=== PATIENT | male | born 1940 | race Caucasian/White ===

== ENCOUNTER → 2017-02-07 | Outpatient (CLI) | payer MEDICARE ==
[2017-02-07 15:14] LABS: ANION GAP 10 (5-19); BLOOD UREA NITROGEN 34 mg/dL (7-20); CALCIUM 9.6 mg/dL (8.4-10.2); CARBON DIOXIDE 31 mmol/L (22-30); CHLORIDE 103 mmol/L (98-107); CREATININE RESULT 1.86 mg/dL (0.52-1.25); GLUCOSE 109 mg/dL (75-110); POTASSIUM 5.2 mmol/L (3.6-5.0); SODIUM 144.2 mmol/L (137-145)
== END ==
LOC: OD 14:11
PROVIDERS: ATTEND Internal Medicine Cardiovascular Disease
DX: N18.3 Chronic kidney disease, stage 3 (moderate) (principal); Z79.899 Other long term (current) drug therapy
CPT/HCPCS: 36415; 80048; 83735

== ENCOUNTER → 2017-05-20 | Outpatient (CLI) | payer MEDICARE ==
[2017-05-20 12:08] LABS: ANION GAP 10 (5-19); BLOOD UREA NITROGEN 32 mg/dL (7-20); CALCIUM 8.7 mg/dL (8.4-10.2); CARBON DIOXIDE 27 mmol/L (22-30); CHLORIDE 105 mmol/L (98-107); CREATININE RESULT 1.79 mg/dL (0.52-1.25); GLUCOSE 82 mg/dL (75-110); POTASSIUM 4.6 mmol/L (3.6-5.0); SODIUM 141.5 mmol/L (137-145)
== END ==
LOC: OD 10:47
PROVIDERS: ATTEND Internal Medicine Cardiovascular Disease
DX: Z79.899 Other long term (current) drug therapy (principal)
CPT/HCPCS: 36415; 80048

== ENCOUNTER → 2018-02-06 | Outpatient (CLI) | payer MEDICARE ==
[2018-02-06 14:44] LABS: ALANINE AMINOTRANSFERASE 23 U/L (21-72); ALBUMIN 3.9 g/dL (3.5-5.0); ALKALINE PHOSPHATASE 62 U/L (38-126); ASPARTATE AMINO TRANSFERASE 19 U/L (17-59); BILIRUBIN,DIRECT 0.4 mg/dL (0.0-0.4); BILIRUBIN,TOTAL 0.7 mg/dL (0.2-1.3); CHOLESTEROL 182.85 mg/dL (0-200); CREATINE KINASE 88 U/L (55-170); TOTAL PROTEIN 6.3 g/dL (6.3-8.2); TRIGLYCERIDES 224 mg/dL (<150)
[2018-02-06 14:55] LABS: DIRECT LDL 100 mg/dL (<100)
[2018-02-06 14:59] LABS: VLDL CHOLESTEROL 44.8 mg/dL (10-31)
== END ==
LOC: OD 13:47
PROVIDERS: ATTEND Internal Medicine Cardiovascular Disease
DX: E78.2 Mixed hyperlipidemia (principal); R25.2 Cramp and spasm; Z79.899 Other long term (current) drug therapy
CPT/HCPCS: 36415; 80061; 80076; 82550

== ENCOUNTER → 2018-05-10 | Outpatient (CLI) | payer MEDICARE ==
[2018-05-10 10:09] LABS: CHOLESTEROL 109.07 mg/dL (0-200); TRIGLYCERIDES 98 mg/dL (<150)
[2018-05-10 10:20] LABS: DIRECT LDL 47 mg/dL (<100)
== END ==
LOC: OD 08:46
PROVIDERS: ATTEND Internal Medicine Cardiovascular Disease
DX: E78.2 Mixed hyperlipidemia (principal)
CPT/HCPCS: 36415; 80061

== ENCOUNTER → 2018-06-11 | Outpatient (CLI) | payer MEDICARE ==
[2018-06-11 14:24] LABS: HEMATOCRIT 37.1 % (37.9-51.0); HEMOGLOBIN 12.6 g/dL (13.5-17.0); MEAN CORPUSCULAR HEMOGLOBIN 31.3 pg (27.0-33.4); MEAN CORPUSCULAR VOLUME 92 fl (80-97); PLATELET COUNT 180 10^3/uL (150-450); RED BLOOD COUNT 4.04 10^6/uL (4.35-5.55); RED CELL DISTRIBUTION WIDTH 13.3 % (11.5-14.0); WHITE BLOOD COUNT 7.5 10^3/uL (4.0-10.5)
[2018-06-11 14:51] LABS: ALANINE AMINOTRANSFERASE 20 U/L (21-72); ALBUMIN 3.8 g/dL (3.5-5.0); ALKALINE PHOSPHATASE 68 U/L (38-126); ANION GAP 10 (5-19); ASPARTATE AMINO TRANSFERASE 15 U/L (17-59); BILIRUBIN,DIRECT 0.3 mg/dL (0.0-0.4); BILIRUBIN,TOTAL 0.6 mg/dL (0.2-1.3); BLOOD UREA NITROGEN 43 mg/dL (7-20); CALCIUM 9.2 mg/dL (8.4-10.2); CARBON DIOXIDE 29 mmol/L (22-30); CHLORIDE 104 mmol/L (98-107); CHOLESTEROL 122.17 mg/dL (0-200); GLUCOSE 97 mg/dL (75-110); POTASSIUM 4.7 mmol/L (3.6-5.0); SODIUM 142.8 mmol/L (137-145); TOTAL PROTEIN 6.4 g/dL (6.3-8.2); TRIGLYCERIDES 162 mg/dL (<150)
[2018-06-11 15:05] LABS: DIRECT LDL 52 mg/dL (<100)
[2018-06-11 15:27] LABS: VLDL CHOLESTEROL 32.4 mg/dL (10-31)
== END ==
LOC: OD 12:50
PROVIDERS: ATTEND Physician Assistant
DX: E03.9 Hypothyroidism, unspecified (principal); E29.1 Testicular hypofunction; E78.2 Mixed hyperlipidemia; G47.33 Obstructive sleep apnea (adult) (pediatric); E11.22 Type 2 diabetes mellitus with diabetic chronic kidney disease; R35.1 Nocturia
CPT/HCPCS: 36415; 80053; 80061; 83036; 84153; 84443; 85027

== ENCOUNTER → 2018-06-21 | Outpatient (CLI) | payer MEDICARE ==
[2018-06-21 09:42] LABS: ABSOLUTE EOSINOPHILS # (AUTO) 0.3 10^3/uL (0.0-0.6); ABSOLUTE LYMPHOCYTES (AUTO) 1.3 10^3/uL (0.5-4.7); ABSOLUTE MONOCYTES (AUTO) 0.5 10^3/uL (0.1-1.4); ABSOLUTE NEUT (AUTO) 4.6 10^3/uL (1.7-8.2); BASOPHILS % (AUTO) 0.7 % (0-2); EOSINOPHILS % (AUTO) 4.9 % (0-6); HEMATOCRIT 34.4 % (37.9-51.0); HEMOGLOBIN 11.8 g/dL (13.5-17.0); LYMPHOCYTES % (AUTO) 18.7 % (13-45); MEAN CORPUSCULAR HEMOGLOBIN 31.6 pg (27.0-33.4); MEAN CORPUSCULAR HGB CONC 34.4 g/dL (32.0-36.0); MEAN CORPUSCULAR VOLUME 92 fl (80-97); MONOCYTES % (AUTO) 7.2 % (3-13); PLATELET COUNT 165 10^3/uL (150-450); RED BLOOD COUNT 3.75 10^6/uL (4.35-5.55); RED CELL DISTRIBUTION WIDTH 13.6 % (11.5-14.0); SEGMENTED NEUTROPHILS % (AUTO) 68.5 % (42-78); TOTAL CELLS COUNTED % (AUTO) 100 %; WHITE BLOOD COUNT 6.8 10^3/uL (4.0-10.5)
[2018-06-21 09:45] LABS: UR PRO/CREAT RATIO RESULT 1.1 mg/mg (0.0-0.2); URINE PROTEIN 36.3 mg/dL (<12)
[2018-06-21 10:02] LABS: ALBUMIN 3.7 g/dL (3.5-5.0); ANION GAP 10 (5-19); BLOOD UREA NITROGEN 46 mg/dL (7-20); CALCIUM 8.7 mg/dL (8.4-10.2); CARBON DIOXIDE 29 mmol/L (22-30); CHLORIDE 103 mmol/L (98-107); GLUCOSE 81 mg/dL (75-110); PHOSPHORUS 4.4 mg/dL (2.5-4.5); POTASSIUM 4.6 mmol/L (3.6-5.0); SODIUM 141.9 mmol/L (137-145)
== END ==
LOC: OD 08:51
PROVIDERS: ATTEND Internal Medicine Nephrology
DX: I12.9 Hypertensive chronic kidney disease with stage 1 through stage 4 chronic kidney disease, or unspecified chronic kidney disease (principal); N18.4 Chronic kidney disease, stage 4 (severe); N25.81 Secondary hyperparathyroidism of renal origin; R80.1 Persistent proteinuria, unspecified; E11.29 Type 2 diabetes mellitus with other diabetic kidney complication
CPT/HCPCS: 36415; 80048; 82040; 82306; 82570; 83970; 84100; 84156; 85025

== ENCOUNTER → 2018-09-15 | Outpatient (CLI) | payer MEDICARE ==
[2018-09-15 16:40] LABS: ALANINE AMINOTRANSFERASE 29 U/L (21-72); ALBUMIN 3.5 g/dL (3.5-5.0); ALKALINE PHOSPHATASE 71 U/L (38-126); ANION GAP 11 (5-19); ASPARTATE AMINO TRANSFERASE 28 U/L (17-59); BILIRUBIN,DIRECT 0.3 mg/dL (0.0-0.4); BLOOD UREA NITROGEN 54 mg/dL (7-20); CALCIUM 8.7 mg/dL (8.4-10.2); CARBON DIOXIDE 29 mmol/L (22-30); CHLORIDE 101 mmol/L (98-107); CHOLESTEROL 115.45 mg/dL (0-200); GLUCOSE 93 mg/dL (75-110); POTASSIUM 4.7 mmol/L (3.6-5.0); SODIUM 140.9 mmol/L (137-145); TOTAL PROTEIN 5.7 g/dL (6.3-8.2); TRIGLYCERIDES 112 mg/dL (<150)
[2018-09-15 16:51] LABS: DIRECT LDL 56 mg/dL (<100)
[2018-09-17 10:38] LABS: CREATININE URINE 65.3 mg/dL (Not Estab.)
== END ==
LOC: OD 14:55
PROVIDERS: ATTEND Internal Medicine Cardiovascular Disease
DX: I12.9 Hypertensive chronic kidney disease with stage 1 through stage 4 chronic kidney disease, or unspecified chronic kidney disease (principal); N18.3 Chronic kidney disease, stage 3 (moderate); E11.22 Type 2 diabetes mellitus with diabetic chronic kidney disease; E78.2 Mixed hyperlipidemia; R60.0 Localized edema; R06.02 Shortness of breath; Z79.899 Other long term (current) drug therapy
CPT/HCPCS: 36415; 80048; 80061; 80076; 82043; 82570; 83036; 83880

== ENCOUNTER → 2018-10-23 | Outpatient (CLI) | payer MEDICARE ==
[2018-10-23 13:30] LABS: ANION GAP 10 (5-19); BLOOD UREA NITROGEN 52 mg/dL (7-20); CALCIUM 8.8 mg/dL (8.4-10.2); CARBON DIOXIDE 30 mmol/L (22-30); CHLORIDE 101 mmol/L (98-107); GLUCOSE 96 mg/dL (75-110); POTASSIUM 4.5 mmol/L (3.6-5.0); SODIUM 140.9 mmol/L (137-145)
== END ==
LOC: OD 12:27
PROVIDERS: ATTEND Internal Medicine Nephrology
DX: N18.3 Chronic kidney disease, stage 3 (moderate) (principal); E11.9 Type 2 diabetes mellitus without complications; D64.9 Anemia, unspecified
CPT/HCPCS: 36415; 80048

== ENCOUNTER → 2018-12-03 | Outpatient (CLI) | payer MEDICARE ==
[2018-12-04 13:39] LABS: CREATININE URINE 70.9 mg/dL (Not Estab.); MICROALBUMIN URINE 238.8 ug/mL (Not Estab.)
== END ==
LOC: OD 11:08
PROVIDERS: ATTEND Internal Medicine Cardiovascular Disease
DX: I12.9 Hypertensive chronic kidney disease with stage 1 through stage 4 chronic kidney disease, or unspecified chronic kidney disease (principal); N18.3 Chronic kidney disease, stage 3 (moderate); R60.0 Localized edema; R06.02 Shortness of breath
CPT/HCPCS: 36415; 82043; 82570; 83880

== ENCOUNTER → 2019-01-30 | Outpatient (CLI) | payer MEDICARE ==
[2019-01-30 13:36] LABS: ABSOLUTE EOSINOPHILS # (AUTO) 0.3 10^3/uL (0.0-0.6); ABSOLUTE LYMPHOCYTES (AUTO) 1.1 10^3/uL (0.5-4.7); ABSOLUTE MONOCYTES (AUTO) 0.4 10^3/uL (0.1-1.4); ABSOLUTE NEUT (AUTO) 4.4 10^3/uL (1.7-8.2); BASOPHILS % (AUTO) 0.6 % (0-2); EOSINOPHILS % (AUTO) 5.3 % (0-6); HEMATOCRIT 30.4 % (37.9-51.0); HEMOGLOBIN 10.6 g/dL (13.5-17.0); LYMPHOCYTES % (AUTO) 17.5 % (13-45); MEAN CORPUSCULAR HEMOGLOBIN 31.1 pg (27.0-33.4); MEAN CORPUSCULAR HGB CONC 34.9 g/dL (32.0-36.0); MEAN CORPUSCULAR VOLUME 89 fl (80-97); MONOCYTES % (AUTO) 5.9 % (3-13); PLATELET COUNT 170 10^3/uL (150-450); RED BLOOD COUNT 3.41 10^6/uL (4.35-5.55); RED CELL DISTRIBUTION WIDTH 15.3 % (11.5-14.0); SEGMENTED NEUTROPHILS % (AUTO) 70.7 % (42-78); TOTAL CELLS COUNTED % (AUTO) 100 %; WHITE BLOOD COUNT 6.2 10^3/uL (4.0-10.5)
[2019-01-30 13:51] LABS: ANION GAP 10 (5-19); BLOOD UREA NITROGEN 69 mg/dL (7-20); CALCIUM 9.5 mg/dL (8.4-10.2); CARBON DIOXIDE 30 mmol/L (22-30); CHLORIDE 98 mmol/L (98-107); GLUCOSE 170 mg/dL (75-110); POTASSIUM 4.7 mmol/L (3.6-5.0); SODIUM 138.3 mmol/L (137-145)
[2019-01-30 13:59] LABS: UR PRO/CREAT RATIO RESULT 0.5 mg/mg (0.0-0.2); URINE CREATININE 53.9 mg/dL (22-328); URINE PROTEIN 27.9 mg/dL (<12)
== END ==
LOC: OD 13:06
PROVIDERS: ATTEND Internal Medicine Nephrology
DX: N18.3 Chronic kidney disease, stage 3 (moderate) (principal); D64.9 Anemia, unspecified; R80.9 Proteinuria, unspecified
CPT/HCPCS: 36415; 80048; 82570; 83970; 84156; 85025

== ENCOUNTER → 2019-03-05 | Outpatient (CLI) | payer MEDICARE ==
[2019-03-05 12:54] LABS: ABSOLUTE BASOPHILS # (AUTO) 0.1 10^3/uL (0.0-0.2); ABSOLUTE EOSINOPHILS # (AUTO) 0.2 10^3/uL (0.0-0.6); ABSOLUTE LYMPHOCYTES (AUTO) 1.2 10^3/uL (0.5-4.7); ABSOLUTE MONOCYTES (AUTO) 0.4 10^3/uL (0.1-1.4); ABSOLUTE NEUT (AUTO) 4.6 10^3/uL (1.7-8.2); BASOPHILS % (AUTO) 0.9 % (0-2); EOSINOPHILS % (AUTO) 3.3 % (0-6); HEMOGLOBIN 11.3 g/dL (13.5-17.0); LYMPHOCYTES % (AUTO) 18.6 % (13-45); MEAN CORPUSCULAR HEMOGLOBIN 31.3 pg (27.0-33.4); MEAN CORPUSCULAR HGB CONC 35.3 g/dL (32.0-36.0); MEAN CORPUSCULAR VOLUME 89 fl (80-97); MONOCYTES % (AUTO) 6.6 % (3-13); PLATELET COUNT 191 10^3/uL (150-450); RED BLOOD COUNT 3.61 10^6/uL (4.35-5.55); RED CELL DISTRIBUTION WIDTH 14.5 % (11.5-14.0); SEGMENTED NEUTROPHILS % (AUTO) 70.6 % (42-78); TOTAL CELLS COUNTED % (AUTO) 100 %; WHITE BLOOD COUNT 6.5 10^3/uL (4.0-10.5)
[2019-03-05 13:16] LABS: ANION GAP 9 (5-19); BLOOD UREA NITROGEN 44 mg/dL (7-20); CALCIUM 9.2 mg/dL (8.4-10.2); CARBON DIOXIDE 29 mmol/L (22-30); CHLORIDE 102 mmol/L (98-107); GLUCOSE 153 mg/dL (75-110); POTASSIUM 4.3 mmol/L (3.6-5.0); SODIUM 139.9 mmol/L (137-145)
== END ==
LOC: OD 11:51
PROVIDERS: ATTEND Internal Medicine Nephrology
DX: I12.9 Hypertensive chronic kidney disease with stage 1 through stage 4 chronic kidney disease, or unspecified chronic kidney disease (principal); N18.4 Chronic kidney disease, stage 4 (severe); E11.22 Type 2 diabetes mellitus with diabetic chronic kidney disease
CPT/HCPCS: 36415; 80048; 85025

== ENCOUNTER → 2019-03-20 | Outpatient (CLI) | payer MEDICARE ==
--- NOTE | 2019-03-20 09:08 | RADIOLOGY REPORT (SQ) ---
EXAM DESCRIPTION: U/S ABD AORTIC SCREENING COMPLETED DATE/TIME: 03/20/2019 8:47 am REASON FOR STUDY: ABD BRUIT R09.89 OTH SYMPTOMS AND SIGNS INVOLVING THE CIRC AND RESP SY COMPARISON: None. TECHNIQUE: Static and dynamic grayscale images acquired of the aorta and stored on PACs. Selected co sary Doppler and spectral images recorded. LIMITATIONS: None. FINDINGS: AORTIC CALIBER MAXIMAL PROXIMAL: 2.7 cm. MID: 2.2 cm. DISTAL: 2.6 cm. ILIAC DIAMETER RIGHT: 1.5 cm. LEFT: 1.7 cm. OTHER: No other significant finding. IMPRESSION: NO ABDOMINAL AORTIC ANEURYSM. COMMENT: Aortic aneurysm imaging followup: Negative, no followup necessary. *Based upon the Society for Vascular Surgery Guidelines: J Vasc Surg. 2009 Oct;50(4 Suppl):S2-49 *For aortas of maximum diameter of 2.6-2.9 cm meeting the criteria for AAA (?1.5 x proximal normal se gment) TECHNICAL DOCUMENTATION: JOB ID: [id number] [employer]- All Rights Reserved Reading location - IP/workstation name: [email or web address]
== END ==
LOC: RAD 08:18
PROVIDERS: ATTEND Internal Medicine Cardiovascular Disease
DX: R09.89 Other specified symptoms and signs involving the circulatory and respiratory systems (principal)
CPT/HCPCS: 76706

== ENCOUNTER → 2019-03-26 | Outpatient (CLI) | payer MEDICARE ==
[2019-03-26 15:03] LABS: APPEARANCE,URINE CLEAR; BILIRUBIN,URINE NEGATIVE (NEGATIVE); COLOR,URINE YELLOW; GLUCOSE, URINE NEGATIVE (NEGATIVE); KETONES,URINE NEGATIVE (NEGATIVE); LEUKOCYTE ESTERASE,URINE NEGATIVE (NEGATIVE); NITRITE,URINE NEGATIVE (NEGATIVE); PROTEIN,URINE 100 mg/dL (NEGATIVE); URINE SPECIFIC GRAVITY 1.011; UROBILINOGEN,URINE NEGATIVE mg/dL (<2.0)
[2019-03-26 15:07] LABS: HEMATOCRIT 34.2 % (37.9-51.0); HEMOGLOBIN 11.7 g/dL (13.5-17.0); MEAN CORPUSCULAR HEMOGLOBIN 30.7 pg (27.0-33.4); MEAN CORPUSCULAR HGB CONC 34.2 g/dL (32.0-36.0); MEAN CORPUSCULAR VOLUME 90 fl (80-97); PLATELET COUNT 211 10^3/uL (150-450); RED BLOOD COUNT 3.81 10^6/uL (4.35-5.55); RED CELL DISTRIBUTION WIDTH 14.5 % (11.5-14.0); WHITE BLOOD COUNT 5.7 10^3/uL (4.0-10.5)
[2019-03-26 15:21] LABS: ALANINE AMINOTRANSFERASE 22 U/L (21-72); ALBUMIN 3.6 g/dL (3.5-5.0); ALKALINE PHOSPHATASE 84 U/L (38-126); ANION GAP 7 (5-19); ASPARTATE AMINO TRANSFERASE 15 U/L (17-59); BILIRUBIN,DIRECT 0.3 mg/dL (0.0-0.4); BILIRUBIN,TOTAL 0.8 mg/dL (0.2-1.3); BLOOD UREA NITROGEN 48 mg/dL (7-20); CALCIUM 9.4 mg/dL (8.4-10.2); CARBON DIOXIDE 33 mmol/L (22-30); CHLORIDE 99 mmol/L (98-107); GLUCOSE 206 mg/dL (75-110); POTASSIUM 4.6 mmol/L (3.6-5.0); SODIUM 139.2 mmol/L (137-145)
[2019-03-26 15:29] LABS: ANION GAP 7 (5-19); BLOOD UREA NITROGEN 48 mg/dL (7-20); CALCIUM 9.4 mg/dL (8.4-10.2); CARBON DIOXIDE 33 mmol/L (22-30); CHLORIDE 99 mmol/L (98-107); GLUCOSE 206 mg/dL (75-110); POTASSIUM 4.6 mmol/L (3.6-5.0); SODIUM 139.2 mmol/L (137-145)
== END ==
LOC: LAB 14:18
PROVIDERS: ATTEND Internal Medicine Nephrology
DX: I12.9 Hypertensive chronic kidney disease with stage 1 through stage 4 chronic kidney disease, or unspecified chronic kidney disease (principal); N18.3 Chronic kidney disease, stage 3 (moderate); E11.9 Type 2 diabetes mellitus without complications; D63.1 Anemia in chronic kidney disease; I48.0 Paroxysmal atrial fibrillation; Z79.01 Long term (current) use of anticoagulants; Z79.899 Other long term (current) drug therapy
CPT/HCPCS: 36415; 80048; 80076; 81001; 82272; 85027; 85730

== ENCOUNTER 2019-04-16 18:04 | Emergency (ER) | payer MEDICARE ==
--- NOTE | 2019-04-16 18:28 | ER Document Report ---
ED Medical Screen (RME) - General Chief Complaint: General Weakness Stated Complaint: WEAKNESS Time Seen by Provider: 04/16/19 18:20 Primary Care Provider: GAIL OSMAN MD [Primary Care Provider] - Follow up as needed TRAVEL OUTSIDE OF THE [place]. IN LAST 30 DAYS: No - HPI Notes: 04/16/19 18:25 Patient is a 78-year-old male with a history of hypertension, coronary artery disease, diabetes, COPD, CKD who presents complaining of generalized weakness, glucose in the 400s, nausea, and having shortness of breath. Patient states that shortness of breath began last evening. He is otherwise able to eat and drink without difficulty. He is urinating normally and having normal bowel movements. He is not on dialysis. He has not noticed any unilateral weakness. Denies LEMUS, fever, neck pain, URI, CP, Abd pain, back pain, or rash. I have treated and performed a rapid initial assessment of this patient. A comprehensive ED assessment and evaluation of the patient, analysis of test results and completion of medical decision making process will be conducted by additional ED providers. PHYSICAL EXAMINATION: GENERAL: Well-appearing, well-nourished and in no acute distress. A&Ox4. Answers questions appropriately. LUNGS: Diminished bilaterally HEART: Regular rate and rhythm without murmurs, rubs, gallops. ABDOMEN: Soft, nondistended abdomen. No guarding, no rebound. Normal bowel sounds present. No CVA tenderness bilaterally. Grossly nontender (cannot elicit thorough abd exam w/o bed, however). NEUROLOGICAL: Normal speech. Cranial nerves grossly intact. PSYCH: Normal mood, normal affect. - Related Data Allergies/Adverse Reactions: clonidine [Clonidine] Allergy (Intermediate, Verified 03/16/19 15:17) Respiratory distress Past Medical History - Social History Frequency of alcohol use: None Drug Abuse: None - Past Medical History Cardiac Medical History: Reports: Hx Atrial Fibrillation, Hx Coronary Artery Disease, Hx Heart Attack, Hx Hypertension Pulmonary Medical History: Reports: Hx COPD, Hx Pneumonia - as a baby Denies: Hx Asthma, Hx Bronchitis Neurological Medical History: Denies: Hx Cerebrovascular Accident, Hx Seizures Endocrine Medical History: Reports: Hx Diabetes Mellitus Type 1 Renal/ Medical History: Denies: Hx Peritoneal Dialysis Musculoskeltal Medical History: Reports Hx Arthritis Past Surgical History: Reports: Hx Cardiac Catheterization - stents, Hx Cardiac Surgery - pacemaker - Immunizations Hx Diphtheria, Pertussis, Tetanus Vaccination: Yes Physical Exam - Vital signs Vitals: Temp Pulse Resp BP Pulse Ox 97.9 F 72 16 137/68 H 97 04/16/19 18:10 04/16/19 18:10 04/16/19 18:10 04/16/19 18:10 04/16/19 18:10 Course - Vital Signs Vital signs: Temp Pulse Resp BP Pulse Ox 97.9 F 72 16 137/68 H 97 04/16/19 18:10 04/16/19 18:10 04/16/19 18:10 04/16/19 18:10 04/16/19 18:10 Doctor's Discharge - Discharge Referrals: GAIL OSMAN MD [Primary Care Provider] - Follow up as needed
[2019-04-16 18:42] LABS: ABSOLUTE BASOPHILS # (AUTO) 0.1 10^3/uL (0.0-0.2); ABSOLUTE EOSINOPHILS # (AUTO) 0.1 10^3/uL (0.0-0.6); ABSOLUTE LYMPHOCYTES (AUTO) 0.9 10^3/uL (0.5-4.7); ABSOLUTE MONOCYTES (AUTO) 0.5 10^3/uL (0.1-1.4); ABSOLUTE NEUT (AUTO) 9.5 10^3/uL (1.7-8.2); BASOPHILS % (AUTO) 0.5 % (0-2); EOSINOPHILS % (AUTO) 0.7 % (0-6); HEMATOCRIT 24.8 % (37.9-51.0); HEMOGLOBIN 8.3 g/dL (13.5-17.0); LYMPHOCYTES % (AUTO) 7.8 % (13-45); MEAN CORPUSCULAR HEMOGLOBIN 30.8 pg (27.0-33.4); MEAN CORPUSCULAR HGB CONC 33.6 g/dL (32.0-36.0); MEAN CORPUSCULAR VOLUME 92 fl (80-97); MONOCYTES % (AUTO) 4.9 % (3-13); PLATELET COUNT 234 10^3/uL (150-450); RED BLOOD COUNT 2.71 10^6/uL (4.35-5.55); RED CELL DISTRIBUTION WIDTH 13.9 % (11.5-14.0); SEGMENTED NEUTROPHILS % (AUTO) 86.1 % (42-78); TOTAL CELLS COUNTED % (AUTO) 100 %; WHITE BLOOD COUNT 11.1 10^3/uL (4.0-10.5)
[2019-04-16 18:47] LABS: ALANINE AMINOTRANSFERASE 20 U/L (21-72); ALBUMIN 3.1 g/dL (3.5-5.0); ALKALINE PHOSPHATASE 85 U/L (38-126); ANION GAP 10 (5-19); ASPARTATE AMINO TRANSFERASE 13 U/L (17-59); BILIRUBIN,DIRECT 0.4 mg/dL (0.0-0.4); BILIRUBIN,TOTAL 0.7 mg/dL (0.2-1.3); BLOOD UREA NITROGEN 49 mg/dL (7-20); CALCIUM 8.6 mg/dL (8.4-10.2); CARBON DIOXIDE 30 mmol/L (22-30); CHLORIDE 96 mmol/L (98-107); GLUCOSE 311 mg/dL (75-110); POTASSIUM 4.8 mmol/L (3.6-5.0); SODIUM 135.7 mmol/L (137-145); TOTAL PROTEIN 5.2 g/dL (6.3-8.2)
--- NOTE | 2019-04-16 18:47 | RADIOLOGY REPORT (SQ) ---
EXAM DESCRIPTION: CHEST SINGLE VIEW COMPLETED DATE/TIME: 04/16/2019 6:38 pm REASON FOR STUDY: weakness, sob COMPARISON: 11/01/2015 EXAM PARAMETERS: NUMBER OF VIEWS: One view. TECHNIQUE: Single frontal radiographic view of the chest acquired. RADIATION DOSE: NA LIMITATIONS: None. FINDINGS: LUNGS AND PLEURA: Mild basilar atelectasis. MEDIASTINUM AND HILAR STRUCTURES: No masses. Contour normal. HEART AND VASCULAR STRUCTURES: Heart normal in size. Normal vasculature. BONES: No acute findings. HARDWARE: Sternotomy wires. Pacemaker. OTHER: No other significant finding. IMPRESSION: NO ACUTE RADIOGRAPHIC FINDING IN THE CHEST. TECHNICAL DOCUMENTATION: JOB ID: [id number] [employer]- All Rights Reserved Reading location - IP/workstation name: [email or web address]
[2019-04-16 19:13] LABS: TROPONIN I 0.042 ng/mL
--- NOTE | 2019-04-16 19:45 | EKG REPORT ---
SEVERITY:- ABNORMAL ECG - ATRIAL-SENSED VENTRICULAR-PACED RHYTHM : Confirmed by: Yina Peter MD 16-Apr-2019 19:44:49
[2019-04-16] MEDS ORDERED: ACETAMINOPHEN 325 MG TABLET PO ONE (20:03)
--- NOTE | 2019-04-16 20:04 | ER Document Report ---
ED General - General Chief Complaint: General Weakness Stated Complaint: WEAKNESS Time Seen by Provider: 04/16/19 18:20 Primary Care Provider: GAIL OSMAN MD [Primary Care Provider] - Follow up as needed Notes: Patient is a 78-year-old male with multiple chronic medical conditions including atrial fibrillation, CHF, chronic kidney disease and diabetes that presents to the emergency department for chief complaint of left kidney pain. Patient states that last night he started having pain in his left flank, and it suddenly got worse throughout today, he is felt somewhat fatigued, but denies any new symptoms such as chest pain, shortness of breath, nausea, vomiting, abdominal pain. Denies any hematuria or dysuria. Denies prior history of kidney stones. He currently rates the pain as a 6 out of 10 describes it as a sharp pain, that is constant in nature, does not seem to get better or worse with any particular position. He has not taken any medications at home to try to make it feel better. Past Medical History: CKD, atrial fibrillation on Eliquis, diabetes mellitus, hypertension Past Surgical History: CABG x3 pacemaker placement Social History: Denies current tobacco, alcohol or drug use. Family History: Reviewed and noncontributory for presenting illness Allergies: Reviewed, see documented allergy list. REVIEW OF SYSTEMS: Other than noted above, the 12 point review of systems was reviewed with the patient and were negative, all pertinent findings are included in the HPI. PHYSICAL EXAMINATION: Vital signs reviewed, nursing noted reviewed. GENERAL: Elderly male, no acute distress, but does appear uncomfortable HEAD: Atraumatic, normocephalic. EYES: Eyes appear normal, extraocular movements intact, sclera anicteric, pale conjunctiva ENT: nares patent, oropharynx clear without exudates. Moist mucous membranes. NECK: Normal range of motion, supple without lymphadenopathy LUNGS: Breath sounds clear to auscultation bilaterally and equal. No wheezes rales or rhonchi. HEART: Regular rate and rhythm without murmurs, telemetry demonstrates paced rhythm ABDOMEN: Soft, left CVA tenderness with palpation, no anterior abdominal tenderness, normoactive bowel sounds. No rebound, guarding, or rigidity. No masses appreciated. EXTREMITIES: Nontender, good range of motion, stasis changes, in the lower extremities, 1+ pitting edema to the proximal tibias NEUROLOGICAL: No focal neurological deficits. Moves all extremities spontaneously Motor and sensory grossly intact on exam. PSYCH: Normal mood, normal affect. SKIN: Warm, Dry, normal turgor, stasis skin changes to the lower extremities bilaterally, skin overall appears pale TRAVEL OUTSIDE OF THE [place] IN LAST 30 DAYS: No - Related Data Allergies/Adverse Reactions: clonidine [Clonidine] Allergy (Intermediate, Verified 03/16/19 15:17) Respiratory distress Past Medical History - Social History Smoking Status: Former Smoker Frequency of alcohol use: None Drug Abuse: None Family History: Reviewed & Not Pertinent Patient has suicidal ideation: No Patient has homicidal ideation: No - Past Medical History Cardiac Medical History: Reports: Hx Atrial Fibrillation, Hx Coronary Artery Disease, Hx Heart Attack, Hx Hypertension Pulmonary Medical History: Reports: Hx COPD, Hx Pneumonia - as a baby Denies: Hx Asthma, Hx Bronchitis Neurological Medical History: Denies: Hx Cerebrovascular Accident, Hx Seizures Endocrine Medical History: Reports: Hx Diabetes Mellitus Type 1 Renal/ Medical History: Denies: Hx Peritoneal Dialysis Musculoskeletal Medical History: Reports Hx Arthritis Past Surgical History: Reports: Hx Cardiac Catheterization - stents, Hx Cardiac Surgery - pacemaker - Immunizations Hx Diphtheria, Pertussis, Tetanus Vaccination: Yes Hx Pneumococcal Vaccination: 11/18/10 Physical Exam - Vital signs Vitals: Temp Pulse Resp BP Pulse Ox 97.9 F 72 16 137/68 H 97 04/16/19 18:10 04/16/19 18:10 04/16/19 18:10 04/16/19 18:10 04/16/19 18:10 Course - Re-evaluation Re-evalutation: Patient seen and examined vital signs reviewed. Laboratory data and imaging were ordered as appropriate for the patient's presenting symptoms and complaint, with consideration of any critical or life threatening conditions that may be associated with their obtained history and exam as noted above. Patient was treated with small bolus of IV fluids, Tylenol for his pain Results were reviewed when available and demonstrated worsening renal function, from his baseline which appears to be around 2.1, his creatinine today was 2.8, mild hyponatremia, his hemoglobin was noted to drop from 11.7-8.3, his last known blood work was from 03/26/2019, which is a significant drop over the course of only a few weeks, he denied having any melena, or bright red blood per rectum. Denied any hematuria. Due to the patient's left flank pain, CT imaging of the abdomen and pelvis was ordered without contrast due to his renal impairment, and this demonstrated a rather large perinephric hematoma, and possible hemorrhagic cysts associated with this, and a large calcification that could be benign versus malignant mass, unknown etiology. I did discuss these results with the radiologist. This was also reviewed with the patient and I discussed with him that this would need to be addressed at a tertiary center, he agreed for me to call to [facility] for his transfer. The patient was re-evaluated and was stable, his blood pressure was elevated, will give him a dose of IV hydralazine to help augment the patient's blood pressure. Evaluation was most consistent with left flank pain secondary to large perinephric hematoma, which likely explains the patient's acute blood loss anemia, he is on Eliquis, this could be spontaneous, or secondary to possible mass that was identified as well on CT imaging. Patient was typed and screened, his hemoglobin is 8.3, no plan to transfuse at this time, but if it does drop below 8, is a status post CABG patient, will transfuse 1 unit as needed. Results were discussed with the patient at this point after careful consideration I feel that that patient should be transferred to [facility] due to need for possible interventional radiology, and further assessment of his renal mass. Spoke with Dr. Carranza who graciously excepted the patient. This was discussed with the patient that it is in the best interest for their care to be transferred, the risks and benefits of transfer were discussed, including but not limited to clinical deterioration during transport, respiratory distress, and potential for traumatic injuries. Patient agreed with this plan of care. *Note is created using voice recognition software and may contain spelling, syntax or grammatical errors. Laboratory 04/16/19 04/16/19 04/16/19 18:14 18:14 18:14 WBC 11.1 H RBC 2.71 L Hgb 8.3 L Hct 24.8 L MCV 92 MCH 30.8 MCHC 33.6 RDW 13.9 Plt Count 234 Seg Neutrophils % 86.1 H Lymphocytes % 7.8 L Monocytes % 4.9 Eosinophils % 0.7 Basophils % 0.5 Absolute Neutrophils 9.5 H Absolute Lymphocytes 0.9 Absolute Monocytes 0.5 Absolute Eosinophils 0.1 Absolute Basophils 0.1 Sodium 135.7 L Potassium 4.8 Chloride 96 L Carbon Dioxide 30 Anion Gap 10 BUN 49 H Creatinine 2.82 H Est GFR ( Amer) 26 L Est GFR (Non-Af Amer) 22 L Glucose 311 H Calcium 8.6 Total Bilirubin 0.7 Direct Bilirubin 0.4 Neonat Total Bilirubin Not Reportable Neonat Direct Bilirubin Not Reportable Neonat Indirect Bili Not Reportable AST 13 L ALT 20 L Alkaline Phosphatase 85 Troponin I 0.042 NT-Pro-B Natriuret Pep 2360 H Total Protein 5.2 L Albumin 3.1 L Chest X-Ray 04/16/19 18:27 IMPRESSION: NO ACUTE RADIOGRAPHIC FINDING IN THE CHEST. Abdomen/Pelvis CT 04/16/19 20:03 IMPRESSION: There is a large perinephric hematoma on the left a large component of which appears to be subcapsular resulting in some compression of the left kidney. There is a lobular area along the posterior margin of the left kidney measuring 3.3 cm which may be related to the hematoma. The possibility of a hemorrhagic cyst or mass is not excluded. Dr. Crisostomo was called and notified of the findings at 8:08 PM Central time Irregular area of calcification along the anterior aspect of the left kidney of uncertain clinical significance. Calcification can be seen in both benign and malignant renal lesions. There is additional perinephric and retroperitoneal hemorrhage which extends into the pelvis and the extraperitoneal aspect of the pelvic space Indeterminant lesions in the right kidney likely cysts but solid masses or not excluded. Aneurysmal dilatation of the infrarenal abdominal aorta measuring 3.8 cm. Recommend follow-up every 12 months Additional changes as above - Vital Signs Vital signs: Temp Pulse Resp BP Pulse Ox 97.9 F 72 16 148/68 H 98 04/16/19 18:10 04/16/19 18:10 04/16/19 18:10 04/16/19 20:00 04/16/19 18:27 - Laboratory Result Diagrams: 04/16/19 18:14 04/16/19 18:14 Laboratory results interpreted by me: 04/16/19 04/16/19 04/16/19 18:14 18:14 18:14 WBC 11.1 H RBC 2.71 L Hgb 8.3 L Hct 24.8 L Seg Neutrophils % 86.1 H Lymphocytes % 7.8 L Absolute Neutrophils 9.5 H Sodium 135.7 L Chloride 96 L BUN 49 H Creatinine 2.82 H Est GFR ( Amer) 26 L Est GFR (Non-Af Amer) 22 L Glucose 311 H AST 13 L ALT 20 L NT-Pro-B Natriuret Pep 2360 H Total Protein 5.2 L Albumin 3.1 L Discharge - Discharge Clinical Impression: Perinephric hematoma, Acute blood loss anemia, OLMAN (acute kidney injury), Renal mass Hypertension Qualifiers: Hypertension type: unspecified Qualified Code(s): I10 - Essential (primary) hypertension Condition: Stable Disposition: [facility] Referrals: GAIL OSMAN MD [Primary Care Provider] - Follow up as needed
[2019-04-16] MEDS ORDERED: NORMAL SALINE 500 ML IV ONE (20:57)
--- NOTE | 2019-04-16 21:15 | RADIOLOGY REPORT (SQ) ---
EXAM DESCRIPTION: CT ABDOMEN PELVIS WITHOUT IV CONTRAST COMPLETED DATE/TME: 04/16/2019 20:03 CLINICAL HISTORY: 78 years Male left flank pain, sudden onset last evening without trauma. Patient is [place] COMPARISON: None. TECHNIQUE: Contiguous axial images obtained through the abdomen and pelvis without IV contrast. Reformatted images obtained. This exam was performed according to our department optimization program which includes automated exposure control, adjustment of the mA and/or kv according to patient size and/or use of iterative reconstruction technique. FINDINGS: Small left pleural effusion. Pacemaker in place. Aortic and coronary calcification. The liver appears unremarkable. The spleen and pancreas appear unremarkable. There are two low-attenuation nodules in the right adrenal gland measuring 1.7-1.6 cm respectively. These have Hounsfield units consistent with adenoma. No follow-up is recommended. Exophytic lesions in the right kidney which are likely cysts. One of them is isodense and may be hemorrhagic. The possibility of other etiology not excluded. Recommend ultrasound. There is a large perinephric hematoma on the left which appears largely some capsular with some compression of the kidney. Additionally there is a very dense area of calcification along the anterior aspect of the midpole the left kidney which is of uncertain clinical significance. This area measures 3.6 x 3.2 cm. There is also perinephric hemorrhage and hemorrhage along the left retroperitoneum which extends into the extraperitoneal aspect of the pelvis. The gallbladder is visualized. Distal aorta measures 3.8 cm. Follow-up is recommended every 12 months. No bowel obstruction. There is small amount of hemorrhage within the pelvis. IMPRESSION: There is a large perinephric hematoma on the left a large component of which appears to be subcapsular resulting in some compression of the left kidney. There is a lobular area along the posterior margin of the left kidney measuring 3.3 cm which may be related to the hematoma. The possibility of a hemorrhagic cyst or mass is not excluded. Dr. Crisostomo was called and notified of the findings at 8:08 PM Central time Irregular area of calcification along the anterior aspect of the left kidney of uncertain clinical significance. Calcification can be seen in both benign and malignant renal lesions. There is additional perinephric and retroperitoneal hemorrhage which extends into the pelvis and the extraperitoneal aspect of the pelvic space Indeterminant lesions in the right kidney likely cysts but solid masses or not excluded. Aneurysmal dilatation of the infrarenal abdominal aorta measuring 3.8 cm. Recommend follow-up every 12 months Additional changes as above
[2019-04-16] MEDS ORDERED: HYDRALAZINE HCL INJ/PF 20 MG/1 ML SDV IV ONE (21:25)
[2019-04-16 23:32] LABS: APPEARANCE,URINE SLIGHTLY-CLOUDY; BILIRUBIN,URINE NEGATIVE (NEGATIVE); COLOR,URINE YELLOW; GLUCOSE, URINE 50 mg/dL (NEGATIVE); KETONES,URINE NEGATIVE (NEGATIVE); LEUKOCYTE ESTERASE,URINE NEGATIVE (NEGATIVE); NITRITE,URINE NEGATIVE (NEGATIVE); PROTEIN,URINE 100 mg/dL (NEGATIVE); URINE SPECIFIC GRAVITY 1.016; UROBILINOGEN,URINE NEGATIVE mg/dL (<2.0)
[2019-04-16 23:33] LABS: VENOUS BLOOD BASE EXCESS 3.5 mmol/L; VENOUS BLOOD HCO3 29.8 mmol/L (20-32); VENOUS BLOOD PCO2 53.3 mmHg (35-63); VENOUS BLOOD PH 7.37 (7.30-7.42)
[2019-04-17 10:21] LABS: ABSOLUTE LYMPHOCYTES (AUTO) 1.4 10^3/uL (0.5-4.7); ABSOLUTE MONOCYTES (AUTO) 0.8 10^3/uL (0.1-1.4); ABSOLUTE NEUT (AUTO) 8.9 10^3/uL (1.7-8.2); BASOPHILS % (AUTO) 0.2 % (0-2); HEMATOCRIT 20.2 % (37.9-51.0); LYMPHOCYTES % (AUTO) 12.6 % (13-45); MEAN CORPUSCULAR HEMOGLOBIN 30.4 pg (27.0-33.4); MEAN CORPUSCULAR HGB CONC 33.4 g/dL (32.0-36.0); MEAN CORPUSCULAR VOLUME 91 fl (80-97); MONOCYTES % (AUTO) 7.5 % (3-13); PLATELET COUNT 229 10^3/uL (150-450); RED BLOOD COUNT 2.22 10^6/uL (4.35-5.55); RED CELL DISTRIBUTION WIDTH 14.1 % (11.5-14.0); SEGMENTED NEUTROPHILS % (AUTO) 79.7 % (42-78); TOTAL CELLS COUNTED % (AUTO) 100 %; WHITE BLOOD COUNT 11.2 10^3/uL (4.0-10.5)
[2019-04-17 10:29] LABS: HEMOGLOBIN 6.7 g/dL (13.5-17.0)
[2019-04-17 10:34] LABS: ALANINE AMINOTRANSFERASE 17 U/L (21-72); ALBUMIN 3.1 g/dL (3.5-5.0); ALKALINE PHOSPHATASE 69 U/L (38-126); ANION GAP 11 (5-19); ASPARTATE AMINO TRANSFERASE 24 U/L (17-59); BILIRUBIN,DIRECT 0.4 mg/dL (0.0-0.4); BILIRUBIN,TOTAL 0.9 mg/dL (0.2-1.3); BLOOD UREA NITROGEN 53 mg/dL (7-20); CALCIUM 8.7 mg/dL (8.4-10.2); CARBON DIOXIDE 29 mmol/L (22-30); CHLORIDE 96 mmol/L (98-107); GLUCOSE 313 mg/dL (75-110); SODIUM 135.8 mmol/L (137-145); TOTAL PROTEIN 5.2 g/dL (6.3-8.2)
[2019-04-17 10:38] LABS: POTASSIUM 4.7 mmol/L (3.6-5.0)
[2019-04-17] MEDS ORDERED: NORMAL SALINE 250 ML IV PRN ×2 (10:52)
[2019-04-17] MEDS ORDERED: PHYTONADIONE 5 MG TABLET PO ONE (11:36)
--- NOTE | 2019-04-17 11:57 | ER Document Report ---
Doctor's Note Notes: 04/17/19 11:52 Rounds: Patient's nurse made me aware that patient has not had a hemoglobin this morning so we ordered one and it came back at 6.7. His hemoglobin last evening was 8.3 and on March 26 it was 11.7. Reviewed patient's chart and patient examined. Vital signs are all essentially normal. Patient says is been having left flank pain for the last 3 days or so. He is on Eliquis for atrial fibrillation. He had a CT scan, noncontrasted, yesterday evening which showed a large perinephritic hematoma as well as some hemorrhagic cyst of the left kidney. Patient has marginal renal function with a creatinine of 2.8. 2 units of typed specific blood were requested on the patient to be started immediately. As suggestion of ER physician at [facility], he is being given 5 mg of vitamin K p.o. Hesitant to give IV for stable patient and in case of trying to reverse Eliquis, not sure how successful it will be. Patient says the last Eliquis he took was night before last. Called [facility] transfer center and arranged a call to the ER to consider ER to ER transport. Spoke with Dr. Mullins who accepted the patient but requested that I speak with urology there. I spoke with Dr. Benson who is now aware that the patient is being transferred to [facility] ER to ER. Accepting doctor will not be Dr. Mullins.
[2019-04-17 12:18] LABS: INTERNATIONAL RATION (INR) 1.43; PROTHROMBIN TIME 18.2 SEC (11.4-15.4)
[2019-04-17 12:19] LABS: PARTIAL THROMBOPLASTIN TIME 35.4 SEC (23.5-35.8)
[2019-04-17] MEDS ORDERED: TRANEXAMIC ACID INJ/PF 1,000 MG/10 ML SDV IV PRN (12:23)
[2019-04-17] MEDS ORDERED: TRANEXAMIC ACID INJ/PF 1,000 MG/10 ML SDV IV ONE (12:30)
[2019-04-17 12:46] VITALS: BP 165/67
== END 2019-04-17 12:48 | disposition short-term general hospital (02) ==
LOC: ER 18:04
DX: R53.1 Weakness (principal); D62 Acute posthemorrhagic anemia; N17.9 Acute kidney failure, unspecified; N28.89 Other specified disorders of kidney and ureter; I25.10 Atherosclerotic heart disease of native coronary artery without angina pectoris; I12.9 Hypertensive chronic kidney disease with stage 1 through stage 4 chronic kidney disease, or unspecified chronic kidney disease; E10.22 Type 1 diabetes mellitus with diabetic chronic kidney disease; N18.9 Chronic kidney disease, unspecified; I48.91 Unspecified atrial fibrillation; I25.2 Old myocardial infarction; Z79.02 Long term (current) use of antithrombotics/antiplatelets; Z95.1 Presence of aortocoronary bypass graft
CPT/HCPCS: 93005; 99285; 96361; 96374; 86900; 86901; 36415; 36430; 86850; 85025; 85610; 85730; 80053; 81001; 84484; 86920; 82803; 83880; 71045; 74176; 93010; P9016; A9270 ×2; J0360; J7040; J3490

== ENCOUNTER → 2019-05-01 | Outpatient (CLI) | payer MEDICARE ==
[2019-05-01 17:24] LABS: ABSOLUTE BASOPHILS # (AUTO) 0.1 10^3/uL (0.0-0.2); ABSOLUTE EOSINOPHILS # (AUTO) 0.2 10^3/uL (0.0-0.6); ABSOLUTE LYMPHOCYTES (AUTO) 0.8 10^3/uL (0.5-4.7); ABSOLUTE MONOCYTES (AUTO) 0.4 10^3/uL (0.1-1.4); ABSOLUTE NEUT (AUTO) 8.1 10^3/uL (1.7-8.2); BASOPHILS % (AUTO) 0.7 % (0-2); EOSINOPHILS % (AUTO) 1.8 % (0-6); HEMATOCRIT 28.9 % (37.9-51.0); HEMOGLOBIN 9.7 g/dL (13.5-17.0); LYMPHOCYTES % (AUTO) 8.4 % (13-45); MEAN CORPUSCULAR HGB CONC 33.7 g/dL (32.0-36.0); MEAN CORPUSCULAR VOLUME 89 fl (80-97); PLATELET COUNT 423 10^3/uL (150-450); RED BLOOD COUNT 3.24 10^6/uL (4.35-5.55); RED CELL DISTRIBUTION WIDTH 14.4 % (11.5-14.0); SEGMENTED NEUTROPHILS % (AUTO) 85.1 % (42-78); TOTAL CELLS COUNTED % (AUTO) 100 %; WHITE BLOOD COUNT 9.5 10^3/uL (4.0-10.5)
[2019-05-01 17:43] LABS: ALANINE AMINOTRANSFERASE 18 U/L (21-72); ALBUMIN 3.2 g/dL (3.5-5.0); ALKALINE PHOSPHATASE 74 U/L (38-126); ANION GAP 6 (5-19); ASPARTATE AMINO TRANSFERASE 19 U/L (17-59); BILIRUBIN,DIRECT 0.6 mg/dL (0.0-0.4); BILIRUBIN,TOTAL 1.7 mg/dL (0.2-1.3); BLOOD UREA NITROGEN 37 mg/dL (7-20); CALCIUM 9.5 mg/dL (8.4-10.2); CARBON DIOXIDE 27 mmol/L (22-30); CHLORIDE 107 mmol/L (98-107); CHOLESTEROL 112.33 mg/dL (0-200); GLUCOSE 105 mg/dL (75-110); POTASSIUM 5.5 mmol/L (3.6-5.0); SODIUM 139.7 mmol/L (137-145); TOTAL PROTEIN 5.8 g/dL (6.3-8.2); TRIGLYCERIDES 153 mg/dL (<150)
[2019-05-01 17:54] LABS: DIRECT LDL 53 mg/dL (<100)
[2019-05-01 18:19] LABS: VLDL CHOLESTEROL 30.6 mg/dL (10-31)
== END ==
LOC: OD 16:53
PROVIDERS: ATTEND Physician Assistant
DX: E03.9 Hypothyroidism, unspecified (principal); E29.1 Testicular hypofunction; I10 Essential (primary) hypertension; N28.89 Other specified disorders of kidney and ureter; E11.9 Type 2 diabetes mellitus without complications; Z12.5 Encounter for screening for malignant neoplasm of prostate; R35.1 Nocturia; T14.8XXA Other injury of unspecified body region, initial encounter; X58.XXXA Exposure to other specified factors, initial encounter
CPT/HCPCS: 36415; 84443; 85025; 80053; 83036; 84403; 80061; G0103

== ENCOUNTER → 2019-05-08 | Outpatient (CLI) | payer MEDICARE ==
[2019-05-08 14:31] LABS: APPEARANCE,URINE CLEAR; BILIRUBIN,URINE NEGATIVE (NEGATIVE); COLOR,URINE YELLOW; GLUCOSE, URINE NEGATIVE (NEGATIVE); KETONES,URINE NEGATIVE (NEGATIVE); LEUKOCYTE ESTERASE,URINE NEGATIVE (NEGATIVE); NITRITE,URINE NEGATIVE (NEGATIVE); PROTEIN,URINE 30 mg/dL (NEGATIVE); URINE SPECIFIC GRAVITY 1.009; UROBILINOGEN,URINE NEGATIVE mg/dL (<2.0)
[2019-05-08 14:36] LABS: HEMATOCRIT 27.2 % (37.9-51.0); HEMOGLOBIN 9.3 g/dL (13.5-17.0); MEAN CORPUSCULAR HEMOGLOBIN 30.3 pg (27.0-33.4); MEAN CORPUSCULAR HGB CONC 34.1 g/dL (32.0-36.0); MEAN CORPUSCULAR VOLUME 89 fl (80-97); PLATELET COUNT 269 10^3/uL (150-450); RED BLOOD COUNT 3.07 10^6/uL (4.35-5.55); RED CELL DISTRIBUTION WIDTH 14.7 % (11.5-14.0); WHITE BLOOD COUNT 7.2 10^3/uL (4.0-10.5)
[2019-05-08 14:47] LABS: ALBUMIN 3.4 g/dL (3.5-5.0); ANION GAP 6 (5-19); BLOOD UREA NITROGEN 46 mg/dL (7-20); CALCIUM 9.1 mg/dL (8.4-10.2); CARBON DIOXIDE 32 mmol/L (22-30); CHLORIDE 101 mmol/L (98-107); GLUCOSE 128 mg/dL (75-110); PHOSPHORUS 4.3 mg/dL (2.5-4.5); POTASSIUM 4.7 mmol/L (3.6-5.0)
== END ==
LOC: OD 13:44
PROVIDERS: ATTEND Internal Medicine Nephrology
DX: I12.9 Hypertensive chronic kidney disease with stage 1 through stage 4 chronic kidney disease, or unspecified chronic kidney disease (principal); N18.3 Chronic kidney disease, stage 3 (moderate); E11.9 Type 2 diabetes mellitus without complications; D63.1 Anemia in chronic kidney disease
CPT/HCPCS: 36415; 80069; 81001; 85027

== ENCOUNTER → 2019-06-01 | Outpatient (CLI) | payer MEDICARE ==
[2019-06-01 14:44] LABS: ANION GAP 5 (5-19); BLOOD UREA NITROGEN 57 mg/dL (7-20); CALCIUM 8.5 mg/dL (8.4-10.2); CARBON DIOXIDE 35 mmol/L (22-30); CHLORIDE 100 mmol/L (98-107); GLUCOSE 72 mg/dL (75-110); POTASSIUM 4.1 mmol/L (3.6-5.0); SODIUM 140.3 mmol/L (137-145)
== END ==
LOC: OD 13:22
PROVIDERS: ATTEND Internal Medicine Cardiovascular Disease
DX: I48.0 Paroxysmal atrial fibrillation (principal)
CPT/HCPCS: 36415; 80048

== ENCOUNTER → 2019-06-24 | Outpatient (CLI) | payer MEDICARE ==
[2019-06-24 15:54] LABS: ABSOLUTE EOSINOPHILS # (AUTO) 0.2 10^3/uL (0.0-0.6); ABSOLUTE LYMPHOCYTES (AUTO) 1.1 10^3/uL (0.5-4.7); ABSOLUTE MONOCYTES (AUTO) 0.4 10^3/uL (0.1-1.4); APPEARANCE,URINE CLEAR; BASOPHILS % (AUTO) 0.7 % (0-2); BILIRUBIN,URINE NEGATIVE (NEGATIVE); COLOR,URINE STRAW; EOSINOPHILS % (AUTO) 3.3 % (0-6); GLUCOSE, URINE NEGATIVE (NEGATIVE); HEMATOCRIT 32.6 % (37.9-51.0); HEMOGLOBIN 10.8 g/dL (13.5-17.0); KETONES,URINE NEGATIVE (NEGATIVE); LEUKOCYTE ESTERASE,URINE NEGATIVE (NEGATIVE); LYMPHOCYTES % (AUTO) 15.8 % (13-45); MEAN CORPUSCULAR HEMOGLOBIN 30.3 pg (27.0-33.4); MEAN CORPUSCULAR VOLUME 92 fl (80-97); MONOCYTES % (AUTO) 6.1 % (3-13); NITRITE,URINE NEGATIVE (NEGATIVE); PLATELET COUNT 167 10^3/uL (150-450); PROTEIN,URINE 100 mg/dL (NEGATIVE); RED BLOOD COUNT 3.55 10^6/uL (4.35-5.55); RED CELL DISTRIBUTION WIDTH 16.2 % (11.5-14.0); SEGMENTED NEUTROPHILS % (AUTO) 74.1 % (42-78); TOTAL CELLS COUNTED % (AUTO) 100 %; URINE SPECIFIC GRAVITY 1.009; UROBILINOGEN,URINE NEGATIVE mg/dL (<2.0); WHITE BLOOD COUNT 6.8 10^3/uL (4.0-10.5)
[2019-06-24 16:14] LABS: ALBUMIN 3.8 g/dL (3.5-5.0); BLOOD UREA NITROGEN 58 mg/dL (7-20); CALCIUM 9.5 mg/dL (8.4-10.2); CARBON DIOXIDE 35 mmol/L (22-30); CHLORIDE 98 mmol/L (98-107); IRON(TIBC) 82.9 ug/dL (49-181); POTASSIUM 4.1 mmol/L (3.6-5.0)
[2019-06-24 16:15] LABS: ANION GAP 5 (5-19); BLOOD UREA NITROGEN 58 mg/dL (7-20); CALCIUM 9.5 mg/dL (8.4-10.2); CARBON DIOXIDE 35 mmol/L (22-30); CHLORIDE 99 mmol/L (98-107); GLUCOSE 93 mg/dL (75-110); POTASSIUM 4.1 mmol/L (3.6-5.0)
[2019-06-24 16:25] LABS: UR PRO/CREAT RATIO RESULT 1.4 mg/mg (0.0-0.2); URINE CREATININE 41.6 mg/dL (22-328)
[2019-06-24 17:01] LABS: GLUCOSE 93 mg/dL (75-110)
[2019-06-24 17:02] LABS: ANION GAP 5 (5-19)
== END ==
LOC: LAB 15:36
PROVIDERS: ATTEND Internal Medicine Cardiovascular Disease
DX: I48.0 Paroxysmal atrial fibrillation (principal); I12.9 Hypertensive chronic kidney disease with stage 1 through stage 4 chronic kidney disease, or unspecified chronic kidney disease; N18.3 Chronic kidney disease, stage 3 (moderate); I35.0 Nonrheumatic aortic (valve) stenosis; D63.1 Anemia in chronic kidney disease; R06.02 Shortness of breath; E13.21 Other specified diabetes mellitus with diabetic nephropathy; E21.1 Secondary hyperparathyroidism, not elsewhere classified
CPT/HCPCS: 36415; 80048; 80069; 81001; 82306; 82570; 82728; 83540; 83550; 83880; 83970; 84156; 85025

== ENCOUNTER → 2019-07-21 | Outpatient (CLI) | payer MEDICARE ==
[2019-07-21 11:43] LABS: ALBUMIN 3.7 g/dL (3.5-5.0); ALKALINE PHOSPHATASE 70 U/L (38-126); ASPARTATE AMINO TRANSFERASE 20 U/L (17-59); BILIRUBIN,DIRECT 0.4 mg/dL (0.0-0.4); BILIRUBIN,TOTAL 0.6 mg/dL (0.2-1.3); BLOOD UREA NITROGEN 66 mg/dL (7-20); CALCIUM 9.4 mg/dL (8.4-10.2); CARBON DIOXIDE 35 mmol/L (22-30); CHLORIDE 102 mmol/L (98-107); CHOLESTEROL 129.87 mg/dL (0-200); GLUCOSE 71 mg/dL (75-110); POTASSIUM 4.4 mmol/L (3.6-5.0); TOTAL PROTEIN 6.1 g/dL (6.3-8.2); TRIGLYCERIDES 79 mg/dL (<150)
[2019-07-21 12:04] LABS: DIRECT LDL 65 mg/dL (<100)
[2019-07-21 13:52] LABS: ANION GAP 4 (5-19)
== END ==
LOC: LAB 11:04
PROVIDERS: ATTEND Internal Medicine Cardiovascular Disease
DX: I11.0 Hypertensive heart disease with heart failure (principal); I50.9 Heart failure, unspecified; E78.2 Mixed hyperlipidemia; E11.9 Type 2 diabetes mellitus without complications; Z79.899 Other long term (current) drug therapy
CPT/HCPCS: 36415; 80048; 80061; 80076; 83036; 83880

== ENCOUNTER 2019-08-17 20:34 | Emergency (ER) | payer MEDICARE ==
[2019-08-17] MEDS ORDERED: ONDANSETRON HCL INJ/PF 4 MG/2 ML SDV IV ONE (21:51)
--- NOTE | 2019-08-17 21:58 | ER Document Report ---
ED Medical Screen (RME) - General Chief Complaint: Abdominal Pain Stated Complaint: ABDOMINAL PAIN Time Seen by Provider: 08/17/19 21:41 Primary Care Provider: GAIL OSMAN MD [Primary Care Provider] - Follow up as needed TRAVEL OUTSIDE OF THE [place] IN LAST 30 DAYS: No - HPI Notes: 08/17/19 21:53 79-year-old male with a history of diverticulosis and stage III renal disease presents complaining of sudden onset infraumbilical abdominal pain that started approximately 3 and half hours prior to arrival. Patient had one episode of nausea and vomiting. Patient states he is having shaking chills. Patient denies prior history of diverticulitis. 08/17/19 21:56 I have treated and performed a rapid initial assessment of this patient. [place] to the ED assessment and evaluation of the patient, analysis of the test results, and completion of medical decision making process will be conducted by additional ED providers. - Related Data Allergies/Adverse Reactions: clonidine [Clonidine] Allergy (Intermediate, Verified 03/16/19 15:17) Respiratory distress Past Medical History - Social History Chew tobacco use (# tins/day): No Frequency of alcohol use: None Drug Abuse: None - Past Medical History Cardiac Medical History: Reports: Hx Atrial Fibrillation, Hx Coronary Artery Disease, Hx Heart Attack, Hx Hypertension Pulmonary Medical History: Reports: Hx COPD, Hx Pneumonia - as a baby Denies: Hx Asthma, Hx Bronchitis Neurological Medical History: Denies: Hx Cerebrovascular Accident, Hx Seizures Endocrine Medical History: Reports: Hx Diabetes Mellitus Type 1 Renal/ Medical History: Denies: Hx Peritoneal Dialysis Musculoskeltal Medical History: Reports Hx Arthritis Past Surgical History: Reports: Hx Cardiac Catheterization - stents, Hx Cardiac Surgery - pacemaker - Immunizations Hx Diphtheria, Pertussis, Tetanus Vaccination: Yes Physical Exam - Vital signs Vitals: Temp Pulse Resp BP Pulse Ox 97.4 F 62 18 182/56 H 95 08/17/19 20:50 08/17/19 20:50 08/17/19 20:50 08/17/19 20:50 08/17/19 20:50 - General General appearance: Other - Patient appears to have shaking chills, pallor and does not appear to be feeling well. In distress: Mild - Abdominal Distension: No distension Bowel sounds: Hypoactive Tenderness: Nontender Course - Vital Signs Vital signs: Temp Pulse Resp BP Pulse Ox 97.4 F 62 18 182/56 H 96 08/17/19 20:50 08/17/19 20:50 08/17/19 20:50 08/17/19 20:50 08/17/19 20:57 Doctor's Discharge - Discharge Referrals: GAIL OSMAN MD [Primary Care Provider] - Follow up as needed
--- NOTE | 2019-08-17 23:18 | RADIOLOGY REPORT (SQ) ---
EXAM DESCRIPTION: CT ABDOMEN PELVIS WITHOUT IV CONTRAST COMPLETED DATE/TME: 08/17/2019 21:51 CLINICAL HISTORY: 79 years, Male, acute abdominal pain, stage [address] abdomen pelvis dated 04/16/2019. This exam was performed according to our departmental dose-optimization program which includes automated exposure control, adjustment of the mA and/or kVp according to patient size and/or use of iterative reconstruction technique where applicable. FINDINGS: Visualized lung bases are within normal limits. Liver, spleen, pancreas, gallbladder and adrenal glands are within normal limits. No biliary dilatation. No hydronephrosis. There is left perinephric subcapsular hematoma, measuring 7 x 5 cm. This is reduced in size from the prior study. Left renal 3.6 cm calcification, unchanged. No dilated loops of bowel to suggest obstruction. Mild amount of stool in the colon. The appendix is normal. Mild sigmoid colonic diverticulosis without CT evidence for acute diverticulosis. Bladder is unremarkable. No abdominal or pelvic lymphadenopathy. Abdominal aorta demonstrates some mild 3.5 cm distal infrarenal abdominal aortic aneurysm. IMPRESSION: Left renal subcapsular hematoma is reduced in size from the prior study. No new hemorrhage. No new pathology. No evidence for acute urinary obstruction.
[2019-08-17 23:36] LABS: APPEARANCE,URINE CLEAR; BILIRUBIN,URINE NEGATIVE (NEGATIVE); COLOR,URINE YELLOW; GLUCOSE, URINE NEGATIVE (NEGATIVE); KETONES,URINE NEGATIVE (NEGATIVE); LEUKOCYTE ESTERASE,URINE NEGATIVE (NEGATIVE); NITRITE,URINE NEGATIVE (NEGATIVE); PROTEIN,URINE 100 mg/dL (NEGATIVE); URINE SPECIFIC GRAVITY 1.009
[2019-08-17 23:40] LABS: HEMOGLOBIN 12.8 g/dL (13.5-17.0); MEAN CORPUSCULAR HEMOGLOBIN 30.8 pg (27.0-33.4); MEAN CORPUSCULAR HGB CONC 33.6 g/dL (32.0-36.0); MEAN CORPUSCULAR VOLUME 92 fl (80-97); PLATELET COUNT 180 10^3/uL (150-450); RED BLOOD COUNT 4.15 10^6/uL (4.35-5.55); RED CELL DISTRIBUTION WIDTH 14.6 % (11.5-14.0)
[2019-08-17 23:42] LABS: ALBUMIN 4.3 g/dL (3.5-5.0); ALKALINE PHOSPHATASE 170 U/L (38-126); ANION GAP 9 (5-19); ASPARTATE AMINO TRANSFERASE 665 U/L (17-59); BILIRUBIN,DIRECT 1.5 mg/dL (0.0-0.4); BILIRUBIN,TOTAL 2.5 mg/dL (0.2-1.3); BLOOD UREA NITROGEN 67 mg/dL (7-20); CARBON DIOXIDE 35 mmol/L (22-30); CHLORIDE 99 mmol/L (98-107); POTASSIUM 4.1 mmol/L (3.6-5.0); TOTAL PROTEIN 7.2 g/dL (6.3-8.2)
[2019-08-17 23:44] LABS: GLUCOSE 47 mg/dL (75-110)
[2019-08-18 00:04] LABS: ANISOCYTOSIS SLIGHT; BASOPHILS % (MANUAL) 0 % (0-2); EOSINOPHILS % (MANUAL) 0 % (0-6); LYMPHOCYTES % (MANUAL) 0 % (13-45); METAMYELOCYTES % (MANUAL) 1 % (0); MONOCYTES % (MANUAL) 0 % (3-13); PLATELET COMMENT ADEQUATE; SEGMENTED NEUTROPHILS % (MAN) 86 % (42-78); TOTAL CELLS COUNTED 100
[2019-08-18 00:09] LABS: BAND NEUTROPHILS % (MANUAL) 13 % (3-5)
--- NOTE | 2019-08-18 00:30 | EKG REPORT ---
SEVERITY:- ABNORMAL ECG - VENTRICULAR-PACED COMPLEXES PROBABLE LEFT ATRIAL ABNORMALITY LVH WITH IVCD, LAD AND SECONDARY REPOL ABNRM : Confirmed by: Yina Peter MD 18-Aug-2019 00:28:45
--- NOTE | 2019-08-18 00:49 | ER Document Report ---
ED GI/ - General Chief Complaint: Abdominal Pain Stated Complaint: ABDOMINAL PAIN Time Seen by Provider: 08/18/19 00:49 Primary Care Provider: GAIL OSMAN MD [EMERITUS] - Follow up as needed Mode of Arrival: Ambulatory Information source: Patient, Relative Notes: HISTORY OF PRESENT ILLNESS: Patient is an 79-year-old male with a past medical history including hyper tension, heart failure, and stroke who presents with epigastric abdominal pain that was sudden in onset approximately 15 to 30 minutes after eating dinner. At that time, patient had large-volume emesis. Currently, patient is symptom- free. He denies having similar symptoms in the past. Location: Epigastric Onset: Sudden prior to arrival Alleviation: Unknown Provocation: Food Quality: Aching, burning Radiation: None Severity: Severe during the episode, currently resolved Timing: Resolved History of abdominal surgery: None Associated symptoms: Denies chest pain or shortness of breath, no cough or congestion, no diarrhea or constipation Last bowel movement: Today and normal REVIEW OF SYSTEMS: CONSTITUTIONAL : Denies fever or chills, no sweats. Denies recent illness. EENT: Denies eye, ear, throat, or mouth pain or symptoms. Denies nasal or sinus congestion. CARDIOVASCULAR: Denies chest pain. Denies swelling of the legs. RESPIRATORY: Denies cough, cold, or chest congestion. Denies shortness of breath or difficulty breathing. Denies wheezing. GASTROINTESTINAL: Positive for abdominal pain. Positive for nausea and nonbloody/nonbilious emesis. Denies constipation. GENITOURINARY: Denies difficulty urinating, painful urination, burning, frequency, or blood in urine. FEMALE GENITOURINARY: Denies vaginal bleeding, abnormal or irregular periods. MUSCULOSKELETAL: Denies neck or back pain or joint pain or swelling. SKIN: Denies rash or skin lesions. HEMATOLOGIC : Denies easy bruising or bleeding. LYMPHATIC: Denies swollen, enlarged glands. NEUROLOGICAL: Denies altered mental status or loss of consciousness. Denies headache. Denies weakness or paralysis or loss of use of either side. Denies problems with gait or speech. Denies sensory or motor loss. PSYCHIATRIC: Denies anxiety or stress or depression. All other systems reviewed and negative. PHYSICAL EXAMINATION: GENERAL: Well-appearing, well-nourished and in no acute distress. HEAD: Atraumatic, normocephalic. No scalp deformity, depression, or crepitance. EYES: Pupils are 3 mm and equal/round/reactive to light, extraocular movements intact, sclera anicteric, conjunctiva are normal. ENT: Nares patent bilaterally, oropharynx. Moist mucous membranes. No tonsil hypertrophy. NECK: Normal range of motion, supple without lymphadenopathy. LUNGS: Breath sounds present, equal, and clear to auscultation bilaterally. No wheezes, rales, or rhonchi. HEART: Regular rate and rhythm without murmurs, rubs, or gallops. 2+ peripheral pulses. Normal capillary refill. ABDOMEN: Soft, nontender, nondistended. Normoactive bowel sounds. No guarding, no rebound. No masses appreciated. BACK: Normal contour, no midline tenderness. Rectal exam deferred. GENITAL/PELVIC: Deferred. EXTREMITIES: Normal range of motion, no pitting or edema. No cyanosis. NEUROLOGICAL: No focal neurological deficits. Moves all extremities spontaneously and on command. PSYCH: Normal mood, normal affect. No suicidal thoughts/ideations. No homicidal thoughts/ideations. No hallucinations. SKIN: Warm, dry, normal turgor, no rashes or lesions noted. ASSESSMENT AND PLAN: This patient is a 79-year-old male who presents with sudden onset epigastric pain after eating, consistent with likely pancreatitis versus cholelithiasis versus cholecystitis versus duodenal ulcer. 1. Will obtain labs, urine, cardiac enzymes, CT scan of the abdomen/pelvis, and reassess. 2. Will consider right upper quadrant ultrasound pending CT results. TRAVEL OUTSIDE OF THE [place] IN LAST 30 DAYS: No - HPI Patient complains to provider of: Abdominal pain Onset: Just prior to arrival Timing/Duration: Sudden Quality of pain: Achy, Sharp Severity at maximum: Severe Severity in ED: None Pain Level: Denies Location: Epigastric Sexual history: Active Associated symptoms: Nausea, Vomiting Exacerbated by: Food Similar symptoms previously: No Recently seen / treated by doctor: No - Related Data Allergies/Adverse Reactions: clonidine [Clonidine] Allergy (Intermediate, Verified 03/16/19 15:17) Respiratory distress Past Medical History - General Information source: Patient, Relative - Social History Smoking Status: Never Smoker Chew tobacco use (# tins/day): No Frequency of alcohol use: None Drug Abuse: None Lives with: Family Family History: Reviewed & Not Pertinent Patient has suicidal ideation: No Patient has homicidal ideation: No - Past Medical History Cardiac Medical History: Reports: Hx Atrial Fibrillation, Hx Coronary Artery Disease, Hx Heart Attack, Hx Hypertension Pulmonary Medical History: Reports: Hx COPD, Hx Pneumonia - as a baby Denies: Hx Asthma, Hx Bronchitis EENT Medical History: Reports: None Neurological Medical History: Reports: None. Denies: Hx Cerebrovascular Accident, Hx Seizures Endocrine Medical History: Reports: Hx Diabetes Mellitus Type 1, Hx Diabetes Mellitus Type 2 Renal/ Medical History: Reports: None. Denies: Hx Peritoneal Dialysis Malignancy Medical History: Reports None GI Medical History: Reports: None Musculoskeletal Medical History: Reports Hx Arthritis Skin Medical History: Reports None Psychiatric Medical History: Reports: None Traumatic Medical History: Reports: None Infectious Medical History: Reports: None Past Surgical History: Reports: Hx Cardiac Surgery - pacemaker, tripple bypassComment Only: Hx Cardiac Catheterization - stents - Immunizations Hx Diphtheria, Pertussis, Tetanus Vaccination: Yes Hx Pneumococcal Vaccination: 11/18/10 Review of Systems - Review of Systems Constitutional: No symptoms reported EENT: No symptoms reported Cardiovascular: No symptoms reported Respiratory: No symptoms reported Gastrointestinal: See HPI, Abdominal pain, Nausea, Vomiting Genitourinary: No symptoms reported Male Genitourinary: No symptoms reported Musculoskeletal: No symptoms reported Skin: No symptoms reported Hematologic/Lymphatic: No symptoms reported Neurological/Psychological: No symptoms reported -: Yes All other systems reviewed and negative Physical Exam - Vital signs Vitals: Temp Pulse Resp BP Pulse Ox 97.4 F 62 18 182/56 H 95 08/17/19 20:50 08/17/19 20:50 08/17/19 20:50 08/17/19 20:50 08/17/19 20:50 Interpretation: Normal Course - Re-evaluation Re-evalutation: 08/18/19 03:48 Labs indicate possible evidence of biliary obstruction. However, ultrasound reveals no evidence of obstruction in the biliary tree. Could represent pancreatitis secondary to vomiting, although idiopathic versus medication related versus hypercholesterolemia cannot be excluded. Patient will likely benefit from gastroenterology follow-up with repeat blood work and consideration for HIDA scan if symptoms persist. Will discharge the patient home with strict return precautions and follow-up with gastroenterology. All results were e xplained to and discussed with the patient, and all questions addressed and answered. The patient voices both understanding and agreeing with the plan. - Vital Signs Vital signs: Temp Pulse Resp BP Pulse Ox 98.2 F 71 20 139/50 H 93 08/18/19 02:36 08/18/19 02:36 08/18/19 02:36 08/18/19 02:36 08/18/19 02:36 - Laboratory Result Diagrams: 08/17/19 23:00 08/17/19 23:00 Laboratory results interpreted by me: 08/17/19 08/17/19 08/17/19 23:00 23:00 23:00 RBC 4.15 L Hgb 12.8 L RDW 14.6 H Seg Neuts % (Manual) 86 H Band Neutrophils % 13 H Lymphocytes % (Manual) 0 L Monocytes % (Manual) 0 L Metamyelocytes % 1 H Abs Lymphs (Manual) 0.0 L Abs Monocytes (Manual) 0.0 L Carbon Dioxide 35 H BUN 67 H Creatinine 2.26 H Est GFR ( Amer) 34 L Est GFR (MDRD) Non-Af 28 L Glucose 47 L POC Glucose Total Bilirubin 2.5 H Direct Bilirubin 1.5 H AST 665 H Alkaline Phosphatase 170 H Lipase 646.5 H Urine Protein 100 H Urine Urobilinogen 2.0 H 08/18/19 00:04 RBC Hgb RDW Seg Neuts % (Manual) Band Neutrophils % Lymphocytes % (Manual) Monocytes % (Manual) Metamyelocytes % Abs Lymphs (Manual) Abs Monocytes (Manual) Carbon Dioxide BUN Creatinine Est GFR ( Amer) Est GFR (MDRD) Non-Af Glucose POC Glucose 61 L Total Bilirubin Direct Bilirubin AST Alkaline Phosphatase Lipase Urine Protein Urine Urobilinogen - Diagnostic Test Radiology reviewed: Image reviewed, Reports reviewed - EKG Interpretation by Me EKG shows normal: Sinus rhythm Rate: Normal Rhythm: Other - Paced rhythm [place]/QRS: LBBB, IVCD Voltage: Increased voltage P Waves: No: ALEX, LAE, Absent, AV Dissociation, Other Heart block present: No: 1st Degree, Mobitz 1, Mobitz 2, CHB (3rd degree block) When compared to previous EKG there are: No significant change Discharge - Discharge Clinical Impression: Abdominal pain Qualifiers: Abdominal location: epigastric Qualified Code(s): R10.13 - Epigastric pain Pancreatitis Qualifiers: Chronicity: acute Pancreatitis type: unspecified pancreatitis type Acute pancreatitis complication: no infection or necrosis Qualified Code(s): K85.90 - Acute pancreatitis without necrosis or infection, unspecified Condition: Good Disposition: HOME, SELF-CARE Instructions: Abdominal Pain ([facility]), Pancreatitis ([facility]) Additional Instructions: You have been evaluated in the Emergency Department for abdominal pain and vomiting. While here, you had a CT scan and ultrasound and it is now safe to be discharged home. Please follow-up with your primary physician as well as a fourth officer as instructed in one week to be rechecked. Return to the Emergency Department if you experience worsening pain, worsening vomiting, chest pain, weakness, or any other concerning symptoms. Prescriptions: Hydrocodone/Acetaminophen [[place] 5-325 mg Tablet] 1 tab PO Q6HP PRN #20 tablet PRN Reason: For Pain Ondansetron [Zofran Odt 4 mg Tablet] 1 tab PO Q8HP PRN #30 tab.rapdis PRN Reason: For Nausea/Vomiting Referrals: GAIL OSMAN MD [EMERITUS] - Follow up as needed LOUIS HARRIS MD [ACTIVE STAFF] - Follow up as needed Print Language: Persian
--- NOTE | 2019-08-18 02:41 | RADIOLOGY REPORT (SQ) ---
Ultrasound right upper quadrant on 08/18/2019 at 2:06 AM CLINICAL INDICATION: Generalized abdominal pain, abnormal labs, elevated lipase and bilirubin COMPARISON: CT from 08/17/2019 FINDINGS: Multiple sonographic images are obtained throughout the right upper quadrant, both transverse and sagittal images are obtained. Visualized pancreas is unremarkable. There is an at least 3.2 cm abdominal aortic aneurysm visualized on this exam. By my measurement on the recent CT there is a aneurysm of the distal abdominal aorta just above the bifurcation that measures 3.9 cm in greatest diameter. Therefore would recommend follow-up imaging every two years. Visualized liver is homogeneous without focal liver lesion. Right kidney shows no hydronephrosis. Right renal cysts are noted. Small amount of sludge is noted in the gallbladder. No gallstones, gallbladder wall thickening or pericholecystic fluid is noted. Common duct measures 3 mm which is within normal limits mitigating against obstruction of the biliary tree. IMPRESSION: 1. Sludge in the gallbladder. 2. 3.9 cm infrarenal abdominal aortic aneurysm, recommend follow-up imaging every two years.
[2019-08-18 04:41] VITALS: BP 129/52
[2019-08-18 09:48] LABS: PATH REVIEW PATHOLOGIST REVIEWED
== END 2019-08-18 04:15 | disposition home or self-care (01) ==
LOC: ER 20:34
DX: K85.90 Acute pancreatitis without necrosis or infection, unspecified (principal); R10.13 Epigastric pain; R11.10 Vomiting, unspecified; I11.0 Hypertensive heart disease with heart failure; I50.9 Heart failure, unspecified; I48.91 Unspecified atrial fibrillation; I25.10 Atherosclerotic heart disease of native coronary artery without angina pectoris; I25.2 Old myocardial infarction; Z86.73 Personal history of transient ischemic attack (TIA), and cerebral infarction without residual deficits; Z95.1 Presence of aortocoronary bypass graft
CPT/HCPCS: 36415; 74176; 76705; 80053; 81001; 82962; 83690; 84484; 85025; 93005; 93010; 99284

== ENCOUNTER 2019-08-22 18:25 | Emergency (ER) | payer MEDICARE ==
[~2019-08-22 18:25] MED LIST: ROCURONIUM BROMIDE INJ 50 MG/5 ML VIAL IV ONE
[2019-08-22] MEDS ORDERED: RINGERS SOLUTION,LACTATED 1,000 ML IV PRN (18:37)
--- NOTE | 2019-08-22 18:49 | ER Document Report ---
ED Medical Screen (RME) - General Chief Complaint: Unresponsive Stated Complaint: UNREPSONSIVE Time Seen by Provider: 08/22/19 18:36 Primary Care Provider: NATHALIE MORALES PA-C [Primary Care Provider] - Follow up as needed Notes: 79-year-old male with a history of diverticulosis and stage III renal disease presents unresponsive by EMS. He was found by his in bed and she called for an ambulance. Per EMS patient's temperature was 104 and in the emergency department patient's axillary temperature was 103.5. EMS gave him 500 mL's of fluids and acetaminophen 975 mg once. Unable to obtain any other history at t his time. Patient was seen here in the emergency department on 08/17/2019 for abdominal pain and had a negative CT abdomen/pelvis and an abdominal ultrasound which was only significant for gallbladder sludge. Exam: Initially responded to painful stimulus but eyes open to voice, able to wiggle his toes but did not give me a thumbs up, diastolic murmur heard at the apex, skin hot to touch. I have greeted and performed a rapid initial assessment of this patient. A comprehensive ED assessment and evaluation of the patient, analysis of test results and completion of medical decision making process will be conducted by an additional ED providers. TRAVEL OUTSIDE OF THE [place] IN LAST 30 DAYS: No - Related Data Allergies/Adverse Reactions: clonidine [Clonidine] Allergy (Intermediate, Verified 03/16/19 15:17) Respiratory distress Past Medical History - Past Medical History Cardiac Medical History: Reports: Hx Atrial Fibrillation, Hx Coronary Artery Disease, Hx Heart Attack, Hx Hypertension Pulmonary Medical History: Reports: Hx COPD, Hx Pneumonia - as a baby Denies: Hx Asthma, Hx Bronchitis Neurological Medical History: Denies: Hx Cerebrovascular Accident, Hx Seizures Endocrine Medical History: Reports: Hx Diabetes Mellitus Type 1, Hx Diabetes Mellitus Type 2 Renal/ Medical History: Denies: Hx Peritoneal Dialysis Musculoskeltal Medical History: Reports Hx Arthritis Past Surgical History: Reports: Hx Cardiac Surgery - pacemaker, tripple bypassComment Only: Hx Cardiac Catheterization - stents - Immunizations Hx Diphtheria, Pertussis, Tetanus Vaccination: Yes Doctor's Discharge - Discharge Referrals: NATHALIE MORALES PA-C [Primary Care Provider] - Follow up as needed
[2019-08-22] MEDS ORDERED: PIPERACILLIN/TAZOBACTAM 4.5 GM VIAL IV ONE (18:50)
--- NOTE | 2019-08-22 18:50 | ER Document Report ---
ED General - General Chief Complaint: Unresponsive Stated Complaint: UNREPSONSIVE Time Seen by Provider: 08/22/19 18:36 Primary Care Provider: NATHALIE MORALES PA-C [Primary Care Provider] - Follow up as needed Notes: Patient is an 79-year-old male presents to the emergency department for chief complaint of altered mental status. History provided by the patient's , as the patient is altered at this time. She states that he seemed to be more confused over the past 24 hours, he apparently had urinated on the floor, and was on his normal self. But last night apparently he went to dinner and was his normal self then, but today rapidly declined. He was seen here about a week ago, at the time he was having sharp right upper quadrant abdominal pain, but seemed that that had resolved, and was told that he had some sludge in his gallbladder. She is unable to provide any further history at this time, nor is the patient due to his obtunded status. Past Medical History: CHF, chronic kidney disease Past Surgical History: [] Social History: Lives at home with family, no current tobacco, alcohol or drug use Family History: Reviewed and noncontributory for presenting illness Allergies: Reviewed, see documented allergy list. REVIEW OF SYSTEMS: Complete review of systems is unobtainable second to the patient's altered state. PHYSICAL EXAMINATION: Vital signs reviewed, nursing noted reviewed. GENERAL: Patient is currently altered, and GCS: 7 HEAD: Atraumatic, normocephalic. EYES: Eyes appear normal, extraocular movements intact, sclera anicteric, conjunctiva are normal. ENT: nares patent, oropharynx clear without exudates. Dry mucous membranes NECK: Supple, no JVD LUNGS: Breath sounds clear to auscultation bilaterally and equal. No wheezes rales or rhonchi. HEART: Regular rate and rhythm without murmurs, paced rhythm on telemetry ABDOMEN: Soft, nontender, normoactive bowel sounds. No rebound, guarding, or rigidity. No masses appreciated. EXTREMITIES: Trace pedal edema, no gross deformities to the limbs NEUROLOGICAL: GCS 7, patient will withdraw all limbs, to noxious stimuli, but not to command, will open eyes to verbal stimuli, no verbal response. PSYCH: Obtunded SKIN: Warm, Dry, normal turgor, no rashes or lesions noted on exposed skin, no signs of cellulitis TRAVEL OUTSIDE OF THE [place] IN LAST 30 DAYS: No - Related Data Allergies/Adverse Reactions: clonidine [Clonidine] Allergy (Intermediate, Verified 03/16/19 15:17) Respiratory distress Past Medical History - Social History Smoking Status: Unknown if Ever Smoked Chew tobacco use (# tins/day): No Frequency of alcohol use: None Drug Abuse: None Family History: Reviewed & Not Pertinent Patient has suicidal ideation: No Patient has homicidal ideation: No - Past Medical History Cardiac Medical History: Reports: Hx Atrial Fibrillation, Hx Coronary Artery Disease, Hx Heart Attack, Hx Hypertension Pulmonary Medical History: Reports: Hx COPD, Hx Pneumonia - as a baby Denies: Hx Asthma, Hx Bronchitis Neurological Medical History: Denies: Hx Cerebrovascular Accident, Hx Seizures Endocrine Medical History: Reports: Hx Diabetes Mellitus Type 1, Hx Diabetes Mellitus Type 2 Renal/ Medical History: Denies: Hx Peritoneal Dialysis Musculoskeletal Medical History: Reports Hx Arthritis Past Surgical History: Reports: Hx Cardiac Surgery - pacemaker, tripple bypassComment Only: Hx Cardiac Catheterization - stents - Immunizations Hx Diphtheria, Pertussis, Tetanus Vaccination: Yes Hx Pneumococcal Vaccination: 11/18/10 Physical Exam - Vital signs Vitals: Resp Pulse Ox 31 H 96 08/22/19 18:33 08/22/19 18:33 Course - Re-evaluation Re-evalutation: Patient seen and examined, vital signs reviewed, patient was rather obtunded on my exam, but open eyes only to verbal stimuli, not following commands. Blood work for septic evaluation was started and patient was started on Zosyn, and given vancomycin as well. And initially given 500 mL's by EMS of IV fluids, and 2 L of lactated Ringer's, in the ED, as the patient appeared significantly dehydrated, despite his history of CHF. Patient was febrile, given Tylenol initially prior to my evaluation Blood work was obtained, and demonstrated leukocytosis with bandemia, his LFTs increased significantly from his previous visit, prompting ultrasound of the gallbladder, which demonstrated thickened gallbladder wall, pericholecystic fluid, and sludge, given elevation in bilirubin there is concern for cholangitis as well, although his lipase was normal. Urinalysis was unremarkable, but sent for culture, blood cultures pending, chest x-ray was negative for signs of pneumonia on my review, CT of the head was obtained and negative for any acute findings as well. Patient was found to be hypoglycemic, and given IV dextrose, and it did improve however the patient's mental status did not improve, therefore after obtaining ABG, demonstrating CO2 retention, and low GCS, and discussion with the patient's , it was decided to intubate the patient for airway protection, and respiratory failure with hypercapnia. Patient stable on the ventilator, sedated with low-dose propofol, continued IV fluids, given additional liter of IV normal saline. At this point I decided to call the surgeon at our facility, who was uncomfortable taking the patient as they may have an obstructing stone we do not have a gastroneurologist capable of performing ERCP at this facility, he r ecommended transfer to tertiary facility. Call was placed to [facility], discussed the case with the MICU attending, Dr. Marlys Neri who graciously except the patient onto their service, will plan for air transport for this patient, discussed with the patient's and she was agreeable with this plan of care and this is within the patient's wishes going forward. Laboratory 08/22/19 08/22/19 08/22/19 18:40 18:40 18:40 WBC 10.7 H RBC 3.63 L Hgb 11.0 L Hct 32.9 L MCV 91 MCH 30.4 MCHC 33.5 RDW 14.9 H Plt Count 117 L Lymph % (Auto) Not Reportable [place] % (Auto) Not Reportable Eos % (Auto) Not Reportable Baso % (Auto) Not Reportable Absolute Neuts (auto) Not Reportable Absolute Lymphs (auto) Not Reportable Absolute Monos (auto) Not Reportable Absolute Eos (auto) Not Reportable Absolute Basos (auto) Not Reportable Total Counted 100 Seg Neutrophils % Not Reportable Seg Neuts % (Manual) 82 H Band Neutrophils % 8 H Lymphocytes % (Manual) 8 L Monocytes % (Manual) 1 L Eosinophils % (Manual) 0 Basophils % (Manual) 1 Abs Neuts (Manual) 9.6 H Abs Lymphs (Manual) 0.9 Abs Monocytes (Manual) 0.1 Absolute Eos (Manual) 0.0 Abs Basophils (Manual) 0.1 Platelet Comment DECREASED Anisocytosis SLIGHT PT 15.0 INR 1.18 Carbonic Acid HCO3/H2CO3 Ratio ABG pH ABG pCO2 ABG pO2 ABG HCO3 ABG Total CO2 ABG O2 Saturation ABG Base Excess FiO2 Sodium 138.0 Potassium 2.8 L* Chloride 97 L Carbon Dioxide 31 H Anion Gap 10 BUN 88 H Creatinine 2.56 H Est GFR ( Amer) 29 L Est GFR (MDRD) Non-Af 24 L Glucose 35 L* POC Glucose Lactic Acid Calcium 8.2 L Total Bilirubin 2.7 H Direct Bilirubin 1.9 H Neonat Total Bilirubin Not Reportable Neonat Direct Bilirubin Not Reportable Neonat Indirect Bili Not Reportable AST 101 H ALT 169 Alkaline Phosphatase 662 H Total Protein 5.8 L Albumin 3.0 L Lipase Urine Color Urine Appearance Urine pH Ur Specific [place] Urine Protein Urine Glucose (UA) Urine Ketones Urine Blood Urine Nitrite Urine Bilirubin Urine Urobilinogen Ur Leukocyte Esterase Urine WBC (Auto) Urine RBC (Auto) Urine Bacteria (Auto) Squamous Epi Cells Auto Urine Mucus (Auto) Urine Ascorbic Acid 08/22/19 08/22/19 08/22/19 18:40 18:40 18:40 WBC RBC Hgb Hct MCV MCH MCHC RDW Plt Count Lymph % (Auto) [place] % (Auto) Eos % (Auto) Baso % (Auto) Absolute Neuts (auto) Absolute Lymphs (auto) Absolute Monos (auto) Absolute Eos (auto) Absolute Basos (auto) Total Counted Seg Neutrophils % Seg Neuts % (Manual) Band Neutrophils % Lymphocytes % (Manual) Monocytes % (Manual) Eosinophils % (Manual) Basophils % (Manual) Abs Neuts (Manual) Abs Lymphs (Manual) Abs Monocytes (Manual) Absolute Eos (Manual) Abs Basophils (Manual) Platelet Comment Anisocytosis PT INR Carbonic Acid HCO3/H2CO3 Ratio ABG pH ABG pCO2 ABG pO2 ABG HCO3 ABG Total CO2 ABG O2 Saturation ABG Base Excess FiO2 Sodium Potassium Chloride Carbon Dioxide Anion Gap BUN Creatinine Est GFR ( Amer) Est GFR (MDRD) Non-Af Glucose POC Glucose Lactic Acid 2.4 H Calcium Total Bilirubin Direct Bilirubin Neonat Total Bilirubin Neonat Direct Bilirubin Neonat Indirect Bili AST ALT Alkaline Phosphatase Total Protein Albumin Lipase 47.0 Urine Color PAUL Urine Appearance SLIGHTLY-CLOUDY Urine pH 5.0 Ur Specific [place] 1.012 Urine Protein 100 H Urine Glucose (UA) NEGATIVE Urine Ketones NEGATIVE Urine Blood SMALL H Urine Nitrite NEGATIVE Urine Bilirubin NEGATIVE Urine Urobilinogen 4.0 H Ur Leukocyte Esterase NEGATIVE Urine WBC (Auto) 2 Urine RBC (Auto) 2 Urine Bacteria (Auto) TRACE Squamous Epi Cells Auto 1 Urine Mucus (Auto) RARE Urine Ascorbic Acid NEGATIVE 08/22/19 08/22/19 08/22/19 20:10 21:30 22:28 WBC RBC Hgb Hct MCV MCH MCHC RDW Plt Count Lymph % (Auto) [place] % (Auto) Eos % (Auto) Baso % (Auto) Absolute Neuts (auto) Absolute Lymphs (auto) Absolute Monos (auto) Absolute Eos (auto) Absolute Basos (auto) Total Counted Seg Neutrophils % Seg Neuts % (Manual) Band Neutrophils % Lymphocytes % (Manual) Monocytes % (Manual) Eosinophils % (Manual) Basophils % (Manual) Abs Neuts (Manual) Abs Lymphs (Manual) Abs Monocytes (Manual) Absolute Eos (Manual) Abs Basophils (Manual) Platelet Comment Anisocytosis PT INR Carbonic Acid 2.00 H HCO3/H2CO3 Ratio 15:1 ABG pH 7.29 L ABG pCO2 66.5 H ABG pO2 72.6 L ABG HCO3 31.5 H ABG Total CO2 33.5 H ABG O2 Saturation 92.4 L ABG Base Excess 3.6 FiO2 4LNC Sodium Potassium Chloride Carbon Dioxide Anion Gap BUN Creatinine Est GFR ( Amer) Est GFR (MDRD) Non-Af Glucose POC Glucose 222 H 82 Lactic Acid Calcium Total Bilirubin Direct Bilirubin Neonat Total Bilirubin Neonat Direct Bilirubin Neonat Indirect Bili AST ALT Alkaline Phosphatase Total Protein Albumin Lipase Urine Color Urine Appearance Urine pH Ur Specific [place] Urine Protein Urine Glucose (UA) Urine Ketones Urine Blood Urine Nitrite Urine Bilirubin Urine Urobilinogen Ur Leukocyte Esterase Urine WBC (Auto) Urine RBC (Auto) Urine Bacteria (Auto) Squamous Epi Cells Auto Urine Mucus (Auto) Urine Ascorbic Acid Chest X-Ray 08/22/19 18:38 IMPRESSION: Cardiomegaly. Mild central vascular congestion. Abdomen Ultrasound 08/22/19 19:38 IMPRESSION: Gallbladder sludge with gallbladder wall thickening. Pericholecystic fluid. Fatty infiltrated enlarged liver, possible medical renal disease. Head CT 08/22/19 21:52 IMPRESSION: No acute intracranial abnormality. - Vital Signs Vital signs: Temp Pulse Resp BP Pulse Ox 98.2 F 74 21 H 138/53 H 96 08/22/19 21:30 08/22/19 18:46 08/22/19 20:02 08/22/19 20:02 08/22/19 20:02 - Laboratory Result Diagrams: 08/22/19 18:40 08/22/19 18:40 Laboratory results interpreted by me: 08/22/19 08/22/19 08/22/19 18:40 18:40 18:40 WBC 10.7 H RBC 3.63 L Hgb 11.0 L Hct 32.9 L RDW 14.9 H Plt Count 117 L Seg Neuts % (Manual) 82 H Band Neutrophils % 8 H Lymphocytes % (Manual) 8 L Monocytes % (Manual) 1 L Abs Neuts (Manual) 9.6 H Carbonic Acid ABG pH ABG pCO2 ABG pO2 ABG HCO3 ABG Total CO2 ABG O2 Saturation Potassium 2.8 L* Chloride 97 L Carbon Dioxide 31 H BUN 88 H Creatinine 2.56 H Est GFR ( Amer) 29 L Est GFR (MDRD) Non-Af 24 L Glucose 35 L* POC Glucose Lactic Acid 2.4 H Calcium 8.2 L Total Bilirubin 2.7 H Direct Bilirubin 1.9 H AST 101 H Alkaline Phosphatase 662 H Total Protein 5.8 L Albumin 3.0 L Urine Protein Urine Blood Urine Urobilinogen 08/22/19 08/22/19 08/22/19 18:40 20:10 21:30 WBC RBC Hgb Hct RDW Plt Count Seg Neuts % (Manual) Band Neutrophils % Lymphocytes % (Manual) Monocytes % (Manual) Abs Neuts (Manual) Carbonic Acid 2.00 H ABG pH 7.29 L ABG pCO2 66.5 H ABG pO2 72.6 L ABG HCO3 31.5 H ABG Total CO2 33.5 H ABG O2 Saturation 92.4 L Potassium Chloride Carbon Dioxide BUN Creatinine Est GFR ( Amer) Est GFR (MDRD) Non-Af Glucose POC Glucose 222 H Lactic Acid Calcium Total Bilirubin Direct Bilirubin AST Alkaline Phosphatase Total Protein Albumin Urine Protein 100 H Urine Blood SMALL H Urine Urobilinogen 4.0 H - EKG Interpretation by Me Additional EKG results interpreted by me: EKG demonstrates ventricular paced rhythm, with a ventricular rate of 70 bpm, left axis deviation, QTC 557 ms, compared to prior EKG, without significant change, no ST elevation. Procedures - Intubation Orotracheal Airway evaluation: Normal anatomy Mallampati Classification: Class 2 Medications: Etomidate - 20mg, Other - Rocuronium 50mg Intubation method: Orotracheal Blade type: Fidencio Blade size: 4 Equipment used: Glidescope ETT size: 8.0 ETT secured at: Teeth ETT secured at (cm): 23 Breath Sounds after Intubation: Equal End tidal CO2 confirmed: Yes Ventilator settings: SIMV Post Intubation Xray: Yes Intubation Complications: No complications Critical Care Note - Critical Care Note Total time excluding time spent on procedures (mins): 50 Comments: Critical care time 50 minutes exclusive from separate billable procedures for a patient requiring complex medical decision making, and high potential for clinical deterioration. And obtunded patient, septic, requiring fluid resuscitation, intubation, and ultimately transferred to a tertiary facility. Time spent obtaining history from patient or surrogate, discussions with consultants, development of treatment plan with patient or surrogate, evaluation of patient's response to treatment, examination of patient, ordering and performing treatments and interventions, ordering and review of laboratory studies, re-evaluation of patient's condition, ordering and review of radiographic studies and review of old charts Discharge - Discharge Clinical Impression: Acute respiratory failure with hypercapnia, Acute cholecystitis, Hypokalemia, Hypoglycemia Sepsis Qualifiers: Sepsis type: sepsis due to unspecified organism Sepsis acute organ dysfunction status: unspecified Qualified Code(s): A41.9 - Sepsis, unspecified organism Condition: Critical Disposition: [facility] Referrals: NATHALIE MORALES PA-C [Primary Care Provider] - Follow up as needed
[2019-08-22 19:09] LABS: INTERNATIONAL RATION (INR) 1.18
[2019-08-22 19:10] LABS: HEMATOCRIT 32.9 % (37.9-51.0); MEAN CORPUSCULAR HEMOGLOBIN 30.4 pg (27.0-33.4); MEAN CORPUSCULAR HGB CONC 33.5 g/dL (32.0-36.0); MEAN CORPUSCULAR VOLUME 91 fl (80-97); PLATELET COUNT 117 10^3/uL (150-450); RED BLOOD COUNT 3.63 10^6/uL (4.35-5.55); RED CELL DISTRIBUTION WIDTH 14.9 % (11.5-14.0); WHITE BLOOD COUNT 10.7 10^3/uL (4.0-10.5)
[2019-08-22] MEDS ORDERED: RINGERS SOLUTION,LACTATED 1,000 ML IV ONE (19:10)
[2019-08-22 19:12] LABS: APPEARANCE,URINE SLIGHTLY-CLOUDY; BILIRUBIN,URINE NEGATIVE (NEGATIVE); COLOR,URINE AMBER; GLUCOSE, URINE NEGATIVE (NEGATIVE); KETONES,URINE NEGATIVE (NEGATIVE); LEUKOCYTE ESTERASE,URINE NEGATIVE (NEGATIVE); NITRITE,URINE NEGATIVE (NEGATIVE); PROTEIN,URINE 100 mg/dL (NEGATIVE); URINE SPECIFIC GRAVITY 1.012
--- NOTE | 2019-08-22 19:22 | EKG REPORT ---
SEVERITY:- ABNORMAL ECG - NONSPECIFIC IVCD WITH LAD LVH WITH SECONDARY REPOLARIZATION ABNORMALITY V PACED.UNDERLYING ATRIAL FIB MOST LIKELY, : Confirmed by: Yina Peter MD 22-Aug-2019 19:21:36
[2019-08-22] MEDS ORDERED: VANCOMYCIN HCL INJ 1000 MG VIAL IV ONE (19:23)
[2019-08-22 19:27] LABS: ALKALINE PHOSPHATASE 662 U/L (38-126); ANION GAP 10 (5-19); ASPARTATE AMINO TRANSFERASE 101 U/L (17-59); BILIRUBIN,DIRECT 1.9 mg/dL (0.0-0.4); BILIRUBIN,TOTAL 2.7 mg/dL (0.2-1.3); BLOOD UREA NITROGEN 88 mg/dL (7-20); CALCIUM 8.2 mg/dL (8.4-10.2); CARBON DIOXIDE 31 mmol/L (22-30); CHLORIDE 97 mmol/L (98-107); TOTAL PROTEIN 5.8 g/dL (6.3-8.2)
[2019-08-22 19:31] LABS: ABSOLUTE LYMPHOCYTES# (MANUAL) 0.9 10^3/uL (0.5-4.7); ABSOLUTE MONOCYTES # (MANUAL) 0.1 10^3/uL (0.1-1.4); ANISOCYTOSIS SLIGHT; BAND NEUTROPHILS % (MANUAL) 8 % (3-5); BASOPHILS % (MANUAL) 1 % (0-2); EOSINOPHILS % (MANUAL) 0 % (0-6); LYMPHOCYTES % (MANUAL) 8 % (13-45); MONOCYTES % (MANUAL) 1 % (3-13); SEGMENTED NEUTROPHILS % (MAN) 82 % (42-78); TOTAL CELLS COUNTED 100
[2019-08-22 19:32] LABS: PLATELET COMMENT DECREASED
--- NOTE | 2019-08-22 19:34 | RADIOLOGY REPORT (SQ) ---
EXAM DESCRIPTION: CHEST SINGLE VIEW COMPLETED DATE/TIME: 08/22/2019 7:17 pm REASON FOR STUDY: Unresponsive COMPARISON: Chest x-ray 04/16/2019, 11/01/2015 EXAM PARAMETERS: NUMBER OF VIEWS: One view. TECHNIQUE: Single frontal radiographic view of the chest acquired. RADIATION DOSE: NA LIMITATIONS: None. FINDINGS: LUNGS AND PLEURA: No consolidation, sizable pleural effusion or pneumothorax. MEDIASTINUM AND HILAR STRUCTURES: No masses. Contour normal. HEART AND VASCULAR STRUCTURES: The heart is enlarged. There is mild central vascular congestion. BONES: No acute findings. HARDWARE: Sternotomy wires are present. There is a left-sided pacemaker. IMPRESSION: Cardiomegaly. Mild central vascular congestion. TECHNICAL DOCUMENTATION: JOB ID: [id number] 2010 [employer]- All Rights Reserved Reading location - IP/workstation name: [email or web address]
[2019-08-22 19:37] LABS: GLUCOSE 35 mg/dL (75-110); POTASSIUM 2.8 mmol/L (3.6-5.0)
[2019-08-22] MEDS ORDERED: DEXTROSE 50%-WATER 25 GM/50 ML DISP.SYRIN IV ONE ×3 (19:37→19:42)
[2019-08-22] MEDS: POTASSI CL 20 MEQ/50 ML RIDER 20 MEQ/50 ML RTUPB IV SCH ×3 (20:00→23:39)
--- NOTE | 2019-08-22 21:44 | RADIOLOGY REPORT (SQ) ---
EXAM DESCRIPTION: US ABDOMEN LIMITED COMPLETED DATE/TME: 08/22/2019 19:38 CLINICAL HISTORY: 79 years, Male, fever, sepsis, tranaminitis COMPARISON: EXAM DESCRIPTION: CLINICAL HISTORY: fever, sepsis, tranaminitis COMPARISON: None. FINDINGS: Sonography was performed of the right upper quadrant. Aorta is unremarkable. There is fatty infiltration of the liver with enlargement, liver span is 21.4 cm. Flow in the main portal vein is in the expected direction. There is gallbladder sludge. Trace pericholecystic fluid. Patient is unresponsive. Right kidney measures 26 x 67 x 67 mm and is echogenic. There is 5 mm gallbladder wall thickening. No focal hepatic or pancreatic lesion is seen. No right hydronephrosis. Common duct is normal in caliber. IMPRESSION: Gallbladder sludge with gallbladder wall thickening. Pericholecystic fluid. Fatty infiltrated enlarged liver, possible medical renal disease.
[2019-08-22 21:49] LABS: ARTERIAL BLOOD BASE EXCESS 3.6 mmol/L; ARTERIAL BLOOD HCO3 31.5 mmol/L (20-24); ARTERIAL BLOOD O2 SATURATION 92.4 % (94-98); ARTERIAL BLOOD PCO2 66.5 mmHg (35-45); ARTERIAL BLOOD PH 7.29 (7.35-7.45); ARTERIAL BLOOD PO2 72.6 mmHg (80-100); ARTERIAL BLOOD TOTAL CO2 33.5 mmol/L (23-27)
[2019-08-22 21:50] LABS: ARTERIAL BLOOD FIO2 4LNC
[2019-08-22] MEDS ORDERED: ROCURONIUM BROMIDE INJ 50 MG/5 ML VIAL IV ONE (22:09)
[2019-08-22] MEDS ORDERED: ETOMIDATE INJ/PF 20 MG/10 ML SDV IV ONE (22:09)
[2019-08-22] MEDS ORDERED: NORMAL SALINE 1000 ML 1,000 ML IV ONE (22:10)
[2019-08-22] MEDS ORDERED: PROPOFOL 1,000 MG/100 ML INFUS..BTL IV PRN (22:26)
--- NOTE | 2019-08-22 22:59 | RADIOLOGY REPORT (SQ) ---
EXAM DESCRIPTION: CT HEAD WITHOUT IV CONTRAST COMPLETED DATE/TME: 08/22/2019 21:52 CLINICAL HISTORY: 79 years, Male, altered mental status COMPARISON: EXAM DESCRIPTION: CLINICAL HISTORY: altered mental status COMPARISON: None Available TECHNIQUE: Contiguous axial CT images of the head were obtained. Coronal and sagittal reconstructions were created from the axial data. This exam was performed according to our departmental dose-optimization program, which includes automated exposure control, adjustment of the mA and/or kV according to patient size and/or use of iterative reconstruction technique. FINDINGS: There are intracranial vascular calcifications. Generous extra-axial CSF in the posterior fossa is likely no clinical significance. Poorly defined foci of decreased attenuation do not exert significant mass effect on surrounding structures and are likely sequela of prior insult, most likely on the basis of small vessel disease. There is no evidence of acute mass, mass effect, midline shift or hemorrhage. The ventricles and extra-axial CSF spaces are otherwise unremarkable. The brain parenchyma appears otherwise normal for the patient's age. No acute abnormalities of the bones is seen. IMPRESSION: No acute intracranial abnormality.
[2019-08-22] MEDS ORDERED: FENTANYL CITRATE INJ/PF 100 MCG/2 ML AMPUL IV ONE (23:13)
[2019-08-23] MEDS ORDERED: PIPERACILLIN SODIUM/TAZOBACTAM 4.5 GM in NORMAL SALINE 100 ML IV SCH ×2
--- NOTE | 2019-08-23 00:29 | RADIOLOGY REPORT (SQ) ---
EXAM DESCRIPTION: XR CHEST 1 VIEW COMPLETED DATE/TME: 08/22/2019 00:00 CLINICAL HISTORY: 79 years, Male, ET TUBE PLACEMENT COMPARISON: 08/22/2019 chest x-ray at 7:16 PM NUMBER OF VIEWS: 2 images, one labeled at 10:28:21 the other labeled at 10:28:57 TECHNIQUE: Portable chest LIMITATIONS: None. FINDINGS: The heart size is stable. Left-sided pacing device. Median sternotomy wires. Enteric tube extends into the upper abdomen. Endotracheal tube with the tip approximately 4.3 cm above the janie on the second submitted image. No pneumothorax. Patchy airspace opacities in the lung bases IMPRESSION: Endotracheal and enteric tubes have been placed. Patchy bibasilar airspace opacities copyright 2010 [employer]- All Rights Reserved
[2019-08-23 02:23] VITALS: BP 155/88
== END 2019-08-23 02:10 | disposition short-term general hospital (02) ==
LOC: ER 18:25
DX: A41.9 Sepsis, unspecified organism (principal); K81.0 Acute cholecystitis; J96.02 Acute respiratory failure with hypercapnia; E87.6 Hypokalemia; E11.649 Type 2 diabetes mellitus with hypoglycemia without coma; K76.0 Fatty (change of) liver, not elsewhere classified; I25.10 Atherosclerotic heart disease of native coronary artery without angina pectoris; I10 Essential (primary) hypertension; I25.2 Old myocardial infarction; J44.9 Chronic obstructive pulmonary disease, unspecified; Z88.8 Allergy status to other drugs, medicaments and biological substances; Z95.0 Presence of cardiac pacemaker; Z95.5 Presence of coronary angioplasty implant and graft; Z95.1 Presence of aortocoronary bypass graft
CPT/HCPCS: 36415; 87040; 87086; 82962; 82803; 83690; 85025; 85610; 87077; 80053; 81001; 84484; 83605; 71045; 76705; 70450; 94660; 93005; 93010; 31500; J3490 ×3; J3010; J2704; J3480; J7030; J7120; J3370; J2543; 87186

== ENCOUNTER → 2019-09-22 | Outpatient (CLI) | payer MEDICARE ==
[2019-09-22 15:00] LABS: ABSOLUTE BASOPHILS # (AUTO) 0.1 10^3/uL (0.0-0.2); ABSOLUTE EOSINOPHILS # (AUTO) 0.4 10^3/uL (0.0-0.6); ABSOLUTE LYMPHOCYTES (AUTO) 1.2 10^3/uL (0.5-4.7); ABSOLUTE MONOCYTES (AUTO) 0.5 10^3/uL (0.1-1.4); BASOPHILS % (AUTO) 0.7 % (0-2); EOSINOPHILS % (AUTO) 4.1 % (0-6); HEMATOCRIT 28.6 % (37.9-51.0); HEMOGLOBIN 9.8 g/dL (13.5-17.0); LYMPHOCYTES % (AUTO) 13.5 % (13-45); MEAN CORPUSCULAR HGB CONC 34.2 g/dL (32.0-36.0); MEAN CORPUSCULAR VOLUME 91 fl (80-97); MONOCYTES % (AUTO) 5.6 % (3-13); PLATELET COUNT 225 10^3/uL (150-450); RED BLOOD COUNT 3.16 10^6/uL (4.35-5.55); RED CELL DISTRIBUTION WIDTH 14.7 % (11.5-14.0); SEGMENTED NEUTROPHILS % (AUTO) 76.1 % (42-78); TOTAL CELLS COUNTED % (AUTO) 100 %; WHITE BLOOD COUNT 9.2 10^3/uL (4.0-10.5)
[2019-09-22 15:39] LABS: ALBUMIN 3.4 g/dL (3.5-5.0); ANION GAP 7 (5-19); BLOOD UREA NITROGEN 55 mg/dL (7-20); CALCIUM 9.1 mg/dL (8.4-10.2); CARBON DIOXIDE 29 mmol/L (22-30); CHLORIDE 103 mmol/L (98-107); GLUCOSE 120 mg/dL (75-110); IRON(TIBC) 34.5 ug/dL (49-181)
[2019-09-22 15:58] LABS: APPEARANCE,URINE CLEAR; BILIRUBIN,URINE NEGATIVE (NEGATIVE); COLOR,URINE STRAW; GLUCOSE, URINE NEGATIVE (NEGATIVE); KETONES,URINE NEGATIVE (NEGATIVE); LEUKOCYTE ESTERASE,URINE NEGATIVE (NEGATIVE); NITRITE,URINE NEGATIVE (NEGATIVE); PROTEIN,URINE NEGATIVE (NEGATIVE); URINE SPECIFIC GRAVITY 1.008; UROBILINOGEN,URINE NEGATIVE mg/dL (<2.0)
[2019-09-22 16:29] LABS: UR PRO/CREAT RATIO RESULT 0.7 mg/mg (0.0-0.2); URINE CREATININE 42.2 mg/dL (22-328); URINE PROTEIN 29.2 mg/dL (<12)
== END ==
LOC: OD 14:25
PROVIDERS: ATTEND Internal Medicine Nephrology
DX: I12.9 Hypertensive chronic kidney disease with stage 1 through stage 4 chronic kidney disease, or unspecified chronic kidney disease (principal); N18.3 Chronic kidney disease, stage 3 (moderate); E11.22 Type 2 diabetes mellitus with diabetic chronic kidney disease; D63.1 Anemia in chronic kidney disease; N25.81 Secondary hyperparathyroidism of renal origin
CPT/HCPCS: 36415; 80069; 81001; 82306; 82570; 82728; 83540; 83550; 83970; 84156; 85025

== ENCOUNTER 2019-09-24 16:07 | Emergency (ER) | payer MEDICARE ==
[2019-09-24 16:47] LABS: ABSOLUTE BASOPHILS # (AUTO) 0.1 10^3/uL (0.0-0.2); ABSOLUTE EOSINOPHILS # (AUTO) 0.2 10^3/uL (0.0-0.6); ABSOLUTE MONOCYTES (AUTO) 0.5 10^3/uL (0.1-1.4); ABSOLUTE NEUT (AUTO) 6.9 10^3/uL (1.7-8.2); BASOPHILS % (AUTO) 0.7 % (0-2); EOSINOPHILS % (AUTO) 2.6 % (0-6); HEMATOCRIT 27.1 % (37.9-51.0); HEMOGLOBIN 9.3 g/dL (13.5-17.0); INTERNATIONAL RATION (INR) 1.11; LYMPHOCYTES % (AUTO) 11.6 % (13-45); MEAN CORPUSCULAR HEMOGLOBIN 31.5 pg (27.0-33.4); MEAN CORPUSCULAR HGB CONC 34.2 g/dL (32.0-36.0); MEAN CORPUSCULAR VOLUME 92 fl (80-97); MONOCYTES % (AUTO) 5.9 % (3-13); PLATELET COUNT 200 10^3/uL (150-450); PROTHROMBIN TIME 14.4 SEC (11.4-15.4); RED BLOOD COUNT 2.94 10^6/uL (4.35-5.55); RED CELL DISTRIBUTION WIDTH 14.9 % (11.5-14.0); SEGMENTED NEUTROPHILS % (AUTO) 79.2 % (42-78); TOTAL CELLS COUNTED % (AUTO) 100 %; WHITE BLOOD COUNT 8.7 10^3/uL (4.0-10.5)
--- NOTE | 2019-09-24 16:52 | ER Document Report ---
ED General - General Chief Complaint: Low Blood Sugar Stated Complaint: BLOOD SUGAR PROBLEM Time Seen by Provider: 09/24/19 16:23 Primary Care Provider: PENNIE THURMAN MD [Primary Care Provider] - Follow up as needed TRAVEL OUTSIDE OF THE U[place]S. IN LAST 30 DAYS: No - HPI Notes: 79-year-old male diabetic male with multiple chronic medical problems who was seen in this emergency department approximately 1 month ago and at that time had obstructed bile duct due to gallstone. He was apparently septic at that time started on antibiotics and transferred to [facility]. He subsequently underwent ERCP and had a cholecystostomy. He was discharged home on oral Keflex. His called EMS today because he was hypoglycemic with altered mental status. D50 was administered IV and he was transported to the emergency department. He remains mildly confused here. Duration persistent. Denies pain. Precipitating factors: Low-grade fever noted at home. Relieving factors: Partial improvement with administration of IV dextrose. Severity: Severe - Related Data Allergies/Adverse Reactions: clonidine [Clonidine] Allergy (Intermediate, Verified 03/16/19 15:17) Respiratory distress Past Medical History - General Information source: Patient, Relative, [facility] Records Cannot obtain history due to: Altered mental status - Social History Smoking Status: Unknown if Ever Smoked Drug Abuse: None Lives with: Family Family History: Reviewed & Not Pertinent Patient has suicidal ideation: No Patient has homicidal ideation: No - Past Medical History Cardiac Medical History: Reports: Hx Atrial Fibrillation, Hx Coronary Artery Disease, Hx Heart Attack, Hx Hypertension Pulmonary Medical History: Reports: Hx COPD, Hx Pneumonia - as a baby Denies: Hx Asthma, Hx Bronchitis Neurological Medical History: Denies: Hx Cerebrovascular Accident, Hx Seizures Endocrine Medical History: Reports: Hx Diabetes Mellitus Type 1, Hx Diabetes Mellitus Type 2 Renal/ Medical History: Denies: Hx Peritoneal Dialysis GI Medical History: Reports: Other - As per HPI Musculoskeletal Medical History: Reports Hx Arthritis Past Surgical History: Reports: Hx Cardiac Surgery - pacemaker, tripple bypassComment Only: Hx Cardiac Catheterization - stents - Immunizations Hx Diphtheria, Pertussis, Tetanus Vaccination: Yes Hx Pneumococcal Vaccination: 11/18/10 Review of Systems - Review of Systems -: Yes ROS unobtainable due to patient's medical condition Physical Exam - Vital signs Vitals: Temp 98.7 F 09/24/19 16:39 Notes: GENERAL: Elderly man who appears mildly confused but otherwise in no acute distress. SKIN: Good turgor no rashes. HEAD: Normocephalic atraumatic. EYES: PERRLA. Conjunctivae and sclerae clear. EARS: CANALS AND TMS CLEAR. NOSE: CLEAR. MOUTH: Moist mucosa. Good dentition. No stridor or edema. No drooling. Throat: Clear. NECK: Supple. No masses or thyromegaly. No adenopathy. Carotids 2+ without br uits. No JVD. BACK: Symmetrical without tenderness. CHEST: Healed CABG scar present. Respirations unlabored. Breath sounds clear and symmetrical. HEART: Regular rhythm. No murmur gallop or rub. ABDOMEN: Soft nontender without masses, organomegaly or rebound. Bowel sounds normally active. No bruits. Patient has a cholecystostomy tube present right upper quadrant with drainage of bile. GENITALIA: Deferred. EXTREMITIES: No edema. No calf tenderness. Cap refill less than 1.5 seconds. Dorsalis pedis and posterior tibial pulses 3+ and symmetrical. NEUROLOGICAL: GCS 14 due to disorientation to time.. Alert but responses are slow. Fluent speech. Cranial nerves II through XII intact. Sensorimotor and cerebellar normal. Normal tone. Course - Re-evaluation Re-evalutation: 09/24/19 17:13 With recurrent hypoglycemia, altered mental status and low-grade temperature to I would have to be concerned that the patient may have sepsis from biliary tract. I am going to obtain blood cultures and lactate level in addition to the comprehensive metabolic profile and CBC which is already been ordered. I also requested a chest x-ray and urinalysis. We started the patient on 5% dextrose infusion and will monitor blood sugar serially q. one hour. Patient will be empirically started on Zosyn IV. 09/24/19 22:30 This gentleman has been observed for an extended period of time. We are to give him 2 pushes of D50 IV briefly had him on 10% dextrose infusion continuously. On follow-up his sugar came up into the 160s. His mental status changes were totally resolved and he said that he was hungry. We took him off the 10% dextrose infusion and fed him and this was well-tolerated and he was able to stand and ambulate without assistance. He does not have a fever here he does not have an elevated white count. He has no evidence of urinary tract infection or pneumonia and his lactate level is normal. He had a low-grade temperature reported at home and has a cholecystostomy tube. His LFTs here were normal. He has no abdominal tenderness. His arrived and told us that he had taken his usual insulin this morning but had not been willing to eat anything despite coaxing. I explained to him that he would have to eat or be hospitalized. He very much wants to go home. I am going to place him on some Augmentin at home and have him follow-up with primary care physician and suggested that his cut his insulin dosage by about 5 units. Follow with primary care physician tomorrow. Return here as needed for new or worsening symptoms. - Vital Signs Vital signs: Temp Pulse Resp BP Pulse Ox 98.7 F 14 136/59 H 09/24/19 16:39 09/24/19 19:45 09/24/19 19:45 - Laboratory Result Diagrams: 09/24/19 16:19 09/24/19 16:19 Laboratory results interpreted by me: 09/24/19 09/24/19 09/24/19 16:19 16:19 17:09 RBC 2.94 L Hgb 9.3 L Hct 27.1 L RDW 14.9 H Lymph % (Auto) 11.6 L Seg Neutrophils % 79.2 H VBG pH 7.26 L VBG pCO2 63.3 H BUN 59 H Creatinine 3.00 H Est GFR ( Amer) 24 L Est GFR (MDRD) Non-Af 20 L POC Glucose Total Protein 6.1 L Albumin 3.2 L Urine Protein 09/24/19 09/24/19 09/24/19 18:35 19:49 19:55 RBC Hgb Hct RDW Lymph % (Auto) Seg Neutrophils % VBG pH VBG pCO2 BUN Creatinine Est GFR ( Amer) Est GFR (MDRD) Non-Af POC Glucose 61 L 123 H Total Protein Albumin Urine Protein 30 H 09/24/19 22:11 RBC Hgb Hct RDW Lymph % (Auto) Seg Neutrophils % VBG pH VBG pCO2 BUN Creatinine Est GFR ( Amer) Est GFR (MDRD) Non-Af POC Glucose 116 H Total Protein Albumin Urine Protein Discharge - Discharge Clinical Impression: Altered mental status, Hypoglycemia, Diabetes mellitus type 2 Condition: Stable Disposition: HOME, SELF-CARE Additional Instructions: Do not skip meals. Reduce the dosage on both your short acting and long-acting insulin each by 5 units. Return here as needed for new or worsening symptoms. Follow-up with your physician tomorrow. Prescriptions: Amox Tr/Potassium Clavulanate [Augmentin 875-125 Tablet] 1 tab PO BID 10 Days #20 tablet Referrals: PENNIE THURMAN MD [Primary Care Provider] - Follow up as needed
[2019-09-24 16:54] LABS: ALBUMIN 3.2 g/dL (3.5-5.0); ALKALINE PHOSPHATASE 87 U/L (38-126); ANION GAP 8 (5-19); ASPARTATE AMINO TRANSFERASE 18 U/L (17-59); BILIRUBIN,DIRECT 0.3 mg/dL (0.0-0.4); BILIRUBIN,TOTAL 0.6 mg/dL (0.2-1.3); BLOOD UREA NITROGEN 59 mg/dL (7-20); CALCIUM 8.9 mg/dL (8.4-10.2); CARBON DIOXIDE 26 mmol/L (22-30); CHLORIDE 107 mmol/L (98-107); GLUCOSE 102 mg/dL (75-110); POTASSIUM 4.6 mmol/L (3.6-5.0); TOTAL PROTEIN 6.1 g/dL (6.3-8.2)
[2019-09-24] MEDS ORDERED: DEXTROSE 5%-NORMAL SALINE 1,000 ML IV PRN (17:04)
[2019-09-24] MEDS ORDERED: PIPERACILLIN/TAZOBACTAM 3.375 GM VIAL IV ONE (17:11)
[2019-09-24 17:26] LABS: VENOUS BLOOD BASE EXCESS 0.6 mmol/L; VENOUS BLOOD PCO2 63.3 mmHg (35-63); VENOUS BLOOD PH 7.26 (7.30-7.42)
--- NOTE | 2019-09-24 17:31 | RADIOLOGY REPORT (SQ) ---
EXAM DESCRIPTION: CHEST SINGLE VIEW COMPLETED DATE/TIME: 09/24/2019 5:21 pm REASON FOR STUDY: ams COMPARISON: Chest radiographs 08/22/2019 EXAM PARAMETERS: NUMBER OF VIEWS: One view. TECHNIQUE: Single frontal radiographic view of the chest acquired. RADIATION DOSE: NA LIMITATIONS: None. FINDINGS: LUNGS AND PLEURA: No opacities, masses or pneumothorax. No pleural effusion. MEDIASTINUM AND HILAR STRUCTURES: No masses. Contour normal. HEART AND VASCULAR STRUCTURES: Heart normal in size. Normal vasculature. BONES: No acute findings. HARDWARE: Left chest wall dual lead cardiac pacing device. OTHER: No other significant finding. IMPRESSION: No acute pulmonary findings. TECHNICAL DOCUMENTATION: JOB ID: [id number] [email or web address]- All Rights Reserved Reading location - IP/workstation name: [email or web address]
[2019-09-24] MEDS ORDERED: DEXTROSE 50%-WATER 25 GM/50 ML DISP.SYRIN IV ONE ×2 (18:41→18:42)
[2019-09-24] MEDS ORDERED: DEXTROSE 10%-WATER 1,000 ML IV PRN (18:42)
[2019-09-24 20:08] LABS: APPEARANCE,URINE SLIGHTLY-CLOUDY; BILIRUBIN,URINE NEGATIVE (NEGATIVE); COLOR,URINE YELLOW; GLUCOSE, URINE NEGATIVE (NEGATIVE); KETONES,URINE NEGATIVE (NEGATIVE); LEUKOCYTE ESTERASE,URINE NEGATIVE (NEGATIVE); NITRITE,URINE NEGATIVE (NEGATIVE); PROTEIN,URINE 30 mg/dL (NEGATIVE); URINE SPECIFIC GRAVITY 1.012; UROBILINOGEN,URINE NEGATIVE mg/dL (<2.0)
[2019-09-24 22:39] VITALS: BP 112/72
--- NOTE | 2019-09-24 22:41 | EKG REPORT ---
SEVERITY:- ABNORMAL ECG - ATRIAL-VENTRICULAR DUAL-PACED COMPLEXES : Confirmed by: Graeme Cespedes 24-Sep-2019 22:41:31
== END 2019-09-24 23:12 | disposition home or self-care (01) ==
LOC: ER 16:07
DX: E11.649 Type 2 diabetes mellitus with hypoglycemia without coma (principal); Z79.4 Long term (current) use of insulin; R41.0 Disorientation, unspecified; I25.10 Atherosclerotic heart disease of native coronary artery without angina pectoris; I10 Essential (primary) hypertension; J44.9 Chronic obstructive pulmonary disease, unspecified; Z95.5 Presence of coronary angioplasty implant and graft; Z95.1 Presence of aortocoronary bypass graft; Z95.0 Presence of cardiac pacemaker; Z88.8 Allergy status to other drugs, medicaments and biological substances; Z90.49 Acquired absence of other specified parts of digestive tract
CPT/HCPCS: 93005; 36415; 82962; 83605; 85025; 85610; 80053; 81001; 82803; 71045; 93010; J3490; J7042; J2543

== ENCOUNTER → 2019-10-26 | Outpatient (CLI) | payer MEDICARE ==
[2019-10-26 15:05] LABS: ABSOLUTE BASOPHILS # (AUTO) 0.1 10^3/uL (0.0-0.2); ABSOLUTE EOSINOPHILS # (AUTO) 0.3 10^3/uL (0.0-0.6); ABSOLUTE LYMPHOCYTES (AUTO) 1.2 10^3/uL (0.5-4.7); ABSOLUTE MONOCYTES (AUTO) 0.4 10^3/uL (0.1-1.4); ABSOLUTE NEUT (AUTO) 5.4 10^3/uL (1.7-8.2); EOSINOPHILS % (AUTO) 4.5 % (0-6); HEMATOCRIT 26.6 % (37.9-51.0); HEMOGLOBIN 9.3 g/dL (13.5-17.0); LYMPHOCYTES % (AUTO) 16.2 % (13-45); MEAN CORPUSCULAR HEMOGLOBIN 32.2 pg (27.0-33.4); MEAN CORPUSCULAR HGB CONC 34.8 g/dL (32.0-36.0); MEAN CORPUSCULAR VOLUME 93 fl (80-97); MONOCYTES % (AUTO) 5.6 % (3-13); PLATELET COUNT 184 10^3/uL (150-450); RED BLOOD COUNT 2.88 10^6/uL (4.35-5.55); RED CELL DISTRIBUTION WIDTH 15.2 % (11.5-14.0); SEGMENTED NEUTROPHILS % (AUTO) 72.7 % (42-78); TOTAL CELLS COUNTED % (AUTO) 100 %; WHITE BLOOD COUNT 7.4 10^3/uL (4.0-10.5)
[2019-10-26 15:33] LABS: ANION GAP 8 (5-19); BLOOD UREA NITROGEN 62 mg/dL (7-20); CARBON DIOXIDE 27 mmol/L (22-30); CHLORIDE 105 mmol/L (98-107); GLUCOSE 105 mg/dL (75-110); POTASSIUM 4.9 mmol/L (3.6-5.0)
== END ==
LOC: OD 14:21
PROVIDERS: ATTEND Internal Medicine Nephrology
DX: N17.9 Acute kidney failure, unspecified (principal); I12.9 Hypertensive chronic kidney disease with stage 1 through stage 4 chronic kidney disease, or unspecified chronic kidney disease; N18.3 Chronic kidney disease, stage 3 (moderate); E11.22 Type 2 diabetes mellitus with diabetic chronic kidney disease; D50.9 Iron deficiency anemia, unspecified; N25.81 Secondary hyperparathyroidism of renal origin
CPT/HCPCS: 36415; 80048; 85025

== ENCOUNTER → 2019-10-29 | Outpatient (CLI) | payer MEDICARE ==
[2019-10-29 17:13] LABS: ANION GAP 13 (5-19); BLOOD UREA NITROGEN 71 mg/dL (7-20); CALCIUM 9.7 mg/dL (8.4-10.2); CARBON DIOXIDE 25 mmol/L (22-30); CHLORIDE 101 mmol/L (98-107); GLUCOSE 85 mg/dL (75-110); POTASSIUM 4.8 mmol/L (3.6-5.0)
== END ==
LOC: OD 14:45
PROVIDERS: ATTEND Physician Assistant
DX: I10 Essential (primary) hypertension (principal); R06.02 Shortness of breath; Z79.899 Other long term (current) drug therapy
CPT/HCPCS: 36415; 80048; 83880

== ENCOUNTER 2019-12-01 12:59 | Inpatient (IN) | payer MEDICARE, OTHER ==
[2019-12-01 13:47] LABS: ABSOLUTE EOSINOPHILS # (AUTO) 0.1 10^3/uL (0.0-0.6); ABSOLUTE LYMPHOCYTES (AUTO) 0.6 10^3/uL (0.5-4.7); ABSOLUTE MONOCYTES (AUTO) 0.2 10^3/uL (0.1-1.4); ABSOLUTE NEUT (AUTO) 6.9 10^3/uL (1.7-8.2); BASOPHILS % (AUTO) 0.5 % (0-2); EOSINOPHILS % (AUTO) 1.5 % (0-6); HEMATOCRIT 30.9 % (37.9-51.0); HEMOGLOBIN 10.8 g/dL (13.5-17.0); LYMPHOCYTES % (AUTO) 7.4 % (13-45); MEAN CORPUSCULAR HEMOGLOBIN 32.3 pg (27.0-33.4); MEAN CORPUSCULAR HGB CONC 34.8 g/dL (32.0-36.0); MEAN CORPUSCULAR VOLUME 93 fl (80-97); PLATELET COUNT 201 10^3/uL (150-450); RED BLOOD COUNT 3.33 10^6/uL (4.35-5.55); RED CELL DISTRIBUTION WIDTH 14.2 % (11.5-14.0); SEGMENTED NEUTROPHILS % (AUTO) 87.6 % (42-78); TOTAL CELLS COUNTED % (AUTO) 100 %; WHITE BLOOD COUNT 7.9 10^3/uL (4.0-10.5)
[2019-12-01 13:51] LABS: INTERNATIONAL RATION (INR) 1.11; PROTHROMBIN TIME 14.4 SEC (11.4-15.4)
[2019-12-01 14:08] LABS: ALBUMIN 4.1 g/dL (3.5-5.0); ALKALINE PHOSPHATASE 71 U/L (38-126); ASPARTATE AMINO TRANSFERASE 17 U/L (17-59); BILIRUBIN,DIRECT 0.6 mg/dL (0.0-0.4); BILIRUBIN,TOTAL 0.6 mg/dL (0.2-1.3); CALCIUM 9.4 mg/dL (8.4-10.2); CREATINE KINASE 108 U/L (55-170); GLUCOSE 124 mg/dL (75-110); POTASSIUM 5.7 mmol/L (3.6-5.0); TOTAL PROTEIN 7.2 g/dL (6.3-8.2)
[2019-12-01 14:14] LABS: ANION GAP 19 (5-19); CARBON DIOXIDE 15 mmol/L (22-30); CHLORIDE 100 mmol/L (98-107)
[2019-12-01 14:20] LABS: BLOOD UREA NITROGEN 121 mg/dL (7-20); CREATINE KINASE MB 4.63 ng/mL (<4.55)
[2019-12-01 14:29] LABS: TROPONIN I 0.051 ng/mL
--- NOTE | 2019-12-01 14:59 | RADIOLOGY REPORT (SQ) ---
EXAM DESCRIPTION: CHEST SINGLE VIEW COMPLETED DATE/TIME: 12/01/2019 2:22 pm REASON FOR STUDY: chest pain COMPARISON: Chest films 04/16/2019, 08/22/2019, 09/24/2019 EXAM PARAMETERS: NUMBER OF VIEWS: One view. TECHNIQUE: Single frontal radiographic view of the chest acquired. RADIATION DOSE: NA LIMITATIONS: None. FINDINGS: LUNGS AND PLEURA: No opacities, masses or pneumothorax. No pleural effusion. MEDIASTINUM AND HILAR STRUCTURES: No masses. Contour normal. HEART AND VASCULAR STRUCTURES: No cardiomegaly BONES: No acute findings. HARDWARE: Old sternotomy for CABG. Left-sided dual lead pacemaker OTHER: No other significant finding. IMPRESSION: NO ACUTE RADIOGRAPHIC FINDING IN THE CHEST. TECHNICAL DOCUMENTATION: JOB ID: [id number] [employer]- All Rights Reserved Reading location - IP/workstation name: [email or web address]
--- NOTE | 2019-12-01 15:00 | ER Document Report ---
ED General - General Chief Complaint: Dizziness Stated Complaint: ALTERED MENTAL STATUS Time Seen by Provider: 12/01/19 14:54 Primary Care Provider: NATHALIE MORALES PA-C [Primary Care Provider] - Follow up as needed Mode of Arrival: Stretcher Information source: Relative - His history is from [place] of greater than 40 years. Patient himself is stuporous unable to answer other than a grunt. they originally from [place] and [place] people. 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 Joya nephrology and followed by Dr. Chamberlain staff training and development manager and PMD in [place] where they live [place] Cannot obtain history due to: Altered mental status TRAVEL OUTSIDE OF THE [place] IN LAST 30 DAYS: No - HPI Onset: This morning Quality of pain: No pain Severity: None Pain Level: Denies Associated symptoms: Vomiting - Patient has had poor intake of both liquids and foods for the last 24 hours according to his . He had some broth last evening which he vomited this morning. Patient arrives via EMS with a left forearm IV. Patient in August had a event in which he needed a drain to his gallbladder which continues to be present right upper quadrant. He also had to be intubated here and transferred to [facility]. - Related Data Allergies/Adverse Reactions: apixaban [From Eliquis] Allergy (Intermediate, Verified 12/01/19 13:54) clonidine [Clonidine] Allergy (Intermediate, Verified 12/01/19 13:07) Respiratory distress Past Medical History - General Information source: Relative Cannot obtain history due to: Altered mental status - Social History Smoking Status: Former Smoker Cigarette use (# per day): No Chew tobacco use (# tins/day): No Smoking Education Provided: No Frequency of alcohol use: None Drug Abuse: None Lives with: Family Family History: Other - Disease and chronic kidney disease. denies: Reviewed & Not Pertinent Patient has suicidal ideation: No Patient has homicidal ideation: No - Past Medical History Cardiac Medical History: Reports: Hx Atrial Fibrillation, Hx Coronary Artery Disease, Hx Heart Attack, Hx Hypertension Pulmonary Medical History: Reports: Hx COPD, Hx Pneumonia - as a baby Denies: Hx Asthma, Hx Bronchitis EENT Medical History: Reports: None Neurological Medical History: Denies: Hx Cerebrovascular Accident, Hx Seizures Endocrine Medical History: Reports: Hx Diabetes Mellitus Type 1, Hx Diabetes Mellitus Type 2 Renal/ Medical History: Denies: Hx Peritoneal Dialysis Musculoskeletal Medical History: Reports Hx Arthritis Past Surgical History: Reports: Hx Cardiac Surgery - pacemaker, tripple bypassComment Only: Hx Cardiac Catheterization - stents - Immunizations Hx Diphtheria, Pertussis, Tetanus Vaccination: Yes Hx Pneumococcal Vaccination: 11/18/10 Physical Exam - Vital signs Vitals: Temp Pulse Resp BP Pulse Ox 97.7 F 63 16 130/54 H 98 12/01/19 13:06 12/01/19 13:06 12/01/19 13:06 12/01/19 13:06 12/01/19 13:06 Interpretation: Normal - General General appearance: Lethargic In distress: None - HEENT Head: Normocephalic Eyes: Pale conjunctiva Conjunctiva: Other - Point pupils reports she does not take any narcotic or pain medicines. Cornea: Normal Pupils: Pinpoint Sinus: Normal Nasal: Normal Mucous membranes: Dry Pharynx: Normal Neck: Normal - Respiratory Respiratory status: No respiratory distress - Cardiovascular Rhythm: Regular Murmur: Yes Systolic murmur grade 1-6: 3 - holosystolic Friction rub: Yes Abdirizak's crunch: No - Abdominal Inspection: Normal, Other - Section of drain in the right upper quadrant the area appears to be clean and dry. Home health nurse and because of sensorium decided to send him to the ER. Distension: No distension Tenderness: Tender Course - Re-evaluation Re-evalutation: 12/01/19 16:38 pt much improved and talking and oriented after Narcan, reports Fentanyl given last Saturday during GB shunt cleaning..also pt takes gabapentin 12/01/19 18:02 I discussed this case with Esme who advised IV 1/2NS at 75 and hospitalist Donovan ..who I spoke to..he advised Terrance who will admit - Vital Signs Vital signs: Temp Pulse Resp BP Pulse Ox 97.7 F 63 12 143/60 H 98 12/01/19 15:24 12/01/19 13:06 12/01/19 17:01 12/01/19 17:01 12/01/19 17:01 - Laboratory Result Diagrams: 12/01/19 13:20 12/01/19 13:20 Laboratory results interpreted by me: 12/01/19 12/01/1920 13:20 13:20 13:20 RBC 3.33 L Hgb 10.8 L Hct 30.9 L RDW 14.2 H Lymph % (Auto) 7.4 L Seg Neutrophils % 87.6 H Sodium 134.3 L Potassium 5.7 H Carbon Dioxide 15 L BUN 121 H Creatinine 10.06 H Est GFR ( Amer) 6 L Est GFR (MDRD) Non-Af 5 L Glucose 124 H Lactic Acid Direct Bilirubin 0.6 H Ammonia CK-MB (CK-2) 4.63 H Urine Protein Acetaminophen 12/01/19 12/01/19 12/01/19 13:20 13:20 15:43 RBC Hgb Hct RDW Lymph % (Auto) Seg Neutrophils % Sodium Potassium Carbon Dioxide BUN Creatinine Est GFR ( Amer) Est GFR (MDRD) Non-Af Glucose Lactic Acid 0.5 L Direct Bilirubin Ammonia < 8.7 L CK-MB (CK-2) Urine Protein Acetaminophen < 10 L 12/01/19 16:52 RBC Hgb Hct RDW Lymph % (Auto) Seg Neutrophils % Sodium Potassium Carbon Dioxide BUN Creatinine Est GFR ( Amer) Est GFR (MDRD) Non-Af Glucose Lactic Acid Direct Bilirubin Ammonia CK-MB (CK-2) Urine Protein 30 H Acetaminophen - Diagnostic Test Radiology reviewed: Reports reviewed - EKG Interpretation by Me Rate: Normal Rhythm: Other - AV paced rhythm 60 bpm Discharge - Discharge Clinical Impression: Mental status change resolved, Lethargic, Gabapentin adverse reaction, Adverse effect of narcotic Condition: Fair Disposition: ADMITTED OBSERVATION Admitting Provider: Bari (Hospitalist) Unit Admitted: Medical Floor Referrals: NATHALIE MORALES PA-C [Primary Care Provider] - Follow up as needed
[2019-12-01] MEDS ORDERED: NALOXONE HCL INJ/PF 0.4 MG/1 ML SDV IV ONE (15:06)
[2019-12-01] MEDS ORDERED: DEXTROSE 50%-WATER 25 GM/50 ML DISP.SYRIN IV ONE (15:06)
[2019-12-01] MEDS ORDERED: INSULIN REG, HUMAN 100 UNIT/ML 3 ML VIAL (PYX) IV ONE (15:08)
[2019-12-01] MEDS ORDERED: ONDANSETRON HCL INJ/PF 4 MG/2 ML SDV IV ONE (15:17)
--- NOTE | 2019-12-01 16:06 | RADIOLOGY REPORT (SQ) ---
EXAM DESCRIPTION: CT HEAD WITHOUT COMPLETED DATE/TIME: 12/01/2019 3:24 pm REASON FOR STUDY: lethargy COMPARISON: 08/22/2019. TECHNIQUE: Axial images acquired through the brain without intravenous contrast. Images reviewed wi th bone, brain and subdural windows. Additional sagittal and coronal reconstructions were generated. Images stored on PACS. All CT scanners at this facility use dose modulation, iterative reconstruction, and/or weight based d osing when appropriate to reduce radiation dose to as low as reasonably achievable (ALARA). [facility]: Dose Right [facility]: CareDose [facility]: Dose Right [facility]: Teradose 4D [facility]: Smart [employer] RADIATION DOSE: CT Rad equipment meets quality standard of care and radiation dose reduction techniq ues were employed. CTDIvol: 53.2 mGy. DLP: 1150 mGy-cm.mGy. LIMITATIONS: None. FINDINGS: VENTRICLES: Prominent. CEREBRUM: No masses. No hemorrhage. No midline shift. Areas of low density in the white matter mos t likely due to chronic micro-vascular ischemic change. No evidence for acute infarction. CEREBELLUM: No masses. No hemorrhage. No alteration of density. No evidence for acute infarction. EXTRAAXIAL SPACES: Age-related involutional change. No fluid collections. No masses. ORBITS AND GLOBE: No intra- or extraconal masses. Normal contour of globe without masses. CALVARIUM: No fracture. PARANASAL SINUSES: No fluid or mucosal thickening. SOFT TISSUES: No mass or hematoma. OTHER: No other significant finding. IMPRESSION: CHRONIC CHANGES OF ATROPHY AND MICROVASCULAR ISCHEMIA. NO ACUTE PROCESS. EVIDENCE OF ACUTE STROKE: NO. TECHNICAL DOCUMENTATION: JOB ID: [id number] Quality ID # [id number]: Final reports with documentation of one or more dose reduction techniques (e.g., Au tomated exposure control, adjustment of the mA and/or kV according to patient size, use of iterative reconstruction technique) 2010 [employer]- All Rights Reserved Reading location - IP/workstation name: [email or web address]
--- NOTE | 2019-12-01 16:22 | RADIOLOGY REPORT (SQ) ---
EXAM DESCRIPTION: CT ABD/PELVIS NO ORAL OR IV COMPLETED DATE/TIME: 12/01/2019 3:24 pm REASON FOR STUDY: lethargy COMPARISON: 08/17/2019. TECHNIQUE: CT scan of the abdomen and pelvis performed without intravenous or oral contrast. Images reviewed with lung, soft tissue, and bone windows. Reconstructed coronal and sagittal MPR images revi ewed. All images stored on PACS. All CT scanners at this facility use dose modulation, iterative reconstruction, and/or weight based d osing when appropriate to reduce radiation dose to as low as reasonably achievable (ALARA). [facility]: Dose Right [facility]: CareDose [facility]: Dose Right [facility]: Teradose 4D [facility]: [employer] RADIATION DOSE: CT Rad equipment meets quality standard of care and radiation dose reduction techniq ues were employed. CTDIvol: 14.4 mGy. DLP: 844 mGy-cm.mGy. LIMITATIONS: None. FINDINGS: LOWER CHEST: No significant findings. No nodules or infiltrates. NON-CONTRASTED LIVER, SPLEEN, ADRENALS: Evaluation limited by lack of IV contrast. No identified sign ificant masses. PANCREAS: No masses. No peripancreatic inflammatory changes. GALLBLADDER: Surgically absent. Percutaneous drainage tube in the gallbladder fossa. Stent in the c ommon bile duct extending into the duodenum. No ductal dilation. RIGHT KIDNEY AND URETER: Cortical cysts. No suspicious masses. Assessment limited by lack of IV cont rast. No significant calcifications. No hydronephrosis or hydroureter. LEFT KIDNEY AND URETER: No suspicious masses. Assessment limited by lack of IV contrast. Large pare nchymal calcification. Subcapsular fluid collection has decreased in size since the most recent avai lable study. No hydronephrosis or hydroureter. AORTA AND RETROPERITONEUM: Infrarenal aortic aneurysm measuring 3.8 cm. No retroperitoneal masses or adenopathy. BOWEL AND PERITONEAL CAVITY: Colonic diverticulosis. No obvious masses or inflammatory changes. No f ree fluid. APPENDIX: Normal. PELVIS, BLADDER, AND ABDOMINAL WALL:No abnormal masses. No free fluid. Bladder normal. BONES: No significant findings. OTHER: No other significant finding. IMPRESSION: 1. 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 THE PATIENT MAY HAVE MORE RECENT IMAGING STUDIES ELSEWHERE, THE PATIENT HAS HAD INTERVAL SURGERY WITH PLACEMENT O F PERCUTANEOUS DRAINAGE TUBE AND BILIARY STENT. COMPARISON WITH MORE RECENT STUDIES MAY BE HELPFUL. 2. COLONIC DIVERTICULOSIS. NO CT FINDINGS OF ACUTE DIVERTICULITIS. 3. 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 4. CORTICAL CYSTS IN THE RIGHT KIDNEY. 5. NO OTHER SIGNIFICANT OR ACUTE PROCESS IN THE ABDOMEN OR PELVIS. COMMENT: Quality ID # 436: Final reports with documentation of one or more dose reduction techniques (e.g., Automated exposure control, adjustment of the mA and/or kV according to patient size, use of iterative reconstruction technique) TECHNICAL DOCUMENTATION: JOB ID: [id number] [employer]- All Rights Reserved Reading location - IP/workstation name: [email or web address]
[2019-12-01 17:10] LABS: APPEARANCE,URINE CLEAR; BILIRUBIN,URINE NEGATIVE (NEGATIVE); COLOR,URINE YELLOW; GLUCOSE, URINE NEGATIVE (NEGATIVE); KETONES,URINE NEGATIVE (NEGATIVE); LEUKOCYTE ESTERASE,URINE NEGATIVE (NEGATIVE); NITRITE,URINE NEGATIVE (NEGATIVE); PROTEIN,URINE 30 mg/dL (NEGATIVE); UROBILINOGEN,URINE NEGATIVE mg/dL (<2.0)
[2019-12-01] MEDS ORDERED: 1/2 NORMAL SALINE 1,000 ML IV ONE (17:49)
[2019-12-01] MEDS ORDERED: NORMAL SALINE 1000 ML 1,000 ML IV PRN (18:27)
[2019-12-01] MEDS ORDERED: OXYCODONE-ACETAMINOPHEN 5-325 MG TABLET PO PRN (18:29)
[2019-12-01] MEDS ORDERED: ONDANSETRON HCL INJ/PF 4 MG/2 ML SDV IV PRN (18:29)
[2019-12-01] MEDS ORDERED: IPRATROPIUM/ALBUTEROL 0.5-2.5 MG/3 ML AMPUL NEB PRN (18:29)
[2019-12-01] MEDS ORDERED: ACETAMINOPHEN 325 MG TABLET PO PRN (18:29)
[2019-12-01] MEDS ORDERED: PROMETHAZINE HCL INJ 25 MG/1 ML VIAL IV PRN (18:29)
[2019-12-01] MEDS ORDERED: CALCIUM GLUCONATE 1000 MG/10 ML INJ IV ONE (18:33)
--- NOTE | 2019-12-01 18:45 | PDOC H&P ---
History of Present Illness Admission Date/PCP: NATHALIE MORALES PA-C History of Present Illness: YAMILEX XIONG is a 79 year old male past medical history of A. fib, CAD, CVA past medical history of atrial fibrillation, CAD, CABG, COPD, CKD, diabetes, recently diagnosed with acute cholecystitis was transferred to [facility], was found to be nonoperable, a drain placed, patient was sent home and his drain was revisited last Saturday and was given a dose of fentanyl. After that patie nt has been lethargic and with low p.o. intake, has had several episodes of nausea and nonbloody vomiting and became obtunded and altered since yesterday. Source of history is who is at the bedside. In ED he was found to be stuporous, with severely elevated BUN and creatinine at potassium level, patient was given 1 dose of Narcan with mild improvement of mental status and CT abdomen did not reveal any acute process except for chronic perirenal hematoma, subretinal aortic aneurysm, and biliary system drained. Nephrology was consulted and recommendation was to admit patient for hydration and possible hemodialysis if no improvement in renal function. Past Medical History Cardiac Medical History: Reports: Atrial Fibrillation, Congestive Heart Failure, Coronary Artery Disease, Myocardial Infarction, Hypertension Pulmonary Medical History: Reports: Chronic Obstructive Pulmonary Disease (COPD), Pneumonia - as a baby Denies: Asthma, Bronchitis EENT Medical History: Reports: None Neurological Medical History: Denies: Seizures Endocrine Medical History: Reports: Diabetes Mellitus Type 1, Diabetes Mellitus Type 2 Musculoskeltal Medical History: Reports: Arthritis Hematology: Denies: Anemia Past Surgical History Past Surgical History: Comment Only: Cardiac Catheterization - stents Social History Lives with: Family Smoking Status: Former Smoker Family History Family History: Other - Disease and chronic kidney disease. denies: Reviewed & Not Pertinent Parental Family History Reviewed: Yes Children Family History Reviewed: Yes Sibling(s) Family History Reviewed.: Yes Medication/Allergy Home Medications: Aspirin [Aspirin 81 mg Chewable Tablet] 81 mg PO DAILY 11/25/13 Citalopram Hydrobromide [Celexa] 40 mg PO DAILY 11/25/13 Enalapril Maleate [Vasotec 20 mg Tablet] 20 mg PO DAILY 11/25/13 Furosemide [Lasix 40 mg Tablet] 40 mg PO BID 11/25/13 Insulin Glargine,Hum.rec.anlog [Lantus] See Protocol SQ ACHS 11/25/13 Latanoprost [Xalatan 0.005% Oph Soln 2.5 ml] 1 drop OU QHS 11/25/13 Amlodipine Besylate [Norvasc 10 mg Tablet] 10 mg PO DAILY 04/16/19 Calcitriol [Rocaltrol 0.25 mcg Capsule] 0.25 mcg PO DAILY 04/16/19 Carvedilol 25 mg PO DAILY 04/16/19 Gabapentin [Neurontin 300 mg Capsule] 300 mg PO Q8 04/16/19 Levothyroxine Sodium [Synthroid 0.075 mg Tablet] 0.075 mg PO Q6AM 04/16/19 Rosuvastatin Calcium [Crestor 10 mg Tablet] 10 mg PO QHS 04/16/19 Tamsulosin HCl [Flomax 0.4 mg Cap.sr] 0.4 mg PO DAILY 04/16/19 Epoetin Josiah [Procrit Inj 20,000 Unit/1 ml Vial (Esrd)] 1 unit INJ 12/01/19 Allergies/Adverse Reactions: apixaban [From Eliquis] Allergy (Intermediate, Verified 12/01/19 13:54) clonidine [Clonidine] Allergy (Intermediate, Verified 12/01/19 13:07) Respiratory distress Review of Systems ROS unobtainable: Due to mental status Physical Exam Vital Signs: Temp Pulse Resp BP Pulse Ox 97.7 F 63 12 143/60 H 98 12/01/19 15:24 12/01/19 13:06 12/01/19 17:01 12/01/19 17:01 12/01/19 17:01 Intake & Output 11/30/19 12/01/19 12/02/19 06:59 06:59 06:59 Weight 97.522 kg General appearance: PRESENT: other - Somnolent but arousable Head exam: PRESENT: atraumatic, normocephalic Respiratory exam: PRESENT: clear to auscultation paulo. ABSENT: rales, rhonchi, wheezes Cardiovascular exam: PRESENT: RRR. ABSENT: diastolic murmur, rubs, systolic murmur GI/Abdominal exam: PRESENT: normal bowel sounds, soft, other - Left upper quadrant drain in place, patent backfilled with bilious product.. ABSENT: distended, guarding, mass, organolmegaly, rebound, tenderness Gentrourinary exam: PRESENT: indwelling catheter - Filled with urine. Neurological exam: PRESENT: altered, other - Somnolent arousable, follows some commands. Results Laboratory Results: 12/01/19 13:20 12/01/19 13:20 12/01/19 12/01/19 12/01/19 13:20 13:20 13:20 WBC 7.9 RBC 3.33 L Hgb 10.8 L Hct 30.9 L MCV 93 MCH 32.3 MCHC 34.8 RDW 14.2 H Plt Count 201 Seg Neutrophils % 87.6 H Sodium 134.3 L Potassium 5.7 H Chloride 100 Carbon Dioxide 15 L Anion Gap 19 BUN 121 H Creatinine 10.06 H Est GFR ( Amer) 6 L Glucose 124 H Lactic Acid 0.5 L Calcium 9.4 Total Bilirubin 0.6 AST 17 Alkaline Phosphatase 71 Ammonia Total Protein 7.2 Albumin 4.1 Urine Color Urine Appearance Urine pH Ur Specific [place] Urine Protein Urine Glucose (UA) Urine Ketones Urine Blood Urine Nitrite Ur Leukocyte Esterase Urine WBC (Auto) Urine RBC (Auto) 12/01/19 12/01/19 15:43 16:52 WBC RBC Hgb Hct MCV MCH MCHC RDW Plt Count Seg Neutrophils % Sodium Potassium Chloride Carbon Dioxide Anion Gap BUN Creatinine Est GFR ( Amer) Glucose Lactic Acid Calcium Total Bilirubin AST Alkaline Phosphatase Ammonia < 8.7 L Total Protein Albumin Urine Color YELLOW Urine Appearance CLEAR Urine pH 5.0 Ur Specific [place] 1.010 Urine Protein 30 H Urine Glucose (UA) NEGATIVE Urine Ketones NEGATIVE Urine Blood NEGATIVE Urine Nitrite NEGATIVE Ur Leukocyte Esterase NEGATIVE Urine WBC (Auto) 1 Urine RBC (Auto) 0 12/01/19 12/01/19 12/01/19 13:20 13:20 17:04 Creatine Kinase 108 CK-MB (CK-2) 4.63 H Troponin I 0.051 0.051 Impressions: Chest X-Ray 12/01/19 13:24 IMPRESSION: NO ACUTE RADIOGRAPHIC FINDING IN THE CHEST. Abdomen/Pelvis CT 12/01/19 15:04 IMPRESSION: 1. SUBCAPSULAR FLUID COLLECTION ASSOCIATED WITH THE LEFT KIDNEY, SECONDARY TO PREVIOUS PERINEPHRIC HEMATOMA, HAS DECREASED IN SIZE SINCE THE MOST RECENT AVAILABLE STUDY DATED 08/17/2019. THE PATIENT MAY HAVE MORE RECENT IMAGING STUDIES ELSEWHERE, THE PATIENT HAS HAD INTERVAL SURGERY WITH PLACEMENT OF PERCUTANEOUS DRAINAGE TUBE AND BILIARY STENT. COMPARISON WITH MORE RECENT STUDIES MAY BE HELPFUL. 2. COLONIC DIVERTICULOSIS. NO CT FINDINGS OF ACUTE DIVERTICULITIS. 3. 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 4. CORTICAL CYSTS IN THE RIGHT KIDNEY. 5. NO OTHER SIGNIFICANT OR ACUTE PROCESS IN THE ABDOMEN OR PELVIS. Head CT 12/01/19 15:04 IMPRESSION: CHRONIC CHANGES OF ATROPHY AND MICROVASCULAR ISCHEMIA. NO ACUTE PROCESS. EVIDENCE OF ACUTE STROKE: NO. Assessment and Plan - Diagnosis (1) Acute renal failure superimposed on stage 3 chronic kidney disease Qualifiers: Acute renal failure type: with other specified pathological lesion Qualified Code(s): N17.8 - Other acute kidney failure; N18.3 - Chronic kidney disease, stage 3 (moderate) Is this a current diagnosis for this admission?: Yes Plan: Prerenal. As per patient has been having low p.o. intake and several nonbilious nonbloody vomiting for the last several days. Admit to telemetry, cautious volume resuscitation guided by volume status, monitor electrolytes and replace as needed, strict in and out. Nephrology consulted. Recommendations pending. (2) Acute encephalopathy Is this a current diagnosis for this admission?: Yes Plan: Acute uremic encephalopathy due to underlying OLMAN CKD 3 complicated by gabapentin. At baseline patient is alert oriented x4, independent and do most of his ADLs. Admit to telemetry, fall, seizure, aspiration precautions, monitor weights, avoid benzos, opiates, antipsychotics. (3) CAD (coronary artery disease) Is this a current diagnosis for this admission?: Yes Plan: Restart home meds. (4) History of atrial fibrillation Is this a current diagnosis for this admission?: Yes Plan: History of atrial fibrillation. Not on anticoagulation due to perirenal hematoma. (5) History of acute cholecystitis Is this a current diagnosis for this admission?: Yes (6) Hyperkalemia Is this a current diagnosis for this admission?: Yes Plan: Due to acute renal failure. No acute EKG changes. Admit to telemetry hyperkalemia protocol.
[2019-12-01] MEDS: SODIUM POLYSTYRENE SULFONATE 15 GM/60 ML PO SCH (19:22)
[2019-12-01] MEDS: IPRATROPIUM/ALBUTEROL 0.5-2.5 MG/3 ML AMPUL NEB SCH (19:56)
[2019-12-01] MEDS: PANTOPRAZOLE SODIUM 40 MG VIAL IV SCH (19:56)
[2019-12-01] MEDS ORDERED: LACTULOSE SYRUP 20 GM/30 ML UDCUP PR ONE (20:00)
--- NOTE | 2019-12-01 21:29 | EKG REPORT ---
SEVERITY:- ABNORMAL ECG - A-V DUAL-PACED RHYTHM WITH SOME INHIBITION : Confirmed by: Yina Peter MD 01-Dec-2019 21:27:36
[2019-12-01] MEDS: HEPARIN SOD (PORCINE) 5,000 UNIT/ML 1 ML VIAL SUBCUT SCH (23:21)
[2019-12-02] MEDS: SODIUM POLYSTYRENE SULFONATE 15 GM/60 ML PO SCH ×2 (00:07→07:03)
[2019-12-02] MEDS: IPRATROPIUM/ALBUTEROL 0.5-2.5 MG/3 ML AMPUL NEB SCH ×4 (03:00→20:36)
[2019-12-02 05:44] LABS: ABSOLUTE EOSINOPHILS # (AUTO) 0.1 10^3/uL (0.0-0.6); ABSOLUTE LYMPHOCYTES (AUTO) 0.9 10^3/uL (0.5-4.7); ABSOLUTE MONOCYTES (AUTO) 0.6 10^3/uL (0.1-1.4); ABSOLUTE NEUT (AUTO) 5.3 10^3/uL (1.7-8.2); BASOPHILS % (AUTO) 0.3 % (0-2); EOSINOPHILS % (AUTO) 1.6 % (0-6); HEMOGLOBIN 9.4 g/dL (13.5-17.0); LYMPHOCYTES % (AUTO) 12.6 % (13-45); MEAN CORPUSCULAR HEMOGLOBIN 33.2 pg (27.0-33.4); MEAN CORPUSCULAR VOLUME 92 fl (80-97); MONOCYTES % (AUTO) 8.5 % (3-13); PLATELET COUNT 175 10^3/uL (150-450); RED BLOOD COUNT 2.82 10^6/uL (4.35-5.55); RED CELL DISTRIBUTION WIDTH 14.2 % (11.5-14.0); TOTAL CELLS COUNTED % (AUTO) 100 %; WHITE BLOOD COUNT 6.8 10^3/uL (4.0-10.5)
[2019-12-02 06:05] LABS: ALBUMIN 3.2 g/dL (3.5-5.0); ALKALINE PHOSPHATASE 51 U/L (38-126); ANION GAP 19 (5-19); ASPARTATE AMINO TRANSFERASE 13 U/L (17-59); BILIRUBIN,DIRECT 0.5 mg/dL (0.0-0.4); BILIRUBIN,TOTAL 0.5 mg/dL (0.2-1.3); CALCIUM 8.5 mg/dL (8.4-10.2); CARBON DIOXIDE 13 mmol/L (22-30); CHLORIDE 102 mmol/L (98-107); GLUCOSE 99 mg/dL (75-110); PHOSPHORUS 11.6 mg/dL (2.5-4.5); POTASSIUM 4.8 mmol/L (3.6-5.0); TOTAL PROTEIN 5.8 g/dL (6.3-8.2)
[2019-12-02 06:16] LABS: BLOOD UREA NITROGEN 120 mg/dL (7-20)
[2019-12-02] MEDS: PANTOPRAZOLE SODIUM 40 MG VIAL IV SCH ×2 (06:50→17:53)
[2019-12-02] MEDS: HEPARIN SOD (PORCINE) 5,000 UNIT/ML 1 ML VIAL SUBCUT SCH ×3 (06:50→21:34)
[2019-12-02] MEDS: NORMAL SALINE 1000 ML 1,000 ML IV PRN ×2 (09:16→17:56)
[2019-12-02] MEDS: LEVOTHYROXINE SODIUM 0.075 MG TABLET PO SCH (09:40)
[2019-12-02] MEDS: DOCUSATE SODIUM 100 MG CAPSULE PO SCH (09:40)
[2019-12-02] MEDS: FERROUS SULFATE 325 MG TABLET PO SCH ×2 (09:40→17:53)
[2019-12-02] MEDS: ASPIRIN 81 MG TABLET, ENT COATED PO SCH (09:40)
--- NOTE | 2019-12-02 09:58 | PDOC PROGRESS REPORT ---
Subjective Progress Note for:: 12/02/19 Subjective:: YAMILEX XIONG is a 79 year old male past medical history of A. fib, CAD, CVA past medical history of atrial fibrillation, CAD, CABG, COPD, CKD, diabetes, recently diagnosed with acute cholecystitis was transferred to [facility], was found to be nonoperable, a drain placed, patient was sent home and his drain was revisited last Saturday and was given a dose of fentanyl. After that patient has been lethargic and with low p.o. intake, has had several episodes of nausea and nonbloody vomiting and became obtunded and altered since yesterday. Source of history is who is at the bedside. In ED he was found to be stuporous, with severely elevated BUN and creatinine at potassium level, patient was given 1 dose of Narcan with mild improvement of mental status and CT abdomen did not reveal any acute process except for chronic perirenal hematoma, subretinal aortic aneurysm, and biliary system drained. Nephrology was consulted and recommendation was to admit patient for hydration and possible hemodialysis if no improvement in renal function. 12/02/2019. No acute events overnight. Patient mental status improving mildly still very somnolent however arousable and more oriented. Mild improvement of renal function. Reason For Visit: UREMIC ENCEPHALOPATHY,ACUTE ON CHRONIC KIDNEY Physical Exam Vital Signs: Temp Pulse Resp BP Pulse Ox 98.1 F 60 16 132/53 H 96 12/02/19 07:09 12/02/19 08:39 12/02/19 08:39 12/02/19 07:09 12/02/19 08:39 Intake & Output 12/01/19 12/02/19 12/03/19 06:59 06:59 06:59 Intake Total 110 Output Total 900 Balance -790 Weight 97.5 kg General appearance: PRESENT: no acute distress, well-developed, well-nourished, other - Somnolent Head exam: PRESENT: atraumatic, normocephalic Respiratory exam: PRESENT: clear to auscultation paulo. ABSENT: rales, rhonchi, wheezes Cardiovascular exam: PRESENT: RRR. ABSENT: diastolic murmur, rubs, systolic murmur GI/Abdominal exam: PRESENT: normal bowel sounds, soft, other - Biliary drain in place and intact.. ABSENT: distended, guarding, mass, organolmegaly, rebound, tenderness Neurological exam: PRESENT: awake, oriented to person, oriented to place, CN II- XII grossly intact Results Laboratory Results: 12/02/19 04:44 12/02/19 04:44 12/01/19 12/01/19 12/01/19 13:20 13:20 13:20 WBC 7.9 RBC 3.33 L Hgb 10.8 L Hct 30.9 L MCV 93 MCH 32.3 MCHC 34.8 RDW 14.2 H Plt Count 201 Seg Neutrophils % 87.6 H Sodium 134.3 L Potassium 5.7 H Chloride 100 Carbon Dioxide 15 L Anion Gap 19 BUN 121 H Creatinine 10.06 H Est GFR ( Amer) 6 L Glucose 124 H Lactic Acid 0.5 L Calcium 9.4 Phosphorus Magnesium Total Bilirubin 0.6 AST 17 Alkaline Phosphatase 71 Ammonia Total Protein 7.2 Albumin 4.1 Urine Color Urine Appearance Urine pH Ur Specific [place] Urine Protein Urine Glucose (UA) Urine Ketones Urine Blood Urine Nitrite Ur Leukocyte Esterase Urine WBC (Auto) Urine RBC (Auto) 12/01/19 12/01/19 12/01/19 15:43 16:52 17:04 WBC RBC Hgb Hct MCV MCH MCHC RDW Plt Count Seg Neutrophils % Sodium Potassium Chloride Carbon Dioxide Anion Gap BUN Creatinine Est GFR ( Amer) Glucose Lactic Acid Calcium Phosphorus Magnesium Total Bilirubin AST Alkaline Phosphatase Ammonia < 8.7 L Total Protein Albumin Urine Color YELLOW Urine Appearance CLEAR Urine pH 5.0 Ur Specific [place] 1.010 Urine Protein 30 H Urine Glucose (UA) NEGATIVE Urine Ketones NEGATIVE Urine Blood NEGATIVE Urine Nitrite NEGATIVE Ur Leukocyte Esterase NEGATIVE Urine WBC (Auto) 1 Urine RBC (Auto) 0 12/01/19 12/02/19 12/02/19 23:25 04:44 04:44 WBC 6.8 RBC 2.82 L Hgb 9.4 L Hct 26.0 L MCV 92 MCH 33.2 MCHC 36.0 RDW 14.2 H Plt Count 175 Seg Neutrophils % 77.0 Sodium 134.0 L Potassium 5.2 H 4.8 Chloride 102 Carbon Dioxide 13 L Anion Gap 19 BUN 120 H Creatinine 9.55 H Est GFR ( Amer) 6 L Glucose 99 Lactic Acid Calcium 8.5 Phosphorus 11.6 H Magnesium 2.7 H Total Bilirubin 0.5 AST 13 L Alkaline Phosphatase 51 Ammonia Total Protein 5.8 L Albumin 3.2 L Urine Color Urine Appearance Urine pH Ur Specific [place] Urine Protein Urine Glucose (UA) Urine Ketones Urine Blood Urine Nitrite Ur Leukocyte Esterase Urine WBC (Auto) Urine RBC (Auto) 12/01/19 12/01/19 12/01/19 13:20 13:20 17:04 Creatine Kinase 108 CK-MB (CK-2) 4.63 H Troponin I 0.051 0.051 Impressions: Chest X-Ray 12/01/19 13:24 IMPRESSION: NO ACUTE RADIOGRAPHIC FINDING IN THE CHEST. Abdomen/Pelvis CT 12/01/19 15:04 IMPRESSION: 1. SUBCAPSULAR FLUID COLLECTION ASSOCIATED WITH THE LEFT KIDNEY, SECONDARY TO PREVIOUS PERINEPHRIC HEMATOMA, HAS DECREASED IN SIZE SINCE THE MOST RECENT AVAILABLE STUDY DATED 08/17/2019. THE PATIENT MAY HAVE MORE RECENT IMAGING STUDIES ELSEWHERE, THE PATIENT HAS HAD INTERVAL SURGERY WITH PLACEMENT OF PERCUTANEOUS DRAINAGE TUBE AND BILIARY STENT. COMPARISON WITH MORE RECENT STUDIES MAY BE HELPFUL. 2. COLONIC DIVERTICULOSIS. NO CT FINDINGS OF ACUTE DIVERTICULITIS. 3. 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 4. CORTICAL CYSTS IN THE RIGHT KIDNEY. 5. NO OTHER SIGNIFICANT OR ACUTE PROCESS IN THE ABDOMEN OR PELVIS. Head CT 12/01/19 15:04 IMPRESSION: CHRONIC CHANGES OF ATROPHY AND MICROVASCULAR ISCHEMIA. NO ACUTE PROCESS. EVIDENCE OF ACUTE STROKE: NO. Assessment and Plan - Diagnosis (1) Acute renal failure superimposed on stage 3 chronic kidney disease Qualifiers: Acute renal failure type: with other specified pathological lesion Qualified Code(s): N17.8 - Other acute kidney failure; N18.3 - Chronic kidney disease, stage 3 (moderate) Is this a current diagnosis for this admission?: Yes Plan: Prerenal. Mild improvement of renal function. Nonoliguric. Negative fluid balance. As per patient has been having low p.o. intake and several nonbilious nonbloody vomiting for the last several days. Continue telemetry, cautious volume resuscitation guided by volume status, monitor electrolytes and replace as needed, strict in and out. Nephrology consulted. Recommendations pending. (2) Acute encephalopathy Is this a current diagnosis for this admission?: Yes Plan: Mild improvement. Alert and oriented x2. Somnolent but easily arousable. Acute uremic encephalopathy due to underlying OLMAN CKD 3 complicated by gabapentin. At baseline patient is alert oriented x4, independent and do most of his ADLs. Continue telemetry, fall, seizure, aspiration precautions, monitor weights, avoid benzos, opiates, antipsychotics. (3) CAD (coronary artery disease) Is this a current diagnosis for this admission?: Yes Plan: Restart home meds. (4) History of atrial fibrillation Is this a current diagnosis for this admission?: Yes Plan: History of atrial fibrillation. Not on anticoagulation due to perirenal hematoma. (5) History of acute cholecystitis Is this a current diagnosis for this admission?: Yes Plan: Status post biliary drain placement and biomedical 2 weeks ago. Afebrile. WBC WNL. Outpatient follow-up. (6) Hyperkalemia Is this a current diagnosis for this admission?: Yes Plan: Resolved. Due to acute renal failure. No acute EKG changes. BMP tomorrow.
[2019-12-02] MEDS ORDERED: LIDOCAINE 1% INJ-PF (10 MG/ML) 30 ML SDV ONE (11:53)
[2019-12-02] MEDS ORDERED: EPOETIN ALFA-EPBX 2,000 UNIT, EPOETIN ALFA-EPBX 3,000 UNIT, EPOETIN ALFA-EPBX 20,000 UN... IV PRN ×4 (11:59)
--- NOTE | 2019-12-02 11:59 | PDOC CONSULTATION ---
Consultation Consult Date: 12/02/19 Provider Consulted: Arthur HANSEN Consult reason:: OLMAN/ESRD with uremia History of Present Illness Admission Date/PCP: 12/01/19 18:46 NATHALIE MORALES PA-C History of Present Illness: YAMILEX XIONG is a 79 year old male with a complicated past medical history of Diabetes mellitus, hypertension, CKD stage IV with a base creatinine of 3, recent acute cholecystitis which is being managed conservatively at [facility] with a biliary drain as apparently deemed high risk,A. fib, CAD, CVA past medical history of atrial fibrillation, CAD, CABG, COPD. Apparently he had a recent visit to [facility] and his drain was revisited last Saturday and was given a dose of fentanyl. After that patient has been lethargic and with low p.o. intake, has had several episodes of nausea and nonbloody vomiting and became obtunded and altered since yesterday.He was then brought to the ER by his . Evaluations in the ER revealed that the patient was quite moribund and stuporous and very severely lethargic. Had markedly elevated BUN and creatinine at around 125/10+ with elevated potassium as well and and acidosis. Differential diagnoses include uremia/possible effects of narcotics/gabapentin. He was given a dose of Narcan which produced mild improvement in his mentation and he has been admitted for further evaluations. A CT scan did not show any obstructive nephropathy. He has been begun on fluids but this morning when I see him he is still quite obtunded and hardly responsive to your questions or shaking his upper body. His blood sugars were checked and it was 130. He is barely able to awake after repeated shouting at him between me and the treating nurse Eleanor. He is flapping his hands in the vent. Denies any specific complaints of chest pain or shortness of breath.Denies any abdominal pains. Discussions were done with his treating hospitalist Dr. Boateng. Past Medical History Cardiac Medical History: Reports: Atrial Fibrillation, Coronary Artery Disease, Hypertension-primary, Myocardial Infarction Pulmonary Medical History: Reports: Chronic Obstructive Pulmonary Disease (COPD) , Pneumonia - as a baby Denies: Asthma, Bronchitis EENT Medical History: Reports: None Neurological Medical History: Denies: Seizures Endocrine Medical History: Reports: Diabetes Mellitus Type 2 Renal/ Medical History: Reports: Chronic Kidney Disease Stage IV, Secondary Hyperparathyroidism Musculoskeltal Medical History: Reports: Arthritis Psychiatric Medical History: Reports: Depression Hematology Medical History: Reports Anemia of Chronic Kidney Disease Past Surgical History Past Surgical History: Reports: Other - Recent diagnosis of acute/chronic cholecystitis. Deemed high risk and has Comment Only: Cardiac Catheterization - stents Social History Lives with: Family Smoking Status: Former Smoker Number of Years Smokin Last Time Smoked: 30 yrs ago Frequency of Alcohol Use: None Hx Recreational Drug Use: No Drugs: None Hx Prescription Drug Abuse: No Family History Parental Family History Reviewed: No Children Family History Reviewed: No Sibling(s) Family History Reviewed.: No Medication/Allergy Home Medications: Amlodipine Besylate [Norvasc 5 mg Tablet] 5 mg PO QPM 12/01/19 Aspirin [Adult Low Dose Aspirin EC] 81 mg PO DAILY 12/01/19 Brimonidine Tartrate [Alphagan P] 1 drop OU Q12 12/01/19 Calcitriol [Rocaltrol 0.25 Mcg Capsule] 0.25 mcg PO MOWEFR@1000 12/01/19 Carvedilol [Coreg 25 mg Tablet] 1 tab PO Q12 12/01/19 Citalopram Hydrobromide [Celexa 40 mg Tablet] 1 tab PO QPM 12/01/19 Epoetin Josiah [Procrit Inj 20,000 Unit/1 ml Vial (Esrd)] 0 unit INJ ASDIR 12/01/19 Ferrous Sulfate [Feosol 325 mg Tablet] 325 mg PO BID 12/01/19 Furosemide [Lasix 40 mg Tablet] 40 mg PO DAILY 12/01/19 Gabapentin [Neurontin 300 mg Capsule] 600 mg PO QHS 12/01/19 Insulin Glargine,Hum.rec.anlog [Lantus Insulin 100 Unit/1 ml 10 ml] 15 unit SUBCUT QHS 12/01/19 Insulin Lispro [Humalog Insulin 100 Unit/1 ml 3 ml Vial] 0 unit SUBCUT .SLD SCALE 12/01/19 Latanoprost [Xalatan 0.005% Oph Soln 2.5 ml] 1 drop OU QHS 12/01/19 Levothyroxine Sodium [Synthroid 0.075 mg Tablet] 0.075 mg PO DAILY 12/01/19 Lisinopril [Prinivil 5 mg Tablet] 5 mg PO DAILY 12/01/19 Ondansetron [Zofran Odt 4 mg Tablet] 4 mg PO Q8HP PRN 12/01/19 Rosuvastatin Calcium [Crestor 5 mg Tablet] 5 mg PO DAILY 12/01/19 Sennosides [Senna] 8.6 mg PO BID 12/01/19 Tamsulosin HCl [Flomax 0.4 mg Cap.sr] 0.4 mg PO QPM 12/01/19 Testosterone Cypionate [Depo-Testosterone] 200 mg IM .[id number] 12/01/19 Tiotropium [place] [Spiriva Handihaler 5 Cap/Kit (18 Mcg/Cap)] 1 cap IH DAILY 12/01/19 Allergies/Adverse Reactions: apixaban [From Eliquis] Allergy (Intermediate, Verified 12/01/19 13:54) clonidine [Clonidine] Allergy (Intermediate, Verified 12/01/19 13:07) Respiratory distress Review of Systems ROS unobtainable: Due to mental status Constitutional: PRESENT: weakness. ABSENT: fever(s) Cardiovascular: ABSENT: chest pain Respiratory: ABSENT: dyspnea Gastrointestinal: ABSENT: abdominal pain Physical Exam Vital Signs: Temp Pulse Resp BP Pulse Ox 98.1 F 60 16 132/53 H 96 12/02/19 07:09 12/02/19 08:39 12/02/19 08:39 12/02/19 07:09 12/02/19 08:39 Intake & Output 12/01/19 12/02/19 12/03/19 06:59 06:59 06:59 Intake Total 110 Output Total 900 Balance -790 Weight 97.5 kg General appearance: PRESENT: disheveled Exam: Patient quite obtunded and extremely lethargic after multiple shouting questions or shaking her shoulders. When his hands are raised he is flapping. Eye exam: PRESENT: EOMI, PERRLA. ABSENT: scleral icterus Mouth exam: PRESENT: neck supple. ABSENT: moist Neck exam: ABSENT: lymphadenopathy, meningismus, tenderness, thyromegaly, tracheal deviation Respiratory exam: PRESENT: clear to auscultation paulo, decreased breath sounds. ABSENT: crackles Cardiovascular exam: PRESENT: +S1, +S2, systolic murmur. ABSENT: rubs GI/Abdominal exam: PRESENT: normal bowel sounds, organomegaly, tenderness - Mild tenderness in the right upper quadrant.. ABSENT: soft Extremities exam: ABSENT: pedal edema Neurological exam: PRESENT: altered - Severely obtunded. Skin exam: PRESENT: pallor. ABSENT: cyanosis, erythema, mottled, rash Results Laboratory Results: 12/02/19 04:44 12/02/19 04:44 12/01/19 12/01/19 12/01/19 13:20 13:20 13:20 WBC 7.9 RBC 3.33 L Hgb 10.8 L Hct 30.9 L MCV 93 MCH 32.3 MCHC 34.8 RDW 14.2 H Plt Count 201 Seg Neutrophils % 87.6 H Sodium 134.3 L Potassium 5.7 H Chloride 100 Carbon Dioxide 15 L Anion Gap 19 BUN 121 H Creatinine 10.06 H Est GFR ( Amer) 6 L Glucose 124 H Lactic Acid 0.5 L Calcium 9.4 Phosphorus Magnesium Total Bilirubin 0.6 AST 17 Alkaline Phosphatase 71 Ammonia Total Protein 7.2 Albumin 4.1 Urine Color Urine Appearance Urine pH Ur Specific [place] Urine Protein Urine Glucose (UA) Urine Ketones Urine Blood Urine Nitrite Ur Leukocyte Esterase Urine WBC (Auto) Urine RBC (Auto) 12/01/19 12/01/19 12/01/19 15:43 16:52 17:04 WBC RBC Hgb Hct MCV MCH MCHC RDW Plt Count Seg Neutrophils % Sodium Potassium Chloride Carbon Dioxide Anion Gap BUN Creatinine Est GFR ( Amer) Glucose Lactic Acid Calcium Phosphorus Magnesium Total Bilirubin AST Alkaline Phosphatase Ammonia < 8.7 L Total Protein Albumin Urine Color YELLOW Urine Appearance CLEAR Urine pH 5.0 Ur Specific [place] 1.010 Urine Protein 30 H Urine Glucose (UA) NEGATIVE Urine Ketones NEGATIVE Urine Blood NEGATIVE Urine Nitrite NEGATIVE Ur Leukocyte Esterase NEGATIVE Urine WBC (Auto) 1 Urine RBC (Auto) 0 12/01/19 12/02/19 12/02/19 23:25 04:44 04:44 WBC 6.8 RBC 2.82 L Hgb 9.4 L Hct 26.0 L MCV 92 MCH 33.2 MCHC 36.0 RDW 14.2 H Plt Count 175 Seg Neutrophils % 77.0 Sodium 134.0 L Potassium 5.2 H 4.8 Chloride 102 Carbon Dioxide 13 L Anion Gap 19 BUN 120 H Creatinine 9.55 H Est GFR ( Amer) 6 L Glucose 99 Lactic Acid Calcium 8.5 Phosphorus 11.6 H Magnesium 2.7 H Total Bilirubin 0.5 AST 13 L Alkaline Phosphatase 51 Ammonia Total Protein 5.8 L Albumin 3.2 L Urine Color Urine Appearance Urine pH Ur Specific [place] Urine Protein Urine Glucose (UA) Urine Ketones Urine Blood Urine Nitrite Ur Leukocyte Esterase Urine WBC (Auto) Urine RBC (Auto) 12/01/19 12/01/19 12/01/19 13:20 13:20 17:04 Creatine Kinase 108 CK-MB (CK-2) 4.63 H Troponin I 0.051 0.051 Impressions: Chest X-Ray 12/01/19 13:24 IMPRESSION: NO ACUTE RADIOGRAPHIC FINDING IN THE CHEST. Abdomen/Pelvis CT 12/01/19 15:04 IMPRESSION: 1. SUBCAPSULAR FLUID COLLECTION ASSOCIATED WITH THE LEFT KIDNEY, SECONDARY TO PREVIOUS PERINEPHRIC HEMATOMA, HAS DECREASED IN SIZE SINCE THE MOST RECENT AVAILABLE STUDY DATED 08/17/2019. THE PATIENT MAY HAVE MORE RECENT IMAGING STUDIES ELSEWHERE, THE PATIENT HAS HAD INTERVAL SURGERY WITH PLACEMENT OF PERCUTANEOUS DRAINAGE TUBE AND BILIARY STENT. COMPARISON WITH MORE RECENT STUDIES MAY BE HELPFUL. 2. COLONIC DIVERTICULOSIS. NO CT FINDINGS OF ACUTE DIVERTICULITIS. 3. 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 4. CORTICAL CYSTS IN THE RIGHT KIDNEY. 5. NO OTHER SIGNIFICANT OR ACUTE PROCESS IN THE ABDOMEN OR PELVIS. Head CT 12/01/19 15:04 IMPRESSION: CHRONIC CHANGES OF ATROPHY AND MICROVASCULAR ISCHEMIA. NO ACUTE PROCESS. EVIDENCE OF ACUTE STROKE: NO. Assessment & Plan - Diagnosis (1) OLMAN (acute kidney injury) Plan: Patient has had acute insult on top of his CKD stage IV with base creatinine of 3 in the background of diabetic nephropathy. Patient is currently uremic and severely obtunded. At this point even though he is producing urine he needs to be dialyzed given his age and comorbidities. Discussed the case with the hospitalist who is going to speak with the patient's family including his and we will proceed to start / initiate dialysis on him today. We will also discuss with the surgeons to place a temporary femoral catheter to initiate dialysis. (2) Uremia Plan: Patient severely obtunded and poorly responsive to loud shouting commands or shaking of his upper body. He is euglycemic. He is currently uremic and we need to initiate dialysis given the slow response to IV fluids so far. (3) CKD (chronic kidney disease), stage IV Plan: Underlying diabetic CKD with base creatinine of 3. Patient now in the acute insult with severe uremia requiring dialysis. (4) Acute encephalopathy Is this a current diagnosis for this admission?: Yes Plan: Secondary to uremia. Initiate dialysis and see response. (5) Gabapentin adverse reaction Plan: Could be another factor for his current mental status. However hard to differentiate between uremia and this. Initiate dialysis see the response. (6) History of acute cholecystitis Is this a current diagnosis for this admission?: Yes (7) Hyperkalemia Is this a current diagnosis for this admission?: Yes Plan: Currently improved. Should also respond further to hemodialysis. Monitor. (8) Diabetes mellitus Plan: Avoid long-acting insulins currently and avoid hypoglycemia. Monitor closely. (9) Hypertension Plan: Stable and well-controlled currently.
[2019-12-02] MEDS ORDERED: DEXTROSE 50%-WATER SYRINGE 12.5 GM/25 ML DOSE IV PRN (12:00)
[2019-12-02] MEDS ORDERED: DEXTROSE 50%-WATER SYRINGE 25 GM/50 ML DOSE IV PRN (12:00)
[2019-12-02] MEDS ORDERED: GLUCAGON,HUMAN RECOMB 1 MG INJ IM PRN (12:00)
[2019-12-02] MEDS ORDERED: DEXTROSE 40% GEL 15 GM TUBE PO PRN (12:00)
[2019-12-02] MEDS ORDERED: DEXTROSE 40% GEL 15 GM TUBE X 2 PO PRN (12:00)
--- NOTE | 2019-12-02 14:46 | Operative Report ---
Operative Report DATE OF SURGERY: 12/02/19 PREOPERATIVE DIAGNOSIS: End-stage renal disease. POSTOPERATIVE DIAGNOSIS: End-stage renal disease. OPERATION: 1. Ultrasound evaluation of the right common femoral vein. 2. Insertion of temporary hemodialysis catheter via right femoral vein. SURGEON: FARHAD BRUSH V[employer]ACHINES MECHANIC: None. ANESTHESIA: Local TISSUE REMOVED OR ALTERED: Not applicable. COMPLICATIONS: None. ESTIMATED BLOOD LOSS: 2 mL. INTRAOPERATIVE FINDINGS: Of a satisfactory right femoral vein to support catheter. Satisfactory and safe access under ultrasound guidance. Easy egress of blood and ingress of heparinized solution through all 3 ports. PROCEDURE: After obtaining informed consent, the patient was positioned supine at bedside. The right groin and adjacent areas were prepared with chlorhexidine and draped out with sterile linen. After the universal timeout the procedure commenced. A steriley sheathed ultrasound probe was used to evaluate the right femoral vein]. Local anesthesia was infiltrated adjacent to the probe. Access into the right femoral was accomplished using a micropuncture needle followed, by micropuncture wire and then with a micropuncture catheter. This was followed by introduction of a 0.035 guidewire, the skin opening was enlarged slightly, serially larger dilators were now placed followed by introduction of a triaysis catheter. All of these transitions were smooth. Each lumen was aspirated of blood and irrigated with heparinized solution. The catheter was now sutured to the skin using 3-0 nylon. A Bio A patch was now applied, followed by sterile dressings. Caps were placed on the end of the each of the lumens. The procedure concluded. Copies dictated operative report to Dr. Farhad Shetty MD.
[2019-12-02] MEDS ORDERED: HEPARIN SOD (PORCINE) 1,000 UNIT/ML 10 ML VIAL IV PRN (16:45)
[2019-12-02] MEDS ORDERED: TUBERCULIN,PURIF.PROT.DERIV. 5 TU/0.1 ML TEST 1 ML VIAL ID PRN (17:38)
[2019-12-02] MEDS: INSULIN LISPRO 100 UNIT/ML 3 ML VIAL SUBCUT SCH ×2 (17:38→21:34)
[2019-12-02] MEDS: TAMSULOSIN HCL 0.4 MG CAP.SR.24H PO SCH (17:53)
[2019-12-02] MEDS: AMLODIPINE BESYLATE 5 MG TABLET PO SCH (17:53)
[2019-12-02] MEDS: LATANOPROST 0.005% OPH SOLN 2.5 ML OU SCH (21:34)
[2019-12-02] MEDS ORDERED: INSULIN GLARGINE,HUM.REC.ANLOG 1,000 UNIT/10 ML VIAL SUBCUT SCH (22:00)
[2019-12-03] MEDS: NORMAL SALINE 1000 ML 1,000 ML IV PRN ×5 (01:07→23:10)
[2019-12-03] MEDS: IPRATROPIUM/ALBUTEROL 0.5-2.5 MG/3 ML AMPUL NEB SCH ×4 (02:13→20:52)
[2019-12-03] MEDS: LEVOTHYROXINE SODIUM 0.075 MG TABLET PO SCH (05:24)
[2019-12-03] MEDS: PANTOPRAZOLE SODIUM 40 MG VIAL IV SCH (05:25)
[2019-12-03] MEDS: HEPARIN SOD (PORCINE) 5,000 UNIT/ML 1 ML VIAL SUBCUT SCH ×3 (05:25→21:39)
[2019-12-03 06:02] LABS: ALKALINE PHOSPHATASE 59 U/L (38-126); ANION GAP 15 (5-19); ASPARTATE AMINO TRANSFERASE 14 U/L (17-59); BILIRUBIN,DIRECT 0.4 mg/dL (0.0-0.4); BILIRUBIN,TOTAL 0.4 mg/dL (0.2-1.3); BLOOD UREA NITROGEN 73 mg/dL (7-20); CALCIUM 7.6 mg/dL (8.4-10.2); CARBON DIOXIDE 19 mmol/L (22-30); CHLORIDE 102 mmol/L (98-107); GLUCOSE 110 mg/dL (75-110); POTASSIUM 3.6 mmol/L (3.6-5.0); TOTAL PROTEIN 5.7 g/dL (6.3-8.2)
[2019-12-03 09:37] LABS: HEPATITS B SURFACE ANTIGEN Negative (Negative)
[2019-12-03] MEDS: INSULIN LISPRO 100 UNIT/ML 3 ML VIAL SUBCUT SCH ×4 (09:45→21:37)
--- NOTE | 2019-12-03 10:21 | PDOC PROGRESS REPORT ---
Subjective Progress Note for:: 12/03/19 Reason For Visit: Patient was seen this morning.He had done very well yesterday when I saw him later in the evening on dialysis when he had made a drastic improvement in his mentation from what he was yesterday morning. His was at the bedside and was happy to see him awake alert oriented x3. He was looking forward to having a good dinner. However this morning the patient even though he is awake and alert is quite delirious and confused. He is unaware of his surroundings and has pulled down his gown leaving him naked in bed. Discussions were done with his treating nurse Eleanor who also agrees to the fact the patient is quite confused this morning unlike yesterday evening postdialysis. Patient denies any history of chest pains abdominal pains or fever or headaches. Labs and medications were reviewed. Patient has made about 500 cc of urine output and is continuing to drain about thousand cc through his biliary drain. So far fortunately he has not pulled out his femoral dialysis catheter or the biliary drain or his peripheral line. Physical Exam Vital Signs: Temp Pulse Resp BP Pulse Ox 98.1 F 67 16 144/53 H 98 12/03/19 07:46 12/03/19 08:57 12/03/19 08:57 12/03/19 07:46 12/03/19 08:57 Intake & Output 12/02/19 12/03/19 12/04/19 06:59 06:59 06:59 Intake Total 110 3301 Output Total 900 1220 Balance -790 2081 Weight 97.5 kg 97.5 kg General appearance: PRESENT: no acute distress Exam: Patient awake and alert is confused and unaware of her surroundings. However he is able to answer pointedly to once questions. Eye exam: PRESENT: EOMI, PERRLA. ABSENT: periorbital swelling Mouth exam: PRESENT: neck supple Neck exam: ABSENT: lymphadenopathy, meningismus, tenderness, thyromegaly, tracheal deviation Respiratory exam: PRESENT: clear to auscultation paulo. ABSENT: crackles Cardiovascular exam: PRESENT: +S1, +S2, systolic murmur. ABSENT: rubs GI/Abdominal exam: PRESENT: normal bowel sounds, organomegaly, tenderness - Mild tenderness in the right upper quadrant.. ABSENT: soft Extremities exam: ABSENT: pedal edema Neurological exam: PRESENT: altered Skin exam: ABSENT: erythema, mottled, rash Results Laboratory Results: 12/02/19 04:44 12/03/19 05:12 12/03/19 05:12 Sodium 135.8 L Potassium 3.6 Chloride 102 Carbon Dioxide 19 L Anion Gap 15 BUN 73 H Creatinine 6.77 H Est GFR ( Amer) 10 L Glucose 110 Calcium 7.6 L Phosphorus 7.0 H Magnesium 2.1 Total Bilirubin 0.4 AST 14 L Alkaline Phosphatase 59 Total Protein 5.7 L Albumin 3.0 L 12/01/19 16:52 Catheterized Urine Urine Culture - Final NO GROWTH 2 DAYS 12/01/19 12/01/19 12/01/19 13:20 13:20 17:04 Creatine Kinase 108 CK-MB (CK-2) 4.63 H Troponin I 0.051 0.051 Impressions: Chest X-Ray 12/01/19 13:24 IMPRESSION: NO ACUTE RADIOGRAPHIC FINDING IN THE CHEST. Abdomen/Pelvis CT 12/01/19 15:04 IMPRESSION: 1. SUBCAPSULAR FLUID COLLECTION ASSOCIATED WITH THE LEFT KIDNEY, SECONDARY TO PREVIOUS PERINEPHRIC HEMATOMA, HAS DECREASED IN SIZE SINCE THE MOST RECENT AVAILABLE STUDY DATED 08/17/2019. THE PATIENT MAY HAVE MORE RECENT IMAGING STUDIES ELSEWHERE, THE PATIENT HAS HAD INTERVAL SURGERY WITH PLACEMENT OF PERCUTANEOUS DRAINAGE TUBE AND BILIARY STENT. COMPARISON WITH MORE RECENT STUDIES MAY BE HELPFUL. 2. COLONIC DIVERTICULOSIS. NO CT FINDINGS OF ACUTE DIVERTICULITIS. 3. 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 4. CORTICAL CYSTS IN THE RIGHT KIDNEY. 5. NO OTHER SIGNIFICANT OR ACUTE PROCESS IN THE ABDOMEN OR PELVIS. Head CT 12/01/19 15:04 IMPRESSION: CHRONIC CHANGES OF ATROPHY AND MICROVASCULAR ISCHEMIA. NO ACUTE PROCESS. EVIDENCE OF ACUTE STROKE: NO. Assessment & Plan - Diagnosis (1) OLMAN (acute kidney injury) Plan: The patient was initiated on dialysis yesterday for apparent uremia. Patient made a drastic improvement yesterday. Presently patient has made about 500 cc of urine output. Continue on IV fluids.Renal labs are stable. A decision for the next dialysis will be made on Saturday morning. (2) Uremia Plan: Improved postdialysis.However today he is delirious. Discussions were done about possible differentials with hospitalist including management. (3) CKD (chronic kidney disease), stage IV Plan: Patient's baseline creatinine is around 3. Patient is currently nonoliguric postdialysis. Continue IV fluids. Monitor. No indications for dialysis today. (4) Acute encephalopathy Is this a current diagnosis for this admission?: Yes Plan: Patient has markedly improved from yesterday when he was quite obtunded and extremely lethargic. However today he is delirious. Would recommend treating this with antipsychotics like a small dose of Haldol or other options will be small dose of IV Ativan.Monitor. Discussions done with hospitalist Dr. Boateng. (5) Gabapentin adverse reaction Plan: One of the differentials yesterday was besides the uremic factor whether he was having adverse effects with decreased mentation from a adverse effect of gabapentin. Please dose to a GFR of 15 cc/min in case it has to be reused. (6) History of acute cholecystitis Is this a current diagnosis for this admission?: Yes Plan: Patient is having high output biliary drain which was instituted at [facility] apparently because he was deemed a high risk for cholecystectomy. (7) Hyperkalemia Is this a current diagnosis for this admission?: Yes Plan: Resolved. (8) Diabetes mellitus Plan: Advised tight control. (9) Hypertension Plan: Controlled. Monitor.
[2019-12-03] MEDS: ASPIRIN 81 MG TABLET, ENT COATED PO SCH (10:31)
[2019-12-03] MEDS: FERROUS SULFATE 325 MG TABLET PO SCH ×2 (10:31→18:01)
[2019-12-03] MEDS: DOCUSATE SODIUM 100 MG CAPSULE PO SCH (10:31)
--- NOTE | 2019-12-03 10:31 | RADIOLOGY REPORT (SQ) ---
EXAM DESCRIPTION: NON-TUNNEL CV CATH COMPLETED DATE/TIME: 12/02/2019 2:45 pm REASON FOR STUDY: NEED FOR VASCULAR ACCESS COMPARISON: None. TECHNIQUE: Ultrasound image from vascular access procedure performed by Dr. Shetty. LIMITATIONS: None. FINDINGS: See above. IMPRESSION: Images from ultrasound-guided vascular access. TECHNICAL DOCUMENTATION: JOB ID: [id number] [employer]- All Rights Reserved Reading location - IP/workstation name: [email or web address]
[2019-12-03] MEDS ORDERED: ACETAMINOPHEN 325 MG TABLET PO PRN (10:47)
--- NOTE | 2019-12-03 10:49 | PDOC PROGRESS REPORT ---
Subjective Progress Note for:: 12/03/19 Subjective:: YAMILEX XIONG is a 79 year old male past medical history of A. fib, CAD, CVA past medical history of atrial fibrillation, CAD, CABG, COPD, CKD, diabetes, recently diagnosed with acute cholecystitis was transferred to [facility], was found to be nonoperable, a drain placed, patient was sent home and his drain was revisited last Saturday and was given a dose of fentanyl. After that patient has been lethargic and with low p.o. intake, has had several episodes of nausea and nonbloody vomiting and became obtunded and altered since yesterday. Source of history is who is at the bedside. In ED he was found to be stuporous, with severely elevated BUN and creatinine at potassium level, patient was given 1 dose of Narcan with mild improvement of mental status and CT abdomen did not reveal any acute process except for chronic perirenal hematoma, subretinal aortic aneurysm, and biliary system drained. Nephrology was consulted and recommendation was to admit patient for hydration and possible hemodialysis if no improvement in renal function. 12/02/2019. No acute events overnight. Patient mental status improving mildly still very somnolent however arousable and more oriented. Mild improvement of renal function. 12/03/2019. Patient is more awake however noted to be delirious overnight and trying to get out of bed and remove his life, patient is awake and communicating however does not remember how he got to the hospital, denies any shortness of breath, chest pain, nausea, vomiting, diarrhea, constipation or any urinary symptoms. Reason For Visit: UREMIC ENCEPHALOPATHY,ACUTE ON CHRONIC KIDNEY Physical Exam Vital Signs: Temp Pulse Resp BP Pulse Ox 98.1 F 67 16 144/53 H 98 12/03/19 07:46 12/03/19 08:57 12/03/19 08:57 12/03/19 07:46 12/03/19 08:57 Intake & Output 12/02/19 12/03/19 12/04/19 06:59 06:59 06:59 Intake Total 110 3301 1000 Output Total 900 1220 Balance -790 2081 1000 Weight 97.5 kg 97.5 kg General appearance: PRESENT: no acute distress, well-developed, well-nourished Head exam: PRESENT: atraumatic, normocephalic Respiratory exam: PRESENT: clear to auscultation paulo. ABSENT: rales, rhonchi, wheezes GI/Abdominal exam: PRESENT: normal bowel sounds, soft. ABSENT: distended, guarding, mass, organolmegaly, rebound, tenderness Neurological exam: PRESENT: alert, awake, oriented to person, oriented to place, CN II-XII grossly intact. ABSENT: motor sensory deficit Results Laboratory Results: 12/02/19 04:44 12/03/19 05:12 12/03/19 05:12 Sodium 135.8 L Potassium 3.6 Chloride 102 Carbon Dioxide 19 L Anion Gap 15 BUN 73 H Creatinine 6.77 H Est GFR ( Amer) 10 L Glucose 110 Calcium 7.6 L Phosphorus 7.0 H Magnesium 2.1 Total Bilirubin 0.4 AST 14 L Alkaline Phosphatase 59 Total Protein 5.7 L Albumin 3.0 L 12/01/19 16:52 Catheterized Urine Urine Culture - Final NO GROWTH 2 DAYS 12/01/19 12/01/19 12/01/19 13:20 13:20 17:04 Creatine Kinase 108 CK-MB (CK-2) 4.63 H Troponin I 0.051 0.051 Impressions: Chest X-Ray 12/01/19 13:24 IMPRESSION: NO ACUTE RADIOGRAPHIC FINDING IN THE CHEST. Abdomen/Pelvis CT 12/01/19 15:04 IMPRESSION: 1. SUBCAPSULAR FLUID COLLECTION ASSOCIATED WITH THE LEFT KIDNEY, SECONDARY TO PREVIOUS PERINEPHRIC HEMATOMA, HAS DECREASED IN SIZE SINCE THE MOST RECENT AVAILABLE STUDY DATED 08/17/2019. THE PATIENT MAY HAVE MORE RECENT IMAGING STUDIES ELSEWHERE, THE PATIENT HAS HAD INTERVAL SURGERY WITH PLACEMENT OF PERCUTANEOUS DRAINAGE TUBE AND BILIARY STENT. COMPARISON WITH MORE RECENT DONNA DIES MAY BE HELPFUL. 2. COLONIC DIVERTICULOSIS. NO CT FINDINGS OF ACUTE DIVERTICULITIS. 3. 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 4. CORTICAL CYSTS IN THE RIGHT KIDNEY. 5. NO OTHER SIGNIFICANT OR ACUTE PROCESS IN THE ABDOMEN OR PELVIS. Head CT 12/01/19 15:04 IMPRESSION: CHRONIC CHANGES OF ATROPHY AND MICROVASCULAR ISCHEMIA. NO ACUTE PROCESS. EVIDENCE OF ACUTE STROKE: NO. Interventional Vascular Procedure 12/02/19 00:00 IMPRESSION: Images from ultrasound-guided vascular access. Assessment and Plan - Diagnosis (1) Acute renal failure superimposed on stage 3 chronic kidney disease Qualifiers: Acute renal failure type: with other specified pathological lesion Qualified Code(s): N17.8 - Other acute kidney failure; N18.3 - Chronic kidney disease, stage 3 (moderate) Is this a current diagnosis for this admission?: Yes Plan: Prerenal. Status post hemodialysis on 12/02/2019. Nonoliguric. Negative fluid balance. As per patient has been having low p.o. intake and several nonbilious nonbloody vomiting for the last several days. Continue telemetry, cautious volume resuscitation guided by volume status, monitor electrolytes and replace as needed, strict in and out. Nephrology consulted. Recommendations pending. (2) Acute encephalopathy Is this a current diagnosis for this admission?: Yes Plan: Awake and alert x2. Delirious. Tries to get out of bed and remove his lines. Acute uremic encephalopathy due to underlying OLMAN CKD 3 complicated by gabapentin. As per patient tend to get confused once a while but usually he is alert oriented x4, independent and do most of his ADLs. Continue telemetry, fall, seizure, aspiration precautions, monitor weights, PRN Haldol, monitor for dystonia QTc progression. (3) CAD (coronary artery disease) Is this a current diagnosis for this admission?: Yes Plan: Denies any anginal symptoms. Troponin negative pressure on admission. EKG no acute changes. Home meds are Crestor, lisinopril, aspirin. Restart home meds. Outpatient PCP and cardiology follow-up (4) History of atrial fibrillation Is this a current diagnosis for this admission?: Yes Plan: History of atrial fibrillation. Rate controlled. As per not anticoagulated because he had some renal hematoma on apixaban and was DC'd by his perianesthesia nurse. (5) History of acute cholecystitis Is this a current diagnosis for this admission?: Yes Plan: Status post biliary drain placement and [facility] 2 weeks ago. Afebrile. WBC WNL. Outpatient follow-up. (6) Hyperkalemia Is this a current diagnosis for this admission?: Yes Plan: Resolved. Due to acute renal failure. No acute EKG changes. BMP tomorrow.
[2019-12-03] MEDS ORDERED: OXYCODONE-ACETAMINOPHEN 5-325 MG TABLET PO PRN (10:52)
[2019-12-03] MEDS ORDERED: PROMETHAZINE HCL INJ 25 MG/1 ML VIAL IV PRN (11:00)
[2019-12-03] MEDS ORDERED: ONDANSETRON HCL INJ/PF 4 MG/2 ML SDV IV PRN (11:00)
[2019-12-03 12:11] LABS: HEPATITIS C VIRUS ANTIBODY <0.1 s/co ratio (0.0-0.9)
[2019-12-03] MEDS: HALOPERIDOL LACTATE INJ 5 MG/1 ML VIAL IV PRN (12:33)
--- NOTE | 2019-12-03 15:44 | PDOC CONSULTATION ---
Consultation Consult Date: 12/03/19 Provider Consulted: KRISTIE HUANG Consult reason:: Cholecystostomy tube History of Present Illness Admission Date/PCP: 12/01/19 18:46 NATHALIE MORALES PA-C History of Present Illness: YAMILEX XIONG is a 79 year old male, recently admitted for sepsis, worsening ki dney function with failure requiring temporary hemodialysis, and confusion. According to the , in August 2019 the patient presented with severe acute cholecystitis which required transfer to [facility] where a cholecystostomy tube was inserted. Since then the patient has been doing very well, the has been managing the cholecystostomy tube drainage which is approximate 1000 mL/day. A few days prior to the recent admission, the patient went back to [facility] to undergo replacement of the percutaneous cholecystostomy tube. Shortly after the procedure, the patient presented with above sickness which required admission at this hospital. Past Medical History Cardiac Medical History: Reports: Atrial Fibrillation, Congestive Heart Failure, Coronary Artery Disease, Myocardial Infarction, Hypertension Pulmonary Medical History: Reports: Chronic Obstructive Pulmonary Disease (COPD), Pneumonia - as a baby Denies: Asthma, Bronchitis EENT Medical History: Reports: None Neurological Medical History: Denies: Seizures Endocrine Medical History: Reports: Diabetes Mellitus Type 1, Diabetes Mellitus Type 2 Musculoskeltal Medical History: Reports: Arthritis Psychiatric Medical History: Reports: Depression Hematology: Denies: Anemia Past Surgical History Past Surgical History: Reports: Other - Recent diagnosis of acute/chronic cholecystitis. Deemed high risk and has Comment Only: Cardiac Catheterization - stents Social History Lives with: Family Smoking Status: Former Smoker Number of Years Smokin Last Time Smoked: 30 yrs ago Frequency of Alcohol Use: None Hx Recreational Drug Use: No Drugs: None Hx Prescription Drug Abuse: No Family History Family History: Other - Disease and chronic kidney disease. denies: Reviewed & Not Pertinent Parental Family History Reviewed: No Children Family History Reviewed: No Sibling(s) Family History Reviewed.: No Medication/Allergy Home Medications: Amlodipine Besylate [Norvasc 5 mg Tablet] 5 mg PO QPM 12/01/19 Aspirin [Adult Low Dose Aspirin EC] 81 mg PO DAILY 12/01/19 Brimonidine Tartrate [Alphagan P] 1 drop OU Q12 12/01/19 Calcitriol [Rocaltrol 0.25 Mcg Capsule] 0.25 mcg PO MOWEFR@1000 12/01/19 Carvedilol [Coreg 25 mg Tablet] 1 tab PO Q12 12/01/19 Citalopram Hydrobromide [Celexa 40 mg Tablet] 1 tab PO QPM 12/01/19 Epoetin Josiah [Procrit Inj 20,000 Unit/1 ml Vial (Esrd)] 0 unit INJ ASDIR 12/01/19 Ferrous Sulfate [Feosol 325 mg Tablet] 325 mg PO BID 12/01/19 Furosemide [Lasix 40 mg Tablet] 40 mg PO DAILY 12/01/19 Gabapentin [Neurontin 300 mg Capsule] 600 mg PO QHS 12/01/19 Insulin Glargine,Hum.rec.anlog [Lantus Insulin 100 Unit/1 ml 10 ml] 15 unit SUBCUT QHS 12/01/19 Insulin Lispro [Humalog Insulin 100 Unit/1 ml 3 ml Vial] 0 unit SUBCUT .SLD SCALE 12/01/19 Latanoprost [Xalatan 0.005% Oph Soln 2.5 ml] 1 drop OU QHS 12/01/19 Levothyroxine Sodium [Synthroid 0.075 mg Tablet] 0.075 mg PO DAILY 12/01/19 Lisinopril [Prinivil 5 mg Tablet] 5 mg PO DAILY 12/01/19 Ondansetron [Zofran Odt 4 mg Tablet] 4 mg PO Q8HP PRN 12/01/19 Rosuvastatin Calcium [Crestor 5 mg Tablet] 5 mg PO DAILY 12/01/19 Sennosides [Senna] 8.6 mg PO BID 12/01/19 Tamsulosin HCl [Flomax 0.4 mg Cap.sr] 0.4 mg PO QPM 12/01/19 Testosterone Cypionate [Depo-Testosterone] 200 mg IM .[id number] 12/01/19 Tiotropium [place] [Spiriva Handihaler 5 Cap/Kit (18 Mcg/Cap)] 1 cap IH DAILY 12/01/19 Allergies/Adverse Reactions: apixaban [From Eliquis] Allergy (Intermediate, Verified 12/01/19 13:54) clonidine [Clonidine] Allergy (Intermediate, Verified 12/01/19 13:07) Respiratory distress Physical Exam Vital Signs: Temp Pulse Resp BP Pulse Ox 98.0 F 68 16 140/63 H 97 12/03/19 11:21 12/03/19 13:44 12/03/19 13:44 12/03/19 11:21 12/03/19 13:44 Intake & Output 12/02/19 12/03/19 12/04/19 06:59 06:59 06:59 Intake Total 110 3301 1825 Output Total 900 1220 480 Balance -790 2081 1345 Weight 97.5 kg 97.5 kg General appearance: PRESENT: no acute distress, other - Patient sleepy but arousable, confused Head exam: PRESENT: atraumatic Eye exam: PRESENT: EOMI Mouth exam: PRESENT: moist, neck supple Teeth exam: PRESENT: poor dentation Respiratory exam: PRESENT: clear to auscultation paulo GI/Abdominal exam: PRESENT: soft - Presence of right upper quadrant drain filled with bilious material Rectal exam: PRESENT: deferred Gentrourinary exam: ABSENT: ecchymosis Musculoskeletal exam: PRESENT: full ROM Results Laboratory Results: 12/02/19 04:44 12/03/19 05:12 12/03/19 05:12 Sodium 135.8 L Potassium 3.6 Chloride 102 Carbon Dioxide 19 L Anion Gap 15 BUN 73 H Creatinine 6.77 H Est GFR ( Amer) 10 L Glucose 110 Calcium 7.6 L Phosphorus 7.0 H Magnesium 2.1 Total Bilirubin 0.4 AST 14 L Alkaline Phosphatase 59 Total Protein 5.7 L Albumin 3.0 L 12/01/19 16:52 Catheterized Urine Urine Culture - Final NO GROWTH 2 DAYS 12/01/19 12/01/19 12/01/19 13:20 13:20 17:04 Creatine Kinase 108 CK-MB (CK-2) 4.63 H Troponin I 0.051 0.051 Impressions: Chest X-Ray 12/01/19 13:24 IMPRESSION: NO ACUTE RADIOGRAPHIC FINDING IN THE CHEST. Abdomen/Pelvis CT 12/01/19 15:04 IMPRESSION: 1. SUBCAPSULAR FLUID COLLECTION ASSOCIATED WITH THE LEFT KIDNEY, SECONDARY TO PREVIOUS PERINEPHRIC HEMATOMA, HAS DECREASED IN SIZE SINCE THE MOST RECENT AVAILABLE STUDY DATED 08/17/2019. THE PATIENT MAY HAVE MORE RECENT IMAGING STUDIES ELSEWHERE, THE PATIENT HAS HAD INTERVAL SURGERY WITH PLACEMENT OF PERCUTANEOUS DRAINAGE TUBE AND BILIARY STENT. COMPARISON WITH MORE RECENT STUDIES MAY BE HELPFUL. 2. COLONIC DIVERTICULOSIS. NO CT FINDINGS OF ACUTE DIVERTICULITIS. 3. 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 4. CORTICAL CYSTS IN THE RIGHT KIDNEY. 5. NO OTHER SIGNIFICANT OR ACUTE PROCESS IN THE ABDOMEN OR PELVIS. Head CT 12/01/19 15:04 IMPRESSION: CHRONIC CHANGES OF ATROPHY AND MICROVASCULAR ISCHEMIA. NO ACUTE PROCESS. EVIDENCE OF ACUTE STROKE: NO. Interventional Vascular Procedure 12/02/19 00:00 IMPRESSION: Images from ultrasound-guided vascular access. Assessment & Plan - Diagnosis (1) Acute cholecystitis with chronic cholecystitis Is this a current diagnosis for this admission?: No (2) S/p Cholecystostomy tube placement Is this a current diagnosis for this admission?: Yes - Plan Summary Plan Summary: Assessment: Status post acute cholecystitis with cholelithiasis in August 2019 Status post placement of cholecystostomy tube at [facility] in August 2019 Currently general condition deteriorated following the exchange of the isa cystostomy tube at [facility], most likely a septic process due to a bacteria shower following the exchange Plan: After my lengthy discussion with the , it appears that the patient was maday mmended by the surgery clinic at [facility] to leave the cholecystostomy tube open and to let the bile drain. Therefore, I am recommending that the cholecystostomy tube be left open with free bile drainage I am also recommending the patient's to reschedule the 's appointment with the surgery clinic at [facility] on a date later than December 09 for surgical management of either the gallbladder or the cholecystostomy tube. I will sign off, please call me with questions.
[2019-12-03] MEDS: AMLODIPINE BESYLATE 5 MG TABLET PO SCH (18:01)
[2019-12-03] MEDS: PANTOPRAZOLE SODIUM 40 MG TABLET.DR PO SCH (18:01)
[2019-12-03] MEDS: TAMSULOSIN HCL 0.4 MG CAP.SR.24H PO SCH (18:01)
[2019-12-03] MEDS: LATANOPROST 0.005% OPH SOLN 2.5 ML OU SCH (22:01)
[2019-12-04] MEDS: IPRATROPIUM/ALBUTEROL 0.5-2.5 MG/3 ML AMPUL NEB SCH ×4 (01:52→20:45)
[2019-12-04] MEDS: NORMAL SALINE 1000 ML 1,000 ML IV PRN (04:10)
[2019-12-04] MEDS: HEPARIN SOD (PORCINE) 5,000 UNIT/ML 1 ML VIAL SUBCUT SCH ×3 (05:10→21:36)
[2019-12-04] MEDS: PANTOPRAZOLE SODIUM 40 MG TABLET.DR PO SCH ×2 (06:22→17:23)
[2019-12-04] MEDS: LEVOTHYROXINE SODIUM 0.075 MG TABLET PO SCH (06:22)
[2019-12-04 06:25] LABS: HEMATOCRIT 23.9 % (37.9-51.0); HEMOGLOBIN 8.2 g/dL (13.5-17.0); MEAN CORPUSCULAR HEMOGLOBIN 32.3 pg (27.0-33.4); MEAN CORPUSCULAR HGB CONC 34.2 g/dL (32.0-36.0); MEAN CORPUSCULAR VOLUME 95 fl (80-97); PLATELET COUNT 172 10^3/uL (150-450); RED BLOOD COUNT 2.53 10^6/uL (4.35-5.55); RED CELL DISTRIBUTION WIDTH 14.4 % (11.5-14.0); WHITE BLOOD COUNT 6.8 10^3/uL (4.0-10.5)
[2019-12-04 06:47] LABS: ANION GAP 13 (5-19); BLOOD UREA NITROGEN 68 mg/dL (7-20); CALCIUM 7.4 mg/dL (8.4-10.2); CARBON DIOXIDE 17 mmol/L (22-30); CHLORIDE 107 mmol/L (98-107); GLUCOSE 119 mg/dL (75-110); POTASSIUM 3.5 mmol/L (3.6-5.0)
[2019-12-04] MEDS: INSULIN LISPRO 100 UNIT/ML 3 ML VIAL SUBCUT SCH ×4 (07:38→21:47)
[2019-12-04] MEDS ORDERED: NORMAL SALINE 1000 ML 1,000 ML IV PRN (09:13)
[2019-12-04] MEDS ORDERED: HEPARIN SOD (PORCINE) 1,000 UNIT/ML 10 ML VIAL IV PRN (09:13)
--- NOTE | 2019-12-04 09:19 | PDOC PROGRESS REPORT ---
Subjective Progress Note for:: 12/04/19 Subjective:: YAMILEX XIONG is a 79 year old male past medical history of A. fib, CAD, CVA past medical history of atrial fibrillation, CAD, CABG, COPD, CKD, diabetes, recently diagnosed with acute cholecystitis was transferred to [facility], was found to be nonoperable, a drain placed, patient was sent home and his drain was revisited last Saturday and was given a dose of fentanyl. After that patient has been lethargic and with low p.o. intake, has had several episodes of nausea and nonbloody vomiting and became obtunded and altered since yesterday. Source of history is who is at the bedside. In ED he was found to be stuporous, with severely elevated BUN and creatinine at potassium level, patient was given 1 dose of Narcan with mild improvement of mental status and CT abdomen did not reveal any acute process except for chronic perirenal hematoma, subretinal aortic aneurysm, and biliary system drained. Nephrology was consulted and recommendation was to admit patient for hydration and possible hemodialysis if no improvement in renal function. 12/02/2019. No acute events overnight. Patient mental status improving mildly still very somnolent however arousable and more oriented. Mild improvement of renal function. 12/03/2019. Patient is more awake however noted to be delirious overnight and trying to get out of bed and remove his life, patient is awake and communicating however does not remember how he got to the hospital, denies any shortness of breath, chest pain, nausea, vomiting, diarrhea, constipation or any urinary symptoms. 12/04/2019. No acute events overnight. Patient is alert however still oriented x3, has been less impulsive since yesterday, denies any fever, chills, nausea, vomiting, diarrhea, constipation or any urinary symptoms. Reason For Visit: UREMIC ENCEPHALOPATHY,ACUTE ON CHRONIC KIDNEY Physical Exam Vital Signs: Temp Pulse Resp BP Pulse Ox 97.6 F 68 16 155/71 H 95 12/04/19 07:54 12/04/19 08:35 12/04/19 08:35 12/04/19 07:54 12/04/19 08:35 Intake & Output 12/03/19 12/04/19 12/05/19 06:59 06:59 06:59 Intake Total 3301 6095 Output Total 1220 2385 Balance 2081 3710 Weight 97.5 kg 113.6 kg General appearance: PRESENT: no acute distress, well-developed, well-nourished Head exam: PRESENT: atraumatic, normocephalic Neck exam: ABSENT: carotid bruit, JVD, lymphadenopathy, thyromegaly Cardiovascular exam: PRESENT: RRR. ABSENT: diastolic murmur, rubs, systolic murmur Pulses: PRESENT: normal dorsalis pedis pul Extremities exam: PRESENT: full ROM. ABSENT: calf tenderness, clubbing, pedal edema Neurological exam: PRESENT: alert, awake, oriented to person, oriented to place, CN II-XII grossly intact. ABSENT: motor sensory deficit Results Laboratory Results: 12/04/19 06:03 12/04/19 06:03 12/04/19 12/04/19 12/04/19 06:03 06:03 06:03 WBC 6.8 RBC 2.53 L Hgb 8.2 L Hct 23.9 L MCV 95 MCH 32.3 MCHC 34.2 RDW 14.4 H Plt Count 172 Sodium 137.2 Potassium 3.5 L Chloride 107 Carbon Dioxide 17 L Anion Gap 13 BUN 68 H Creatinine 6.48 H Est GFR ( Amer) 10 L Glucose 119 H Calcium 7.4 L PTH Intact 198.4 H 12/01/19 16:52 Catheterized Urine Urine Culture - Final NO GROWTH 2 DAYS 12/01/19 12/01/19 12/01/19 13:20 13:20 17:04 Creatine Kinase 108 CK-MB (CK-2) 4.63 H Troponin I 0.051 0.051 Impressions: Chest X-Ray 12/01/19 13:24 IMPRESSION: NO ACUTE RADIOGRAPHIC FINDING IN THE CHEST. Abdomen/Pelvis CT 12/01/19 15:04 IMPRESSION: 1. SUBCAPSULAR FLUID COLLECTION ASSOCIATED WITH THE LEFT KIDNEY, SECONDARY TO [place] EVIOUS PERINEPHRIC HEMATOMA, HAS DECREASED IN SIZE SINCE THE MOST RECENT AVAILABLE STUDY DATED 08/17/2019. THE PATIENT MAY HAVE MORE RECENT IMAGING STUDIES ELSEWHERE, THE PATIENT HAS HAD INTERVAL SURGERY WITH PLACEMENT OF PERCUTANEOUS DRAINAGE TUBE AND BILIARY STENT. COMPARISON WITH MORE RECENT STUDIES MAY BE HELPFUL. 2. COLONIC DIVERTICULOSIS. NO CT FINDINGS OF ACUTE DIVERTICULITIS. 3. 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 4. CORTICAL CYSTS IN THE RIGHT KIDNEY. 5. NO OTHER SIGNIFICANT OR ACUTE PROCESS IN THE ABDOMEN OR PELVIS. Head CT 12/01/19 15:04 IMPRESSION: CHRONIC CHANGES OF ATROPHY AND MICROVASCULAR ISCHEMIA. NO ACUTE PROCESS. EVIDENCE OF ACUTE STROKE: NO. Interventional Vascular Procedure 12/02/19 00:00 IMPRESSION: Images from ultrasound-guided vascular access. Assessment and Plan - Diagnosis (1) Acute renal failure superimposed on stage 3 chronic kidney disease Qualifiers: Acute renal failure type: with other specified pathological lesion Qualified Code(s): N17.8 - Other acute kidney failure; N18.3 - Chronic kidney disease, stage 3 (moderate) Is this a current diagnosis for this admission?: Yes Plan: Prerenal. Status post hemodialysis on 12/02/2019. Nonoliguric. Negative fluid balance. Status post hemodialysis 12/03/2019. As per patient has been having low p.o. intake and several nonbilious nonbloody vomiting for the last several days. Continue telemetry, cautious volume resuscitation guided by volume status, mon itor electrolytes and replace as needed, strict in and out. Nephrology on board. Recommendations noted. (2) Acute encephalopathy Is this a current diagnosis for this admission?: Yes Plan: Awake and alert x2. Mild improvement in diarrhea. Likely due to acute uremic encephalopathy due to underlying OLMAN CKD 3 complicated by gabapentin. As per patient tend to get confused once a while but usually he is alert oriented x4, independent and do most of his ADLs. Continue telemetry, fall, seizure, aspiration precautions, monitor weights, PRN Haldol, monitor for dystonia QTc progression. (3) CAD (coronary artery disease) Is this a current diagnosis for this admission?: Yes Plan: Denies any anginal symptoms. Troponin negative pressure on admission. EKG no acute changes. Home meds are Crestor, lisinopril, aspirin. Restart home meds. Outpatient PCP and cardiology follow-up (4) History of atrial fibrillation Is this a current diagnosis for this admission?: Yes Plan: History of atrial fibrillation. Rate controlled. As per not anticoagulated because he had some renal hematoma on apixaban and was DC'd by his tinsel machine operator. (5) History of acute cholecystitis Is this a current diagnosis for this admission?: Yes Plan: Status post biliary drain placement and [facility] 2 weeks ago. Afebrile. WBC WNL. Outpatient follow-up. (6) Hyperkalemia Is this a current diagnosis for this admission?: Yes Plan: Resolved. Due to acute renal failure. No acute EKG changes. BMP tomorrow.
[2019-12-04] MEDS: ASPIRIN 81 MG TABLET, ENT COATED PO SCH (12:15)
[2019-12-04] MEDS: FERROUS SULFATE 325 MG TABLET PO SCH ×2 (12:15→17:23)
[2019-12-04] MEDS: DOCUSATE SODIUM 100 MG CAPSULE PO SCH (12:15)
[2019-12-04] MEDS: HALOPERIDOL LACTATE INJ 5 MG/1 ML VIAL IV PRN (14:03)
[2019-12-04] MEDS ORDERED: (PENDING PHARMACY ID) (Carvedilol [Coreg 25 Mg Tablet] 1 TAB) PO SCH (16:00)
[2019-12-04] MEDS: AMLODIPINE BESYLATE 5 MG TABLET PO SCH (16:36)
[2019-12-04] MEDS: GABAPENTIN 300 MG CAPSULE PO SCH (17:23)
[2019-12-04] MEDS: TAMSULOSIN HCL 0.4 MG CAP.SR.24H PO SCH (17:23)
[2019-12-04] MEDS: CITALOPRAM HYDROBROMIDE 20 MG TABLET PO SCH (17:24)
[2019-12-04] MEDS ORDERED: (PENDING PHARMACY ID) (Citalopram Hydrobromide [Celexa 40 Mg Tablet] 1 TAB) PO SCH (18:00)
--- NOTE | 2019-12-04 18:13 | PDOC PROGRESS REPORT ---
Subjective Progress Note for:: 12/04/19 Subjective:: I reviewed events leading to the patient's admission coming in with altered mental status with elevated BUN and creatinine requiring acute renal replacement therapy. According to the this occurred after replacement of the biliary drain last week Saturday at [facility]. His oral intake has significantly diminished especially 2 days prior to admission. I evaluated the patient this morning. He remains to be pleasantly confused. His kidney function is still not within the baseline. He is making urine and for the past 24 hours has made 1475 mL of urine. His biliary drain was 910 mL. Since his mental status is still not better and the kidney function is still not at baseline I decided to do another dialysis treatment on the patient. I am currently seeing the patient during initiation of dialysis. He is cooperative although remains to be confused. Reason For Visit: UREMIC ENCEPHALOPATHY,ACUTE ON CHRONIC KIDNEY Physical Exam Vital Signs: Temp Pulse Resp BP Pulse Ox 97.6 F 68 16 155/71 H 95 12/04/19 07:54 12/04/19 08:35 12/04/19 08:35 12/04/19 07:54 12/04/19 08:35 Intake & Output 12/03/19 12/04/19 12/05/19 06:59 06:59 06:59 Intake Total 3301 6095 Output Total 1220 2385 Balance 2081 3710 Weight 97.5 kg 113.6 kg Vitals during dialysis: Blood pressure 133/74, heart rate of 94, blood flow rate of 250 mL/min and dialysate flow rate of 500 mL/min. Exam: General appearance: PRESENT: no acute distress, cooperative, well-developed, well-nourished, pleasantly confused Head exam: PRESENT: atraumatic, normocephalic Eye exam: PRESENT: conjunctiva pale, PERRLA. ABSENT: scleral icterus Neck exam: ABSENT: JVD Respiratory exam: PRESENT: Normal breath sounds. ABSENT: crackles, rales, rhon chi, unlabored, wheezes Cardiovascular exam: PRESENT: Regular rate rhythm -+S1, +S2. Grade 2/6 systolic murmur GI/Abdominal exam: PRESENT: normal bowel sounds, soft. Biliary drain in place in the right upper quadrant area ABSENT: guarding, mass, tenderness Extremities exam: Trace edema Neurological exam: PRESENT: alert, awake, oriented to person only but not to place and time. Skin exam: PRESENT: dry, warm, Cardiovascular exam: PRESENT: +S1, +S2, systolic murmur. ABSENT: rubs GI/Abdominal exam: PRESENT: normal bowel sounds, organomegaly, tenderness - Mild tenderness in the right upper quadrant.. ABSENT: soft Results Laboratory Results: 12/04/19 06:03 12/04/19 06:03 12/04/19 12/04/19 12/04/19 06:03 06:03 06:03 WBC 6.8 RBC 2.53 L Hgb 8.2 L Hct 23.9 L MCV 95 MCH 32.3 MCHC 34.2 RDW 14.4 H Plt Count 172 Sodium 137.2 Potassium 3.5 L Chloride 107 Carbon Dioxide 17 L Anion Gap 13 BUN 68 H Creatinine 6.48 H Est GFR ( Amer) 10 L Glucose 119 H Calcium 7.4 L PTH Intact 198.4 H 12/01/19 16:52 Catheterized Urine Urine Culture - Final NO GROWTH 2 DAYS 12/01/19 12/01/19 12/01/19 13:20 13:20 17:04 Creatine Kinase 108 CK-MB (CK-2) 4.63 H Troponin I 0.051 0.051 Impressions: Chest X-Ray 12/01/19 13:24 IMPRESSION: NO ACUTE RADIOGRAPHIC FINDING IN THE CHEST. Abdomen/Pelvis CT 12/01/19 15:04 IMPRESSION: 1. SUBCAPSULAR FLUID COLLECTION ASSOCIATED WITH THE LEFT KIDNEY, SECONDARY TO PREVIOUS PERINEPHRIC HEMATOMA, HAS DECREASED IN SIZE SINCE THE MOST RECENT AVAILABLE STUDY DATED 08/17/2019. THE PATIENT MAY HAVE MORE RECENT IMAGING STUDIES ELSEWHERE, THE PATIENT HAS HAD INTERVAL SURGERY WITH PLACEMENT OF PERCUTANEOUS DRAINAGE TUBE AND BILIARY STENT. COMPARISON WITH MORE RECENT STUDIES MAY BE HELPFUL. 2. COLONIC DIVERTICULOSIS. NO CT FINDINGS OF ACUTE DIVERTICULITIS. 3. 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 4. CORTICAL CYSTS IN THE RIGHT KIDNEY. 5. NO OTHER SIGNIFICANT OR ACUTE PROCESS IN THE ABDOMEN OR PELVIS. Head CT 12/01/19 15:04 IMPRESSION: CHRONIC CHANGES OF ATROPHY AND MICROVASCULAR ISCHEMIA. NO ACUTE PROCESS. EVIDENCE OF ACUTE STROKE: NO. Interventional Vascular Procedure 12/02/19 00:00 IMPRESSION: Images from ultrasound-guided vascular access. Assessment & Plan - Diagnosis (1) OLMAN (acute kidney injury) Is this a current diagnosis for this admission?: Yes Plan: Most likely secondary to prerenal azotemia with severe volume depletion due to high output biliary drain after it was replaced or exchanged last week Saturday. Patient is currently nonoliguric. Due to uremia and encephalopathy the patient had renal replacement therapy upon admission, 2 days ago. Since the patient is not completely improve that I decided to do another dialysis treatment today. We will do dialysis today for 2.5 hours, using the patient's dialysis catheter, with 3 potassium bath, blood flow rate of 250 mL per minute, dialysate flow rate of 500 mL per minute, ultrafiltration none, no heparin and no Procrit. We will reevaluate the patient on Saturday for further need for dialysis. (2) Uremia Is this a current diagnosis for this admission?: Yes (3) Acute encephalopathy Is this a current diagnosis for this admission?: Yes Plan: Initial thought was the patient's acute encephalopathy was most likely secondary to uremia and gabapentin toxicity. Patient is currently awake but still pleasantly confused. For the past few months the patient is a starting to develop an underlying mild dementia but current mental status has been worse. After 2 dialysis treatment, we are hoping to the patient's mental status hopefully improves. Gabapentin was also discontinued. (4) Acute cholecystitis Is this a current diagnosis for this admission?: Yes Plan: Patient had biliary drain placed at [facility] about 3 months ago. This was replaced a week ago which triggered and precipitated acute current illness. Surgery was consulted but no further recommendation was made but to follow-up with [facility] after discharge. (5) CKD (chronic kidney disease), stage IV Is this a current diagnosis for this admission?: Yes (6) Diabetes mellitus Is this a current diagnosis for this admission?: Yes (7) Hypertension Is this a current diagnosis for this admission?: Yes (8) Chronic kidney disease-mineral and bone disorder Is this a current diagnosis for this admission?: Yes Plan: Phosphorus is elevated at 7.0 but was 11.6 on admission. PTH is 198.4. Will start treatment once the patient is back on his mental status and can tolerate more medications. We will repeat phosphorus level next week. - Notes Notes: I anticipated the patient will need to stay over the weekend to monitor the patient's kidney function and mental status. Discussed with Dr. Candelaria. Also discussed and updated the patient's regarding the patient's condition and further plan. - Time Time with patient: 15-25 minutes
[2019-12-04] MEDS: CARVEDILOL 12.5 MG TABLET PO SCH (21:36)
[2019-12-04] MEDS: LATANOPROST 0.005% OPH SOLN 2.5 ML OU SCH (21:37)
[2019-12-04] MEDS ORDERED: GABAPENTIN 300 MG CAPSULE PO SCH (22:00)
[2019-12-05] MEDS: IPRATROPIUM/ALBUTEROL 0.5-2.5 MG/3 ML AMPUL NEB SCH ×4 (02:11→20:29)
[2019-12-05] MEDS: HEPARIN SOD (PORCINE) 5,000 UNIT/ML 1 ML VIAL SUBCUT SCH ×3 (05:05→22:34)
[2019-12-05] MEDS: PANTOPRAZOLE SODIUM 40 MG TABLET.DR PO SCH ×2 (06:54→17:16)
[2019-12-05] MEDS: LEVOTHYROXINE SODIUM 0.075 MG TABLET PO SCH (06:54)
[2019-12-05] MEDS: INSULIN LISPRO 100 UNIT/ML 3 ML VIAL SUBCUT SCH ×4 (07:44→22:28)
[2019-12-05 07:53] LABS: ANION GAP 10 (5-19); BLOOD UREA NITROGEN 45 mg/dL (7-20); CARBON DIOXIDE 23 mmol/L (22-30); CHLORIDE 104 mmol/L (98-107); GLUCOSE 106 mg/dL (75-110); POTASSIUM 3.4 mmol/L (3.6-5.0)
[2019-12-05] MEDS: GABAPENTIN 300 MG CAPSULE PO SCH ×3 (09:59→17:16)
[2019-12-05] MEDS: CARVEDILOL 12.5 MG TABLET PO SCH ×2 (09:59→22:33)
[2019-12-05] MEDS: AMLODIPINE BESYLATE 5 MG TABLET PO SCH (09:59)
[2019-12-05] MEDS: DOCUSATE SODIUM 100 MG CAPSULE PO SCH (09:59)
[2019-12-05] MEDS: FERROUS SULFATE 325 MG TABLET PO SCH ×2 (09:59→17:16)
[2019-12-05] MEDS: ASPIRIN 81 MG TABLET, ENT COATED PO SCH (09:59)
[2019-12-05] MEDS ORDERED: AMLODIPINE BESYLATE 5 MG TABLET PO SCH (10:00)
--- NOTE | 2019-12-05 10:47 | PDOC PROGRESS REPORT ---
Subjective Progress Note for:: 12/05/19 Subjective:: YAMILEX XIONG is a 79 year old male past medical history of A. fib, CAD, CVA past medical history of atrial fibrillation, CAD, CABG, COPD, CKD, diabetes, recently diagnosed with acute cholecystitis was transferred to LT[facility], [facility], was found to be nonoperable, a drain placed, patient was sent home and his drain was revisited last Saturday and was given a dose of fentanyl. After that patient has been lethargic and with low p.o. intake, has had several episodes of nausea and nonbloody vomiting and became obtunded and altered since yesterday. Source of history is who is at the bedside. In ED he was found to be stuporous, with severely elevated BUN and creatinine at potassium level, patient was given 1 dose of Narcan with mild improvement of mental status and CT abdomen did not reveal any acute process except for chronic perirenal hematoma, subretinal aortic aneurysm, and biliary system drained. Nephrology was consulted and recommendation was to admit patient for hydration and possible hemodialysis if no improvement in renal function. 12/02/2019. No acute events overnight. Patient mental status improving mildly still very somnolent however arousable and more oriented. Mild improvement of renal function. 12/03/2019. Patient is more awake however noted to be delirious overnight and trying to get out of bed and remove his life, patient is awake and communicating however does not remember how he got to the hospital, denies any shortness of breath, chest pain, nausea, vomiting, diarrhea, constipation or any urinary symptoms. 12/04/2019. No acute events overnight. Patient is alert however still oriented x3, has been less impulsive since yesterday, denies any fever, chills, nausea, vomiting, diarrhea, constipation or any urinary symptoms. 12/05/2019. No acute events overnight. Patient alert and oriented x2 awake and cooperative with physical examination, accompanied by his , denies any fever, chills, nausea, vomiting, diarrhea, constipation or any urinary symptoms. Reason For Visit: UREMIC ENCEPHALOPATHY,ACUTE ON CHRONIC KIDNEY Physical Exam Vital Signs: Temp Pulse Resp BP Pulse Ox 99.1 F 60 14 142/64 H 95 12/05/19 08:21 12/05/19 09:05 12/05/19 09:05 12/05/19 08:21 12/05/19 09:05 Intake & Output 12/04/19 12/05/19 12/06/19 06:59 06:59 06:59 Intake Total 6062 2770 Output Total 8937 8415 Balance 3710 245 Weight 113.6 kg 112.6 kg General appearance: PRESENT: no acute distress, well-developed, well-nourished Head exam: PRESENT: atraumatic, normocephalic Respiratory exam: PRESENT: clear to auscultation paulo. ABSENT: rales, rhonchi, wheezes Cardiovascular exam: PRESENT: RRR. ABSENT: diastolic murmur, rubs, systolic murmur Pulses: PRESENT: normal dorsalis pedis pul GI/Abdominal exam: PRESENT: normal bowel sounds, soft. ABSENT: distended, guarding, mass, organolmegaly, rebound, tenderness Neurological exam: PRESENT: alert, awake, oriented to person, oriented to place, CN II-XII grossly intact. ABSENT: motor sensory deficit Results Laboratory Results: 12/04/19 06:03 12/05/19 06:51 12/05/19 06:51 Sodium 136.9 L Potassium 3.4 L Chloride 104 Carbon Dioxide 23 Anion Gap 10 BUN 45 H Creatinine 4.43 H Est GFR ( Amer) 16 L Glucose 106 Calcium 8.0 L 12/01/19 12/01/19 12/01/19 13:20 13:20 17:04 Creatine Kinase 108 CK-MB (CK-2) 4.63 H Troponin I 0.051 0.051 Impressions: Chest X-Ray 12/01/19 13:24 IMPRESSION: NO ACUTE RADIOGRAPHIC FINDING IN THE CHEST. Abdomen/Pelvis CT 12/01/19 15:04 IMPRESSION: 1. SUBCAPSULAR FLUID COLLECTION ASSOCIATED WITH THE LEFT KIDNEY, SECONDARY TO PREVIOUS PERINEPHRIC HEMATOMA, HAS DECREASED IN SIZE SINCE THE MOST RECENT AVAILABLE STUDY DATED 08/17/2019. THE PATIENT MAY HAVE MORE RECENT IMAGING STUDIES ELSEWHERE, THE PATIENT HAS HAD INTERVAL SURGERY WITH PLACEMENT OF PERCUTANEOUS DRAINAGE TUBE AND BILIARY STENT. COMPARISON WITH MORE RECENT STUDIES MAY BE HELPFUL. 2. COLONIC DIVERTICULOSIS. NO CT FINDINGS OF ACUTE DIVERTICULITIS. 3. 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 4. CORTICAL CYSTS IN THE RIGHT KIDNEY. 5. NO OTHER SIGNIFICANT OR ACUTE PROCESS IN THE ABDOMEN OR PELVIS. Head CT 12/01/19 15:04 IMPRESSION: CHRONIC CHANGES OF ATROPHY AND MICROVASCULAR ISCHEMIA. NO ACUTE PROCESS. EVIDENCE OF ACUTE STROKE: NO. Interventional Vascular Procedure 12/02/19 00:00 IMPRESSION: Images from ultrasound-guided vascular access. Assessment and Plan - Diagnosis (1) Acute renal failure superimposed on stage 3 chronic kidney disease Qualifiers: Acute renal failure type: with other specified pathological lesion Qualified Code(s): N17.8 - Other acute kidney failure; N18.3 - Chronic kidney disease, stage 3 (moderate) Is this a current diagnosis for this admission?: Yes Plan: Euvolemic. Electrolytes WNL. Nonoliguric. Status post hemodialysis on 12/02/2019, 12/03/2019, 12/04/2019. As per patient has been having low p.o. intake and several nonbilious nonbloody vomiting for the last several days. Continue telemetry, cautious volume resuscitation guided by volume status, monitor electrolytes and replace as needed, strict in and out. Nephrology on board. Recommendations noted. (2) Acute encephalopathy Is this a current diagnosis for this admission?: Yes Plan: Awake and alert x2. Mild improvement. Likely due to acute uremic encephalopathy due to underlying OLMAN CKD 3 complicated by gabapentin possibly early dementia. As per patient tend to get confused once a while but usually he is alert oriented x4, independent and do most of his ADLs. Continue telemetry, fall, seizure, aspiration precautions, monitor weights, PRN Haldol, monitor for dystonia QTc progression. (3) CAD (coronary artery disease) Is this a current diagnosis for this admission?: Yes Plan: Denies any anginal symptoms. Troponin negative pressure on admission. EKG no acute changes. Home meds are Crestor, lisinopril, aspirin. Restart home meds. Outpatient PCP and cardiology follow-up (4) History of atrial fibrillation Is this a current diagnosis for this admission?: Yes Plan: History of atrial fibrillation. Rate controlled. As per not anticoagulated because he had some renal hematoma on apixaban and was DC'd by his lining vamper. (5) History of acute cholecystitis Is this a current diagnosis for this admission?: Yes Plan: Status post biliary drain placement and [facility] 2 weeks ago. As per patient has established follow-up appointments. Continue drain care. Afebrile. WBC WNL. Outpatient follow-up. (6) Hyperkalemia Is this a current diagnosis for this admission?: Yes Plan: Resolved. Due to acute renal failure. No acute EKG changes. BMP tomorrow.
[2019-12-05] MEDS: TAMSULOSIN HCL 0.4 MG CAP.SR.24H PO SCH (17:16)
[2019-12-05] MEDS: CITALOPRAM HYDROBROMIDE 20 MG TABLET PO SCH (17:16)
[2019-12-05] MEDS: LATANOPROST 0.005% OPH SOLN 2.5 ML OU SCH (22:34)
[2019-12-06] MEDS: IPRATROPIUM/ALBUTEROL 0.5-2.5 MG/3 ML AMPUL NEB SCH ×4 (02:20→20:46)
[2019-12-06] MEDS: HEPARIN SOD (PORCINE) 5,000 UNIT/ML 1 ML VIAL SUBCUT SCH ×3 (06:32→21:56)
[2019-12-06] MEDS: LEVOTHYROXINE SODIUM 0.075 MG TABLET PO SCH (06:32)
[2019-12-06] MEDS: PANTOPRAZOLE SODIUM 40 MG TABLET.DR PO SCH ×2 (06:32→17:14)
[2019-12-06] MEDS: INSULIN LISPRO 100 UNIT/ML 3 ML VIAL SUBCUT SCH ×4 (07:34→21:53)
[2019-12-06 08:07] LABS: ANION GAP 12 (5-19); BLOOD UREA NITROGEN 51 mg/dL (7-20); CARBON DIOXIDE 21 mmol/L (22-30); CHLORIDE 102 mmol/L (98-107); GLUCOSE 99 mg/dL (75-110); POTASSIUM 3.5 mmol/L (3.6-5.0)
[2019-12-06] MEDS: GABAPENTIN 300 MG CAPSULE PO SCH ×3 (09:47→17:14)
[2019-12-06] MEDS: FERROUS SULFATE 325 MG TABLET PO SCH ×2 (09:47→17:14)
[2019-12-06] MEDS: DOCUSATE SODIUM 100 MG CAPSULE PO SCH (09:47)
[2019-12-06] MEDS: AMLODIPINE BESYLATE 5 MG TABLET PO SCH (09:47)
[2019-12-06] MEDS: ASPIRIN 81 MG TABLET, ENT COATED PO SCH (09:47)
[2019-12-06] MEDS: CARVEDILOL 12.5 MG TABLET PO SCH ×2 (09:47→21:56)
--- NOTE | 2019-12-06 11:21 | PDOC PROGRESS REPORT ---
Subjective Progress Note for:: 12/06/19 Subjective:: YAMILEX XIONG is a 79 year old male past medical history of A. fib, CAD, CVA past medical history of atrial fibrillation, CAD, CABG, COPD, CKD, diabetes, recently diagnosed with acute cholecystitis was transferred to [facility], was found to be nonoperable, a drain placed, patient was sent home and his drain was revisited last Saturday and was given a dose of fentanyl. After that patient has been lethargic and with low p.o. intake, has had several episodes of nausea and nonbloody vomiting and became obtunded and altered since yesterday. Source of history is who is at the bedside. In ED he was found to be stuporous, with severely elevated BUN and creatinine at potassium level, patient was given 1 dose of Narcan with mild improvement of mental status and CT abdomen did not reveal any acute process except for chronic perirenal hematoma, subretinal aortic aneurysm, and biliary system drained. Nephrology was consulted and recommendation was to admit patient for hydration and possible hemodialysis if no improvement in renal function. 12/02/2019. No acute events overnight. Patient mental status improving mildly still very somnolent however arousable and more oriented. Mild improvement of renal function. 12/03/2019. Patient is more awake however noted to be delirious overnight and trying to get out of bed and remove his life, patient is awake and communicating however does not remember how he got to the hospital, denies any shortness of breath, chest pain, nausea, vomiting, diarrhea, constipation or any urinary symptoms. 12/04/2019. No acute events overnight. Patient is alert however still oriented x3, has been less impulsive since yesterday, denies any fever, chills, nausea, vomiting, diarrhea, constipation or any urinary symptoms. 12/05/2019. No acute events overnight. Patient alert and oriented x2 awake and cooperative with physical examination, accompanied by his , denies any fever, chills, nausea, vomiting, diarrhea, constipation or any urinary symptoms. 12/06/2019. No acute events overnight. Patient is not restless anymore however still confused, alert only to person and place, awake and interactive denies any fever, chills, nausea, vomiting, diarrhea, constipation or any urinary symptoms. Reason For Visit: UREMIC ENCEPHALOPATHY,ACUTE ON CHRONIC KIDNEY Physical Exam Vital Signs: Temp Pulse Resp BP Pulse Ox 98.0 F 60 16 141/58 H 90 L 12/06/19 04:31 12/06/19 08:26 12/06/19 08:26 12/06/19 04:31 12/06/19 08:26 Intake & Output 12/05/19 12/06/19 12/07/19 06:59 06:59 06:59 Intake Total 2770 1393 Output Total 2525 770 Balance 245 623 Weight 112.6 kg 112.6 kg General appearance: PRESENT: no acute distress, obese, well-developed, well-nour ished Head exam: PRESENT: atraumatic, normocephalic Respiratory exam: PRESENT: clear to auscultation paulo. ABSENT: rales, rhonchi, wheezes GI/Abdominal exam: PRESENT: normal bowel sounds, soft, other - Right upper quadrant drain patent, filled with bilious fluid. ABSENT: distended, guarding, mass, organolmegaly, rebound, tenderness Neurological exam: PRESENT: alert, awake, oriented to person, oriented to place, CN II-XII grossly intact. ABSENT: motor sensory deficit Results Laboratory Results: 12/04/19 06:03 12/06/19 07:21 12/06/19 07:21 Sodium 135.3 L Potassium 3.5 L Chloride 102 Carbon Dioxide 21 L Anion Gap 12 BUN 51 H Creatinine 4.79 H Est GFR ( Amer) 14 L Glucose 99 Calcium 8.0 L 12/01/19 12/01/19 12/01/19 13:20 13:20 17:04 Creatine Kinase 108 CK-MB (CK-2) 4.63 H Troponin I 0.051 0.051 Impressions: Chest X-Ray 12/01/19 13:24 IMPRESSION: NO ACUTE RADIOGRAPHIC FINDING IN THE CHEST. Abdomen/Pelvis CT 12/01/19 15:04 IMPRESSION: 1. SUBCAPSULAR FLUID COLLECTION ASSOCIATED WITH THE LEFT KIDNEY, SECONDARY TO PREVIOUS PERINEPHRIC HEMATOMA, HAS DECREASED IN SIZE SINCE THE MOST RECENT AVAILABLE STUDY DATED 08/17/2019. THE PATIENT MAY HAVE MORE RECENT IMAGING STUDIES ELSEWHERE, THE PATIENT HAS HAD INTERVAL SURGERY WITH PLACEMENT OF PERCUTANEOUS DRAINAGE TUBE AND BILIARY STENT. COMPARISON WITH MORE RECENT STUDIES MAY BE HELPFUL. 2. COLONIC DIVERTICULOSIS. NO CT FINDINGS OF ACUTE DIVERTICULITIS. 3. 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 4. CORTICAL CYSTS IN THE RIGHT KIDNEY. 5. NO OTHER SIGNIFICANT OR ACUTE PROCESS IN THE ABDOMEN OR PELVIS. Head CT 12/01/19 15:04 IMPRESSION: CHRONIC CHANGES OF ATROPHY AND MICROVASCULAR ISCHEMIA. NO ACUTE PROCESS. EVIDENCE OF ACUTE STROKE: NO. Interventional Vascular Procedure 12/02/19 00:00 IMPRESSION: Images from ultrasound-guided vascular access. Assessment and Plan - Diagnosis (1) Acute renal failure superimposed on stage 3 chronic kidney disease Qualifiers: Acute renal failure type: with other specified pathological lesion Qualified Code(s): N17.8 - Other acute kidney failure; N18.3 - Chronic kidney disease, stage 3 (moderate) Is this a current diagnosis for this admission?: Yes Plan: No significant improvement compared to yesterday. Euvolemic. Electrolytes WNL. Nonoliguric. Status post hemodialysis on 12/02/2019, 12/03/2019, 12/04/2019. As per patient has been having low p.o. intake and several nonbilious nonbloody vomiting for the last several days. Continue telemetry, cautious volume resuscitation guided by volume status, monitor electrolytes and replace as needed, strict in and out. Nephrology on board. Recommendations noted. (2) Acute encephalopathy Is this a current diagnosis for this admission?: Yes Plan: Awake and alert x2. No significant improvement compared to yesterday. Likely due to acute uremic encephalopathy due to underlying OLMAN CKD 3 complicated by gabapentin possibly early dementia. As per patient tend to get confused once a while but usually he is alert oriented x4, independent and do most of his ADLs. Continue telemetry, fall, seizure, aspiration precautions, monitor weights, PRN Haldol, monitor for dystonia QTc progression. (3) CAD (coronary artery disease) Is this a current diagnosis for this admission?: Yes Plan: Denies any anginal symptoms. Troponin negative pressure on admission. EKG no acute changes. Home meds are Crestor, lisinopril, aspirin. Restart home meds. Outpatient PCP and cardiology follow-up (4) History of atrial fibrillation Is this a current diagnosis for this admission?: Yes Plan: History of atrial fibrillation. Rate controlled. Not anticoagulated. As per not anticoagulated because he had some renal hematoma on apixaban and was DC'd by his occupational therapist assistants. Continue telemetry, continue beta-blockers. (5) History of acute cholecystitis Is this a current diagnosis for this admission?: Yes Plan: Status post biliary drain placement and [facility] 2 weeks ago. As per patient has established follow-up appointments. Continue drain care. Afebrile. WBC WNL. Outpatient follow-up. (6) Hyperkalemia Is this a current diagnosis for this admission?: Yes Plan: Resolved. Due to acute renal failure. No acute EKG changes. BMP tomorrow.
[2019-12-06] MEDS: NORMAL SALINE 1000 ML 1,000 ML IV PRN ×2 (12:16→22:49)
[2019-12-06] MEDS: CITALOPRAM HYDROBROMIDE 20 MG TABLET PO SCH (17:14)
[2019-12-06] MEDS: TAMSULOSIN HCL 0.4 MG CAP.SR.24H PO SCH (17:14)
[2019-12-06] MEDS: LATANOPROST 0.005% OPH SOLN 2.5 ML OU SCH (21:56)
[2019-12-07] MEDS: IPRATROPIUM/ALBUTEROL 0.5-2.5 MG/3 ML AMPUL NEB SCH ×4 (02:36→20:47)
[2019-12-07] MEDS: HEPARIN SOD (PORCINE) 5,000 UNIT/ML 1 ML VIAL SUBCUT SCH ×3 (05:58→22:18)
[2019-12-07] MEDS: LEVOTHYROXINE SODIUM 0.075 MG TABLET PO SCH (05:58)
[2019-12-07] MEDS: PANTOPRAZOLE SODIUM 40 MG TABLET.DR PO SCH ×2 (05:59→17:12)
[2019-12-07 06:03] LABS: ANION GAP 10 (5-19); BLOOD UREA NITROGEN 53 mg/dL (7-20); CALCIUM 8.1 mg/dL (8.4-10.2); CARBON DIOXIDE 22 mmol/L (22-30); CHLORIDE 103 mmol/L (98-107); GLUCOSE 92 mg/dL (75-110); PHOSPHORUS 5.3 mg/dL (2.5-4.5); POTASSIUM 3.4 mmol/L (3.6-5.0)
[2019-12-07] MEDS: INSULIN LISPRO 100 UNIT/ML 3 ML VIAL SUBCUT SCH ×4 (07:51→22:25)
--- NOTE | 2019-12-07 09:22 | PDOC PROGRESS REPORT ---
Subjective Progress Note for:: 12/07/19 Subjective:: I saw the patient sleeping this morning and only mumbles when prompted. His nurse today said that this morning she was able to talk to him and he did answer. She has good urine output of about 1900 mL for the last 24 hours. His biliary drain output was 350 mL last recorded. His intake and output is -750 for the past 24 hours. Reason For Visit: UREMIC ENCEPHALOPATHY,ACUTE ON CHRONIC KIDNEY Physical Exam Vital Signs: Temp Pulse Resp BP Pulse Ox 98.6 F 58 L 16 163/57 H 94 12/07/19 08:05 12/07/19 08:19 12/07/19 08:19 12/07/19 08:05 12/07/19 08:19 Intake & Output 12/06/19 12/07/19 12/08/19 06:59 06:59 06:59 Intake Total 1393 1600 Output Total 990 2350 Balance 403 -750 Weight 112.6 kg 113.5 kg Exam: General appearance: PRESENT: no acute distress, cooperative, well-developed, well-nourished Head exam: PRESENT: atraumatic, normocephalic Eye exam: PRESENT: conjunctiva pale, PERRLA. ABSENT: scleral icterus Neck exam: ABSENT: JVD Respiratory exam: PRESENT: Diminished breath sounds. ABSENT: crackles, rales, rhonchi, unlabored, wheezes Cardiovascular exam: PRESENT: Regular rate rhythm -+S1, +S2. Grade 3/6 systolic murmur GI/Abdominal exam: PRESENT: normal bowel sounds, soft. ABSENT: guarding, mass, tenderness Extremities exam: ABSENT: No edema Neurological exam: PRESENT: Currently asleep and minimally arousable. Skin exam: PRESENT: dry, warm, Cardiovascular exam: PRESENT: +S1, +S2, systolic murmur. ABSENT: rubs GI/Abdominal exam: PRESENT: normal bowel sounds, organomegaly, tenderness - Mild tenderness in the right upper quadrant.. ABSENT: soft Results Laboratory Results: 12/04/19 06:03 12/07/19 05:30 12/07/19 05:30 Sodium 134.9 L Potassium 3.4 L Chloride 103 Carbon Dioxide 22 Anion Gap 10 BUN 53 H Creatinine 4.99 H Est GFR ( Amer) 14 L Glucose 92 Calcium 8.1 L Phosphorus 5.3 H Magnesium 1.8 12/01/19 12/01/19 12/01/19 13:20 13:20 17:04 Creatine Kinase 108 CK-MB (CK-2) 4.63 H Troponin I 0.051 0.051 Impressions: Chest X-Ray 12/01/19 13:24 IMPRESSION: NO ACUTE RADIOGRAPHIC FINDING IN THE CHEST. Abdomen/Pelvis CT 12/01/19 15:04 IMPRESSION: 1. SUBCAPSULAR FLUID COLLECTION ASSOCIATED WITH THE LEFT KIDNEY, SECONDARY TO PREVIOUS PERINEPHRIC HEMATOMA, HAS DECREASED IN SIZE SINCE THE MOST RECENT AVAILABLE STUDY DATED 08/17/2019. THE PATIENT MAY HAVE MORE RECENT IMAGING STUDIES ELSEWHERE, THE PATIENT HAS HAD INTERVAL SURGERY WITH PLACEMENT OF PERCUTANEOUS DRAINAGE TUBE AND BILIARY STENT. COMPARISON WITH MORE RECENT DONNA DIES MAY BE HELPFUL. 2. COLONIC DIVERTICULOSIS. NO CT FINDINGS OF ACUTE DIVERTICULITIS. 3. 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 4. CORTICAL CYSTS IN THE RIGHT KIDNEY. 5. NO OTHER SIGNIFICANT OR ACUTE PROCESS IN THE ABDOMEN OR PELVIS. Head CT 12/01/19 15:04 IMPRESSION: CHRONIC CHANGES OF ATROPHY AND MICROVASCULAR ISCHEMIA. NO ACUTE PROCESS. EVIDENCE OF ACUTE STROKE: NO. Interventional Vascular Procedure 12/02/19 00:00 IMPRESSION: Images from ultrasound-guided vascular access. Assessment & Plan - Diagnosis (1) OLMAN (acute kidney injury) Is this a current diagnosis for this admission?: Yes Plan: Most likely secondary to prerenal azotemia with severe volume depletion due to high output biliary drain after it was replaced or exchanged last Saturday,11/25/19. Patient is currently nonoliguric. Due to uremia and encephalopathy the patient had renal replacement therapy last week on 12/02 and 12/04/2019. Patient's urine output is acceptable. I think the patient cannot keep up with his intake because compared to his output combined with the biliary drain and urine output. I will increase the patient's IV fluids to 150 mL an hour. Encourage oral intake. Replace electrolytes as necessary. I will hold dialysis for now and see if he can have spontaneous renal recovery if we can replace his volume. (2) Uremia Is this a current diagnosis for this admission?: Yes (3) Acute encephalopathy Is this a current diagnosis for this admission?: Yes Plan: Initial thought was the patient's acute encephalopathy was most likely secondary to uremia and gabapentin toxicity. For the past few months the patient is a starting to develop an underlying mild dementia. Gabapentin was also discontinued. Patient remains to be confused. Continue current management for now. (4) Acute cholecystitis Is this a current diagnosis for this admission?: Yes Plan: Patient had biliary drain placed at [facility] about 3 months ago. This was replaced a week ago which triggered and precipitated acute current illness. Surgery was consulted but no further recommendation was made but to follow-up with [facility] after discharge. (5) CKD (chronic kidney disease), stage IV Is this a current diagnosis for this admission?: Yes (6) Diabetes mellitus Is this a current diagnosis for this admission?: Yes (7) Hypokalemia Is this a current diagnosis for this admission?: Yes Plan: Start potassium replacement. (8) Hypertension Is this a current diagnosis for this admission?: Yes (9) Chronic kidney disease-mineral and bone disorder Is this a current diagnosis for this admission?: Yes Plan: Phosphorus is elevated at 5.3 from 7.0 and was 11.6 on admission. PTH is 198.4. Calcitriol started by the hospitalist service. - Time Time with patient: 15-25 minutes
[2019-12-07] MEDS ORDERED: GABAPENTIN 300 MG CAPSULE PO SCH ×2 (10:00→22:00)
[2019-12-07] MEDS: DOCUSATE SODIUM 100 MG CAPSULE PO SCH (10:47)
[2019-12-07] MEDS: POTASSIUM CHLORIDE 10 MEQ TABLET.ER PO SCH (10:47)
[2019-12-07] MEDS: NORMAL SALINE 1000 ML 1,000 ML IV PRN ×2 (10:47→17:15)
[2019-12-07] MEDS: ASPIRIN 81 MG TABLET, ENT COATED PO SCH (10:47)
[2019-12-07] MEDS: FERROUS SULFATE 325 MG TABLET PO SCH ×2 (10:48→17:12)
[2019-12-07] MEDS: AMLODIPINE BESYLATE 5 MG TABLET PO SCH (10:48)
[2019-12-07] MEDS: CALCITRIOL 0.25 MCG CAPSULE PO SCH (10:48)
[2019-12-07] MEDS: CARVEDILOL 12.5 MG TABLET PO SCH ×2 (10:48→22:17)
[2019-12-07 11:33] LABS: ANION GAP 12 (5-19); BLOOD UREA NITROGEN 56 mg/dL (7-20); CALCIUM 8.1 mg/dL (8.4-10.2); CARBON DIOXIDE 20 mmol/L (22-30); CHLORIDE 103 mmol/L (98-107); GLUCOSE 85 mg/dL (75-110); POTASSIUM 3.4 mmol/L (3.6-5.0)
--- NOTE | 2019-12-07 13:50 | PDOC PROGRESS REPORT ---
Subjective Progress Note for:: 12/07/19 Subjective:: YAMILEX XIONG is a 79 year old male past medical history of A. fib, CAD, CVA past medical history of atrial fibrillation, CAD, CABG, COPD, CKD, diabetes, recently diagnosed with acute cholecystitis was transferred to [facility], was found to be nonoperable, a drain placed, patient was sent home and his drain was revisited last Saturday and was given a dose of fentanyl. After that patient has been lethargic and with low p.o. intake, has had several episodes of nausea and nonbloody vomiting and became obtunded and altered since yesterday. Source of history is who is at the bedside. In ED he was found to be stuporous, with severely elevated BUN and creatinine at potassium level, patient was given 1 dose of Narcan with mild improvement of mental status and CT abdomen did not reveal any acute process except for chronic perirenal hematoma, subretinal aortic aneurysm, and biliary system drained. Nephrology was consulted and recommendation was to admit patient for hydration and possible hemodialysis if no improvement in renal function. 12/02/2019. No acute events overnight. Patient mental status improving mildly still very somnolent however arousable and more oriented. Mild improvement of renal function. 12/03/2019. Patient is more awake however noted to be delirious overnight and trying to get out of bed and remove his life, patient is awake and communicating however does not remember how he got to the hospital, denies any shortness of breath, chest pain, nausea, vomiting, diarrhea, constipation or any urinary symptoms. 12/04/2019. No acute events overnight. Patient is alert however still oriented x3, has been less impulsive since yesterday, denies any fever, chills, nausea, vomiting, diarrhea, constipation or any urinary symptoms. 12/05/2019. No acute events overnight. Patient alert and oriented x2 awake and cooperative with physical examination, accompanied by his , denies any fever, chills, nausea, vomiting, diarrhea, constipation or any urinary symptoms. 12/06/2019. No acute events overnight. Patient is not restless anymore however still confused, alert only to person and place, awake and interactive denies any fever, chills, nausea, vomiting, diarrhea, constipation or any urinary symptoms. 12/07/2019. No acute events overnight. Patient sleeping comfortably easily arousable, oriented to self and place, denies any fever, chills, nausea, vomiting, diarrhea, constipation or any urinary symptoms. Reason For Visit: UREMIC ENCEPHALOPATHY,ACUTE ON CHRONIC KIDNEY Physical Exam Vital Signs: Temp Pulse Resp BP Pulse Ox 97.5 F 62 17 168/62 H 94 12/07/19 11:45 12/07/19 11:45 12/07/19 11:45 12/07/19 11:45 12/07/19 11:45 Intake & Output 12/06/19 12/07/19 12/08/19 06:59 06:59 06:59 Intake Total 1393 1600 1000 Output Total 990 2350 Balance 403 -750 1000 Weight 112.6 kg 113.5 kg General appearance: PRESENT: no acute distress, well-developed, well-nourished Head exam: PRESENT: atraumatic, normocephalic Respiratory exam: PRESENT: clear to auscultation paulo. ABSENT: rales, rhonchi, wheezes Cardiovascular exam: PRESENT: RRR. ABSENT: diastolic murmur, rubs, systolic murmur GI/Abdominal exam: PRESENT: normal bowel sounds, soft. ABSENT: distended, guarding, mass, organolmegaly, rebound, tenderness Neurological exam: PRESENT: alert - Sleeping easily arousable, oriented to person, oriented to place, CN II-XII grossly intact. ABSENT: motor sensory deficit Results Laboratory Results: 12/04/19 06:03 12/07/19 10:20 12/07/19 12/07/19 05:30 10:20 Sodium 134.9 L 135.1 L Potassium 3.4 L 3.4 L Chloride 103 103 Carbon Dioxide 22 20 L Anion Gap 10 12 BUN 53 H 56 H Creatinine 4.99 H 4.72 H Est GFR ( Amer) 14 L 15 L Glucose 92 85 Calcium 8.1 L 8.1 L Phosphorus 5.3 H Magnesium 1.8 12/01/19 12/01/19 12/01/19 13:20 13:20 17:04 Creatine Kinase 108 CK-MB (CK-2) 4.63 H Troponin I 0.051 0.051 Impressions: Chest X-Ray 12/01/19 13:24 IMPRESSION: NO ACUTE RADIOGRAPHIC FINDING IN THE CHEST. Abdomen/Pelvis CT 12/01/19 15:04 IMPRESSION: 1. SUBCAPSULAR FLUID COLLECTION ASSOCIATED WITH THE LEFT KIDNEY, SECONDARY TO PREVIOUS PERINEPHRIC HEMATOMA, HAS DECREASED IN SIZE SINCE THE MOST RECENT AVAILABLE STUDY DATED 08/17/2019. THE PATIENT MAY HAVE MORE RECENT IMAGING STUDIES ELSEWHERE, THE PATIENT HAS HAD INTERVAL SURGERY WITH PLACEMENT OF PERCUTANEOUS DRAINAGE TUBE AND BILIARY STENT. COMPARISON WITH MORE RECENT STUDIES MAY BE HELPFUL. 2. COLONIC DIVERTICULOSIS. NO CT FINDINGS OF ACUTE DIVERTICULITIS. 3. 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 4. CORTICAL CYSTS IN THE RIGHT KIDNEY. 5. NO OTHER SIGNIFICANT OR ACUTE PROCESS IN THE ABDOMEN OR PELVIS. Head CT 12/01/19 15:04 IMPRESSION: CHRONIC CHANGES OF ATROPHY AND MICROVASCULAR ISCHEMIA. NO ACUTE PROCESS. EVIDENCE OF ACUTE STROKE: NO. Interventional Vascular Procedure 12/02/19 00:00 IMPRESSION: Images from ultrasound-guided vascular access. Assessment and Plan - Diagnosis (1) Acute renal failure superimposed on stage 3 chronic kidney disease Qualifiers: Acute renal failure type: with other specified pathological lesion Qualified Code(s): N17.8 - Other acute kidney failure; N18.3 - Chronic kidney disease, stage 3 (moderate) Is this a current diagnosis for this admission?: Yes Plan: No significant improvement compared to yesterday. Euvolemic. Electrolytes WNL. Nonoliguric. Status post hemodialysis on 12/02/2019, 12/03/2019, 12/04/2019. As per patient has been having low p.o. intake and several nonbilious nonbloody vomiting for the last several days. Continue telemetry, cautious volume resuscitation guided by volume status, monitor electrolytes and replace as needed, strict in and out. Nephrology on board. Recommendations noted. (2) Acute encephalopathy Is this a current diagnosis for this admission?: Yes Plan: Awake and alert x2. No significant improvement compared to yesterday. Likely due to acute uremic encephalopathy due to underlying OLMAN CKD 3 complicated by gabapentin possibly early dementia. As per patient tend to get confused once a while but usually he is alert oriented x4, independent and do most of his ADLs. Continue telemetry, fall, seizure, aspiration precautions, monitor weights, PRN Haldol, monitor for dystonia QTc progression. (3) CAD (coronary artery disease) Is this a current diagnosis for this admission?: Yes Plan: Denies any anginal symptoms. Troponin negative pressure on admission. EKG no acute changes. Home meds are Crestor, lisinopril, aspirin. Restart home meds. Outpatient PCP and cardiology follow-up (4) History of atrial fibrillation Is this a current diagnosis for this admission?: Yes Plan: History of atrial fibrillation. Rate controlled. Not anticoagulated. As per not anticoagulated because he had some renal hematoma on apixaban and was DC'd by his outside sales. Continue telemetry, continue beta-blockers. (5) History of acute cholecystitis Is this a current diagnosis for this admission?: Yes Plan: Status post biliary drain placement and [facility] 2 weeks ago. As per patient has established follow-up appointments. Continue drain care. Afebrile. WBC WNL. Outpatient follow-up. (6) Hyperkalemia Is this a current diagnosis for this admission?: Yes Plan: Resolved. Due to acute renal failure. No acute EKG changes. BMP tomorrow. (7) Hepatitis B antibody positive Is this a current diagnosis for this admission?: Yes Plan: Hepatitis B surface antigen negative. Hepatitis B core IgM antibody positive. Platelets WNL. INR WNL. Total bilirubin WNL. Liver chemistries WNL. Albumin 3.0. Recovering from acute infection, false positive. Not sure if this is reportable at this point. Infectious disease control has been notified. Pending recommendation. Supportive measures. Repeat serologies if indicated. Outpatient PCP follow-up.
[2019-12-07] MEDS: CITALOPRAM HYDROBROMIDE 20 MG TABLET PO SCH (17:12)
[2019-12-07] MEDS: TAMSULOSIN HCL 0.4 MG CAP.SR.24H PO SCH (17:12)
[2019-12-07] MEDS: LATANOPROST 0.005% OPH SOLN 2.5 ML OU SCH (22:18)
[2019-12-08] MEDS: IPRATROPIUM/ALBUTEROL 0.5-2.5 MG/3 ML AMPUL NEB SCH ×4 (02:31→20:38)
[2019-12-08] MEDS: LEVOTHYROXINE SODIUM 0.075 MG TABLET PO SCH (05:29)
[2019-12-08] MEDS: HEPARIN SOD (PORCINE) 5,000 UNIT/ML 1 ML VIAL SUBCUT SCH ×3 (05:29→22:12)
[2019-12-08] MEDS: PANTOPRAZOLE SODIUM 40 MG TABLET.DR PO SCH ×2 (05:29→17:13)
[2019-12-08 06:27] LABS: ABSOLUTE EOSINOPHILS # (AUTO) 0.2 10^3/uL (0.0-0.6); ABSOLUTE LYMPHOCYTES (AUTO) 0.9 10^3/uL (0.5-4.7); ABSOLUTE MONOCYTES (AUTO) 0.4 10^3/uL (0.1-1.4); ABSOLUTE NEUT (AUTO) 4.9 10^3/uL (1.7-8.2); BASOPHILS % (AUTO) 0.4 % (0-2); EOSINOPHILS % (AUTO) 3.9 % (0-6); HEMOGLOBIN 8.6 g/dL (13.5-17.0); LYMPHOCYTES % (AUTO) 13.5 % (13-45); MEAN CORPUSCULAR HEMOGLOBIN 32.2 pg (27.0-33.4); MEAN CORPUSCULAR HGB CONC 34.3 g/dL (32.0-36.0); MEAN CORPUSCULAR VOLUME 94 fl (80-97); MONOCYTES % (AUTO) 6.2 % (3-13); PLATELET COUNT 236 10^3/uL (150-450); RED BLOOD COUNT 2.65 10^6/uL (4.35-5.55); RED CELL DISTRIBUTION WIDTH 14.3 % (11.5-14.0); TOTAL CELLS COUNTED % (AUTO) 100 %; WHITE BLOOD COUNT 6.5 10^3/uL (4.0-10.5)
[2019-12-08] MEDS: NORMAL SALINE 1000 ML 1,000 ML IV PRN ×4 (06:31→19:41)
[2019-12-08 06:45] LABS: ANION GAP 11 (5-19); BLOOD UREA NITROGEN 53 mg/dL (7-20); CALCIUM 8.1 mg/dL (8.4-10.2); CARBON DIOXIDE 18 mmol/L (22-30); CHLORIDE 108 mmol/L (98-107); GLUCOSE 84 mg/dL (75-110); POTASSIUM 3.5 mmol/L (3.6-5.0)
[2019-12-08] MEDS: INSULIN LISPRO 100 UNIT/ML 3 ML VIAL SUBCUT SCH ×4 (08:42→22:18)
[2019-12-08] MEDS: DOCUSATE SODIUM 100 MG CAPSULE PO SCH ×2 (10:27→18:06)
[2019-12-08] MEDS: FERROUS SULFATE 325 MG TABLET PO SCH ×2 (10:27→17:13)
[2019-12-08] MEDS: CARVEDILOL 12.5 MG TABLET PO SCH ×2 (10:28→22:12)
[2019-12-08] MEDS: AMLODIPINE BESYLATE 10 MG TABLET PO SCH (10:29)
[2019-12-08] MEDS: POTASSIUM CHLORIDE 10 MEQ TABLET.ER PO SCH (10:29)
[2019-12-08] MEDS: ASPIRIN 81 MG TABLET, ENT COATED PO SCH (10:29)
[2019-12-08] MEDS: SODIUM BICARBONATE 650 MG TABLET PO SCH ×2 (10:30→22:12)
--- NOTE | 2019-12-08 11:27 | PDOC PROGRESS REPORT ---
Subjective Progress Note for:: 12/08/19 Subjective:: I saw the patient earlier this morning while he was sleeping. It was somewhat difficult to arouse him but he did open his eyes when prompted but then went back to sleep. I then come back after about an hour or so and the patient is already awake and answering questions. He tells me that he is okay but has poor appetite. He wanted to go home. He is making adequate amount of urine with 2375 mL of urine output for the last 24 hours and a biliary drain of 1 to 200 mL. He was +[id number] with his intake and output balance. Reason For Visit: UREMIC ENCEPHALOPATHY,ACUTE ON CHRONIC KIDNEY Physical Exam Vital Signs: Temp Pulse Resp BP Pulse Ox 98.3 F 60 22 H 153/61 H 95 12/08/19 05:07 12/08/19 08:09 12/08/19 08:09 12/08/19 05:07 12/08/19 08:09 Intake & Output 12/07/19 12/08/19 12/09/19 06:59 06:59 06:59 Intake Total 1600 5068 Output Total 2350 3375 Balance -750 1693 Weight 113.5 kg 115.9 kg Exam: General appearance: PRESENT: no acute distress, cooperative, well-developed, well-nourished Head exam: PRESENT: atraumatic, normocephalic Eye exam: PRESENT: conjunctiva pale, PERRLA. ABSENT: scleral icterus Neck exam: ABSENT: JVD Respiratory exam: PRESENT: Diminished breath sounds. ABSENT: crackles, rales, rhonchi, unlabored, wheezes Cardiovascular exam: PRESENT: Regular rate rhythm -+S1, +S2. Grade 2/6 systolic murmur GI/Abdominal exam: PRESENT: normal bowel sounds, soft. ABSENT: guarding, mass, tenderness Extremities exam: ABSENT: No edema Neurological exam: PRESENT: alert, awake, oriented to person, place but not to time. Skin exam: PRESENT: dry, warm, Cardiovascular exam: PRESENT: +S1, +S2, systolic murmur. ABSENT: rubs GI/Abdominal exam: PRESENT: normal bowel sounds, organomegaly, tenderness - Mild tenderness in the right upper quadrant.. ABSENT: soft Results Laboratory Results: 12/08/19 05:25 12/08/19 05:25 12/07/19 12/08/19 12/08/19 10:20 05:25 05:25 WBC 6.5 RBC 2.65 L Hgb 8.6 L Hct 25.0 L MCV 94 MCH 32.2 MCHC 34.3 RDW 14.3 H Plt Count 236 Seg Neutrophils % 76.0 Sodium 135.1 L 137.4 Potassium 3.4 L 3.5 L Chloride 103 108 H Carbon Dioxide 20 L 18 L Anion Gap 12 11 BUN 56 H 53 H Creatinine 4.72 H 4.43 H Est GFR ( Amer) 15 L 16 L Glucose 85 84 Calcium 8.1 L 8.1 L 12/01/19 12/01/19 12/01/19 13:20 13:20 17:04 Creatine Kinase 108 CK-MB (CK-2) 4.63 H Troponin I 0.051 0.051 Impressions: Chest X-Ray 12/01/19 13:24 IMPRESSION: NO ACUTE RADIOGRAPHIC FINDING IN THE CHEST. Abdomen/Pelvis CT 12/01/19 15:04 IMPRESSION: 1. SUBCAPSULAR FLUID COLLECTION ASSOCIATED WITH THE LEFT KIDNEY, SECONDARY TO PREVIOUS PERINEPHRIC HEMATOMA, HAS DECREASED IN SIZE SINCE THE MOST RECENT AVAILABLE STUDY DATED 08/17/2019. THE PATIENT MAY HAVE MORE RECENT IMAGING STUDIES ELSEWHERE, THE PATIENT HAS HAD INTERVAL SURGERY WITH PLACEMENT OF PERCUTANEOUS DRAINAGE TUBE AND BILIARY STENT. COMPARISON WITH MORE RECENT STUDIES MAY BE HELPFUL. 2. COLONIC DIVERTICULOSIS. NO CT FINDINGS OF ACUTE DIVERTICULITIS. 3. 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 4. CORTICAL CYSTS IN THE RIGHT KIDNEY. 5. NO OTHER SIGNIFICANT OR ACUTE PROCESS IN THE ABDOMEN OR PELVIS. Head CT 12/01/19 15:04 IMPRESSION: CHRONIC CHANGES OF ATROPHY AND MICROVASCULAR ISCHEMIA. NO ACUTE PROCESS. EVIDENCE OF ACUTE STROKE: NO. Interventional Vascular Procedure 12/02/19 00:00 IMPRESSION: Images from ultrasound-guided vascular access. Assessment & Plan - Diagnosis (1) OLMAN (acute kidney injury) Is this a current diagnosis for this admission?: Yes Plan: Most likely secondary to prerenal azotemia with severe volume depletion due to high output biliary drain after it was replaced or exchanged last Saturday,11/25/19. Patient is currently nonoliguric. Due to uremia and encephalopathy the patient had renal replacement therapy last week on 12/02 and 12/04/2019. Patient's urine output is appropriate and improving. I will decrease his IV fluids to 100 mL an hour. Encourage oral intake. Replace electrolytes as necessary. I will hold dialysis for now and see if he can have spontaneous renal recovery if we can replace his volume. (2) Uremia Is this a current diagnosis for this admission?: Yes Plan: Slowly improving. (3) Acute encephalopathy Is this a current diagnosis for this admission?: Yes Plan: Initial thought was the patient's acute encephalopathy was most likely secondary to uremia and gabapentin toxicity. For the past few months the patient is a starting to develop an underlying mild dementia. Gabapentin was resumed at a high dose of 600 mg nightly. This is a high dose for a patient with his kidney function. We will decrease the gabapentin for his neuropathy 100 mg nightly. Patient remains to be pleasantly confused. Continue current management for now. (4) Acute cholecystitis Is this a current diagnosis for this admission?: Yes Plan: Patient had biliary drain placed at [facility] about 3 months ago. This was replaced a week ago which triggered and precipitated acute current illness. Surgery was consulted but no further recommendation was made but to follow-up with [facility] after discharge. (5) CKD (chronic kidney disease), stage IV Is this a current diagnosis for this admission?: Yes (6) Diabetes mellitus Is this a current diagnosis for this admission?: Yes (7) Hypokalemia Is this a current diagnosis for this admission?: Yes Plan: On potassium replacement. (8) Metabolic acidosis Is this a current diagnosis for this admission?: Yes Plan: Start sodium bicarbonate orally. (9) Hypertension Is this a current diagnosis for this admission?: Yes (10) Anemia in chronic kidney disease (CKD) Is this a current diagnosis for this admission?: Yes Plan: Check iron panel. Patient may need to be started on Retacrit with or without IV iron depending on iron levels. (11) Chronic kidney disease-mineral and bone disorder Is this a current diagnosis for this admission?: Yes Plan: Phosphorus is elevated at 5.3 from 7.0 and was 11.6 on admission. PTH is 198.4. Calcitriol started by the hospitalist service. - Time Time with patient: 15-25 minutes
[2019-12-08 11:34] LABS: IRON(TIBC) 28.5 ug/dL (49-181)
[2019-12-08 11:45] LABS: ABSOLUTE RETICS # 0.086 10^6/uL (0.028-0.122); RETICULOCYTE COUNT (AUTO) 3.18 % (0.66-2.85)
[2019-12-08 12:34] LABS: FOLATE 7.43 ng/mL (>2.76)
--- NOTE | 2019-12-08 15:31 | PDOC PROGRESS REPORT ---
Subjective Progress Note for:: 12/08/19 Reason For Visit: UREMIC ENCEPHALOPATHY,ACUTE ON CHRONIC KIDNEY 12/08/2019 Patient was admitted through the emergency room for altered mental status elevated BUN and creatinine as well as potassium level Patient had recent surgical procedure done at [facility]. Patient had acute cholecystitis but was found to be nonoperable and a drain was placed and following painting of the drain the patient became altered and obtunded Physical Exam Vital Signs: Temp Pulse Resp BP Pulse Ox 97.8 F 61 20 153/62 H 99 12/08/19 08:38 12/08/19 14:00 12/08/19 13:31 12/08/19 08:38 12/08/19 13:31 Intake & Output 12/07/19 12/08/19 12/09/19 06:59 06:59 06:59 Intake Total 1600 5068 590 Output Total 2350 3375 Balance -750 1693 590 Weight 113.5 kg 115.9 kg General appearance: PRESENT: no acute distress, other - Awake alert speaking in full sentences Respiratory exam: PRESENT: clear to auscultation paulo. ABSENT: rales, rhonchi, wheezes Cardiovascular exam: PRESENT: RRR. ABSENT: diastolic murmur, rubs, systolic murmur Neurological exam: PRESENT: alert, awake, oriented to person, oriented to place, oriented to time, oriented to situation, CN II-XII grossly intact, other - History of dementia worsening for 3 months now. ABSENT: motor sensory deficit Psychiatric exam: PRESENT: appropriate affect, normal mood. ABSENT: homicidal ideation, suicidal ideation Results Laboratory Results: 12/08/19 05:25 12/08/19 05:25 12/08/19 12/08/19 12/08/19 05:25 05:25 05:25 WBC 6.5 RBC 2.65 L Hgb 8.6 L Hct 25.0 L MCV 94 MCH 32.2 MCHC 34.3 RDW 14.3 H Plt Count 236 Seg Neutrophils % 76.0 Retic Count (auto) 3.18 H Sodium 137.4 Potassium 3.5 L Chloride 108 H Carbon Dioxide 18 L Anion Gap 11 BUN 53 H Creatinine 4.43 H Est GFR ( Amer) 16 L Glucose 84 Calcium 8.1 L Iron TIBC % Saturation Ferritin Vitamin B12 Folate 12/08/19 05:25 WBC RBC Hgb Hct MCV MCH MCHC RDW Plt Count Seg Neutrophils % Retic Count (auto) Sodium Potassium Chloride Carbon Dioxide Anion Gap BUN Creatinine Est GFR ( Amer) Glucose Calcium Iron 28.5 L TIBC 174 L % Saturation 16 Ferritin 572.00 H Vitamin B12 346.0 Folate 7.43 12/01/19 12/01/19 12/01/19 13:20 13:20 17:04 Creatine Kinase 108 CK-MB (CK-2) 4.63 H Troponin I 0.051 0.051 Impressions: Chest X-Ray 12/01/19 13:24 IMPRESSION: NO ACUTE RADIOGRAPHIC FINDING IN THE CHEST. Abdomen/Pelvis CT 12/01/19 15:04 IMPRESSION: 1. SUBCAPSULAR FLUID COLLECTION ASSOCIATED WITH THE LEFT KIDNEY, SECONDARY TO PREVIOUS PERINEPHRIC HEMATOMA, HAS DECREASED IN SIZE SINCE THE MOST RECENT AVAILABLE STUDY DATED 08/17/2019. THE PATIENT MAY HAVE MORE RECENT IMAGING STUDIES ELSEWHERE, THE PATIENT HAS HAD INTERVAL SURGERY WITH PLACEMENT OF PERCUTANEOUS DRAINAGE TUBE AND BILIARY STENT. COMPARISON WITH MORE RECENT STUDIES MAY BE HELPFUL. 2. COLONIC DIVERTICULOSIS. NO CT FINDINGS OF ACUTE DIVERTICULITIS. 3. 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 4. CORTICAL CYSTS IN THE RIGHT KIDNEY. 5. NO OTHER SIGNIFICANT OR ACUTE PROCESS IN THE ABDOMEN OR PELVIS. Head CT 12/01/19 15:04 IMPRESSION: CHRONIC CHANGES OF ATROPHY AND MICROVASCULAR ISCHEMIA. NO ACUTE PROCESS. EVIDENCE OF ACUTE STROKE: NO. Interventional Vascular Procedure 12/02/19 00:00 IMPRESSION: Images from ultrasound-guided vascular access. Assessment and Plan - Diagnosis (1) OLMAN (acute kidney injury) Is this a current diagnosis for this admission?: Yes (2) Acute cholecystitis Is this a current diagnosis for this admission?: Yes (3) Acute encephalopathy Is this a current diagnosis for this admission?: Yes (4) Anemia in chronic kidney disease (CKD) Is this a current diagnosis for this admission?: Yes (5) CAD (coronary artery disease) Is this a current diagnosis for this admission?: Yes (6) Hyperkalemia Is this a current diagnosis for this admission?: Yes (7) Hypertension Is this a current diagnosis for this admission?: Yes (8) Hypokalemia Is this a current diagnosis for this admission?: Yes (9) Lethargic Is this a current diagnosis for this admission?: Yes - Plan Summary Summary: 12/08/2019 Nephrology is seeing the patient on a regular basis. Ciarra is slowly improving Patient's level of consciousness and alertness tends to wax and wane. I saw him this morning he was perfectly awake alert and oriented Nephrology is starting sodium bicarb today. Patient is currently on Calcitrol Patient had dialysis on 02 December the as well as the CBC is stable BUN on admission was 121 most recently is 53 Creatinine on admission was 10.06 most recently is come down to 4.43 Blood cultures are negative x48 hours discharge planning is currently working on placement so when patient is ready to discharge we will have a place. Patient's dementia will prevent him from going back home - Time Time Spent with patient: 25-34 minutes
[2019-12-08] MEDS: CITALOPRAM HYDROBROMIDE 20 MG TABLET PO SCH (17:13)
[2019-12-08] MEDS: TAMSULOSIN HCL 0.4 MG CAP.SR.24H PO SCH (17:13)
[2019-12-08] MEDS: MAGNESIUM CITRATE 296 ML BOTTLE PO PRN ×2 (18:06→18:47)
[2019-12-08] MEDS: GABAPENTIN 100 MG CAPSULE PO SCH (22:11)
[2019-12-08] MEDS: LATANOPROST 0.005% OPH SOLN 2.5 ML OU SCH (22:12)
[2019-12-09] MEDS: IPRATROPIUM/ALBUTEROL 0.5-2.5 MG/3 ML AMPUL NEB SCH ×4 (02:04→20:24)
[2019-12-09] MEDS: PANTOPRAZOLE SODIUM 40 MG TABLET.DR PO SCH ×2 (05:44→17:21)
[2019-12-09] MEDS: LEVOTHYROXINE SODIUM 0.075 MG TABLET PO SCH (05:44)
[2019-12-09] MEDS: HEPARIN SOD (PORCINE) 5,000 UNIT/ML 1 ML VIAL SUBCUT SCH ×3 (05:45→21:57)
[2019-12-09] MEDS: INSULIN LISPRO 100 UNIT/ML 3 ML VIAL SUBCUT SCH ×3 (08:20→15:48)
[2019-12-09] MEDS: NORMAL SALINE 1000 ML 1,000 ML IV PRN ×2 (08:22→18:17)
[2019-12-09 09:42] LABS: ABSOLUTE EOSINOPHILS # (AUTO) 0.3 10^3/uL (0.0-0.6); ABSOLUTE LYMPHOCYTES (AUTO) 0.8 10^3/uL (0.5-4.7); ABSOLUTE MONOCYTES (AUTO) 0.4 10^3/uL (0.1-1.4); ABSOLUTE NEUT (AUTO) 6.7 10^3/uL (1.7-8.2); BASOPHILS % (AUTO) 0.5 % (0-2); HEMATOCRIT 25.6 % (37.9-51.0); HEMOGLOBIN 8.8 g/dL (13.5-17.0); LYMPHOCYTES % (AUTO) 9.3 % (13-45); MEAN CORPUSCULAR HEMOGLOBIN 32.2 pg (27.0-33.4); MEAN CORPUSCULAR HGB CONC 34.3 g/dL (32.0-36.0); MEAN CORPUSCULAR VOLUME 94 fl (80-97); MONOCYTES % (AUTO) 5.3 % (3-13); PLATELET COUNT 272 10^3/uL (150-450); RED BLOOD COUNT 2.73 10^6/uL (4.35-5.55); RED CELL DISTRIBUTION WIDTH 14.1 % (11.5-14.0); SEGMENTED NEUTROPHILS % (AUTO) 80.9 % (42-78); TOTAL CELLS COUNTED % (AUTO) 100 %; WHITE BLOOD COUNT 8.3 10^3/uL (4.0-10.5)
[2019-12-09 09:59] LABS: ANION GAP 10 (5-19); BLOOD UREA NITROGEN 50 mg/dL (7-20); CALCIUM 8.4 mg/dL (8.4-10.2); CARBON DIOXIDE 21 mmol/L (22-30); CHLORIDE 108 mmol/L (98-107); GLUCOSE 111 mg/dL (75-110); POTASSIUM 4.2 mmol/L (3.6-5.0)
[2019-12-09] MEDS: CARVEDILOL 12.5 MG TABLET PO SCH ×2 (10:23→21:58)
[2019-12-09] MEDS: ASPIRIN 81 MG TABLET, ENT COATED PO SCH ×3 (10:23→21:58)
[2019-12-09] MEDS: CALCITRIOL 0.25 MCG CAPSULE PO SCH (10:23)
[2019-12-09] MEDS: POTASSIUM CHLORIDE 10 MEQ TABLET.ER PO SCH (10:23)
[2019-12-09] MEDS: SODIUM BICARBONATE 650 MG TABLET PO SCH ×2 (10:23→21:57)
[2019-12-09] MEDS: DOCUSATE SODIUM 100 MG CAPSULE PO SCH ×2 (10:23→17:21)
[2019-12-09] MEDS: FERROUS SULFATE 325 MG TABLET PO SCH ×2 (10:23→17:21)
[2019-12-09] MEDS: AMLODIPINE BESYLATE 10 MG TABLET PO SCH (10:24)
[2019-12-09] MEDS ORDERED: FERRIC CARBOXYMALTOSE 750 MG in NORMAL SALINE 100 ML IV ONE (11:00)
--- NOTE | 2019-12-09 11:26 | PDOC PROGRESS REPORT ---
Subjective Progress Note for:: 12/09/19 Subjective:: Patient seen this morning while awake. His is at bedside. He has no new complaints. They have decided to the patient will go to a rehab facility after this hospitalization. He does not really verbalize any complaints. Patient continues to have good urine output producing about 1870 mL overnight. His biliary drain seems to have slowed down to about 375 mL for the past 24 hours. His appetite is still poor but trying to drink fluids. Reason For Visit: UREMIC ENCEPHALOPATHY,ACUTE ON CHRONIC KIDNEY Physical Exam Vital Signs: Temp Pulse Resp BP Pulse Ox 98.6 F 67 18 162/60 H 95 12/09/19 04:16 12/09/19 08:30 12/09/19 08:30 12/09/19 04:16 12/09/19 08:30 Intake & Output 12/08/19 12/09/19 12/10/19 06:59 06:59 06:59 Intake Total 5068 3843 Output Total 3375 2245 Balance 1693 1598 Weight 115.9 kg 117.6 kg Exam: General appearance: PRESENT: no acute distress, cooperative, well-developed, we ll-nourished Head exam: PRESENT: atraumatic, normocephalic Eye exam: PRESENT: conjunctiva pale, PERRLA. ABSENT: scleral icterus Neck exam: ABSENT: JVD Respiratory exam: PRESENT: Diminished breath sounds. ABSENT: crackles, rales, rhonchi, unlabored, wheezes Cardiovascular exam: PRESENT: Irregularly rate rhythm -+S1, +S2. ABSENT: diastolic murmur, systolic murmur GI/Abdominal exam: PRESENT: normal bowel sounds, soft. ABSENT: guarding, mass, tenderness Extremities exam: Trace edema Neurological exam: PRESENT: alert, awake, oriented to person, place but not to time. Skin exam: PRESENT: dry, warm, Cardiovascular exam: PRESENT: +S1, +S2, systolic murmur. ABSENT: rubs GI/Abdominal exam: PRESENT: normal bowel sounds, organomegaly, tenderness - Mild tenderness in the right upper quadrant.. ABSENT: soft Results Laboratory Results: 12/09/19 09:20 12/09/19 09:20 12/08/19 12/08/19 12/09/19 05:25 05:25 09:20 WBC RBC Hgb Hct MCV MCH MCHC RDW Plt Count Seg Neutrophils % Retic Count (auto) 3.18 H Sodium 138.8 Potassium 4.2 Chloride 108 H Carbon Dioxide 21 L Anion Gap 10 BUN 50 H Creatinine 4.19 H Est GFR ( Amer) 17 L Glucose 111 H Calcium 8.4 Iron 28.5 L TIBC 174 L % Saturation 16 Ferritin 572.00 H Vitamin B12 346.0 Folate 7.43 12/09/19 09:20 WBC 8.3 RBC 2.73 L Hgb 8.8 L Hct 25.6 L MCV 94 MCH 32.2 MCHC 34.3 RDW 14.1 H Plt Count 272 Seg Neutrophils % 80.9 H Retic Count (auto) Sodium Potassium Chloride Carbon Dioxide Anion Gap BUN Creatinine Est GFR ( Amer) Glucose Calcium Iron TIBC % Saturation Ferritin Vitamin B12 Folate 12/01/19 12/01/19 12/01/19 13:20 13:20 17:04 Creatine Kinase 108 CK-MB (CK-2) 4.63 H Troponin I 0.051 0.051 Impressions: Chest X-Ray 12/01/19 13:24 IMPRESSION: NO ACUTE RADIOGRAPHIC FINDING IN THE CHEST. Abdomen/Pelvis CT 12/01/19 15:04 IMPRESSION: 1. SUBCAPSULAR FLUID COLLECTION ASSOCIATED WITH THE LEFT KIDNEY, SECONDARY TO PREVIOUS PERINEPHRIC HEMATOMA, HAS DECREASED IN SIZE SINCE THE MOST RECENT AVAILABLE STUDY DATED 08/17/2019. THE PATIENT MAY HAVE MORE RECENT IMAGING STUDIES ELSEWHERE, THE PATIENT HAS HAD INTERVAL SURGERY WITH PLACEMENT OF PERCUTANEOUS DRAINAGE TUBE AND BILIARY STENT. COMPARISON WITH MORE RECENT STUDIES MAY BE HELPFUL. 2. COLONIC DIVERTICULOSIS. NO CT FINDINGS OF ACUTE DIVERTICULITIS. 3. 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 4. CORTICAL CYSTS IN THE RIGHT KIDNEY. 5. NO OTHER SIGNIFICANT OR ACUTE PROCESS IN THE ABDOMEN OR PELVIS. Head CT 12/01/19 15:04 IMPRESSION: CHRONIC CHANGES OF ATROPHY AND MICROVASCULAR ISCHEMIA. NO ACUTE PROCESS. EVIDENCE OF ACUTE STROKE: NO. Interventional Vascular Procedure 12/02/19 00:00 IMPRESSION: Images from ultrasound-guided vascular access. Assessment & Plan - Diagnosis (1) OLMAN (acute kidney injury) Is this a current diagnosis for this admission?: Yes Plan: Most likely secondary to prerenal azotemia with severe volume depletion due to high output biliary drain after it was replaced or exchanged last Saturday,11/25/19. Patient is currently nonoliguric. Due to uremia and encephalopathy the patient had renal replacement therapy last week on 12/02 and 12/04/2019. Patient's urine output is appropriate and improving. I will decrease his IV fluids to 100 mL an hour. Encourage oral intake. Replace electrolytes as necessary. I will hold dialysis for now and see if he can have spontaneous renal recovery if we can replace his volume. Patient's kidney function is a slowly improving spontaneously without further dialysis treatment. Reiterated to the patient and the to maintain adequate hydration duration once he is transferred to rehab facility. We will continue IV fluids for as long as he is inpatient. I would anticipate of the patient's kidney function will continue to slowly improve. I think he can be transferred to rehab facility at the end of this week if indeed he continues to improve. (2) Uremia Is this a current diagnosis for this admission?: Yes Plan: Slowly improving. (3) Acute encephalopathy Is this a current diagnosis for this admission?: Yes Plan: Initial thought was the patient's acute encephalopathy was most likely secondary to uremia and gabapentin toxicity. For the past few months the patient is a starting to develop an underlying mild dementia. Gabapentin was resumed at a high dose of 600 mg nightly. This is a high dose for a patient with his kidney function. We will decrease the gabapentin for his neuropathy 100 mg nightly. Discussed with patient and and they understood. Patient remains to be pleasantly confused. Continue current management for now. (4) Acute cholecystitis Is this a current diagnosis for this admission?: Yes Plan: Patient had biliary drain placed at [facility] about 3 months ago. This was replaced a week ago which triggered and precipitated acute current illness. Surgery was consulted but no further recommendation was made but to follow-up with [facility] after discharge. (5) CKD (chronic kidney disease), stage IV Is this a current diagnosis for this admission?: Yes (6) Diabetes mellitus Is this a current diagnosis for this admission?: Yes (7) Hypokalemia Is this a current diagnosis for this admission?: Yes Plan: On potassium replacement. (8) Metabolic acidosis Is this a current diagnosis for this admission?: Yes Plan: On sodium bicarbonate orally. Improving. (9) Hypertension Is this a current diagnosis for this admission?: Yes (10) Anemia in chronic kidney disease (CKD) Is this a current diagnosis for this admission?: Yes Plan: Patient's iron is 28.5, T sat of 16 and ferritin of 572. We will give him a dose of IV Injectafer. (11) Chronic kidney disease-mineral and bone disorder Is this a current diagnosis for this admission?: Yes Plan: Phosphorus is elevated at 5.3 from 7.0 and was 11.6 on admission. PTH is 198.4. Calcitriol started by the hospitalist service. - Time Time with patient: 15-25 minutes
--- NOTE | 2019-12-09 15:45 | PDOC PROGRESS REPORT ---
Subjective Progress Note for:: 12/09/19 Reason For Visit: UREMIC ENCEPHALOPATHY,ACUTE ON CHRONIC KIDNEY 12/09/2019 a uremia , confusion, acute on chronic kidney injury, Physical Exam Vital Signs: Temp Pulse Resp BP Pulse Ox 98.6 F 67 18 162/60 H 93 12/09/19 04:16 12/09/19 13:54 12/09/19 13:51 12/09/19 04:16 12/09/19 13:51 Intake & Output 12/08/19 12/09/19 12/10/19 06:59 06:59 06:59 Intake Total 5068 3843 Output Total 3376 3475 Balance 1693 1598 Weight 115.9 kg 117.6 kg General appearance: PRESENT: no acute distress, other - Patient speaking in full sentences sitting up in bed looking significantly better each day Respiratory exam: PRESENT: clear to auscultation paulo. ABSENT: rales, rhonchi, wheezes Cardiovascular exam: PRESENT: RRR. ABSENT: diastolic murmur, rubs, systolic murmur Neurological exam: PRESENT: alert, awake, oriented to person, oriented to place, oriented to time, oriented to situation, CN II-XII grossly intact, other - Patient may have some chronic dementia but certainly he does not exhibit that today. Able to carry on a normal conversation for up to 15 minutes. ABSENT: motor sensory deficit Psychiatric exam: PRESENT: appropriate affect, normal mood, other - Seems upbeat. ABSENT: homicidal ideation, suicidal ideation Results Laboratory Results: 12/09/19 09:20 12/09/19 09:20 12/09/19 12/09/19 09:20 09:20 WBC 8.3 RBC 2.73 L Hgb 8.8 L Hct 25.6 L MCV 94 MCH 32.2 MCHC 34.3 RDW 14.1 H Plt Count 272 Seg Neutrophils % 80.9 H Sodium 138.8 Potassium 4.2 Chloride 108 H Carbon Dioxide 21 L Anion Gap 10 BUN 50 H Creatinine 4.19 H Est GFR ( Amer) 17 L Glucose 111 H Calcium 8.4 12/01/19 12/01/19 12/01/19 13:20 13:20 17:04 Creatine Kinase 108 CK-MB (CK-2) 4.63 H Troponin I 0.051 0.051 Impressions: Chest X-Ray 12/01/19 13:24 IMPRESSION: NO ACUTE RADIOGRAPHIC FINDING IN THE CHEST. Abdomen/Pelvis CT 12/01/19 15:04 IMPRESSION: 1. SUBCAPSULAR FLUID COLLECTION ASSOCIATED WITH THE LEFT KIDNEY, SECONDARY TO PREVIOUS PERINEPHRIC HEMATOMA, HAS DECREASED IN SIZE SINCE THE MOST RECENT AVAILABLE STUDY DATED 08/17/2019. THE PATIENT MAY HAVE MORE RECENT IMAGING STUDIES ELSEWHERE, THE PATIENT HAS HAD INTERVAL SURGERY WITH PLACEMENT OF PERCUTANEOUS DRAINAGE TUBE AND BILIARY STENT. COMPARISON WITH MORE RECENT DONNA DIES MAY BE HELPFUL. 2. COLONIC DIVERTICULOSIS. NO CT FINDINGS OF ACUTE DIVERTICULITIS. 3. 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 4. CORTICAL CYSTS IN THE RIGHT KIDNEY. 5. NO OTHER SIGNIFICANT OR ACUTE PROCESS IN THE ABDOMEN OR PELVIS. Head CT 12/01/19 15:04 IMPRESSION: CHRONIC CHANGES OF ATROPHY AND MICROVASCULAR ISCHEMIA. NO ACUTE PROCESS. EVIDENCE OF ACUTE STROKE: NO. Interventional Vascular Procedure 12/02/19 00:00 IMPRESSION: Images from ultrasound-guided vascular access. Assessment and Plan - Diagnosis (1) OLMAN (acute kidney injury) Is this a current diagnosis for this admission?: Yes (2) Acute cholecystitis Is this a current diagnosis for this admission?: Yes (3) Acute encephalopathy Is this a current diagnosis for this admission?: Yes (4) Anemia in chronic kidney disease (CKD) Is this a current diagnosis for this admission?: Yes (5) CAD (coronary artery disease) Is this a current diagnosis for this admission?: Yes (6) Hyperkalemia Is this a current diagnosis for this admission?: Yes (7) Hypertension Is this a current diagnosis for this admission?: Yes (8) Hypokalemia Is this a current diagnosis for this admission?: Yes (9) Lethargic Is this a current diagnosis for this admission?: Yes - Plan Summary Summary: 12/08/2019 Nephrology is seeing the patient on a regular basis. Ciarra is slowly improving Patient's level of consciousness and alertness tends to wax and wane. I saw him this morning he was perfectly awake alert and oriented Nephrology is starting sodium bicarb today. Patient is currently on Calcitrol Patient had dialysis on 02 December the as well as the CBC is stable BUN on admission was 121 most recently is 53 Creatinine on admission was 10.06 most recently is come down to 4.43 Blood cultures are negative x48 hours discharge planning is currently working on placement so when patient is ready to discharge we will have a place. Patient's dementia will prevent him from going back home 12/09/2019 Vital signs are stable White blood cell counts 8300 hemoglobin stable at 8.8 Renal functions continue to slowly improve, although the GFR remains low although improving slightly Nephrology agrees patient should be ready to be discharged to residential or rehab by the end of the week and patient seen satisfied with patient's care - Time Time Spent with patient: 25-34 minutes
[2019-12-09] MEDS: CITALOPRAM HYDROBROMIDE 20 MG TABLET PO SCH (17:21)
[2019-12-09] MEDS: TAMSULOSIN HCL 0.4 MG CAP.SR.24H PO SCH (17:21)
[2019-12-09] MEDS: GABAPENTIN 100 MG CAPSULE PO SCH (21:58)
[2019-12-09] MEDS: LATANOPROST 0.005% OPH SOLN 2.5 ML OU SCH (21:59)
[2019-12-10] MEDS: INSULIN LISPRO 100 UNIT/ML 3 ML VIAL SUBCUT SCH ×5 (00:08→22:25)
[2019-12-10] MEDS: IPRATROPIUM/ALBUTEROL 0.5-2.5 MG/3 ML AMPUL NEB SCH ×4 (02:18→20:12)
[2019-12-10] MEDS: NORMAL SALINE 1000 ML 1,000 ML IV PRN ×2 (05:33→17:08)
[2019-12-10] MEDS: PANTOPRAZOLE SODIUM 40 MG TABLET.DR PO SCH ×2 (05:34→17:08)
[2019-12-10] MEDS: LEVOTHYROXINE SODIUM 0.075 MG TABLET PO SCH (05:34)
[2019-12-10] MEDS: HEPARIN SOD (PORCINE) 5,000 UNIT/ML 1 ML VIAL SUBCUT SCH ×3 (05:34→22:25)
[2019-12-10 05:56] LABS: ABSOLUTE EOSINOPHILS # (AUTO) 0.2 10^3/uL (0.0-0.6); ABSOLUTE LYMPHOCYTES (AUTO) 0.9 10^3/uL (0.5-4.7); ABSOLUTE MONOCYTES (AUTO) 0.6 10^3/uL (0.1-1.4); ABSOLUTE NEUT (AUTO) 7.9 10^3/uL (1.7-8.2); BASOPHILS % (AUTO) 0.5 % (0-2); EOSINOPHILS % (AUTO) 1.9 % (0-6); HEMATOCRIT 26.3 % (37.9-51.0); LYMPHOCYTES % (AUTO) 9.3 % (13-45); MEAN CORPUSCULAR HEMOGLOBIN 32.1 pg (27.0-33.4); MEAN CORPUSCULAR HGB CONC 34.1 g/dL (32.0-36.0); MEAN CORPUSCULAR VOLUME 94 fl (80-97); MONOCYTES % (AUTO) 6.6 % (3-13); PLATELET COUNT 271 10^3/uL (150-450); RED BLOOD COUNT 2.79 10^6/uL (4.35-5.55); RED CELL DISTRIBUTION WIDTH 14.6 % (11.5-14.0); SEGMENTED NEUTROPHILS % (AUTO) 81.7 % (42-78); TOTAL CELLS COUNTED % (AUTO) 100 %; WHITE BLOOD COUNT 9.6 10^3/uL (4.0-10.5)
[2019-12-10 06:17] LABS: ANION GAP 10 (5-19); BLOOD UREA NITROGEN 48 mg/dL (7-20); CALCIUM 8.6 mg/dL (8.4-10.2); CARBON DIOXIDE 19 mmol/L (22-30); CHLORIDE 109 mmol/L (98-107); GLUCOSE 95 mg/dL (75-110); PHOSPHORUS 3.9 mg/dL (2.5-4.5); POTASSIUM 4.2 mmol/L (3.6-5.0)
[2019-12-10] MEDS: AMLODIPINE BESYLATE 10 MG TABLET PO SCH (10:42)
[2019-12-10] MEDS: POTASSIUM CHLORIDE 10 MEQ TABLET.ER PO SCH (10:42)
[2019-12-10] MEDS: SODIUM BICARBONATE 650 MG TABLET PO SCH ×2 (10:42→22:25)
[2019-12-10] MEDS: DOCUSATE SODIUM 100 MG CAPSULE PO SCH ×2 (10:42→17:03)
[2019-12-10] MEDS: FERROUS SULFATE 325 MG TABLET PO SCH ×2 (10:42→17:08)
[2019-12-10] MEDS: CARVEDILOL 12.5 MG TABLET PO SCH ×2 (10:42→22:24)
[2019-12-10] MEDS ORDERED: EPOETIN ALFA-EPBX 10,000 UNIT/ML VIAL (NON-ESRD) SUBCUT ONE (13:00)
--- NOTE | 2019-12-10 13:01 | PDOC PROGRESS REPORT ---
Subjective Progress Note for:: 12/10/19 Subjective:: Patient seems to be always sleepy and lethargic early in the morning. He is again is sleeping this morning but arousable. He did not verbalize any complaints. His urine output is 1335 mL for the past 24 hours and biliary drain is only 300 mL. Reason For Visit: UREMIC ENCEPHALOPATHY,ACUTE ON CHRONIC KIDNEY Physical Exam Vital Signs: Temp Pulse Resp BP Pulse Ox 97.8 F 65 18 154/49 H 91 L 12/10/19 08:15 12/10/19 08:17 12/10/19 08:17 12/10/19 08:15 12/10/19 08:17 Intake & Output 12/09/19 12/10/19 12/11/19 06:59 06:59 06:59 Intake Total 3843 2362 Output Total 2245 1635 Balance 1598 727 Weight 117.6 kg 119.3 kg Exam: General appearance: PRESENT: no acute distress, cooperative, well-developed, we ll-nourished Head exam: PRESENT: atraumatic, normocephalic Eye exam: PRESENT: conjunctiva pale, PERRLA. ABSENT: scleral icterus Neck exam: ABSENT: JVD Respiratory exam: PRESENT: Diminished breath sounds. ABSENT: crackles, rales, rhonchi, unlabored, wheezes Cardiovascular exam: PRESENT: Regular rate rhythm -+S1, +S2. Grade 3/6 systolic murmur GI/Abdominal exam: PRESENT: normal bowel sounds, soft. ABSENT: guarding, mass, tenderness Extremities exam: ABSENT: No edema Neurological exam: PRESENT: Very sleepy but arousable. Skin exam: PRESENT: dry, warm, Cardiovascular exam: PRESENT: +S1, +S2, systolic murmur. ABSENT: rubs GI/Abdominal exam: PRESENT: normal bowel sounds, organomegaly, tenderness - Mild tenderness in the right upper quadrant.. ABSENT: soft Results Laboratory Results: 12/10/19 05:08 12/10/19 05:08 12/10/19 12/10/19 05:08 05:08 WBC 9.6 RBC 2.79 L Hgb 9.0 L Hct 26.3 L MCV 94 MCH 32.1 MCHC 34.1 RDW 14.6 H Plt Count 271 Seg Neutrophils % 81.7 H Sodium 138.2 Potassium 4.2 Chloride 109 H Carbon Dioxide 19 L Anion Gap 10 BUN 48 H Creatinine 3.95 H Est GFR ( Amer) 18 L Glucose 95 Calcium 8.6 Phosphorus 3.9 12/01/19 12/01/19 12/01/19 13:20 13:20 17:04 Creatine Kinase 108 CK-MB (CK-2) 4.63 H Troponin I 0.051 0.051 Impressions: Chest X-Ray 12/01/19 13:24 IMPRESSION: NO ACUTE RADIOGRAPHIC FINDING IN THE CHEST. Abdomen/Pelvis CT 12/01/19 15:04 IMPRESSION: 1. SUBCAPSULAR FLUID COLLECTION ASSOCIATED WITH THE LEFT KIDNEY, SECONDARY TO PREVIOUS PERINEPHRIC HEMATOMA, HAS DECREASED IN SIZE SINCE THE MOST RECENT AVAILABLE STUDY DATED 08/17/2019. THE PATIENT MAY HAVE MORE RECENT IMAGING STUDIES ELSEWHERE, THE PATIENT HAS HAD INTERVAL SURGERY WITH PLACEMENT OF PERCUTANEOUS DRAINAGE TUBE AND BILIARY STENT. COMPARISON WITH MORE RECENT STUDIES MAY BE HELPFUL. 2. COLONIC DIVERTICULOSIS. NO CT FINDINGS OF ACUTE DIVERTICULITIS. 3. 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 4. CORTICAL CYSTS IN THE RIGHT KIDNEY. 5. NO OTHER SIGNIFICANT OR ACUTE PROCESS IN THE ABDOMEN OR PELVIS. Head CT 12/01/19 15:04 IMPRESSION: CHRONIC CHANGES OF ATROPHY AND MICROVASCULAR ISCHEMIA. NO ACUTE PROCESS. EVIDENCE OF ACUTE STROKE: NO. Interventional Vascular Procedure 12/02/19 00:00 IMPRESSION: Images from ultrasound-guided vascular access. Assessment & Plan - Diagnosis (1) OLMAN (acute kidney injury) Is this a current diagnosis for this admission?: Yes Plan: Most likely secondary to prerenal azotemia with severe volume depletion due to high output biliary drain after it was replaced or exchanged last Saturday ,11/25/19. Patient is currently nonoliguric. Due to uremia and encephalopathy the patient had renal replacement therapy last week on 12/02 and 12/04/2019. Kidney function is improving every single day. Patient's urine output is appropriate and improving. Continue IV fluids to 100 mL an hour. Encourage oral intake. Replace electrolytes as necessary. I will hold dialysis for now and see if he can have spontaneous renal recovery if we can replace his volume. Patient's kidney function is a slowly improving spontaneously without further dialysis treatment. Reiterated to the patient and the to maintain adequate hydration duration once he is transferred to rehab facility. We will continue IV fluids for as long as he is inpatient. I would anticipate of the patient's kidney function will continue to slowly improve. I think he can be transferred to rehab facility at the end of this week if indeed he continues to improve. (2) Uremia Is this a current diagnosis for this admission?: Yes Plan: Slowly improving. (3) Acute encephalopathy Is this a current diagnosis for this admission?: Yes Plan: Initial thought was the patient's acute encephalopathy was most likely secondary to uremia and gabapentin toxicity. For the past few months the patient is a starting to develop an underlying mild dementia. Gabapentin was resumed at a high dose of 600 mg nightly. This is a high dose for a patient with his kidney function. We will decrease the gabapentin for his neuropathy 100 mg nightly. Discussed with patient and and they understood. Patient remains to be pleasantly confused. Patient's mental status when awake could actually be very near his baseline. Continue current management for now. (4) Acute cholecystitis Is this a current diagnosis for this admission?: Yes Plan: Patient had biliary drain placed at [facility] about 3 months ago. This was replaced a week ago which triggered and precipitated acute current illness. Surgery was consulted but no further recommendation was made but to follow-up with [facility] after discharge. (5) CKD (chronic kidney disease), stage IV Is this a current diagnosis for this admission?: Yes (6) Diabetes mellitus Is this a current diagnosis for this admission?: Yes (7) Hypokalemia Is this a current diagnosis for this admission?: Yes Plan: On potassium replacement. (8) Metabolic acidosis Is this a current diagnosis for this admission?: Yes Plan: On sodium bicarbonate orally. (9) Hypertension Is this a current diagnosis for this admission?: Yes (10) Anemia in chronic kidney disease (CKD) Is this a current diagnosis for this admission?: Yes Plan: Patient's iron is 28.5, T sat of 16 and ferritin of 572. Patient received a dose of IV Injectafer. I will give him Retacrit 20,000 units today subcutaneously. (11) Chronic kidney disease-mineral and bone disorder Is this a current diagnosis for this admission?: Yes Plan: Phosphorus is is now normal at 3.9 from 11.6 on admission. PTH is 198.4. Calcitriol started by the hospitalist service. - Time Time with patient: 15-25 minutes
--- NOTE | 2019-12-10 13:53 | PDOC PROGRESS REPORT ---
Subjective Progress Note for:: 12/10/19 Reason For Visit: UREMIC ENCEPHALOPATHY,ACUTE ON CHRONIC KIDNEY 12/10/2019 Originally admitted for uremia encephalopathy, acute on chronic kidney injury, cholecystitis dehydration Physical Exam Vital Signs: Temp Pulse Resp BP Pulse Ox 98.6 F 72 17 138/72 H 95 12/10/19 12:10 12/10/19 12:10 12/10/19 12:10 12/10/19 12:10 12/10/19 12:10 Intake & Output 12/09/19 12/10/19 12/11/19 06:59 06:59 06:59 Intake Total 3843 2362 Output Total 2245 1635 Balance 1598 727 Weight 117.6 kg 119.3 kg General appearance: PRESENT: no acute distress Respiratory exam: PRESENT: clear to auscultation paulo. ABSENT: rales, rhonchi, wheezes Cardiovascular exam: PRESENT: RRR. ABSENT: diastolic murmur, rubs, systolic murmur Neurological exam: PRESENT: oriented to person, oriented to place, oriented to time, oriented to situation, other - Sleepy but arouses easily Psychiatric exam: PRESENT: appropriate affect, normal mood. ABSENT: homicidal ideation, suicidal ideation Results Laboratory Results: 12/10/19 05:08 12/10/19 05:08 12/10/19 12/10/19 05:08 05:08 WBC 9.6 RBC 2.79 L Hgb 9.0 L Hct 26.3 L MCV 94 MCH 32.1 MCHC 34.1 RDW 14.6 H Plt Count 271 Seg Neutrophils % 81.7 H Sodium 138.2 Potassium 4.2 Chloride 109 H Carbon Dioxide 19 L Anion Gap 10 BUN 48 H Creatinine 3.95 H Est GFR ( Amer) 18 L Glucose 95 Calcium 8.6 Phosphorus 3.9 12/01/19 12/01/19 12/01/19 13:20 13:20 17:04 Creatine Kinase 108 CK-MB (CK-2) 4.63 H Troponin I 0.051 0.051 Impressions: Chest X-Ray 12/01/19 13:24 IMPRESSION: NO ACUTE RADIOGRAPHIC FINDING IN THE CHEST. Abdomen/Pelvis CT 12/01/19 15:04 IMPRESSION: 1. SUBCAPSULAR FLUID COLLECTION ASSOCIATED WITH THE LEFT KIDNEY, SECONDARY TO PREVIOUS PERINEPHRIC HEMATOMA, HAS DECREASED IN SIZE SINCE THE MOST RECENT AVAILABLE STUDY DATED 08/17/2019. THE PATIENT MAY HAVE MORE RECENT IMAGING ST UDIES ELSEWHERE, THE PATIENT HAS HAD INTERVAL SURGERY WITH PLACEMENT OF PERCUTANEOUS DRAINAGE TUBE AND BILIARY STENT. COMPARISON WITH MORE RECENT STUDIES MAY BE HELPFUL. 2. COLONIC DIVERTICULOSIS. NO CT FINDINGS OF ACUTE DIVERTICULITIS. 3. 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 4. CORTICAL CYSTS IN THE RIGHT KIDNEY. 5. NO OTHER SIGNIFICANT OR ACUTE PROCESS IN THE ABDOMEN OR PELVIS. Head CT 12/01/19 15:04 IMPRESSION: CHRONIC CHANGES OF ATROPHY AND MICROVASCULAR ISCHEMIA. NO ACUTE PROCESS. EVIDENCE OF ACUTE STROKE: NO. Interventional Vascular Procedure 12/02/19 00:00 IMPRESSION: Images from ultrasound-guided vascular access. Assessment and Plan - Diagnosis (1) OLMAN (acute kidney injury) Is this a current diagnosis for this admission?: Yes (2) Acute cholecystitis Is this a current diagnosis for this admission?: Yes (3) Acute encephalopathy Is this a current diagnosis for this admission?: Yes (4) Anemia in chronic kidney disease (CKD) Is this a current diagnosis for this admission?: Yes (5) CAD (coronary artery disease) Is this a current diagnosis for this admission?: Yes (6) Hyperkalemia Is this a current diagnosis for this admission?: Yes (7) Hypertension Is this a current diagnosis for this admission?: Yes (8) Hypokalemia Is this a current diagnosis for this admission?: Yes (9) Lethargic Is this a current diagnosis for this admission?: Yes - Plan Summary Summary: 12/08/2019 Nephrology is seeing the patient on a regular basis. Ciarra is slowly improving Patient's level of consciousness and alertness tends to wax and wane. I saw him this morning he was perfectly awake alert and oriented Nephrology is starting sodium bicarb today. Patient is currently on Calcitrol Patient had dialysis on 02 December the as well as the CBC is stable BUN on admission was 121 most recently is 53 Creatinine on admission was 10.06 most recently is come down to 4.43 Blood cultures are negative x48 hours discharge planning is currently working on placement so when patient is ready to discharge we will have a place. Patient's dementia will prevent him from going back home 12/09/2019 Vital signs are stable White blood cell counts 8300 hemoglobin stable at 8.8 Renal functions continue to slowly improve, although the GFR remains low although improving slightly Nephrology agrees patient should be ready to be discharged to retirement or rehab by the end of the week and patient seen satisfied with patient's care 12/10/2019 Patient has a bed at [facility] and will be discharged tomorrow on Saturday to [facility]. Temperature 97.9 pulse 65 blood pressure 150/56 O2 sats are between 91 and 95% on room air BUN continues to improve today it is 48 creatinine is down to 3.95 Appears medically stable for transfer tomorrow. Patient will need to be [facility] his [facility]bladder in approximately 2 weeks. Gallbladder tube will need to be left open and let the bile drain. He knows will need to be continued at [facility]. Patient is currently on no antibiotics. - Time Time Spent with patient: 25-34 minutes
[2019-12-10] MEDS ORDERED: EPOETIN ALFA-EPBX 20,000 UNITS (ESRD) in SYRINGE SUBCUT ONE (14:30)
[2019-12-10] MEDS: CITALOPRAM HYDROBROMIDE 20 MG TABLET PO SCH (17:08)
[2019-12-10] MEDS: TAMSULOSIN HCL 0.4 MG CAP.SR.24H PO SCH (17:08)
[2019-12-10] MEDS: ASPIRIN 81 MG TABLET, ENT COATED PO SCH (22:24)
[2019-12-10] MEDS: LATANOPROST 0.005% OPH SOLN 2.5 ML OU SCH (22:24)
[2019-12-10] MEDS: GABAPENTIN 100 MG CAPSULE PO SCH (22:24)
[2019-12-11] MEDS: IPRATROPIUM/ALBUTEROL 0.5-2.5 MG/3 ML AMPUL NEB SCH ×3 (02:09→13:43)
[2019-12-11] MEDS: NORMAL SALINE 1000 ML 1,000 ML IV PRN (03:54)
[2019-12-11 05:46] LABS: ABSOLUTE EOSINOPHILS # (AUTO) 0.1 10^3/uL (0.0-0.6); ABSOLUTE LYMPHOCYTES (AUTO) 0.7 10^3/uL (0.5-4.7); ABSOLUTE MONOCYTES (AUTO) 0.6 10^3/uL (0.1-1.4); ABSOLUTE NEUT (AUTO) 8.1 10^3/uL (1.7-8.2); BASOPHILS % (AUTO) 0.4 % (0-2); EOSINOPHILS % (AUTO) 0.8 % (0-6); HEMOGLOBIN 8.6 g/dL (13.5-17.0); LYMPHOCYTES % (AUTO) 7.3 % (13-45); MEAN CORPUSCULAR HEMOGLOBIN 32.3 pg (27.0-33.4); MEAN CORPUSCULAR HGB CONC 34.4 g/dL (32.0-36.0); MEAN CORPUSCULAR VOLUME 94 fl (80-97); MONOCYTES % (AUTO) 6.5 % (3-13); PLATELET COUNT 277 10^3/uL (150-450); RED BLOOD COUNT 2.66 10^6/uL (4.35-5.55); RED CELL DISTRIBUTION WIDTH 14.3 % (11.5-14.0); TOTAL CELLS COUNTED % (AUTO) 100 %; WHITE BLOOD COUNT 9.5 10^3/uL (4.0-10.5)
[2019-12-11] MEDS: LEVOTHYROXINE SODIUM 0.075 MG TABLET PO SCH (05:50)
[2019-12-11] MEDS: PANTOPRAZOLE SODIUM 40 MG TABLET.DR PO SCH (05:50)
[2019-12-11] MEDS: HEPARIN SOD (PORCINE) 5,000 UNIT/ML 1 ML VIAL SUBCUT SCH ×2 (05:50→13:58)
[2019-12-11 06:10] LABS: ANION GAP 10 (5-19); BLOOD UREA NITROGEN 47 mg/dL (7-20); CALCIUM 8.3 mg/dL (8.4-10.2); CARBON DIOXIDE 18 mmol/L (22-30); CHLORIDE 111 mmol/L (98-107); GLUCOSE 98 mg/dL (75-110); PHOSPHORUS 3.7 mg/dL (2.5-4.5); POTASSIUM 4.5 mmol/L (3.6-5.0)
[2019-12-11 07:40] LABS: APPEARANCE,URINE SLIGHTLY-CLOUDY; BILIRUBIN,URINE NEGATIVE (NEGATIVE); COLOR,URINE YELLOW; GLUCOSE, URINE NEGATIVE (NEGATIVE); KETONES,URINE TRACE mg/dL (NEGATIVE); PROTEIN,URINE 100 mg/dL (NEGATIVE); UROBILINOGEN,URINE NEGATIVE mg/dL (<2.0)
--- NOTE | 2019-12-11 08:52 | RADIOLOGY REPORT (SQ) ---
EXAM DESCRIPTION: KUB/ABDOMEN (SINGLE VIEW) COMPLETED DATE/TIME: 12/10/2019 7:22 pm REASON FOR STUDY: abdominal pain COMPARISON: CT abdomen and pelvis, 12/01/2019 NUMBER OF VIEWS: One view. TECHNIQUE: Supine radiographic image of the abdomen acquired. LIMITATIONS: None. FINDINGS: BOWEL GAS PATTERN: Normal bowel gas pattern. No dilated loops. CALCIFICATIONS: No suspicious calcifications. SOFT TISSUES: No gross mass or suggestion of organomegaly. HARDWARE: Cholecystostomy tube remains present at the hepatic hilum. A right femoral central venous catheter with tip projecting to the right of the L4 vertebral body, new from prior. Biliary stent is no longer present. BONES: Multilevel spondylosis in the thoracic and lumbar spine. OTHER: No other significant finding. IMPRESSION: No acute abnormality in the abdomen. Cholecystostomy tube is unchanged in position. Ne w right femoral central venous catheter. Biliary stent is no longer present. TECHNICAL DOCUMENTATION: JOB ID: [id number] [employer]- All Rights Reserved Reading location - IP/workstation name: [email or web address]
[2019-12-11] MEDS: INSULIN LISPRO 100 UNIT/ML 3 ML VIAL SUBCUT SCH ×2 (08:59→13:57)
--- NOTE | 2019-12-11 10:09 | PDOC TRANSFER SUMMARY ---
Impression - Admit/DC Date/PCP Admission Date/Primary Care Provider: 12/01/19 18:46 NATHALIE MORALES PA-C Discharge Date: 12/11/19 - Discharge Diagnosis (1) OLMAN (acute kidney injury) Is this a current diagnosis for this admission?: Yes (2) Acute cholecystitis Is this a current diagnosis for this admission?: Yes (3) Acute encephalopathy Is this a current diagnosis for this admission?: Yes (4) Anemia in chronic kidney disease (CKD) Is this a current diagnosis for this admission?: Yes (5) CAD (coronary artery disease) Is this a current diagnosis for this admission?: Yes (6) Hyperkalemia Is this a current diagnosis for this admission?: Yes (7) Hypertension Is this a current diagnosis for this admission?: Yes (8) Hypokalemia Is this a current diagnosis for this admission?: Yes (9) Lethargic Is this a current diagnosis for this admission?: Yes - Assessment Summary: 12/08/2019 Nephrology is seeing the patient on a regular basis. Ciarra is slowly improving Patient's level of consciousness and alertness tends to wax and wane. I saw him this morning he was perfectly awake alert and oriented Nephrology is starting sodium bicarb today. Patient is currently on Calcitrol Patient had dialysis on 02 December the as well as the CBC is stable BUN on admission was 121 most recently is 53 Creatinine on admission was 10.06 most recently is come down to 4.43 Blood cultures are negative x48 hours discharge planning is currently working on placement so when patient is ready to discharge we will have a place. Patient's dementia will prevent him from going back home 12/09/2019 Vital signs are stable White blood cell counts 8300 hemoglobin stable at 8.8 Renal functions continue to slowly improve, although the GFR remains low although improving slightly Nephrology agrees patient should be ready to be discharged to assisted or rehab by the end of the week and patient seen satisfied with patient's care 12/10/2019 Patient has a bed at [facility] and will be discharged tomorrow on Saturday to [facility]. Temperature 97.9 pulse 65 blood pressure 150/56 O2 sats are between 91 and 95% on room air BUN continues to improve today it is 48 creatinine is down to 3.95 Appears medically stable for transfer tomorrow. Patient will need to be seen in [facility] his [facility]bladder in approximately 2 weeks. Gallbladder tube will need to be left open and let the bile drain. He knows will need to be continued at [facility]. Patient is currently on no antibiotics. 12/11/2019 She had a KUB of his abdomen last night due to abdominal cramping. Appears as though patient still has some stool present in his colon, is working its way through there is no evidence of free air or bowel obstruction or air-fluid levels. Patient did take magnesium citrate 2 days ago and according to the nurse had a rather large bowel movement last night Patient's prescriptions were written for rehab/assisted facility. Patient will need to follow-up with invited surgery in 2 weeks for his gallbladder and biliary drain. Patient will need to continue hydration for his chronic kidney disease. I have place patient on a sliding scale of insulin, as opposed to long-acting insulin since he has not needed this recently. Patient's renal functions continue to improve. Today his BUN is down to 47 his creatinine is down to 3.67 GFR is up to 16. Glucose levels are running in the low 100s. Sodium 138, potassium 4.5. Serum 8.3 phosphorus 3.7 Patient is medically stable to transfer to assisted facility/rehab - Additional Information Resuscitation Status: Full Code Discharge Diet: Diabetic, Other (Comments) - Renal diet as well Discharge Activity: Activity As Tolerated Referrals: NATHALIE MORALES PA-C [Primary Care Provider] - 12/16/19 1:00 pm PENNIE THURMAN MD [ACTIVE STAFF] - 12/18/19 11:30 am Prescriptions: Insulin Lispro [Humalog Insulin (Lispro) 100 unit/mL] 0 - 12 unit SUBCUT ACHS 30 Days #1 unit Potassium Chloride [Klor-Con 10 Meq Tablet ER] 20 meq PO DAILY 30 Days #30 tablet.er Gabapentin [Neurontin 100 mg Capsule] 100 mg PO QHS 30 Days #30 capsule Pantoprazole Sodium [Protonix [address] Tablet] 40 mg PO Q12A 30 Days #30 tablet.dr Sodium Bicarbonate [Sodium Bicarbonate 650 mg Tablet] 650 mg PO Q12 30 Days #60 tablet Home Medications: Amlodipine Besylate [Norvasc 5 mg Tablet] 5 mg PO QPM 12/01/19 Aspirin [Adult Low Dose Aspirin EC] 81 mg PO DAILY 12/01/19 Brimonidine Tartrate [Alphagan P] 1 drop OU Q12 12/01/19 Calcitriol [Rocaltrol 0.25 mcg Capsule] 0.25 mcg PO MOWEFR@1000 12/01/19 Carvedilol [Coreg 25 mg Tablet] 1 tab PO Q12 12/01/19 Citalopram Hydrobromide [Celexa 40 mg Tablet] 1 tab PO QPM 12/01/19 Ferrous Sulfate [Feosol 325 mg Tablet] 325 mg PO BID 12/01/19 Latanoprost [Xalatan 0.005% Oph Soln 2.5 ml] 1 drop OU QHS 12/01/19 Levothyroxine Sodium [Synthroid 0.075 mg Tablet] 0.075 mg PO DAILY 12/01/19 Lisinopril [Prinivil 5 mg Tablet] 5 mg PO DAILY 12/01/19 Ondansetron [Zofran Odt 4 mg Tablet] 4 mg PO Q8HP PRN 12/01/19 Rosuvastatin Calcium [Crestor 5 mg Tablet] 5 mg PO DAILY 12/01/19 Sennosides [Senna] 8.6 mg PO BID 12/01/19 Tamsulosin HCl [Flomax 0.4 mg Cap.sr] 0.4 mg PO QPM 12/01/19 Testosterone Cypionate [Depo-Testosterone] 200 mg IM .[id number] 12/01/19 Tiotropium [place] [Spiriva Handihaler 5 Cap/Kit (18 Mcg/Cap)] 1 cap IH DAILY 12/01/19 Acetaminophen [Tylenol 325 mg Tablet] 325 mg PO Q8HP PRN tablet 12/11/19 Gabapentin [Neurontin 100 mg Capsule] 100 mg PO QHS 30 Days #30 capsule 12/11/19 Insulin Lispro [Humalog Insulin (Lispro) 100 unit/mL] 0 - 12 unit SUBCUT ACHS 30 Days #1 unit 12/11/19 Pantoprazole Sodium [Protonix [address] Tablet] 40 mg PO Q12A 30 Days #30 tablet.dr 12/11/19 Potassium Chloride [Klor-Con 10 Meq Tablet ER] 20 meq PO DAILY 30 Days #30 tablet.er 12/11/19 Sodium Bicarbonate [Sodium Bicarbonate 650 mg Tablet] 650 mg PO Q12 30 Days #60 tablet 12/11/19 History of Present Illiness History of Present Illness: YAMILEX XIONG is a 79 year old male Physical Exam Vital Signs: Temp Pulse Resp BP Pulse Ox 98.1 F 75 18 158/73 H 97 12/11/19 08:17 12/11/19 08:17 12/11/19 08:17 12/11/19 08:17 12/11/19 08:17 Intake & Output 12/10/19 12/11/19 12/12/19 06:59 06:59 06:59 Intake Total 2362 2600 Output Total 1632 6915 Balance 727 -25 Weight 119.3 kg 117.4 kg Results Laboratory Results: WBC 9.5 10^3/uL (4.0-10.5) 12/11/19 05:11 RBC 2.66 10^6/uL (4.35-5.55) L 12/11/19 05:11 Hgb 8.6 g/dL (13.5-17.0) L 12/11/19 05:11 Hct 25.0 % (37.9-51.0) L 12/11/19 05:11 MCV 94 fl (80-97) 12/11/19 05:11 MCH 32.3 pg (27.0-33.4) 12/11/19 05:11 MCHC 34.4 g/dL (32.0-36.0) 12/11/19 05:11 RDW 14.3 % (11.5-14.0) H 12/11/19 05:11 Plt Count 277 10^3/uL (150-450) 12/11/19 05:11 Lymph % (Auto) 7.3 % (13-45) L 12/11/19 05:11 Bennett % (Auto) 6.5 % (3-13) 12/11/19 05:11 Eos % (Auto) 0.8 % (0-6) 12/11/19 05:11 Baso % (Auto) 0.4 % (0-2) 12/11/19 05:11 Reticulocyte # 0.086 10^6/uL (0.028-0.122) 12/08/19 05:25 Absolute Neuts (auto) 8.1 10^3/uL (1.7-8.2) 12/11/19 05:11 Absolute Lymphs (auto) 0.7 10^3/uL (0.5-4.7) 12/11/19 05:11 Absolute Monos (auto) 0.6 10^3/uL (0.1-1.4) 12/11/19 05:11 Absolute Eos (auto) 0.1 10^3/uL (0.0-0.6) 12/11/19 05:11 Absolute Basos (auto) 0.0 10^3/uL (0.0-0.2) 12/11/19 05:11 Seg Neutrophils % 85.0 % (42-78) H 12/11/19 05:11 Retic Count (auto) 3.18 % (0.66-2.85) H 12/08/19 05:25 PT 14.4 SEC (11.4-15.4) 12/01/19 13:20 INR 1.11 12/01/19 13:20 Sodium 138.6 mmol/L (137-145) 12/11/19 05:11 Potassium 4.5 mmol/L (3.6-5.0) 12/11/19 05:11 Chloride 111 mmol/L (98-107) H 12/11/19 05:11 Carbon Dioxide 18 mmol/L (22-30) L 12/11/19 05:11 Anion Gap 10 (5-19) 12/11/19 05:11 BUN 47 mg/dL (7-20) H 12/11/19 05:11 Creatinine 3.67 mg/dL (0.52-1.25) H 12/11/19 05:11 Est GFR ( Amer) 19 (>60) L 12/11/19 05:11 Est GFR (MDRD) Non-Af 16 (>60) L 12/11/19 05:11 Glucose 98 mg/dL (75-110) 12/11/19 05:11 POC Glucose 110 mg/dL (70-110) 12/11/19 08:24 Lactic Acid 0.5 mmol/L (0.7-2.1) L 12/01/19 13:20 Calcium 8.3 mg/dL (8.4-10.2) L 12/11/19 05:11 Phosphorus 3.7 mg/dL (2.5-4.5) 12/11/19 05:11 Magnesium 1.8 mg/dL (1.6-2.3) 12/07/19 05:30 Iron 28.5 ug/dL (49-181) L 12/08/19 05:25 TIBC 174 ug/dL (250-450) L 12/08/19 05:25 % Saturation 16 % 12/08/19 05:25 Ferritin 572.00 ng/mL (17.9-464.0) H 12/08/19 05:25 Total Bilirubin 0.4 mg/dL (0.2-1.3) 12/03/19 05:12 Direct Bilirubin 0.4 mg/dL (0.0-0.4) 12/03/19 05:12 Neonat Total Bilirubin Not Reportable 12/03/19 05:12 Neonat Direct Bilirubin Not Reportable 12/03/19 05:12 Neonat Indirect Bili Not Reportable 12/03/19 05:12 AST 14 U/L (17-59) L 12/03/19 05:12 ALT 7 U/L (<50) 12/03/19 05:12 Alkaline Phosphatase 59 U/L (38-126) 12/03/19 05:12 Ammonia < 8.7 umol/L (9-33) L 12/01/19 15:43 Creatine Kinase 108 U/L (55-170) 12/01/19 13:20 CK-MB (CK-2) 4.63 ng/mL (<4.55) H 12/01/19 13:20 Troponin I 0.051 ng/mL 12/01/19 17:04 Total Protein 5.7 g/dL (6.3-8.2) L 12/03/19 05:12 Albumin 3.0 g/dL (3.5-5.0) L 12/03/19 05:12 Vitamin B12 346.0 pg/mL (239-931) 12/08/19 05:25 Folate 7.43 ng/mL (>2.76) 12/08/19 05:25 PTH Intact 198.4 pg/mL (10.0-65.0) H 12/04/19 06:03 Urine Color YELLOW 12/11/19 06:37 Urine Appearance SLIGHTLY-CLOUDY 12/11/19 06:37 Urine pH 5.0 (5.0-9.0) 12/11/19 06:37 Ur Specific Victor 1.010 12/11/19 06:37 Urine Protein 100 mg/dL (NEGATIVE) H 12/11/19 06:37 Urine Glucose (UA) NEGATIVE mg/dL (NEGATIVE) 12/11/19 06:37 Urine Ketones TRACE mg/dL (NEGATIVE) H 12/11/19 06:37 Urine Blood MODERATE (NEGATIVE) H 12/11/19 06:37 Urine Nitrite NEGATIVE (NEGATIVE) 12/01/19 16:52 Urine Nitrite (Reflex) NEGATIVE (NEGATIVE) 12/11/19 06:37 Urine Bilirubin NEGATIVE (NEGATIVE) 12/11/19 06:37 Urine Urobilinogen NEGATIVE mg/dL (<2.0) 12/11/19 06:37 Ur Leukocyte Esterase NEGATIVE (NEGATIVE) 12/01/19 16:52 Leukocyte Esterase Rfl MODERATE (NEGATIVE) H 12/11/19 06:37 Urine WBC (Auto) 1 /HPF 12/01/19 16:52 Urine RBC (Auto) 15 /HPF 12/11/19 06:37 Urine Bacteria (Auto) 1+ /HPF 12/11/19 06:37 Urine WBC (Reflex) 23 /HPF 12/11/19 06:37 Urine WBC Clumps FEW /HPF 12/11/19 06:37 Squamous Epi Cells Auto <1 /HPF 12/11/19 06:37 Urine Mucus (Auto) RARE /LPF 12/11/19 06:37 Urine Ascorbic Acid NEGATIVE (NEGATIVE) 12/11/19 06:37 Acetaminophen < 10 ug/mL (10-30) L 12/01/19 13:20 Hepatitis A IgM Ab Negative (Negative) 12/02/19 04:44 Hep Bs Antigen Negative (Negative) 12/02/19 04:44 Hep B Core IgM Ab Positive (Negative) H 12/02/19 04:44 Hepatitis C Antibody <0.1 s/co ratio (0.0-0.9) 12/02/19 04:44 12/01/19 12/01/19 13:20 17:04 CK-MB (CK-2) 4.63 H Troponin I 0.051 0.051 Impressions: Chest X-Ray 12/01/19 13:24 IMPRESSION: NO ACUTE RADIOGRAPHIC FINDING IN THE CHEST. Abdomen/Pelvis CT 12/01/19 15:04 IMPRESSION: 1. SUBCAPSULAR FLUID COLLECTION ASSOCIATED WITH THE LEFT KIDNEY, SECONDARY TO PREVIOUS PERINEPHRIC HEMATOMA, HAS DECREASED IN SIZE SINCE THE MOST RECENT AVAILABLE STUDY DATED 08/17/2019. THE PATIENT MAY HAVE MORE RECENT IMAGING STUDIES ELSEWHERE, THE PATIENT HAS HAD INTERVAL SURGERY WITH PLACEMENT OF PERCUTANEOUS DRAINAGE TUBE AND BILIARY STENT. COMPARISON WITH MORE RECENT STUDIES MAY BE HELPFUL. 2. COLONIC DIVERTICULOSIS. NO CT FINDINGS OF ACUTE DIVERTICULITIS. 3. 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 4. CORTICAL CYSTS IN THE RIGHT KIDNEY. 5. NO OTHER SIGNIFICANT OR ACUTE PROCESS IN THE ABDOMEN OR PELVIS. Head CT 12/01/19 15:04 IMPRESSION: CHRONIC CHANGES OF ATROPHY AND MICROVASCULAR ISCHEMIA. NO ACUTE PROCESS. EVIDENCE OF ACUTE STROKE: NO. Interventional Vascular Procedure 12/02/19 00:00 IMPRESSION: Images from ultrasound-guided vascular access. KUB X-Ray 12/10/19 00:00 IMPRESSION: No acute abnormality in the abdomen. Cholecystostomy tube is unchanged in position. New right femoral central venous catheter. Biliary stent is no longer present. Stroke Is this a Stroke Patient?: No Acute Heart Failure - Is this a Heart Failure Patient?: No
[2019-12-11] MEDS: DOCUSATE SODIUM 100 MG CAPSULE PO SCH (10:31)
[2019-12-11] MEDS: POTASSIUM CHLORIDE 10 MEQ TABLET.ER PO SCH (10:37)
[2019-12-11] MEDS: CARVEDILOL 12.5 MG TABLET PO SCH (10:38)
[2019-12-11] MEDS: AMLODIPINE BESYLATE 10 MG TABLET PO SCH (10:38)
[2019-12-11] MEDS: SODIUM BICARBONATE 650 MG TABLET PO SCH (10:38)
[2019-12-11] MEDS: FERROUS SULFATE 325 MG TABLET PO SCH (10:38)
[2019-12-11] MEDS: CALCITRIOL 0.25 MCG CAPSULE PO SCH (10:38)
--- NOTE | 2019-12-11 13:18 | PDOC PROGRESS REPORT ---
Subjective Progress Note for:: 12/11/19 Subjective:: I have seen the patient this morning wide-awake and answering questions. He does not have much complaints. His blood pressures acceptable. Urine output for the past 24 hours was 1675 mL and biliary drain was a little bit confusing as recorded but it looks like he might have a total of 1 L if accurate. Reason For Visit: UREMIC ENCEPHALOPATHY,ACUTE ON CHRONIC KIDNEY Physical Exam Vital Signs: Temp Pulse Resp BP Pulse Ox 98.1 F 75 18 158/73 H 97 12/11/19 08:17 12/11/19 08:17 12/11/19 08:17 12/11/19 08:17 12/11/19 08:17 Intake & Output 12/10/19 12/11/19 12/12/19 06:59 06:59 06:59 Intake Total 2362 2600 Output Total 1635 2625 Balance 727 -25 Weight 119.3 kg 117.4 kg Exam: General appearance: PRESENT: no acute distress, cooperative, well-developed, well-nourished Head exam: PRESENT: atraumatic, normocephalic Eye exam: PRESENT: conjunctiva pale, PERRLA. ABSENT: scleral icterus Neck exam: ABSENT: JVD Respiratory exam: PRESENT: Diminished breath sounds. ABSENT: crackles, rales, rhonchi, unlabored, wheezes Cardiovascular exam: PRESENT: Regular rate rhythm -+S1, +S2. Grade 3/6 systolic murmur GI/Abdominal exam: PRESENT: normal bowel sounds, soft. ABSENT: guarding, mass, tenderness Extremities exam: ABSENT: No edema Neurological exam: PRESENT: alert, awake, oriented to person, place and time. Skin exam: PRESENT: dry, warm, Cardiovascular exam: PRESENT: +S1, +S2, systolic murmur. ABSENT: rubs GI/Abdominal exam: PRESENT: normal bowel sounds, organomegaly, tenderness - Mild tenderness in the right upper quadrant.. ABSENT: soft Results Laboratory Results: 12/11/19 05:11 12/11/19 05:11 12/11/19 12/11/19 12/11/19 05:11 05:11 06:37 WBC 9.5 RBC 2.66 L Hgb 8.6 L Hct 25.0 L MCV 94 MCH 32.3 MCHC 34.4 RDW 14.3 H Plt Count 277 Seg Neutrophils % 85.0 H Sodium 138.6 Potassium 4.5 Chloride 111 H Carbon Dioxide 18 L Anion Gap 10 BUN 47 H Creatinine 3.67 H Est GFR ( Amer) 19 L Glucose 98 Calcium 8.3 L Phosphorus 3.7 Urine Color YELLOW Urine Appearance SLIGHTLY-CLOUDY Urine pH 5.0 Ur Specific [place] 1.010 Urine Protein 100 H Urine Glucose (UA) NEGATIVE Urine Ketones TRACE H Urine Blood MODERATE H Urine RBC (Auto) 15 12/01/19 12/01/19 12/01/19 13:20 13:20 17:04 Creatine Kinase 108 CK-MB (CK-2) 4.63 H Troponin I 0.051 0.051 Impressions: Chest X-Ray 12/01/19 13:24 IMPRESSION: NO ACUTE RADIOGRAPHIC FINDING IN THE CHEST. Abdomen/Pelvis CT 12/01/19 15:04 IMPRESSION: 1. SUBCAPSULAR FLUID COLLECTION ASSOCIATED WITH THE LEFT KIDNEY, SECONDARY TO PREVIOUS PERINEPHRIC HEMATOMA, HAS DECREASED IN SIZE SINCE THE MOST RECENT AVAILABLE STUDY DATED 08/17/2019. THE PATIENT MAY HAVE MORE RECENT IMAGING STUDIES ELSEWHERE, THE PATIENT HAS HAD INTERVAL SURGERY WITH PLACEMENT OF PERCUTANEOUS DRAINAGE TUBE AND BILIARY STENT. COMPARISON WITH MORE RECENT STUDIES MAY BE HELPFUL. 2. COLONIC DIVERTICULOSIS. NO CT FINDINGS OF ACUTE DIVERTICULITIS. 3. 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 4. CORTICAL CYSTS IN THE RIGHT KIDNEY. 5. NO OTHER SIGNIFICANT OR ACUTE PROCESS IN THE ABDOMEN OR PELVIS. Head CT 12/01/19 15:04 IMPRESSION: CHRONIC CHANGES OF ATROPHY AND MICROVASCULAR ISCHEMIA. NO ACUTE PROCESS. EVIDENCE OF ACUTE STROKE: NO. Interventional Vascular Procedure 12/02/19 00:00 IMPRESSION: Images from ultrasound-guided vascular access. KUB X-Ray 12/10/19 00:00 IMPRESSION: No acute abnormality in the abdomen. Cholecystostomy tube is unchanged in position. New right femoral central venous catheter. Biliary stent is no longer present. Assessment & Plan - Diagnosis (1) OLMAN (acute kidney injury) Is this a current diagnosis for this admission?: Yes Plan: Most likely secondary to prerenal azotemia with severe volume depletion due to high output biliary drain after it was replaced or exchanged last ,11/25/19. Patient is currently nonoliguric. Due to uremia and encephalopathy the patient had renal replacement therapy last week on 12/02 and 12/04/2019. Kidney function is improving every single day. Patient's urine output is appropriate and improving. Encourage oral intake. Replace electrolytes as necessary. Patient's kidney function is a slowly improving spontaneously without further dialysis treatment. Reiterated to the patient to maintain adequate hydration duration once he is transferred to rehab facility. From nephrology standpoint I think he can be transferred to rehab facility today since he has a bed offer. I recommend to have his kidney function check next week at rehab. (2) Uremia Is this a current diagnosis for this admission?: Yes Plan: Resolved. (3) Acute encephalopathy Is this a current diagnosis for this admission?: Yes Plan: Initial thought was the patient's acute encephalopathy was most likely secondary to uremia and gabapentin toxicity. For the past few months the patient is a starting to develop an underlying mild dementia. Gabapentin was resumed at a high dose of 600 mg nightly. This is a high dose for a patient with his kidney function. We will decrease the gabapentin for his neuropathy 100 mg nightly. Discussed with patient and couple of days ago. Patient remains to be pleasantly confused. Patient's mental status when awake could actually be very near his baseline. Continue current management for now. (4) Acute cholecystitis Is this a current diagnosis for this admission?: Yes Plan: Patient had biliary drain placed at [facility] about 3 months ago. This was replaced a week ago which triggered and precipitated acute current illness. Surgery was consulted but no further recommendation was made but to follow-up with [facility] after discharge. (5) CKD (chronic kidney disease), stage IV Is this a current diagnosis for this admission?: Yes (6) Diabetes mellitus Is this a current diagnosis for this admission?: Yes (7) Hypokalemia Is this a current diagnosis for this admission?: Yes Plan: On potassium replacement. (8) Metabolic acidosis Is this a current diagnosis for this admission?: Yes Plan: On sodium bicarbonate orally. (9) Hypertension Is this a current diagnosis for this admission?: Yes (10) Anemia in chronic kidney disease (CKD) Is this a current diagnosis for this admission?: Yes Plan: Patient's iron is 28.5, T sat of 16 and ferritin of 572. Patient received a dose of IV Injectafer x1 dose. He received Retacrit 20,000 units subcutaneously yesterday. Patient would need to continue Retacrit 20,000 units subcutaneously q. weekly for as long as the hemoglobin is less than 10. (11) Chronic kidney disease-mineral and bone disorder Is this a current diagnosis for this admission?: Yes Plan: Phosphorus is is now normal at 3.7 from 11.6 on admission. PTH is 198.4. Calcitriol started and needs to be continued upon discharge. - Time Time with patient: 15-25 minutes
[2019-12-11 13:37] VITALS: BP 146/55
== END 2019-12-11 16:55 | DRG 683 ==
LOC: ER 12:59 → EH 18:29 → UNDOADMOB 18:46 → INTOOBSV 18:46 → EH 18:46 → OBSVTOIN 18:46 → 3W 21:27 → EH 21:27
PROVIDERS: ADMIT Internal Medicine; ATTEND Internal Medicine
PROC: 06HM33Z Insertion of Infusion Device into Right Femoral Vein, Percutaneous Approach (ICD-10-PCS; principal; 2019-12-02)
PROC: 5A1D70Z Performance of Urinary Filtration, Intermittent, Less than 6 Hours Per Day (ICD-10-PCS; 2019-12-02)
PROC: 5A1D70Z Performance of Urinary Filtration, Intermittent, Less than 6 Hours Per Day (ICD-10-PCS; 2019-12-04)
DX: N17.9 Acute kidney failure, unspecified (principal); G93.40 Encephalopathy, unspecified; I13.0 Hypertensive heart and chronic kidney disease with heart failure and stage 1 through stage 4 chronic kidney disease, or unspecified chronic kidney disease; K81.0 Acute cholecystitis; I48.91 Unspecified atrial fibrillation; I25.10 Atherosclerotic heart disease of native coronary artery without angina pectoris; I50.9 Heart failure, unspecified; E87.5 Hyperkalemia; F03.90 Unspecified dementia, unspecified severity, without behavioral disturbance, psychotic disturbance, mood disturbance, and anxiety; E11.22 Type 2 diabetes mellitus with diabetic chronic kidney disease; N18.4 Chronic kidney disease, stage 4 (severe); D63.1 Anemia in chronic kidney disease; J44.9 Chronic obstructive pulmonary disease, unspecified; E83.9 Disorder of mineral metabolism, unspecified; I25.2 Old myocardial infarction; M19.90 Unspecified osteoarthritis, unspecified site; Z97.8 Presence of other specified devices; Z79.4 Long term (current) use of insulin; Z88.8 Allergy status to other drugs, medicaments and biological substances; Z95.1 Presence of aortocoronary bypass graft; Z86.73 Personal history of transient ischemic attack (TIA), and cerebral infarction without residual deficits
CPT/HCPCS: 36415; 36556; 70450; 71045; 74018; 74176; 76937; 80048; 80053; 80074; 80307; 81001; 82140; 82550; 82553; 82607; 82728; 82746; 82962; 83540; 83550; 83605; 83735; 83970; 84100; 84132; 84484; 85025; 85027; 85045; 85610; 87086; 87088; 87186; 93005; 93010; 94640; 96361; 96374; 96375; 99285; C1752; C9113; J0610; J1439; J1630; J1644; J1815; J2310; J2405; J3490; J7030; J7050; J7620; Q5105

== ENCOUNTER 2019-12-23 10:43 | Emergency (ER) | payer MEDICARE, OTHER ==
[2019-12-23 11:27] LABS: ABSOLUTE BASOPHILS # (AUTO) 0.1 10^3/uL (0.0-0.2); ABSOLUTE EOSINOPHILS # (AUTO) 0.2 10^3/uL (0.0-0.6); ABSOLUTE LYMPHOCYTES (AUTO) 0.7 10^3/uL (0.5-4.7); ABSOLUTE MONOCYTES (AUTO) 0.5 10^3/uL (0.1-1.4); ABSOLUTE NEUT (AUTO) 5.5 10^3/uL (1.7-8.2); BASOPHILS % (AUTO) 0.7 % (0-2); EOSINOPHILS % (AUTO) 3.1 % (0-6); HEMATOCRIT 29.4 % (37.9-51.0); LYMPHOCYTES % (AUTO) 10.6 % (13-45); MEAN CORPUSCULAR HEMOGLOBIN 31.8 pg (27.0-33.4); MEAN CORPUSCULAR HGB CONC 33.9 g/dL (32.0-36.0); MEAN CORPUSCULAR VOLUME 94 fl (80-97); MONOCYTES % (AUTO) 7.4 % (3-13); PLATELET COUNT 214 10^3/uL (150-450); RED BLOOD COUNT 3.14 10^6/uL (4.35-5.55); RED CELL DISTRIBUTION WIDTH 14.4 % (11.5-14.0); SEGMENTED NEUTROPHILS % (AUTO) 78.2 % (42-78); TOTAL CELLS COUNTED % (AUTO) 100 %; WHITE BLOOD COUNT 7.1 10^3/uL (4.0-10.5)
[2019-12-23 11:49] LABS: ALBUMIN 2.8 g/dL (3.5-5.0); ALKALINE PHOSPHATASE 82 U/L (38-126); ANION GAP 7 (5-19); ASPARTATE AMINO TRANSFERASE 18 U/L (17-59); BILIRUBIN,DIRECT 0.4 mg/dL (0.0-0.4); BILIRUBIN,TOTAL 0.7 mg/dL (0.2-1.3); BLOOD UREA NITROGEN 28 mg/dL (7-20); CARBON DIOXIDE 29 mmol/L (22-30); CHLORIDE 102 mmol/L (98-107); GLUCOSE 104 mg/dL (75-110); POTASSIUM 3.9 mmol/L (3.6-5.0); TOTAL PROTEIN 5.6 g/dL (6.3-8.2)
--- NOTE | 2019-12-23 13:49 | RADIOLOGY REPORT (SQ) ---
EXAM DESCRIPTION: CHEST SINGLE VIEW COMPLETED DATE/TIME: 12/23/2019 1:33 pm REASON FOR STUDY: cough COMPARISON: AP view of the chest from 12/01/2019. EXAM PARAMETERS: NUMBER OF VIEWS: One view. TECHNIQUE: An AP view of the chest was obtained. RADIATION DOSE: NA LIMITATIONS: None. FINDINGS: LUNGS AND PLEURA: No consolidation, pleural effusion or pneumothorax. MEDIASTINUM AND HILAR STRUCTURES: No mediastinal or hilar contour abnormality. HEART AND VASCULAR STRUCTURES: The cardiac silhouette is intact. BONES: No acute findings. HARDWARE: Status post median sternotomy. There is an intact left subclavian vein approach dual lead transvenous pacemaker in place. OTHER: No other finding. IMPRESSION: No acute cardiopulmonary process. TECHNICAL DOCUMENTATION: JOB ID: [id number] [employer]- All Rights Reserved Reading location - IP/workstation name: [email or web address]
--- NOTE | 2019-12-23 14:47 | ER Document Report ---
ED General - General Chief Complaint: Abnormal Lab Results Stated Complaint: ABNORMAL LABS Time Seen by Provider: 12/23/19 13:08 Primary Care Provider: NATHALIE MORALES PA-C [Primary Care Provider] - Follow up as needed Mode of Arrival: Medic Information source: Patient, Relative TRAVEL OUTSIDE OF THE [place] IN LAST 30 DAYS: No - HPI Notes: Patient is brought from [facility] secondary to a recommendation from his inspector paper products. The cardiology office felt that patient may be becoming fluid overloaded and wanted the patient to receive Lasix here. Per the the patient has had some problems receiving Lasix at the assisted living facility. According to the over the last several days patient has not had any chest pain or shortness of breath. He has not been in distress. He has had no significant complaints. For me patient denies any significant complaints such as chest pain shortness of breath or other concerns. He has been swelling slightly the feels. The swelling has been constant. It is been very mild. Nothing does appear to make it better or worse. It does not radiate. - Related Data Allergies/Adverse Reactions: apixaban [From Eliquis] Allergy (Intermediate, Verified 12/01/19 13:54) clonidine [Clonidine] Allergy (Intermediate, Verified 12/01/19 13:07) Respiratory distress Past Medical History - General Information source: Patient, Relative - Social History Smoking Status: Former Smoker Chew tobacco use (# tins/day): No Frequency of alcohol use: None Drug Abuse: None Family History: Other - Disease and chronic kidney disease. denies: Reviewed & Not Pertinent Patient has suicidal ideation: No Patient has homicidal ideation: No - Past Medical History Cardiac Medical History: Reports: Hx Atrial Fibrillation, Hx Congestive Heart Failure, Hx Coronary Artery Disease, Hx Heart Attack, Hx Hypertension Pulmonary Medical History: Reports: Hx COPD, Hx Pneumonia - as a baby Denies: Hx Asthma, Hx Bronchitis Neurological Medical History: Denies: Hx Cerebrovascular Accident, Hx Seizures Endocrine Medical History: Reports: Hx Diabetes Mellitus Type 1, Hx Diabetes Mellitus Type 2 Renal/ Medical History: Denies: Hx Peritoneal Dialysis Musculoskeletal Medical History: Reports Hx Arthritis Psychiatric Medical History: Reports: Hx Depression Past Surgical History: Reports: Hx Cardiac Surgery - pacemaker, tripple bypass, Other - Recent diagnosis of acute/chronic cholecystitis. Deemed high risk and hasComment Only: Hx Cardiac Catheterization - stents - Immunizations Hx Diphtheria, Pertussis, Tetanus Vaccination: Yes Hx Pneumococcal Vaccination: 11/18/10 Review of Systems - Review of Systems Constitutional: denies: Chills, Fever Cardiovascular: denies: Chest pain, Palpitations Respiratory: denies: Cough, Short of breath -: Yes All other systems reviewed and negative Physical Exam - Vital signs Interpretation: Normal - General General appearance: Appears well, Alert - HEENT Head: Normocephalic, Atraumatic Eyes: Normal Pupils: PERRL - Respiratory Respiratory status: No respiratory distress Chest status: Nontender Breath sounds: Decreased air movement Chest palpation: Normal - Cardiovascular Rhythm: Regular Heart sounds: Normal auscultation Murmur: No - Abdominal Inspection: Normal Distension: No distension Bowel sounds: Normal Tenderness: Nontender Organomegaly: No organomegaly - Back Back: Normal, Nontender - Extremities General upper extremity: Normal inspection, Nontender, Normal color, Normal ROM, Normal temperature General lower extremity: Normal inspection, Nontender, Edema - 2+ edema of the lower extremities bilaterally, Normal color, Normal ROM, Normal temperature. No: Molly's sign - Neurological Neuro grossly intact: Yes Cognition: Normal Orientation: Disoriented to time Elizabeth Coma Scale Eye Opening: Spontaneous Dalton Coma Scale Verbal: Confused Elizabeth Coma Scale Motor: Obeys Commands Dalton Coma Scale Total: 14 - Psychological Associated symptoms: Confused, Psychomotor depression - Skin Skin Temperature: Warm Skin Moisture: Dry Skin Color: Normal Course - Re-evaluation Re-evalutation: 12/23/19 14:54 Patient is sent over from [facility] for possible need for Lasix. Here patient is in no distress. He has never been tachycardic. He has never been significantly hypertensive. Chest x-ray is clear. His BNP is 50% less than it was 2 days ago. His respirations are even and unlabored. His heart is regular rate and rhythm. I discussed the case with the nurse at [facility] as well as with the physicians assistant dean at the cardiology office. We will start the patient on Lasix 40 mg a day and the patient will follow-up in cardiology office next week. - Laboratory Result Diagrams: 12/23/19 11:10 12/23/19 11:10 Laboratory results interpreted by me: 12/23/19 12/23/19 12/23/19 11:10 11:10 11:10 RBC 3.14 L Hgb 10.0 L Hct 29.4 L RDW 14.4 H Lymph % (Auto) 10.6 L Seg Neutrophils % 78.2 H BUN 28 H Creatinine 2.56 H Est GFR ( Amer) 29 L Est GFR (MDRD) Non-Af 24 L Calcium 8.0 L NT-Pro-B Natriuret Pep 36796 H Total Protein 5.6 L Albumin 2.8 L - Diagnostic Test Radiology reviewed: Image reviewed, Reports reviewed Discharge - Discharge Clinical Impression: Congestive heart failure Qualifiers: Heart failure type: systolic Heart failure chronicity: acute on chronic Qualified Code(s): I50.23 - Acute on chronic systolic (congestive) heart failure Condition: Stable Disposition: HOME, SELF-CARE Instructions: Congestive Heart Failure ([facility]) Additional Instructions: Please take Lasix, 40 mg, each day until you see your inspector paper products. Prescriptions: Furosemide [Lasix 40 mg Tablet] 40 mg PO QAM #30 tablet Referrals: NATHALIE MORALES PA-C [Primary Care Provider] - Follow up as needed GAIL OSMAN MD [[facility]ERITUS] - Follow up in 1 week
[2019-12-23] MEDS ORDERED: FUROSEMIDE 40 MG TABLET PO ONE (14:58)
[2019-12-23 17:40] VITALS: BP 138/82
== END 2019-12-23 15:55 | disposition home or self-care (01) ==
LOC: ER 10:43
DX: I50.23 Acute on chronic systolic (congestive) heart failure (principal); R79.89 Other specified abnormal findings of blood chemistry; Z88.8 Allergy status to other drugs, medicaments and biological substances; Z87.891 Personal history of nicotine dependence; I25.10 Atherosclerotic heart disease of native coronary artery without angina pectoris; I25.2 Old myocardial infarction; I10 Essential (primary) hypertension; J44.9 Chronic obstructive pulmonary disease, unspecified; E11.9 Type 2 diabetes mellitus without complications
CPT/HCPCS: 99284; 36415; 85025; 80053; 83880; 71045; A9270

== ENCOUNTER → 2020-02-12 | Outpatient (CLI) | payer MEDICARE, OTHER ==
[2020-02-12 15:32] LABS: ALBUMIN 3.3 g/dL (3.5-5.0); ALKALINE PHOSPHATASE 81 U/L (38-126); ANION GAP 5 (5-19); ASPARTATE AMINO TRANSFERASE 18 U/L (17-59); BILIRUBIN,DIRECT 0.1 mg/dL (0.0-0.4); BILIRUBIN,TOTAL 0.6 mg/dL (0.2-1.3); BLOOD UREA NITROGEN 54 mg/dL (7-20); CALCIUM 9.2 mg/dL (8.4-10.2); CARBON DIOXIDE 30 mmol/L (22-30); CHLORIDE 102 mmol/L (98-107); CHOLESTEROL 178.76 mg/dL (0-200); GLUCOSE 94 mg/dL (75-110); POTASSIUM 4.9 mmol/L (3.6-5.0); TRIGLYCERIDES 180 mg/dL (<150)
[2020-02-12 15:43] LABS: DIRECT LDL 94 mg/dL (<100)
== END ==
LOC: OD 14:37
PROVIDERS: ATTEND Physician Assistant
DX: I11.0 Hypertensive heart disease with heart failure (principal); I50.9 Heart failure, unspecified; E78.2 Mixed hyperlipidemia; Z79.899 Other long term (current) drug therapy
CPT/HCPCS: 36415; 80048; 80061; 80076; 83880

== ENCOUNTER → 2020-02-29 | Outpatient (CLI) | payer MEDICARE ==
[2020-02-29 16:51] LABS: BLOOD UREA NITROGEN 66 mg/dL (7-20); GLUCOSE 103 mg/dL (75-110); POTASSIUM 5.1 mmol/L (3.6-5.0)
[2020-02-29 17:12] LABS: ANION GAP 6 (5-19); CARBON DIOXIDE 29 mmol/L (22-30); CHLORIDE 102 mmol/L (98-107)
[2020-03-01 13:50] LABS: ALBUMIN 3.7 g/dL (3.5-5.0); ALKALINE PHOSPHATASE 67 U/L (38-126); ASPARTATE AMINO TRANSFERASE 19 U/L (17-59); BILIRUBIN,TOTAL 0.4 mg/dL (0.2-1.3); CHOLESTEROL 135.31 mg/dL (0-200); TOTAL PROTEIN 6.1 g/dL (6.3-8.2); TRIGLYCERIDES 142 mg/dL (<150)
[2020-03-01 14:01] LABS: DIRECT LDL 65 mg/dL (<100)
== END ==
LOC: OD 15:13
PROVIDERS: ATTEND Physician Assistant
DX: I50.9 Heart failure, unspecified (principal); N17.9 Acute kidney failure, unspecified
CPT/HCPCS: 36415; 80048; 80061; 80076; 83880

== ENCOUNTER → 2020-03-30 | Outpatient (CLI) | payer MEDICARE, OTHER ==
[2020-03-30 16:09] LABS: ABSOLUTE BASOPHILS # (AUTO) 0.1 10^3/uL (0.0-0.2); ABSOLUTE EOSINOPHILS # (AUTO) 0.2 10^3/uL (0.0-0.6); ABSOLUTE LYMPHOCYTES (AUTO) 1.1 10^3/uL (0.5-4.7); ABSOLUTE MONOCYTES (AUTO) 0.3 10^3/uL (0.1-1.4); ABSOLUTE NEUT (AUTO) 4.3 10^3/uL (1.7-8.2); BASOPHILS % (AUTO) 1.1 % (0-2); EOSINOPHILS % (AUTO) 3.9 % (0-6); HEMATOCRIT 33.3 % (37.9-51.0); HEMOGLOBIN 11.5 g/dL (13.5-17.0); LYMPHOCYTES % (AUTO) 18.3 % (13-45); MEAN CORPUSCULAR HEMOGLOBIN 32.2 pg (27.0-33.4); MEAN CORPUSCULAR HGB CONC 34.7 g/dL (32.0-36.0); MEAN CORPUSCULAR VOLUME 93 fl (80-97); MONOCYTES % (AUTO) 5.7 % (3-13); PLATELET COUNT 165 10^3/uL (150-450); RED BLOOD COUNT 3.59 10^6/uL (4.35-5.55); RED CELL DISTRIBUTION WIDTH 14.7 % (11.5-14.0); TOTAL CELLS COUNTED % (AUTO) 100 %; WHITE BLOOD COUNT 6.1 10^3/uL (4.0-10.5)
[2020-03-30 16:12] LABS: HEMATOCRIT 33.3 % (37.9-51.0); HEMOGLOBIN 11.5 g/dL (13.5-17.0); MEAN CORPUSCULAR HEMOGLOBIN 32.2 pg (27.0-33.4); MEAN CORPUSCULAR HGB CONC 34.7 g/dL (32.0-36.0); MEAN CORPUSCULAR VOLUME 93 fl (80-97); PLATELET COUNT 165 10^3/uL (150-450); RED BLOOD COUNT 3.59 10^6/uL (4.35-5.55); RED CELL DISTRIBUTION WIDTH 14.7 % (11.5-14.0); WHITE BLOOD COUNT 6.1 10^3/uL (4.0-10.5)
[2020-03-30 16:30] LABS: ALBUMIN 3.7 g/dL (3.5-5.0); ALBUMIN 3.8 g/dL (3.5-5.0); ALKALINE PHOSPHATASE 73 U/L (38-126); ALKALINE PHOSPHATASE 75 U/L (38-126); ANION GAP 5 (5-19); ANION GAP 7 (5-19); ASPARTATE AMINO TRANSFERASE 21 U/L (17-59); BILIRUBIN,DIRECT 0.1 mg/dL (0.0-0.4); BILIRUBIN,TOTAL 0.6 mg/dL (0.2-1.3); BLOOD UREA NITROGEN 56 mg/dL (7-20); BLOOD UREA NITROGEN 57 mg/dL (7-20); CALCIUM 9.1 mg/dL (8.4-10.2); CARBON DIOXIDE 28 mmol/L (22-30); CARBON DIOXIDE 29 mmol/L (22-30); CHLORIDE 103 mmol/L (98-107); CHOLESTEROL 144.33 mg/dL (0-200); CHOLESTEROL 146.96 mg/dL (0-200); GLUCOSE 107 mg/dL (75-110); GLUCOSE 110 mg/dL (75-110); POTASSIUM 5.1 mmol/L (3.6-5.0); TOTAL PROTEIN 6.1 g/dL (6.3-8.2); TOTAL PROTEIN 6.3 g/dL (6.3-8.2); TRIGLYCERIDES 126 mg/dL (<150); TRIGLYCERIDES 129 mg/dL (<150)
[2020-03-30 16:41] LABS: DIRECT LDL 75 mg/dL (<100)
[2020-03-30 16:43] LABS: DIRECT LDL 75 mg/dL (<100)
[2020-03-30 17:08] LABS: GLUCOSE 107 mg/dL (75-110)
[2020-03-30 17:09] LABS: ANION GAP 7 (5-19); BLOOD UREA NITROGEN 56 mg/dL (7-20); CARBON DIOXIDE 28 mmol/L (22-30); CHLORIDE 103 mmol/L (98-107); POTASSIUM 5.1 mmol/L (3.6-5.0)
== END ==
LOC: OD 14:58
PROVIDERS: ATTEND Physician Assistant
DX: E78.2 Mixed hyperlipidemia (principal); N17.9 Acute kidney failure, unspecified; I11.0 Hypertensive heart disease with heart failure; I50.9 Heart failure, unspecified; N18.4 Chronic kidney disease, stage 4 (severe); E11.22 Type 2 diabetes mellitus with diabetic chronic kidney disease; D50.9 Iron deficiency anemia, unspecified; E03.9 Hypothyroidism, unspecified; E29.1 Testicular hypofunction; Z79.899 Other long term (current) drug therapy
CPT/HCPCS: 36415; 84443; 85025; 87070; 80076; 80048; 84403; 80061; 83880; G0103

== ENCOUNTER → 2020-04-20 | Outpatient (CLI) | payer MEDICARE, OTHER ==
[2020-04-20 17:43] LABS: ANION GAP 5 (5-19); BLOOD UREA NITROGEN 67 mg/dL (7-20); CALCIUM 9.4 mg/dL (8.4-10.2); CARBON DIOXIDE 29 mmol/L (22-30); CHLORIDE 102 mmol/L (98-107); GLUCOSE 111 mg/dL (75-110); POTASSIUM 5.3 mmol/L (3.6-5.0)
[2020-04-22 15:59] LABS: APPEARANCE,URINE CLEAR; BILIRUBIN,URINE NEGATIVE (NEGATIVE); COLOR,URINE STRAW; GLUCOSE, URINE NEGATIVE (NEGATIVE); KETONES,URINE NEGATIVE (NEGATIVE); LEUKOCYTE ESTERASE,URINE NEGATIVE (NEGATIVE); NITRITE,URINE NEGATIVE (NEGATIVE); PROTEIN,URINE 30 mg/dL (NEGATIVE); URINE SPECIFIC GRAVITY 1.008; UROBILINOGEN,URINE NEGATIVE mg/dL (<2.0)
== END ==
LOC: OD 16:35
PROVIDERS: ATTEND Physician Assistant
DX: I11.0 Hypertensive heart disease with heart failure (principal); I50.9 Heart failure, unspecified; N17.9 Acute kidney failure, unspecified
CPT/HCPCS: 36415; 80048; 81001; 83880

== ENCOUNTER → 2020-04-27 | Outpatient (CLI) | payer MEDICARE ==
[2020-04-27 16:41] LABS: APPEARANCE,URINE CLEAR; BILIRUBIN,URINE NEGATIVE (NEGATIVE); COLOR,URINE YELLOW; GLUCOSE, URINE NEGATIVE (NEGATIVE); KETONES,URINE NEGATIVE (NEGATIVE); LEUKOCYTE ESTERASE,URINE NEGATIVE (NEGATIVE); NITRITE,URINE NEGATIVE (NEGATIVE); PROTEIN,URINE 100 mg/dL (NEGATIVE); URINE SPECIFIC GRAVITY 1.013; UROBILINOGEN,URINE NEGATIVE mg/dL (<2.0)
[2020-04-27 16:55] LABS: ANION GAP 9 (5-19); BLOOD UREA NITROGEN 75 mg/dL (7-20); CARBON DIOXIDE 28 mmol/L (22-30); CHLORIDE 100 mmol/L (98-107); GLUCOSE 134 mg/dL (75-110); POTASSIUM 4.4 mmol/L (3.6-5.0)
== END ==
LOC: OD 15:18
PROVIDERS: ATTEND Physician Assistant
DX: E87.5 Hyperkalemia (principal); I50.9 Heart failure, unspecified; R35.0 Frequency of micturition
CPT/HCPCS: 36415; 80048; 81001; 83880

== ENCOUNTER → 2020-05-02 | Outpatient (CLI) | payer MEDICARE, OTHER ==
--- NOTE | 2020-05-02 19:46 | XCELERA REPORT ---
[address] [address] Transthoracic Echocardiogram Report Name: KING DWAYNEYAMILEX JR Age: 79 yrs Gender: Male : 1940 Patient Status: Outpatient Patient Location: [facility] Study Date: 05/02/2020 01:16 PM Height: 77 in Weight: 214 lb BSA: 2.3 m2 Reason For Study: CHF Ordering Physician: LEISA VALENZUELA Performed By: Lilia Gonzalez Interpretation Summary Very poor study due to pt size and hyperinflated lungs. Moderate post pericardial effusion or fat pad. Aortic root calcified. Mild calcific aortic valvular stenosis with 3 calcified cusps. PPG is 21 mm Hg MPG is 12 mm Hg, likely due to low CO. LVOT no gradient PPG 4mm Hg. AR is only trace. Severely calcified mitral annular calcification with no MS, mild MR and severe LA enlargement, MARKELL 54cc/m2. Moderate concentric LVH with IVS 17mm, PW13 mm, LVEF 30% reduced from last yr LVEF, with LVDD -- I. Multiple regional wall motion abnormality, see pictoral. Normal apical and mid lateral wall and apical PW, Dyskinetic anteroseptal and inferoseptal wall. Hypokinetic basal lateral, basal PW, and basal IW is akinetic. No LV enlargement. RH is normal size and only trace TR with poorly derived RVSP, unreliable. Summary = Mod. concentric LVH with multiple segmental disease , LVEF dropped to ~30%. Severe MAC and severe LA enlargement. with only mild MR. Mild likely due to low output low gradient aortic stenosis. MMode/2D Measurements & Calculations RVDd: 2.7 cm LVIDd: 5.1 cm FS: 28.9 % Ao root diam: 3.3 cm IVSd: 1.7 cm LVIDs: 3.6 cm EDV(Teich): Ao root area: LVPWd: 1.3 cm 125.2 ml ESV(Teich): 56.0 ml 8.7 cm2 LA dimension: 4.0 cm EF(Teich): 55.3 % LVOT diam: 2.0 cmLVLd ap4: 8.6 cm SV(MOD-sp4): LVOT area: EDV(MOD-sp4): 43.0 ml 3.0 cm2 154.0 ml LVLs ap4: 8.8 cm ESV(MOD-sp4): 111.0 ml EF(MOD-sp4): 27.9 % Doppler Measurements & Calculations MV E max artemio: MV P1/2t max artemio: Ao V2 max: LV V1 max P.3 cm/sec 96.4 cm/sec 218.4 cm/sec 4.2 mmHg MV A max artemio: MV P1/2t: 58.8 msec Ao max PG: LV V1 mean P.0 cm/sec 19.1 mmHg 2.4 mmHg MV E/A: 0.59 MVA(P1/2t): 3.7 cm2 Ao V2 mean: LV V1 max: MV dec slope: 166.0 cm/sec 101.9 cm/sec 480.2 cm/sec2 MV dec time: 0.22 sec Ao mean PG: LV V1 mean: 12.1 mmHg 72.6 cm/sec Ao V2 VTI: 50.8 cmLV V1 VTI: 24.6 cm MUNIRA(I,D): 1.5 cm2 MUNIRA(V,D): 1.4 cm2 SV(LVOT): 74.4 ml PA V2 max: TR max artemio: MV P1/2t-pr_phl: 87.9 cm/sec 202.4 cm/sec 58.8 msec PA max P.1 mmHg TR max P.4 mmHg I WMSI = 2.44 % Normal = 19 Segments Size X - Cannot 2 - 4 - 1-2 small Interpret 1 - Normal Hypokinetic 3 - AkineticDyskinetic 3-5 moderate 5 - 6-14 large Aneurysmal 15-16 diffuse : LEISA VALENZUELA Wojciech
== END ==
LOC: SP 12:44
PROVIDERS: ATTEND Physician Assistant
DX: I50.9 Heart failure, unspecified (principal)
CPT/HCPCS: 93306

== ENCOUNTER → 2020-05-06 | Outpatient (CLI) | payer MEDICARE, OTHER ==
[2020-05-06 17:47] LABS: ABSOLUTE EOSINOPHILS # (AUTO) 0.2 10^3/uL (0.0-0.6); ABSOLUTE LYMPHOCYTES (AUTO) 1.2 10^3/uL (0.5-4.7); ABSOLUTE MONOCYTES (AUTO) 0.3 10^3/uL (0.1-1.4); ABSOLUTE NEUT (AUTO) 3.9 10^3/uL (1.7-8.2); BASOPHILS % (AUTO) 0.9 % (0-2); EOSINOPHILS % (AUTO) 4.3 % (0-6); HEMATOCRIT 33.6 % (37.9-51.0); HEMOGLOBIN 11.7 g/dL (13.5-17.0); LYMPHOCYTES % (AUTO) 21.1 % (13-45); MEAN CORPUSCULAR HEMOGLOBIN 31.7 pg (27.0-33.4); MEAN CORPUSCULAR HGB CONC 34.7 g/dL (32.0-36.0); MEAN CORPUSCULAR VOLUME 91 fl (80-97); MONOCYTES % (AUTO) 5.4 % (3-13); PLATELET COUNT 173 10^3/uL (150-450); RED BLOOD COUNT 3.68 10^6/uL (4.35-5.55); RED CELL DISTRIBUTION WIDTH 14.1 % (11.5-14.0); SEGMENTED NEUTROPHILS % (AUTO) 68.3 % (42-78); TOTAL CELLS COUNTED % (AUTO) 100 %; WHITE BLOOD COUNT 5.7 10^3/uL (4.0-10.5)
[2020-05-06 17:51] LABS: APPEARANCE,URINE CLEAR; BILIRUBIN,URINE NEGATIVE (NEGATIVE); COLOR,URINE STRAW; GLUCOSE, URINE NEGATIVE (NEGATIVE); KETONES,URINE NEGATIVE (NEGATIVE); LEUKOCYTE ESTERASE,URINE NEGATIVE (NEGATIVE); NITRITE,URINE NEGATIVE (NEGATIVE); PROTEIN,URINE 30 mg/dL (NEGATIVE); URINE SPECIFIC GRAVITY 1.009; UROBILINOGEN,URINE NEGATIVE mg/dL (<2.0)
[2020-05-06 18:30] LABS: ANION GAP 5 (5-19); BLOOD UREA NITROGEN 76 mg/dL (7-20); CALCIUM 9.6 mg/dL (8.4-10.2); CARBON DIOXIDE 29 mmol/L (22-30); CHLORIDE 104 mmol/L (98-107); GLUCOSE 122 mg/dL (75-110); PHOSPHORUS 4.8 mg/dL (2.5-4.5); POTASSIUM 5.1 mmol/L (3.6-5.0)
[2020-05-06 18:31] LABS: UR PRO/CREAT RATIO RESULT 1.1 mg/mg (0.0-0.2); URINE CREATININE 45.9 mg/dL (22-328); URINE PROTEIN 52.4 mg/dL (<12)
[2020-05-06 18:48] LABS: IRON(TIBC) 93.5 ug/dL (49-181)
== END ==
LOC: OD 16:50
PROVIDERS: ATTEND Internal Medicine Nephrology
DX: I12.9 Hypertensive chronic kidney disease with stage 1 through stage 4 chronic kidney disease, or unspecified chronic kidney disease (principal); N18.4 Chronic kidney disease, stage 4 (severe); E11.22 Type 2 diabetes mellitus with diabetic chronic kidney disease; D63.1 Anemia in chronic kidney disease
CPT/HCPCS: 36415; 80069; 81001; 82306; 82570; 82728; 83540; 83550; 83970; 84156; 85025

== ENCOUNTER → 2020-05-31 | Outpatient (CLI) | payer MEDICARE, OTHER ==
[2020-05-31 16:03] LABS: ANION GAP 6 (5-19); BLOOD UREA NITROGEN 62 mg/dL (7-20); CALCIUM 8.9 mg/dL (8.4-10.2); CARBON DIOXIDE 29 mmol/L (22-30); CHLORIDE 102 mmol/L (98-107); GLUCOSE 162 mg/dL (75-110); POTASSIUM 4.5 mmol/L (3.6-5.0)
== END ==
LOC: OD 14:04
PROVIDERS: ATTEND Physician Assistant
DX: I50.9 Heart failure, unspecified (principal); N18.3 Chronic kidney disease, stage 3 (moderate); E87.5 Hyperkalemia
CPT/HCPCS: 36415; 80048; 83880

== ENCOUNTER 2020-06-07 16:13 | Emergency (ER) | payer MEDICARE, OTHER ==
[2020-06-07] MEDS ORDERED: DIPH/PERTUSS(ACELL)/TETANUS VAC/PF 0.5 ML SYR (>=10YO) IM ONE (16:27)
--- NOTE | 2020-06-07 16:29 | ER Document Report ---
ED Medical Screen (RME) - General Chief Complaint: Shoulder Injury Stated Complaint: FALL/RIGHT SHOULDER INJURY Time Seen by Provider: 06/07/20 16:25 Primary Care Provider: LEISA VAELNZUELA PA-C [Primary Care Provider] - Follow up as needed Mode of Arrival: Wheelchair Information source: Patient Notes: Patient states that he was walking tripped over a curb and fell. Patient with pain to the right hand and right shoulder. Patient denies any head injury or loss of consciousness. I have greeted and performed a rapid initial assessment of this patient. A comp rehensive ED assessment and evaluation of the patient, analysis of test results and completion of the medical decision making process will be conducted by additional ED providers. TRAVEL OUTSIDE OF THE [place] IN LAST 30 DAYS: No - Related Data Allergies/Adverse Reactions: apixaban [From Eliquis] Allergy (Intermediate, Verified 12/01/19 13:54) clonidine [Clonidine] Allergy (Intermediate, Verified 12/01/19 13:07) Respiratory distress Past Medical History - Past Medical History Cardiac Medical History: Reports: Hx Atrial Fibrillation, Hx Congestive Heart Failure, Hx Coronary Artery Disease, Hx Heart Attack, Hx Hypertension Pulmonary Medical History: Reports: Hx COPD, Hx Pneumonia - as a baby Denies: Hx Asthma, Hx Bronchitis Neurological Medical History: Denies: Hx Cerebrovascular Accident, Hx Seizures Endocrine Medical History: Reports: Hx Diabetes Mellitus Type 1, Hx Diabetes Mellitus Type 2 Renal/ Medical History: Denies: Hx Peritoneal Dialysis Musculoskeltal Medical History: Reports Hx Arthritis Psychiatric Medical History: Reports: Hx Depression Past Surgical History: Reports: Hx Cardiac Surgery - pacemaker, tripple bypass, Other - Recent diagnosis of acute/chronic cholecystitis. Deemed high risk and hasComment Only: Hx Cardiac Catheterization - stents - Immunizations Hx Diphtheria, Pertussis, Tetanus Vaccination: Yes Physical Exam - Vital signs Vitals: Temp Pulse Resp BP Pulse Ox 97.4 F 59 L 20 142/86 H 98 06/07/20 16:22 06/07/20 16:22 06/07/20 16:22 06/07/20 16:22 06/07/20 16:22 - Extremities General upper extremity: Tender - Tenderness to right shoulder joint, 2+ radial pulse, tenderness to right second metacarpal Course - Vital Signs Vital signs: Temp Pulse Resp BP Pulse Ox 97.4 F 59 L 20 142/86 H 98 06/07/20 16:22 06/07/20 16:22 06/07/20 16:22 06/07/20 16:22 06/07/20 16:22 Doctor's Discharge - Discharge Referrals: LEISA VALENZUELA, PAJohnC [Primary Care Provider] - Follow up as needed
[2020-06-07] MEDS ORDERED: TRAMADOL HCL 50 MG TABLET PO ONE (16:31)
--- NOTE | 2020-06-07 17:00 | RADIOLOGY REPORT (SQ) ---
EXAM DESCRIPTION: HAND RIGHT 3 VIEWS IMAGES COMPLETED DATE/TIME: 06/07/2020 4:52 pm REASON FOR STUDY: fall, r 2nd MC pain COMPARISON: None. EXAM PARAMETERS: NUMBER OF VIEWS: Three views. TECHNIQUE: AP, lateral and oblique radiographic images acquired of the right hand. LIMITATIONS: None. FINDINGS: MINERALIZATION: Normal. BONES: No acute fracture or dislocation. No worrisome bone lesions. JOINTS: No effusions. SOFT TISSUES: No soft tissue swelling. No foreign body. OTHER: No other significant finding. IMPRESSION: NEGATIVE STUDY OF THE RIGHT HAND. NO RADIOGRAPHIC EVIDENCE OF ACUTE INJURY. TECHNICAL DOCUMENTATION: JOB ID: [id number] 2010 [employer]- All Rights Reserved Reading location - IP/workstation name: [email or web address]
--- NOTE | 2020-06-07 17:01 | RADIOLOGY REPORT (SQ) ---
EXAM DESCRIPTION: SHOULDER RIGHT 2 OR MORE VIEWS IMAGES COMPLETED DATE/TIME: 06/07/2020 4:53 pm REASON FOR STUDY: fall, r shoulder injury COMPARISON: None. NUMBER OF VIEWS: Two views. TECHNIQUE: Frontal and lateral images acquired of the right shoulder. LIMITATIONS: None. FINDINGS: MINERALIZATION: Normal. BONES: Cortical irregularity of the humeral neck likely representing a nondisplaced fracture. No wor risome bone lesions. JOINTS: No dislocation. VISUALIZED LUNGS AND RIBS: No pneumothorax. No rib fracture. SOFT TISSUES: No radiopaque foreign body. OTHER: No other significant finding. IMPRESSION: PROBABLE NONDISPLACED FRACTURE OF THE HUMERAL NECK. TECHNICAL DOCUMENTATION: JOB ID: [id number] 2010 [employer]- All Rights Reserved Reading location - IP/workstation name: [email or web address]
[2020-06-07] MEDS ORDERED: HYDROCODONE/ACETAMINOPHEN 5-325 MG TABLET PO ONE (18:41)
[2020-06-07] MEDS ORDERED: HYDROCODONE/ACETAMINOPHEN 5-325 MG (6 TAB/ER DISP) PO PRN (18:50)
[2020-06-07 19:09] VITALS: BP 171/74
--- NOTE | 2020-06-07 19:10 | ER Document Report ---
Entered by CHELY RIVAS SCRIBE 06/07/20 1839 Acting as scribe for:BRANDI MUÑOZ DO ED Fall - General Chief Complaint: Fall Injury Stated Complaint: FALL/RIGHT SHOULDER INJURY Time Seen by Provider: 06/07/20 16:25 Primary Care Provider: LEISA VALENZUELA PA-C [PHYSICIAN [employer] MACHINE [employer] SUPERVISOR] - Follow up as needed BRAD BRAY MD [ACTIVE STAFF] - 06/08/20 Mode of Arrival: Wheelchair Information source: Patient Notes: This 80 year old male patient, right hand dominant, presents to the ED today with complaints of fall that occurred prior to arrival. Patient states that tripped over a curb, lost his balance, and then fell backwards, landing on his right side. He reports pain to his right shoulder and hand. Denies hitting his head, LEMUS, syncope, or LOC. Denies any other pain. No blood thinners. TRAVEL OUTSIDE OF THE [place] IN LAST 30 DAYS: No - Related data Allergies/Adverse Reactions: apixaban [From Eliquis] Allergy (Intermediate, Verified 12/01/19 13:54) clonidine [Clonidine] Allergy (Intermediate, Verified 12/01/19 13:07) Respiratory distress Past Medical History - General Information source: Patient, Relative - , [facility] Records - Social History Smoking Status: Former Smoker Cigarette use (# per day): No Chew tobacco use (# tins/day): No Smoking Education Provided: No Frequency of alcohol use: None Drug Abuse: None Lives with: Spouse/Significant other Family History: Reviewed & Not Pertinent Patient has suicidal ideation: No Patient has homicidal ideation: No - Past Medical History Cardiac Medical History: Reports: Hx Atrial Fibrillation, Hx Congestive Heart Failure, Hx Coronary Artery Disease, Hx Heart Attack, Hx Hypertension Pulmonary Medical History: Reports: Hx COPD, Hx Pneumonia - as a baby Endocrine Medical History: Reports: Hx Diabetes Mellitus Type 1, Hx Diabetes Mellitus Type 2 Musculoskeletal Medical History: Reports Hx Arthritis Psychiatric Medical History: Reports: Hx Depression Past Surgical History: Reports: Hx Cardiac Catheterization - stents, Hx Coronary Artery Bypass Graft - tripple bypass, Hx Coronary Stent, Hx Pacemaker, Other - Recent diagnosis of acute/chronic cholecystitis. Deemed high risk and has - Immunizations Hx Diphtheria, Pertussis, Tetanus Vaccination: Yes Hx Pneumococcal Vaccination: 11/18/10 Review of Systems - Review of Systems Constitutional: No symptoms reported EENT: No symptoms reported Cardiovascular: See HPI. denies: Syncope Respiratory: No symptoms reported Gastrointestinal: No symptoms reported Genitourinary: No symptoms reported Musculoskeletal: See HPI, Joint pain, Muscle pain Skin: No symptoms reported Hematologic/Lymphatic: No symptoms reported Neurological/Psychological: See HPI. denies: Lost consciousness, Headaches -: Yes All other systems reviewed and negative Physical Exam - Vital signs Vitals: Temp Pulse Resp BP Pulse Ox 97.4 F 59 L 20 142/86 H 98 06/07/20 16:22 06/07/20 16:22 06/07/20 16:22 06/07/20 16:22 06/07/20 16:22 - General General appearance: Appears well, Alert In distress: None - HEENT Head: Normocephalic, Atraumatic Eyes: Normal Pupils: PERRL Neck: Normal - Nontender - Respiratory Respiratory status: No respiratory distress Chest status: Nontender Breath sounds: Normal Chest palpation: Normal - Cardiovascular Rhythm: Regular Heart sounds: Normal auscultation Murmur: Yes Systolic murmur grade 1-6: 3 - systolic ejection murmur Friction rub: No Gallop: None auscultated - Abdominal Inspection: Normal Distension: No distension Bowel sounds: Normal Tenderness: Nontender - Abdomen soft Organomegaly: No organomegaly - Back Back: Normal, Nontender - Extremities General upper extremity: Normal temperature Shoulder: Tender - Tenderness to palpation over right shoulder, Limited ROM. No: Deformity Elbow: No: Deformity - Right elbow, Ecchymosis, Swollen bursa Hand: Tender - Tenderness to palpation of right hand. No: Deformity, Ecchymosis, Swelling - Neurological Neuro grossly intact: Yes Orientation: AAOx4 Webster Coma Scale Eye Opening: Spontaneous Webster Coma Scale Verbal: Oriented Webster Coma Scale Motor: Obeys Commands Webster Coma Scale Total: 15 - Psychological Associated symptoms: Normal affect, Normal mood - Skin Skin Temperature: Warm Skin Moisture: Dry Skin Color: Normal Course - Re-evaluation Re-evalutation: 06/07/20 18:53 Delightful 80 year old male fell and injured right shoulder. Sharp right shoulder pain with limited rom. Distally nvi. His fall was mechanical. Right hand pain too but no other apparent injury. No neck pain when I palpate and no head injury that I can see and he endorses no headache. They have seen local ortho and will follow up wiht them this week. - Vital Signs Vital signs: Temp Pulse Resp BP Pulse Ox 98.5 F 60 18 171/74 H 96 06/07/20 19:05 06/07/20 19:05 06/07/20 19:05 06/07/20 19:05 06/07/20 19:05 - Diagnostic Test Radiology reviewed: Image reviewed, Reports reviewed Discharge - Discharge Clinical Impression: Right humeral fracture Qualifiers: Encounter type: initial encounter Humerus Location: proximal Fracture type: closed Fracture morphology: other fracture Fracture alignment: nondisplaced Qualified Code(s): S42.294A - Other nondisplaced fracture of upper end of right humerus, initial encounter for closed fracture Condition: Stable Disposition: HOME, SELF-CARE Instructions: Oral Narcotic Medication ([facility]), Fracture Proximal Humerus, Sling as Treatment ([facility]) Additional Instructions: Rest, ice to shoulder. Call the orthopedist in follow up. Return here for increased pain, other problems or other concerns. Prescriptions: Polyethylene Glycol 3350 [Miralax Powder 17 gm/Packet] 1 packet PO DAILY #7 pkg Referrals: LEISA VALENZUELA PA-C [PHYSICIAN [employer] MACHINE [employer] SUPERVISOR] - Follow up as needed BRAD BRAY MD [ACTIVE STAFF] - 06/08/20 I personally performed the services described in the documentation, reviewed and edited the documentation which was dictated to the scribe in my presence, and it accurately records my words and actions.
== END 2020-06-07 19:12 | disposition home or self-care (01) ==
LOC: ER 16:13
DX: S42.294A Other nondisplaced fracture of upper end of right humerus, initial encounter for closed fracture (principal); M79.641 Pain in right hand; M79.10 Myalgia, unspecified site; W19.XXXA Unspecified fall, initial encounter; Z88.8 Allergy status to other drugs, medicaments and biological substances; Z87.891 Personal history of nicotine dependence; I50.9 Heart failure, unspecified; I25.10 Atherosclerotic heart disease of native coronary artery without angina pectoris; I25.2 Old myocardial infarction; I11.0 Hypertensive heart disease with heart failure; J44.9 Chronic obstructive pulmonary disease, unspecified; E11.9 Type 2 diabetes mellitus without complications
CPT/HCPCS: 99283; 90471; 73130; 73030; 90715; A9270 ×3

== ENCOUNTER → 2020-07-05 | Outpatient (CLI) | payer MEDICARE ==
--- NOTE | 2020-07-05 14:50 | RADIOLOGY REPORT (SQ) ---
EXAM DESCRIPTION: CT HEAD WITHOUT IMAGES COMPLETED DATE/TIME: 07/05/2020 2:29 pm REASON FOR STUDY: Z91.81 HISTORY OF FALLING, R41.82 ALTERED MENTAL STATUS, UNSPECIFIED Z91.81 HISTO RY OF FALLING R41.82 ALTERED MENTAL STATUS, UNSPECIFIED COMPARISON: CT of the head without contrast from 12/01/2019. TECHNIQUE: Axial images acquired through the brain without intravenous contrast. Images reviewed wi th bone, brain and subdural windows. Additional sagittal and coronal reconstructions were generated. Images stored on PACS. All CT scanners at this facility use dose modulation, iterative reconstruction, and/or weight based d osing when appropriate to reduce radiation dose to as low as reasonably achievable (ALARA). [facility]: Dose Right [facility]: CareDose [facility]: Dose Right [facility]: Teradose 4D [facility]: Smart 365net RADIATION DOSE: CT Rad equipment meets quality standard of care and radiation dose reduction techniq ues were employed. CTDIvol: 48.7 mGy. DLP: 1029 mGy-cm. LIMITATIONS: None. FINDINGS: There is diffuse age-appropriate cerebral and cerebellar volume loss. The confluent areas of low-attenuation throughout the supratentorial periventricular and subcortical white matter are un changed and likely represent the sequela of chronic ischemia. The prominence of the subarachnoid spa ce in the posterior cranial fossa is also unchanged. There is no acute intracranial hemorrhage, vasc ular territorial infarct, extra-axial fluid collection, mass effect or midline shift. The caliber of the ventricles is concordant with the degree of sulcation. There is no effacement of the cerebral s ulci or basal subarachnoid cisterns. The orbits and globes are intact. The paranasal sinuses are clear. There is no fracture of the calv arium. IMPRESSION: No acute intracranial abnormality. EVIDENCE OF ACUTE STROKE: NO. COMMENT: Quality ID # [id number]: Final reports with documentation of one or more dose reduction techniques (e.g., Automated exposure control, adjustment of the mA and/or kV according to patient size, use of iterative reconstruction technique) TECHNICAL DOCUMENTATION: JOB ID: [id number] 2010 [employer]- All Rights Reserved Reading location - IP/workstation name: [email or web address]
== END ==
LOC: RAD 14:00
PROVIDERS: ATTEND Nurse Practitioner Family
DX: R41.82 Altered mental status, unspecified (principal); Z91.81 History of falling
CPT/HCPCS: 70450

== ENCOUNTER → 2020-07-05 | Outpatient (CLI) | payer MEDICARE ==
[2020-07-05 13:27] LABS: ABSOLUTE MONOCYTES (AUTO) 0.5 10^3/uL (0.1-1.4); ABSOLUTE NEUT (AUTO) 7.6 10^3/uL (1.7-8.2); BASOPHILS % (AUTO) 0.3 % (0-2); EOSINOPHILS % (AUTO) 0.5 % (0-6); HEMATOCRIT 29.2 % (37.9-51.0); HEMOGLOBIN 10.1 g/dL (13.5-17.0); LYMPHOCYTES % (AUTO) 10.9 % (13-45); MEAN CORPUSCULAR HGB CONC 34.7 g/dL (32.0-36.0); MEAN CORPUSCULAR VOLUME 92 fl (80-97); MONOCYTES % (AUTO) 5.2 % (3-13); PLATELET COUNT 247 10^3/uL (150-450); RED BLOOD COUNT 3.17 10^6/uL (4.35-5.55); RED CELL DISTRIBUTION WIDTH 14.4 % (11.5-14.0); SEGMENTED NEUTROPHILS % (AUTO) 83.1 % (42-78); TOTAL CELLS COUNTED % (AUTO) 100 %; WHITE BLOOD COUNT 9.2 10^3/uL (4.0-10.5)
[2020-07-05 13:30] LABS: AMORPHOUS SEDIMENT,URINE 1+ /HPF; APPEARANCE,URINE CLOUDY; BILIRUBIN,URINE NEGATIVE (NEGATIVE); COLOR,URINE YELLOW; GLUCOSE, URINE NEGATIVE (NEGATIVE); KETONES,URINE NEGATIVE (NEGATIVE); LEUKOCYTE ESTERASE,URINE NEGATIVE (NEGATIVE); NITRITE,URINE NEGATIVE (NEGATIVE); PROTEIN,URINE 100 mg/dL (NEGATIVE); URINE SPECIFIC GRAVITY 1.011; UROBILINOGEN,URINE NEGATIVE mg/dL (<2.0)
[2020-07-05 13:36] LABS: ALKALINE PHOSPHATASE 102 U/L (38-126); ANION GAP 11 (5-19); ASPARTATE AMINO TRANSFERASE 17 U/L (17-59); BILIRUBIN,DIRECT 0.4 mg/dL (0.0-0.4); BILIRUBIN,TOTAL 1.1 mg/dL (0.2-1.3); BLOOD UREA NITROGEN 62 mg/dL (7-20); CALCIUM 9.8 mg/dL (8.4-10.2); CARBON DIOXIDE 27 mmol/L (22-30); CHLORIDE 101 mmol/L (98-107); CHOLESTEROL 150.36 mg/dL (0-200); GLUCOSE 220 mg/dL (75-110); POTASSIUM 4.9 mmol/L (3.6-5.0); TOTAL PROTEIN 6.8 g/dL (6.3-8.2); TRIGLYCERIDES 231 mg/dL (<150)
[2020-07-05 13:52] LABS: DIRECT LDL 72 mg/dL (<100)
[2020-07-05 13:54] LABS: VLDL CHOLESTEROL 46.2 mg/dL (10-31)
== END ==
LOC: PNR 13:04
PROVIDERS: ATTEND Family Medicine
DX: E11.22 Type 2 diabetes mellitus with diabetic chronic kidney disease (principal); N18.4 Chronic kidney disease, stage 4 (severe); D30.01 Benign neoplasm of right kidney; I50.22 Chronic systolic (congestive) heart failure; I48.20 Chronic atrial fibrillation, unspecified; I71.4 Abdominal aortic aneurysm, without rupture
CPT/HCPCS: 80053; 80061; 81001; 83036; 83880; 85025; 87086

== ENCOUNTER → 2020-10-07 | Outpatient (CLI) | payer MEDICARE, MEDICAID ==
--- NOTE | 2020-10-07 11:11 | RADIOLOGY REPORT (SQ) ---
EXAM DESCRIPTION: CT ABD/PELVIS NO ORAL OR IV IMAGES COMPLETED DATE/TIME: 10/07/2020 10:21 am REASON FOR STUDY: (R19.02)LEFT UPPER QUADRANT ABDOMINAL SWELLING, MASS AND LUMP R19.02 LEFT UPPER Q UADRANT ABDOMINAL SWELLING, MASS AND LUMP COMPARISON: 12/01/2019 TECHNIQUE: CT scan of the abdomen and pelvis performed without intravenous or oral contrast. Images reviewed with lung, soft tissue, and bone windows. Reconstructed coronal and sagittal MPR images revi ewed. All images stored on PACS. All CT scanners at this facility use dose modulation, iterative reconstruction, and/or weight based d osing when appropriate to reduce radiation dose to as low as reasonably achievable (ALARA). [facility]: Dose Right [facility]: CareDose [facility]: Dose Right [facility]: Teradose 4D [facility]: Smart [employer] Care RADIATION DOSE: CT Rad equipment meets quality standard of care and radiation dose reduction techniq ues were employed. CTDIvol: 13.1 mGy. DLP: 763 mGy-cm.mGy. LIMITATIONS: None. FINDINGS: LOWER CHEST: Minimal basilar pleural thickening. No effusions. NON-CONTRASTED LIVER, SPLEEN, ADRENALS: Stable from prior exam. Persistent fullness in the right adr enal gland most likely hyperplasia. No focal hepatic or splenic lesions. PANCREAS: No masses. No peripancreatic inflammatory changes. GALLBLADDER: Mild gallbladder distention. No stones. Common bile duct stent remains in place. Exte rnal drain previously noted has been removed. RIGHT KIDNEY AND URETER: Multiple right renal cyst stable in appearance. Mild nonspecific perinephri c stranding. No significant calcifications. No hydronephrosis or hydroureter. LEFT KIDNEY AND URETER: Large parenchymal calcification is unchanged. Subcapsular fluid collection r emains. It is slightly decreased in size. It measures 3.8 x 4.5 cm in greatest diameter compared to 5.2 x 5.9 cm on prior study. No obstructing stones. No hydronephrosis or hydroureter. AORTA AND RETROPERITONEUM: 3.6 x 4.1 cm infrarenal abdominal aortic aneurysm grossly unchanged from p rior study BOWEL AND PERITONEAL CAVITY: Gastric distention. Large amount of stool throughout the colon an withi n the rectum. APPENDIX: Normal. PELVIS, BLADDER, AND ABDOMINAL WALL:No abnormal masses. No free fluid. Bladder normal. BONES: Degenerative changes only. OTHER: No other significant finding. IMPRESSION: Left subcapsular renal fluid collection has decreased in size. It measures 3.8 x 4.5 cm compared to 5.2 x 5.9 cm on prior exam. Stable 3.6 x 4.1 cm infrarenal abdominal aortic aneurysm. Moderate constipation. There is a large amount of stool in the rectal vault. COMMENT: Quality ID # [id number]: Final reports with documentation of one or more dose reduction techniques (e.g., Automated exposure control, adjustment of the mA and/or kV according to patient size, use of iterative reconstruction technique) TECHNICAL DOCUMENTATION: JOB ID: [id number] 2010 [employer]- All Rights Reserved Reading location - IP/workstation name: [email or web address]
== END ==
LOC: RAD 10:01
PROVIDERS: ATTEND Family Medicine
DX: I71.4 Abdominal aortic aneurysm, without rupture (principal); K31.89 Other diseases of stomach and duodenum
CPT/HCPCS: 74176